=== PATIENT | female | born 1945 | race Caucasian/White ===

== ENCOUNTER 2016-12-23 10:54 | Inpatient (IN) | payer OTHER ==
[~2016-12-23] VITALS: Ht 157.5 cm; Wt 69.5 kg
[2016-12-23 11:12] VITALS: Ht 157.5 cm; Wt 69.5 kg
[2016-12-23] MEDS ORDERED: morphine 2 MG INJ IV STA (11:15)
[2016-12-23] MEDS ORDERED: SOD CHLORIDE 0.9% 1,000 ML IV STA (11:15)
[2016-12-23] MEDS ORDERED: ONDANSETRON 4 MG INJ IV STA (11:15)
[2016-12-23 12:16] LABS: BASOPHILS % 0.3 % (0.0-2.0); EOSINOPHILS # 0.1 10^3/ul (0.0-0.5); EOSINOPHILS % 0.8 % (0.0-7.0); HEMATOCRIT 26.4 % (37.0-47.0); HEMOGLOBIN 7.9 g/dl (12.0-16.0); LYMPHOCYTES # 1.5 10^3/ul (0.8-2.9); LYMPHOCYTES % 10.6 % (15.0-51.0); MEAN CORPUSCULAR HEMOGLOBIN 23.4 pg (29.0-33.0); MEAN CORPUSCULAR HGB CONC 29.9 g/dl (32.0-37.0); MEAN CORPUSCULAR VOLUME 78.1 fl (82.0-101.0); MEAN PLATELET VOLUME 9.9 fl (7.4-10.4); MONOCYTE # 0.8 10^3/ul (0.3-0.9); MONOCYTES % 5.5 % (0.0-11.0); NEUTROPHILS % 82.4 % (39.0-77.0); PLATELET COUNT 405 10^3/UL (140-415); RED BLOOD COUNT 3.38 10^6/ul (4.20-5.40); RED CELL DISTRIBUTION WIDTH 20.3 % (11.5-14.5); WHITE BLOOD COUNT 14.2 10^3/ul (4.8-10.8)
[2016-12-23 12:19] LABS: ALBUMIN 3.4 g/dl (3.3-4.9); ALBUMIN/GLOBULIN RATIO 0.79; BILIRUBIN,INDIRECT 0.3 mg/dl (0-1.1); BILIRUBIN,TOTAL 0.3 mg/dl (0.2-1.3); CALCIUM 11.6 mg/dl (8.4-10.2); CREATININE 1.67 mg/dl (0.44-1.00); POTASSIUM 5.3 mmol/L (3.5-5.1); TOTAL PROTEIN 7.7 g/dl (6.1-8.1)
[2016-12-23] MEDS ORDERED: SOD CHLORIDE 0.9% 1,000 ML IV ONE (12:30)
[2016-12-23 13:51] LABS: ADD UMIC YES; UR ASCORBIC ACID NEGATIVE (NEGATIVE); UR BACTERIA MODERATE /HPF (NONE SEEN); UR BILIRUBIN (Dip) 1+ mg/dL (NEGATIVE); UR BLOOD (Dip) 2+ mg/dL (NEGATIVE); UR CLARITY CLOUDY (CLEAR); UR COLOR AMBER (YELLOW); UR GLUCOSE (Dip) NEGATIVE (NEGATIVE); UR KETONES (Dip) NEGATIVE (NEGATIVE); UR LEUKOCYTE ESTERASE (Dip) 2+ Leu/ul (NEGATIVE); UR MUCUS MODERATE /HPF (NONE SEEN); UR NITRITE (Dip) NEGATIVE (NEGATIVE); UR RBC 3 /HPF (0-5); UR SPECIFIC GRAVITY (Dip) 1.016 (1.003-1.030); UR TOTAL PROTEIN (Dip) 1+ mg/dl (NEGATIVE); UR UROBILINOGEN (Dip) 2+ mg/dL (NEGATIVE); UR WBC CLUMPS MANY /HPF (NONE SEEN)
[2016-12-23] MEDS ORDERED: morphine 4 MG/ML VIAL IV STA (13:53)
[2016-12-23] MEDS ORDERED: CEFTRIAXONE 1 GM/50 ML (PMX) 50 ML IVPB ONE (14:30)
--- NOTE | 2016-12-23 15:11 | ERA ---
ER Documentation Chief Complaint Date/Time DATE: 12/23/16 TIME: 15:11 Chief Complaint Pt BIB RA for c/o suprapubic pain, uncertain of timeframe for pain. HPI This is a 71-year-old female with a past medical history of 2 previous C- sections, homelessness, otherwise on no medications who is presenting after being found down on the ground outside in pain. The patient is Turkmen- speaking only, and information was limited for paramedics prior to arrival. The patient is redirectable with persistence. She is oriented 3, but she is very distracted secondary to her significant abdominal pain. Her abdominal pain is focused mostly in the suprapubic region. It is sharp and stabbing. The patient states that it has been going on for a long time, but she cannot tell me how long exactly. She states that the pains been getting worse recently , but again does not endorse a specific timeframe. She endorses pain and difficulty with urination in addition to burning. She does not report fever or chills. She does not endorse a headache or vision changes. She does state that she has mouth pain in addition to nausea. She denies chest pain or trouble breathing. She did not endorse issues with bowel movements. ROS All systems reviewed and are negative except as per history of present illness. Medications Home Meds Unable to Obtain Active Prescriptions or Reported Meds Allergies Allergies: Coded Allergies: No Known Allergy (Unverified , 12/23/16) PMhx/Soc Medical and Surgical Hx: pt denies Medical Hx History of Surgery: Yes (C-sections) Hx Alcohol Use: No Hx Substance Use: No Hx Tobacco Use: No Smoking Status: Never smoker FmHx Family History: No diabetes Physical Exam Vitals Vital Signs Date Time Temp Pulse Resp B/P Pulse Ox O2 Delivery O2 Flow Rate FiO2 12/23/16 16:03 102 18 102/68 100 Room Air 12/23/16 14:25 106 18 100 Room Air 12/23/16 11:12 98.8 109 14 98/65 100 Physical Exam Const: And moderate distress secondary to pain, well-developed Head: Atraumatic Eyes: Normal Conjunctiva ENT: Normal External Ears, Nose and Mouth. Dry mucous membranes. Neck: Full range of motion. ~ No meningismus. Resp: Clear to auscultation bilaterally Cardio: Regular rhythm, tachycardia, no murmurs Abd: Soft, non distended. Significant suprapubic tenderness. Normal bowel sounds Skin: No petechiae or rashes Back: No midline or flank tenderness Ext: No cyanosis, or edema Neur: Awake, waxing and waning alertness, normal sensation, normal strength Psych: Anxious, agitated, and significant pain Result Diagram: 12/23/16 1150 12/23/16 1130 Results 24 hrs Laboratory Tests Test 12/23/16 11:30 12/23/16 11:50 12/23/16 12:30 12/23/16 13:02 Sodium Level 133mmol/L Potassium Level 5.3mmol/L Chloride Level 101mmol/L Carbon Dioxide Level 20mmol/L Anion Gap 17 Blood Urea Nitrogen 62mg/dl Creatinine 1.67mg/dl Glucose Level 111mg/dl Calcium Level 11.6mg/dl Total Bilirubin 0.3mg/dl Direct Bilirubin 0.00mg/dl Indirect Bilirubin 0.3mg/dl Aspartate Amino Transf (AST/SGOT) 34IU/L Alanine Aminotransferase (ALT/SGPT) 22IU/L Alkaline Phosphatase 143IU/L Total Protein 7.7g/dl Albumin 3.4g/dl Globulin 4.30g/dl Albumin/Globulin Ratio 0.79 Lipase 62U/L White Blood Count 14.210^3/ul Red Blood Count 3.3810^6/ul Hemoglobin 7.9g/dl Hematocrit 26.4% Mean Corpuscular Volume 78.1fl Mean Corpuscular Hemoglobin 23.4pg Mean Corpuscular Hemoglobin Concent 29.9g/dl Red Cell Distribution Width 20.3% Platelet Count 95112^3/UL Mean Platelet Volume 9.9fl Neutrophils % 82.4% Lymphocytes % 10.6% Monocytes % 5.5% Eosinophils % 0.8% Basophils % 0.3% Nucleated Red Blood Cells % 0.0/100WBC Neutrophils # (Manual) 11.710^3/ul Lymphocytes # 1.510^3/ul Monocytes # 0.810^3/ul Eosinophils # 0.110^3/ul Basophils # 0.010^3/ul Nucleated Red Blood Cells # 0.010^3/ul Lactic Acid Level 1.4mmol/L Ethyl Alcohol Level < 10.0mg/dl Urine Color ABIGAIL Urine Clarity CLOUDY Urine pH 5.0 Urine Specific [place] 1.016 Urine Ketones NEGATIVEmg/dL Urine Nitrite NEGATIVEmg/dL Urine Bilirubin 1+mg/dL Urine Urobilinogen 2+mg/dL Urine Leukocyte Esterase 2+January/ul Urine Microscopic RBC 3/HPF Urine Microscopic WBC 64/HPF Urine Bacteria MODERATE/HPF Urine Mucus MODERATE/HPF Urine Hemoglobin 2+mg/dL Urine Glucose NEGATIVEmg/dL Urine Total Protein 1+mg/dl Test 12/23/16 13:05 12/23/16 14:24 Urine Opiates Screen Positive Urine Barbiturates Negative Urine Amphetamines Screen Negative Urine Benzodiazepines Screen Negative Urine Cocaine Screen Negative Urine Cannabinoids Negative Lactic Acid Level 1.5mmol/L Current Medications Medications (Trade) Dose Ordered Sig/Jamey Route PRN Reason Start Time Stop Time Status Last Admin Dose Admin Sodium Chloride (NS) 1,000 ml @ 1,000 mls/hr Q1H STAT IV 12/23/16 11:15 12/23/16 12:14 DC 12/23/16 11:58 Morphine Sulfate (morphine) 2 mg ONCE STAT IV 12/23/16 11:15 12/23/16 11:17 DC 12/23/16 11:58 Ondansetron HCl 4 mg 4 mg ONCE STAT IV 12/23/16 11:15 12/23/16 11:17 DC 12/23/16 11:58 Sodium Chloride (NS) 1,000 ml @ 1,000 mls/hr Q1H ONCE IV 12/23/16 12:30 12/23/16 13:29 DC 12/23/16 12:34 Morphine Sulfate 4 mg 4 mg ONCE STAT IV 12/23/16 13:53 12/23/16 13:56 DC 12/23/16 14:18 Ceftriaxone Sodium (Rocephin) 50 ml @ 100 mls/hr ONCE ONCE IVPB 12/23/16 14:30 12/23/16 14:59 DC 12/23/16 14:19 Ondansetron HCl (Zofran Inj) 4 mg ER BRIDGE PRN IV NAUSEA AND/OR VOMITING 12/23/16 16:00 12/24/16 15:59 Acetaminophen (Tylenol Tab) 650 mg ER BRIDGE PRN PO MILD PAIN/FEVER 12/23/16 16:00 12/24/16 15:59 Procedures/MDM The patient presents with significant suprapubic pain. She does have clinical symptoms that could be consistent with a UTI. An abdominal workup will be performed. The patient was mildly hypotensive and tachycardic. There was consideration for sepsis as well. The patient's EKG showed sinus tachycardia. Intervals were unremarkable. There is no ST or T-wave changes concerning for STEMI. Patient's blood work was obtained and reviewed. The patient does have a leukocytosis at 14.2 with a left shift. She is not febrile, but I am concerned of a systemic infection. The patient is anemic with a hemoglobin of 7.9. This needs to be monitored closely, but does not require emergent transfusion. The patient's CMP indicates mild hyponatremia and hyperkalemia that does not need to be emergently treated. The patient does have an elevated BUN and creatinine. I do not have a baseline, so may indicate an TRISTEN. The patient's urinalysis demonstrates florid UTI. I am concerned about UTI sepsis at this point. That said, there are no signs of endorgan damage at this time. The patient's lactic acid is less than 2, at 1.4. Her creatinine is not over 2. Her platelet count is normal under 100. Her blood pressure was low, but her systolic was still above 90. I will treat with IV Rocephin at this time for UTI. She was tachycardic and mildly hypotensive. This improved with 2 L of IV fluid, which correlates with 30 mL/kg. I will send off blood cultures to evaluate for a systemic infection. A urine culture will also be sent off. Given that the difficulty of the patient's history and physical given her occasional inattentiveness, a CT of the head was performed that demonstrated the following: IMPRESSION: 1. No intracranial hemorrhage or acute intracranial abnormality. 2. Atherosclerotic calcification of the internal carotid and vertebral arteries. Electronically viewed and signed by Physician Moira on 12/23/2016 15:43 It also seemed like the patient's pain was out of proportion to her exam. A CT of the abdomen and pelvis was also obtained that demonstrated the following: IMPRESSION: 1. 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 Recommend clinical correlation for cervical carcinoma. 2. Large periaortic retroperitoneal lymphadenopathy, likely metastatic. Moderate metastatic lymphadenopathy along the mesenteric root and peripancreatic and arleen hepatis lymphadenopathy. There is also retrocrural metastatic lymphadenopathy. Moderate right iliac and mild left iliac lymphadenopathy, metastatic. 3. 2.5 cm x 2 cm right adrenal mass. 3 cm x 2.2 cm left adrenal mass. 4. 4.5 cm low-density mass in the right inferior liver, likely metastatic. 5. 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 Electronically viewed and signed by .Maik Addison MD, MD on 12/23/2016 16:02 She will also need to be evaluated by oncology likely given this concerning metastatic process. Gynecology will also be considered as it appears that her cancer may be gynecologic in nature. At this time, the patient will be admitted to the panel service for further evaluation and management. Dr. See accepted the patient at 3:14 PM on December 23, 2016. Departure Diagnosis: Primary Impression: UTI (urinary tract infection) Qualified Code: N39.0 - Urinary tract infection with hematuria, site unspecified Additional Impressions: SIRS (systemic inflammatory response syndrome) Metastatic disease Condition: Serious ERIS PANCHAL MD Dec 23, 2016 15:11
[2016-12-23 15:33] LABS: BARBITURATES Negative (NEGATIVE); BENZODIAZEPINES Negative (NEGATIVE); CANNABINOIDS Negative (NEGATIVE); COCAINE Negative (NEGATIVE); OPIATES Positive (NEGATIVE)
--- NOTE | 2016-12-23 15:44 | RADRPT ---
PROCEDURE: CT Brain without contrast. CLINICAL INDICATION: AMS TECHNIQUE: A multiplanar CT of the brain was performed on a CT scanner utilizing axial imaging fro m the skull base through the vertex without IV contrast. The CTDIvol is 44.11 mGy and the DLP is 72 0.23 mGycm. One or more of the following dose reduction techniques were utilized: Automated exposu re control, adjustment of the mA and/or kV according to patient size, use of iterative reconstructio n technique. COMPARISON: None FINDINGS: No evidence of intracranial hemorrhage or abnormal extra-axial fluid collection. The brain parenchyma is normal attenuation morphology with preservation of reis white differentiatio n and age appropriate size of the ventricles and subarachnoid spaces. Atherosclerotic calcification of the internal carotid and vertebral arteries. The basal cisterns, posterior fossa contents, brainstem, craniocervical junction, orbits, pituitary axis, paranasal sinuses, mastoid air cells, and calvarium are unremarkable. IMPRESSION: 1. No intracranial hemorrhage or acute intracranial abnormality. 2. Atherosclerotic calcification of the internal carotid and vertebral arteries. RPTAT:AAJJ Physician Moira Date Time Electronically viewed and signed by Physician Moira on 12/23/2016 15:43 TYLER/
[2016-12-23] MEDS ORDERED: ONDANSETRON 4 MG INJ IV PRN (16:00)
[2016-12-23] MEDS ORDERED: ACETAMINOPHEN 325 MG TAB PO PRN (16:00)
--- NOTE | 2016-12-23 16:02 | RADRPT ---
PROCEDURE: CT abdomen and pelvis without IV contrast. CLINICAL INDICATION: Abdomen pain. TECHNIQUE: CT scan of the abdomen and pelvis was performed on a [address] scanner. The patient is scanned without IV contrast. Coronal and sagittal reformatted images were obtained from the axia l source images. Images were reviewed on a high-resolution PACS workstation. Total radiation dose: Total CTDIvol: 8.3 mGy. Total DLP: 455 mGy-cm. One or more of the following d ose reduction techniques were used: automated exposure control, adjustment of the mA and/or kV accor ding to patient size, or use of iterative reconstruction technique. COMPARISON: None available. FINDINGS: CT abdomen: The lung bases are clear. The heart is not enlarged without pericardial thickening or effusion. There is 4.5 cm low-density mass in the right inferior liver.. The spleen is normal in size. The s tomach is partially collapsed but is grossly unremarkable. The pancreas as visualized is normal. The gallbladder is normal and there is no evidence of biliary dilatation. There is 2.5 cm x 2 cm right adrenal mass. There is 3 cm x 2.2 cm left adrenal mass. The kidneys a re symmetrically normal bilaterally. No renal obstructive uropathy or mass lesion is seen.. The aorta is normal in caliber. There is large periaortic retroperitoneal lymphadenopathy, likely m etastatic. There is moderate metastatic lymphadenopathy along the mesenteric root and peripancreatic and arleen hepatis lymphadenopathy. There is also retrocrural metastatic lymphadenopathy. The bowel loops are unremarkable. CT pelvis: There is large mass of the uterine cervix with necrosis. There is moderate right iliac lymphadenopa thy. There is mild left iliac lymphadenopathy. The small bowel loops situated within the pelvis are unremarkable. No acute inflammation seen. The urinary bladder is normal. The surrounding osseous structures are unremarkable. There is osteolytic metastatic lesion involvin g L2 and L1 vertebral bodies. IMPRESSION: 1. 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 Recommend clinical correlation for cervical carc inoma. 2. Large periaortic retroperitoneal lymphadenopathy, likely metastatic. Moderate metastatic lymphad enopathy along the mesenteric root and peripancreatic and arleen hepatis lymphadenopathy. There is al so retrocrural metastatic lymphadenopathy. Moderate right iliac and mild left iliac lymphadenopath y, metastatic. 3. 2.5 cm x 2 cm right adrenal mass. 3 cm x 2.2 cm left adrenal mass. 4. 4.5 cm low-density mass in the right inferior liver, likely metastatic. 5. 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 RPTAT: GG .Maik Addison MD, Date Time Electronically viewed and signed by .Maik Addison MD, on 12/23/2016 16:02 .Y/
[2016-12-23] MEDS: SOD CHLORIDE 0.9% 1,000 ML IV SCH ×2 (17:09→21:00)
[2016-12-23] MEDS ORDERED: NACL 0.9% 3 ML SYG IV SCH (17:30)
[2016-12-23] MEDS ORDERED: ACETAMINOPHEN 650 MG SUPP PR PRN (17:30)
--- NOTE | 2016-12-23 17:43 | HP ---
Date/Time of Note Date/Time of Note DATE: 12/23/16 TIME: 17:39 Assessment/Plan VTE Prophylaxis VTE Prophylaxis Intervention: SCD's Assessment/Plan Chief Complaint/Hosp Course Impression and plan 1. Suspect new onset cervical cancer with metastasis to lymph, adrenal, and liver. Will get gynecological oncologist as well as medical oncologist to follow. Provide with analgesics as needed. Follow-up with recommendations. 2. Sepsis UTI. Start antibiotics for now. Will get ID consult to follow as well. Follow-up on urine cultures. 3. Acute renal insufficiency. Likely dehydration. Will start IV fluids. Will also get front office administrator consultation. 5. Hyperkalemia. Monitor level. Provide with Kayexalate as needed. 6. Anemia. Likely of chronic disease. Follow-up on iron studies. Transfuse for hemoglobin less than 7. 7. Mild hyponatremia. Start IV fluids. Cosmetician Apprentice to follow. Admission process time >40 minutes Discussed plan of care with Dr. See Problems: HPI/ROS Admit Date/Time Admit Date/Time Hx of Present Illness This is a 71-year-old female who is a poor historian of her medical history came [facility] due to reports of pelvic pain as well as back pain. Patient at this time is unable to give us an accurate story of how long she has been having pain however when she was brought to [facility] she was noted to have pain on palpation of abdominal area more notably on the lower area towards her pelvis. She did have laboratory work drawn that did show her to have a white count of 14.2 hemoglobin of 7.9 hematocrit 26.4 and platelets of 405. On her chemistry she was seen at have sodium 133 potassium of five-point be some acute renal insufficiency with BUN of 62 and creatinine of 1.67. She is noted to be homeless as well. Urinalysis also showed her to have positive leukocyte esterase test suggestive of UTI. She did have abdominal imaging that did show her to have large mass in the uterine cervix with necrosis suspect for cervical carcinoma. Additionally there was seen large periaortic retroperitoneal lymphadenopathy, likely metastatic. There is also seen moderate metastatic lymphadenopathy along the mesenteric root and peripancreatic and arleen hepatis lymphadenopathy. There is also retrocrural metastatic lymphadenopathy and moderate right iliac and mild left iliac lymphadenopathy metastatic. Additionally there is also seen a 2.5 cm x 2.0 cm right adrenal mass and a 3 cm x 2.2 cm adrenal mass on the left side. 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 Patient has been complaining of a merely low back pain and considering her findings it is likely metastatic. She denies any pelvic pain but that she does guard on palpation. She remains afebrile at present. She is also reported to be homeless as well. We will evaluate her for the aformentiond issues. ROS 12 point review of systems obtained and entirely negative except that mentioned in the history of present illness PMH/Family/Social Past Medical History Medical/surgical history 1. Unknown at this time. Patient is a poor historian Social History Alcohol Use: none Smoking Status: Never smoker Drug Use: none Exam/Review of Systems Vital Signs Vitals Vital Signs Date Time Temp Pulse Resp B/P Pulse Ox O2 Delivery O2 Flow Rate FiO2 12/23/16 16:03 102 18 102/68 100 Room Air 12/23/16 11:12 98.8 Exam Constitutional: alert Psych: anxiety Head: normocephalic Neck: supple Respiratory: clear to auscultation Cardiovascular: other (Regular rate to tachycardic) Gastrointestinal: soft, tender Musculoskeletal: swelling (Minimally bilateral lower extremities) Neurological: nl mental status, nl speech Labs Result Diagram: 12/23/16 1150 12/23/16 1130 Medications Medications Current Medications Sodium Chloride (NS) 1,000 ml @ 80 mls/hr [id number] IV ; Start 12/23/16 at 17:09 Ondansetron HCl (Zofran Inj) 4 mg Q6H PRN IV NAUSEA AND/OR VOMITING; Start 02/28 at 17:30 Acetaminophen (Tylenol Tab) 650 mg Q6H PRN PO PAIN LEVEL 1-3 OR FEVER; Start at 17:30 Acetaminophen (Tylenol Supp) 650 mg Q6H PRN [place] PAIN LEVEL 1-3 OR FEVER; Start 12/23/16 at 17:30 Acetaminophen/ Hydrocodone Bitart ([place] (5/325)) 1 tab Q6H PRN PO MODERATE PAIN LEVEL 4-6; Start 12/23/16 at 17:30 Morphine Sulfate 2 mg 2 mg Q4H PRN IV SEVERE PAIN LEVEL 7-10; Start 12/23/16 at 17:30 Ceftriaxone Sodium (Rocephin) 50 ml @ 100 mls/hr DAILY IVPB ; Start 12/24/16 at 09:00 RACIEL CAIN Dec 23, 2016 17:43
--- NOTE | 2016-12-23 18:56 | CONS ---
Date/Time of Note Date/Time of Note DATE: 12/23/16 TIME: 18:45 Assessment/Plan Assessment/Plan Chief Complaint/Hosp Course Large mass of the uterine cervix with necrosis. R/O cervical carcinoma. Large periaortic retroperitoneal lymphadenopathy, likely metastatic. Moderate metastatic lymphadenopathy along the mesenteric root and peripancreatic and arleen hepatis lymphadenopathy. There is also retrocrural metastatic lymphadenopathy. Moderate right iliac and mild left iliac lymphadenopathy, metastatic. 2.5 cm x 2 cm right adrenal mass. 3 cm x 2.2 cm left adrenal mass. 4.5 cm low-density mass in the right inferior liver, likely metastatic. 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 CHECK CA 125 BX MASS Anemia. MICROCYTIC WITH INCREASED RDW PROCEED WITH ANEMIA W-UP CHECK iron studies. Transfuse for hemoglobin less than 7. Sepsis UTI. Acute renal insufficiency. Hyperkalemia. Mild hyponatremia. Problems: Consultation Date/Type/Reason Admit Date/Time Date of Consultation: Dec 23, 2016 Type of Consultation: HEMEONC Reason for Consultation OVARIAN MASS Referring Provider: RACIEL CAIN Hx of Present Illness This is a 71-year-old female with a past medical history of 2 previous C- sections, homelessness, otherwise on no medications who is presenting after being found down on the ground outside in pain. The patient is Italian-speaking only, and information was limited for paramedics prior to arrival. She is oriented 3, but she is very distracted secondary to her significant abdominal pain. Her abdominal pain is focused mostly in the suprapubic region. It is sharp and stabbing. The patient states that it has been going on for a long time, but she cannot tell me how long exactly. She states that the pains been getting worse recently, but again does not endorse a specific timeframe. She endorses pain and difficulty with urination in addition to burning. She does not report fever or chills. She does not endorse a headache or vision changes. She does state that she has mouth pain in addition to nausea. She denies chest pain or trouble breathing. She did not endorse issues with bowel movements. She did have abdominal imaging that did show her to have large mass in the uterine cervix with necrosis suspect for cervical carcinoma. Additionally there was seen large periaortic retroperitoneal lymphadenopathy, likely metastatic. There is also seen moderate metastatic lymphadenopathy along the mesenteric root and peripancreatic and arleen hepatis lymphadenopathy. There is also retrocrural metastatic lymphadenopathy and moderate right iliac and mild left iliac lymphadenopathy metastatic. Additionally there is also seen a 2.5 cm x 2.0 cm right adrenal mass and a 3 cm x 2.2 cm adrenal mass on the left side. 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 Patient has been complaining of a merely low back pain and considering her findings it is likely metastatic. I WS ASKED TO PROVIDE HEMEONC CONSULT ROS All systems reviewed and are negative except as per history of present illness. Medications Home Meds Unable to Obtain Active Prescriptions or Reported Meds Allergies Allergies: Coded Allergies: No Known Allergy (Unverified , 12/23/16) PMhx/Soc Medical and Surgical Hx: pt denies Medical Hx History of Surgery: Yes (C-sections) Hx Alcohol Use: No Hx Substance Use: No Hx Tobacco Use: No Smoking Status: Never smoker FmHx Family History: No diabetes Psychological: anxiety Social History Alcohol Use: none Smoking Status: Never smoker Drug Use: none Exam/Review of Systems Vital Signs Vitals Vital Signs Date Time Temp Pulse Resp B/P Pulse Ox O2 Delivery O2 Flow Rate FiO2 12/23/16 18:01 95 18 98/68 100 Room Air 12/23/16 11:12 98.8 Exam Constitutional: alert Psych: anxiety Head: normocephalic Neck: supple Respiratory: clear to auscultation Cardiovascular: other (Regular rate to tachycardic) Gastrointestinal: soft, tender Musculoskeletal: swelling (Minimally bilateral lower extremities) Neurological: nl mental status, nl speech Results Result Diagram: 12/23/16 1150 12/23/16 1130 Results 24 hrs Laboratory Tests Test 12/23/16 11:30 12/23/16 11:50 12/23/16 12:30 12/23/16 13:02 Sodium Level 133 L Potassium Level 5.3 H Chloride Level 101 Carbon Dioxide Level 20 L Anion Gap 17 H Blood Urea Nitrogen 62 H Creatinine 1.67 H Glucose Level 111 Calcium Level 11.6 H Total Bilirubin 0.3 Direct Bilirubin 0.00 Indirect Bilirubin 0.3 Aspartate Amino Transf (AST/SGOT) 34 Alanine Aminotransferase (ALT/SGPT) 22 Alkaline Phosphatase 143 H Total Protein 7.7 Albumin 3.4 Globulin 4.30 H Albumin/Globulin Ratio 0.79 Lipase 62 White Blood Count 14.2 H Red Blood Count 3.38 L Hemoglobin 7.9 L Hematocrit 26.4 L Mean Corpuscular Volume 78.1 L Mean Corpuscular Hemoglobin 23.4 L Mean Corpuscular Hemoglobin Concent 29.9 L Red Cell Distribution Width 20.3 H Platelet Count 405 Mean Platelet Volume 9.9 Neutrophils % 82.4 H Lymphocytes % 10.6 L Monocytes % 5.5 Eosinophils % 0.8 Basophils % 0.3 Nucleated Red Blood Cells % 0.0 Neutrophils # (Manual) 11.7 H Lymphocytes # 1.5 Monocytes # 0.8 Eosinophils # 0.1 Basophils # 0.0 Nucleated Red Blood Cells # 0.0 Lactic Acid Level 1.4 Ethyl Alcohol Level < 10.0 Urine Color ABIGAIL Urine Clarity CLOUDY A Urine pH 5.0 Urine Specific [place] 1.016 Urine Ketones NEGATIVE Urine Nitrite NEGATIVE Urine Bilirubin 1+ H Urine Urobilinogen 2+ H Urine Leukocyte Esterase 2+ H Urine Microscopic RBC 3 Urine Microscopic WBC 64 H Urine Bacteria MODERATE Urine Mucus MODERATE Urine Hemoglobin 2+ H Urine Glucose NEGATIVE Urine Total Protein 1+ H Test 12/23/16 13:05 12/23/16 14:24 12/23/16 16:30 Urine Opiates Screen Positive Urine Barbiturates Negative Urine Amphetamines Screen Negative Urine Benzodiazepines Screen Negative Urine Cocaine Screen Negative Urine Cannabinoids Negative Lactic Acid Level 1.5 1.4 Medications Medications Current Medications Sodium Chloride (NS) 1,000 ml @ 80 mls/hr [id number] IV ; Start 12/23/16 at 17:09 Ondansetron HCl (Zofran Inj) 4 mg Q6H PRN IV NAUSEA AND/OR VOMITING; Start 02/28 at 17:30 Acetaminophen (Tylenol Tab) 650 mg Q6H PRN PO PAIN LEVEL 1-3 OR FEVER; Start at 17:30 Acetaminophen (Tylenol Supp) 650 mg Q6H PRN IN PAIN LEVEL 1-3 OR FEVER; Start 12/23/16 at 17:30 Acetaminophen/ Hydrocodone Bitart ([place] (5/325)) 1 tab Q6H PRN PO MODERATE PAIN LEVEL 4-6; Start 12/23/16 at 17:30 Morphine Sulfate 2 mg 2 mg Q4H PRN IV SEVERE PAIN LEVEL 7-10; Start 12/23/16 at 17:30 Ceftriaxone Sodium (Rocephin) 50 ml @ 100 mls/hr DAILY IVPB ; Start 12/24/16 at 09:00 Procedures Procedures [place] [address] Radiology Main Line: [phone] DIAGNOSTIC IMAGING REPORT Patient: LISA SOL : 1945 Age: 71 Sex: F MR #: [id number] DOS: 12/23/16 1353 Ordering MD: ERIS PANCHAL MD Location: E/R Room/Bed: PROCEDURE: CT abdomen and pelvis without IV contrast. CLINICAL INDICATION: Abdomen pain. TECHNIQUE: CT scan of the abdomen and pelvis was performed on a [address] scanner. The patient is scanned without IV contrast. Coronal and sagittal reformatted images were obtained from the axial source images. Images were reviewed on a high-resolution PACS workstation. Total radiation dose: Total CTDIvol: 8.3 mGy. Total DLP: 455 mGy-cm. One or more of the following dose reduction techniques were used: automated exposure control, adjustment of the mA and/or kV according to patient size, or use of iterative reconstruction technique. COMPARISON: None available. FINDINGS: CT abdomen: The lung bases are clear. The heart is not enlarged without pericardial thickening or effusion. There is 4.5 cm low-density mass in the right inferior liver.. The spleen is normal in size. The stomach is partially collapsed but is grossly unremarkable. The pancreas as visualized is normal. The gallbladder is normal and there is no evidence of biliary dilatation. There is 2.5 cm x 2 cm right adrenal mass. There is 3 cm x 2.2 cm left adrenal mass. The kidneys are symmetrically normal bilaterally. No renal obstructive uropathy or mass lesion is seen.. The aorta is normal in caliber. There is large periaortic retroperitoneal lymphadenopathy, likely metastatic. There is moderate metastatic lymphadenopathy along the mesenteric root and peripancreatic and arleen hepatis lymphadenopathy. There is also retrocrural metastatic lymphadenopathy. The bowel loops are unremarkable. CT pelvis: There is large mass of the uterine cervix with necrosis. There is moderate right iliac lymphadenopathy. There is mild left iliac lymphadenopathy. The small bowel loops situated within the pelvis are unremarkable. No acute inflammation seen. The urinary bladder is normal. The surrounding osseous structures are unremarkable. There is osteolytic metastatic lesion involving L2 and L1 vertebral bodies. IMPRESSION: 1. 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 Recommend clinical correlation for cervical carcinoma. 2. Large periaortic retroperitoneal lymphadenopathy, likely metastatic. Moderate metastatic lymphadenopathy along the mesenteric root and peripancreatic and arleen hepatis lymphadenopathy. There is also retrocrural metastatic lymphadenopathy. Moderate right iliac and mild left iliac lymphadenopathy, metastatic. 3. 2.5 cm x 2 cm right adrenal mass. 3 cm x 2.2 cm left adrenal mass. 4. 4.5 cm low-density mass in the right inferior liver, likely metastatic. 5. 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 RPTAT: GG .Maik Addison MD, Date Time Electronically viewed and signed by .Maik Addison MD, MD on 12/23/2016 16:02 .Y/ CC: ERIS PANCHAL MD [place] [address] Radiology Main Line: [phone] DIAGNOSTIC IMAGING REPORT Patient: LISA SOL : 1945 Age: 71 Sex: F MR #: [id number] DOS: 12/23/16 [facility]3 Ordering MD: ERIS PANCHAL MD Location: E/R Room/Bed: PROCEDURE: CT Brain without contrast. CLINICAL INDICATION: AMS TECHNIQUE: A multiplanar CT of the brain was performed on a CT scanner utilizing axial imaging from the skull base through the vertex without IV contrast. The CTDIvol is 44.11 mGy and the DLP is 720.23 mGycm. One or more of the following dose reduction techniques were utilized: Automated exposure control, adjustment of the mA and/or kV according to patient size, use of iterative reconstruction technique. COMPARISON: None FINDINGS: No evidence of intracranial hemorrhage or abnormal extra-axial fluid collection. The brain parenchyma is normal attenuation morphology with preservation of reis white differentiation and age appropriate size of the ventricles and subarachnoid spaces. Atherosclerotic calcification of the internal carotid and vertebral arteries. The basal cisterns, posterior fossa contents, brainstem, craniocervical junction , orbits, pituitary axis, paranasal sinuses, mastoid air cells, and calvarium are unremarkable. IMPRESSION: 1. No intracranial hemorrhage or acute intracranial abnormality. 2. Atherosclerotic calcification of the internal carotid and vertebral arteries. RPTAT:AAJJ Physician Moira Date Time Electronically viewed and signed by Physician Moira on 12/23/2016 15:43 TYLER/ CC: ERIS PANCHAL MD, VERA M MD Dec 23, 2016 18:56
[2016-12-23 19:22] VITALS: PULSE 95
[2016-12-23 19:41] VITALS: BP 104/58; RESP 19
[2016-12-23] MEDS ORDERED: NA POLYST SULFON 15 GM/60 ML BTL PO ONE (20:00)
[2016-12-23 20:02] VITALS: PULSE 95
[2016-12-23 20:24] LABS: RETICULOCYTE COUNT % 1.7 % (0.5-1.5)
[2016-12-23 20:32] LABS: CALCIUM 11.5 mg/dl (8.4-10.2); CREATININE 1.5 mg/dl (0.44-1.00); POTASSIUM 4.1 mmol/L (3.5-5.1)
[2016-12-23 20:34] LABS: URIC ACID 15.9 mg/dl (3.1-7.9)
[2016-12-23 20:35] LABS: IRON 29 ug/dl (35-150)
[2016-12-23 20:36] LABS: AADO2 Arterial 21.1 mmHg (7.0-24.0); Arterial Base Excess -3.6 mmol/L (-3.0-3); Arterial COHb 0.5 % (0.0-3.0); Arterial Fraction of Oxyhgb 95.5 % (93.0-99.0); Arterial HCO3 20.9 mmol/L (22.0-26.0); Arterial MetHb 0.1 % (0.0-1.5); Arterial Total Hemglobin 8.7 g/dl (12.0-18.0); MODE ROOM AIR
[2016-12-23 20:44] LABS: TOTAL IRON BINDING CAPACITY 229 ug/dl (241-421)
[2016-12-23 20:45] LABS: PROTEIN/CREAT RATIO 0.16 RATIO
[2016-12-23 20:56] LABS: MAGNESIUM 2.3 mg/dl (1.7-2.5); PHOSPHORUS 3.9 mg/dl (2.5-4.9)
[2016-12-23 21:06] LABS: THYROID STIMULATING HORMONE 3.58 MIU/L (0.465-4.680)
[2016-12-23] MEDS: morphine 2 MG INJ IV PRN (21:15)
[2016-12-23 22:05] LABS: CARCINOEMBRYONIC ANTIGEN 14.7 ng/ml (0.0-5.0)
[2016-12-23 23:30] VITALS: BP 108/58; RESP 19
[2016-12-24] VITALS (11 sets, daily range): BP systolic 94–111; BP diastolic 51–65; PULSE 95–120; RESP 18–19
--- NOTE | 2016-12-24 04:05 | CONS ---
DATE OF ADMISSION: 12/23/2016 DATE OF CONSULTATION: 12/23/2016 Thank you very much for allowing me to evaluate this 71-year-old female, evaluated at [facility] Emergency Room with a chief complaint of lower abdominal pain and back pain of approximately 1 month's duration and evidence of renal insufficiency. HISTORICAL EVENTS: As best as I can glean, the patient is a poor historian. She states she has no ongoing medical problems, including the absence of diabetes, hypertension, or heart disease. She states she has had low back pain and lower abdominal pain, perhaps 1 month's duration. She states she has not lost weight. She denies any diarrhea or vomiting. She denies cough, wheezing, shortness of breath or chest pain. MEDS ON ADMISSION: None. PAST MEDICAL HISTORY: As noted above. FAMILY HISTORY: Hopefully will be obtained from a family member later. PHYSICAL EXAM: VITAL SIGNS: BP 102/68, pulse 100, respirations 18, and O2 sat 100 percent on room air. NECK: No JVD, adenopathy, or thyroid enlargement. BREASTS: No masses. LUNGS: Clear. HEART: Rhythm regular, 1/6 systolic murmur. No third or fourth sound. ABDOMEN: Slight distention. Tenderness involving the suprapubic and left and right lower quadrant. No palpable mass. Liver and spleen were not enlarged. EXTREMITIES: No edema. No definite calf tenderness. NEUROLOGIC: No lateralizing motor weakness, and mental status confused with respect to recent events. LABORATORY AND DIAGNOSTIC STUDIES: Sodium 133, potassium 5.3, chloride 101, CO2 20, BUN 62, creatinine 1.67, calcium 11.6, hematocrit 26.4, white count 14,200, platelet count normal. Urinalysis revealed 1+ blood, specific gravity 1.016. Many white cells were present, as were bacteria. IMAGING STUDIES: Included a CT of the brain that was unrevealing and, more importantly, CT of the abdomen that revealed a large mass in the uterine cervix with necrosis with retroperitoneal adenopathy, adrenal masses bilaterally, and a low-density mass within the liver thought metastatic, osteolytic metastatic lesions L2 through L1. IMPRESSION: 1. I suspect she has underlying acute renal insufficiency secondary to volume contraction, as well as hypercalcemia. The CT scan does not reveal upper tract obstruction. 2. Anemia secondary to malignancy and likely bone marrow involvement. 3. Hyponatremia, mild, secondary to renal insufficiency and continued water intake. 4. Mild hyperkalemia, probably secondary to tissue catabolism. 5. Hypercalcemia, secondary to metastatic disease. PLAN: Agree with your hydration with normal saline. Urinary sodium will be obtained to sense whether there is an ongoing severe prerenal component along with a blood gas to assess acid- base status given CO2 of 22. We will follow with you. Dictated By: Allen West MD /rambo/michelle /Document#: [id number]
[2016-12-24] MEDS: SOD CHLORIDE 0.9% 1,000 ML IV SCH (05:39)
[2016-12-24 06:54] LABS: ABNORMAL IP MESSAGE 1; BASOPHILS % 0.2 % (0.0-2.0); EOSINOPHILS # 0.1 10^3/ul (0.0-0.5); EOSINOPHILS % 0.9 % (0.0-7.0); HEMATOCRIT 28.4 % (37.0-47.0); HEMOGLOBIN 8.1 g/dl (12.0-16.0); LYMPHOCYTES # 1.3 10^3/ul (0.8-2.9); MEAN CORPUSCULAR HEMOGLOBIN 22.7 pg (29.0-33.0); MEAN CORPUSCULAR HGB CONC 28.5 g/dl (32.0-37.0); MEAN CORPUSCULAR VOLUME 79.6 fl (82.0-101.0); MONOCYTE # 0.9 10^3/ul (0.3-0.9); MONOCYTES % 5.5 % (0.0-11.0); NEUTROPHILS % 84.9 % (39.0-77.0); PLATELET COUNT 384 10^3/UL (140-415); RED BLOOD COUNT 3.57 10^6/ul (4.20-5.40); RED CELL DISTRIBUTION WIDTH 20.7 % (11.5-14.5); WHITE BLOOD COUNT 15.6 10^3/ul (4.8-10.8)
[2016-12-24 06:56] LABS: POSITIVE DIFF @See below
[2016-12-24 07:20] LABS: ALBUMIN 2.8 g/dl (3.3-4.9); ALBUMIN/GLOBULIN RATIO 0.7; BILIRUBIN,INDIRECT 0.2 mg/dl (0-1.1); BILIRUBIN,TOTAL 0.2 mg/dl (0.2-1.3); CALCIUM 11.2 mg/dl (8.4-10.2); CHOL/HDL RATIO 5.8 RATIO; CREATININE 1.26 mg/dl (0.44-1.00); MAGNESIUM 2.2 mg/dl (1.7-2.5); POTASSIUM 4.6 mmol/L (3.5-5.1); TOTAL PROTEIN 6.8 g/dl (6.1-8.1)
[2016-12-24 07:22] LABS: CALCIUM 11.2 mg/dl (8.4-10.2); CREATININE 1.33 mg/dl (0.44-1.00); POTASSIUM 4.3 mmol/L (3.5-5.1)
[2016-12-24 07:35] LABS: T3 UPTAKE 40.6 % (23.5-40.5)
[2016-12-24 07:49] LABS: THYROID STIMULATING HORMONE 2.28 MIU/L (0.465-4.680)
--- NOTE | 2016-12-24 08:44 | CONS ---
Date/Time of Note Date/Time of Note DATE: 12/24/16 TIME: 08:41 Assessment/Plan Assessment/Plan Additional Assessment/Plan 1. Renal fx has improved with hydration 2. Hypercalcemia unchanged, will give pamidronate 3. Heme eval noted, ? bx 4. Abnl extrem exam, NIVVS ordered. Consultation Date/Type/Reason Admit Date/Time Dec 23, 2016 at 19:24 Initial Consult Date 12/23/16 Type of Consultation: [facility] Referring Provider: RACIEL CAIN Detailed Summary Cardiovascular: No chest pain Gastrointestinal: other (lower abd pain) Genitourinary: other (malik in place) Exam/Review of Systems Vital Signs Vitals Vital Signs Date Time Temp Pulse Resp B/P Pulse Ox O2 Delivery O2 Flow Rate FiO2 12/24/16 04:02 95 12/24/16 03:48 98.1 19 111/60 97 12/23/16 18:45 Room Air Intake and Output 12/23/16 12/23/16 12/24/16 15:00 23:00 07:00 Intake Total 1260 ml Output Total 450 ml Balance 810 ml Exam Neck: No jvd Respiratory: clear to auscultation Cardiovascular: regular rate and rhythm Gastrointestinal: distended (mild, sl tender lower quad bilat) Extremities: edema (? tend left calf which is firm) Results Result Diagram: 12/24/16 0621 12/24/16 0624 Results 24 hrs Laboratory Tests Test 12/23/16 11:30 12/23/16 11:50 12/23/16 12:30 12/23/16 13:02 Sodium Level 133 L Potassium Level 5.3 H Chloride Level 101 Carbon Dioxide Level 20 L Anion Gap 17 H Blood Urea Nitrogen 62 H Creatinine 1.67 H Glucose Level 111 Calcium Level 11.6 H Total Bilirubin 0.3 Direct Bilirubin 0.00 Indirect Bilirubin 0.3 Aspartate Amino Transf (AST/SGOT) 34 Alanine Aminotransferase (ALT/SGPT) 22 Alkaline Phosphatase 143 H Total Protein 7.7 Albumin 3.4 Globulin 4.30 H Albumin/Globulin Ratio 0.79 Lipase 62 White Blood Count 14.2 H Red Blood Count 3.38 L Hemoglobin 7.9 L Hematocrit 26.4 L Mean Corpuscular Volume 78.1 L Mean Corpuscular Hemoglobin 23.4 L Mean Corpuscular Hemoglobin Concent 29.9 L Red Cell Distribution Width 20.3 H Platelet Count 405 Mean Platelet Volume 9.9 Neutrophils % 82.4 H Lymphocytes % 10.6 L Monocytes % 5.5 Eosinophils % 0.8 Basophils % 0.3 Nucleated Red Blood Cells % 0.0 Neutrophils # (Manual) 11.7 H Lymphocytes # 1.5 Monocytes # 0.8 Eosinophils # 0.1 Basophils # 0.0 Nucleated Red Blood Cells # 0.0 Lactic Acid Level 1.4 Ethyl Alcohol Level < 10.0 Urine Color ABIGAIL Urine Clarity CLOUDY A Urine pH 5.0 Urine Specific [place] 1.016 Urine Ketones NEGATIVE Urine Nitrite NEGATIVE Urine Bilirubin 1+ H Urine Urobilinogen 2+ H Urine Leukocyte Esterase 2+ H Urine Microscopic RBC 3 Urine Microscopic WBC 64 H Urine Bacteria MODERATE Urine Mucus MODERATE Urine Hemoglobin 2+ H Urine Random Creatinine 227.00 Urine Random Sodium 18 L Urine Protein/Creatinine Ratio 0.16 Urine Glucose NEGATIVE Urine Total Protein 37.0 H Test 12/23/16 13:05 12/23/16 14:24 12/23/16 16:30 12/23/16 18:00 Urine Opiates Screen Positive Urine Barbiturates Negative Urine Amphetamines Screen Negative Urine Benzodiazepines Screen Negative Urine Cocaine Screen Negative Urine Cannabinoids Negative Lactic Acid Level 1.5 1.4 Blood Gas Specimen Source Blood arterial Arterial Blood Date Drawn 12/23/2016 8:30:46 PM Arterial Blood pH (Temp corrected) 7.391 Arterial Blood pCO2 (Temp correct) 35.2 Arterial Blood pO2 (Temp corrected) 86.5 Arterial Blood HCO3 20.9 L Arterial Blood Base Excess -3.6 L Arterial Blood Oxygen Saturation 96.1 Mika Test N/A Arterial Blood Gas Puncture Site Right Brachial Arterial Blood Carboxyhemoglobin 0.5 Arterial Blood Methemoglobin 0.1 Blood Gas A-a O2 Differential 21.1 Oxyhemoglobin Percent 95.5 Total Hemoglobin 8.7 L Blood Gas Temperature 37.0 Blood Gas Modality ROOM AIR FiO2 21.0 Blood Gas Notified Whom MG Blood Gas Notified Time 12/23/2016 8:36:18 PM Test 12/23/16 19:30 12/24/16 06:21 12/24/16 06:24 Erythrocyte Sedimentation Rate 87 H Absolute Reticulocyte Count 0.060 Percent Reticulocyte Count 1.7 H Sodium Level 135 137 136 Potassium Level 4.1 4.3 4.6 Chloride Level 102 106 105 Carbon Dioxide Level 21 21 22 Anion Gap 16 14 14 Blood Urea Nitrogen 59 H 56 H 58 H Creatinine 1.50 H 1.33 H 1.26 H Glucose Level 105 87 84 Uric Acid 15.9 H Calcium Level 11.5 H 11.2 H 11.2 H Phosphorus Level 3.9 Magnesium Level 2.3 2.2 Iron Level 29 L Total Iron Binding Capacity 229 L Percent Iron Saturation 13 L Ferritin 260.0 Lactate Dehydrogenase 1239 H Carcinoembryonic Antigen 14.7 H CA 125 Antigen 959.0 H Vitamin B12 Level 547 Folate Pending Thyroid Stimulating Hormone (TSH) 3.580 2.280 White Blood Count 15.6 H Red Blood Count 3.57 L Hemoglobin 8.1 L Hematocrit 28.4 L Mean Corpuscular Volume 79.6 L Mean Corpuscular Hemoglobin 22.7 L Mean Corpuscular Hemoglobin Concent 28.5 L Red Cell Distribution Width 20.7 H Platelet Count 384 Mean Platelet Volume 10.0 Neutrophils % 84.9 H Lymphocytes % 8.0 L Monocytes % 5.5 Eosinophils % 0.9 Basophils % 0.2 Nucleated Red Blood Cells % 0.0 Neutrophils # (Manual) 13.2 H Lymphocytes # 1.3 Monocytes # 0.9 Eosinophils # 0.1 Basophils # 0.0 Nucleated Red Blood Cells # 0.0 Hemoglobin A1c 5.7 Total Bilirubin 0.2 Direct Bilirubin 0.00 Indirect Bilirubin 0.2 Aspartate Amino Transf (AST/SGOT) 51 H Alanine Aminotransferase (ALT/SGPT) 23 Alkaline Phosphatase 162 H Total Protein 6.8 Albumin 2.8 L Globulin 4.00 H Albumin/Globulin Ratio 0.70 Triglycerides Level 161 H Cholesterol Level 176 LDL Cholesterol, Calculated 114 HDL Cholesterol 30 L Cholesterol/HDL Ratio 5.8 Free Thyroxine Index 2.88 Thyroxine (T4) 7.1 Triiodothyronine (T3) Uptake 40.6 H Medications Medications Current Medications Sodium Chloride (NS) 1,000 ml @ 80 mls/hr [id number] IV Last administered on 12/23t 21:00; Admin Dose 80 MLS/HR; Start 12/23/16 at 17:09 Ondansetron HCl (Zofran Inj) 4 mg Q6H PRN IV NAUSEA AND/OR VOMITING; Start 02/28 at 17:30 Acetaminophen (Tylenol Tab) 650 mg Q6H PRN PO PAIN LEVEL 1-3 OR FEVER; Start at 17:30 Acetaminophen (Tylenol Supp) 650 mg Q6H PRN [place] PAIN LEVEL 1-3 OR FEVER; Start 12/23/16 at 17:30 Acetaminophen/ Hydrocodone Bitart ([place] (5/325)) 1 tab Q6H PRN PO MODERATE PAIN LEVEL 4-6; Start 12/23/16 at 17:30 Morphine Sulfate 2 mg 2 mg Q4H PRN IV SEVERE PAIN LEVEL 7-10 Last administered on 12/23/16t 21:15; Admin Dose 2 MG; Start 12/23/16 at 17:30 Ceftriaxone Sodium (Rocephin) 50 ml @ 100 mls/hr DAILY IVPB ; Start 12/24/16 at 09:00 DANIEL SOL MD Dec 24, 2016 08:44
[2016-12-24] MEDS ORDERED: PAMIDRONATE 60 MG in SOD CHLORIDE 0.9% 500 ML IV ONE (10:00)
[2016-12-24] MEDS: CEFTRIAXONE 2 GM/50 ML (PMX) 50 ML IVPB SCH (10:08)
--- NOTE | 2016-12-24 10:43 | RADRPT ---
PROCEDURE: US bilateral lower extremity veins. CLINICAL INDICATION: Bilateral leg pain and swelling. TECHNIQUE: Multiple longitudinal and transverse images of the bilateral lower extremity veins were obtained with reis scale and color Doppler imaging. The common femoral vein, femoral vein, and popl iteal vein were evaluated. 2D grayscale measurements with compression sonography, color Doppler, and pulsed Doppler with augmentation. COMPARISON: No prior studies are available for comparison. FINDINGS: The bilateral common femoral, femoral and popliteal veins are abnormal with lack of flow and lack of compressible throughout. IMPRESSION: 1. Extensive deep venous thrombosis involving the right and left common femoral vein, right and lef t femoral vein, right and left popliteal vein. RPTAT: QQ .Adonay Diallo MD, MD Date Time Electronically viewed and signed by .Adonay Diallo MD, on 12/24/2016 10:42 .R/
[2016-12-24] MEDS ORDERED: ENOXAPARIN 80 MG/0.8 ML SYG SC SCH (11:30)
[2016-12-24] MEDS ORDERED: HEPARIN 1000 UNITS/ML 10 ML INJ IV ONE (15:00)
[2016-12-24] MEDS ORDERED: HEPARIN 25000 UNITS/250 ML 250 ML IV SCH (15:00)
[2016-12-24] MEDS ORDERED: HEPARIN 1000 UNITS/ML 10 ML INJ IV PRN ×2 (15:00)
--- NOTE | 2016-12-24 15:02 | PN ---
Date/Time of Note Date/Time of Note DATE: 12/24/16 TIME: 14:53 Assessment/Plan VTE Prophylaxis VTE Prophylaxis Intervention: heparin Lines/Catheters IV Catheter Type (from Nrs): Peripheral IV Urinary Cath still in place: Yes Reason Cath still needed: other (indicate) (monitor I&O) Assessment/Plan Chief Complaint/Hosp Course Impression and plan 1. Suspect new onset cervical cancer with metastasis to lymph, adrenal, and liver. Oncologist following. Tentative plan for biopsy.. Provide with analgesics as needed. Follow-up with recommendations 2. Sepsis UTI. Start antibiotics for now. Awaiting urine cultures. Continue on antibiotics. Awaiting ID consultation 3. Acute renal insufficiency. Medications to be renally dosed. Nephrology is following. 5. Hyperkalemia. Monitor level. Provide with Kayexalate as needed. 6. Anemia. Noted with iron deficiency. Start on iron supplement at this time. 7. Mild hyponatremia. Start IV fluids. Brass Roller to follow. 8.DVT of right and left common femoral vein as well as right and left popliteal vein. Vascular surgeon following. Plan for anticoagulation. Disposition and plan: Still with reported lower back pain. Follow-up on imaging. Plan for for anticoagulation for DVT. Analgesics as needed. Will get palliative care physician to follow. Discussed plan of care with Dr. See Problems: Subjective 24 Hr Interval Summary Free Text/Dictation Patient reports having some back pain but little less at this time. 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, nl mental status, nl speech Skin: nl turgor Results Result Diagram: 12/24/1662012/24/16 0624 Results 24 hrs Laboratory Tests Test 12/23/16 16:30 12/23/16 18:00 12/23/16 19:30 12/24/16 06:21 Lactic Acid Level 1.4 Blood Gas Specimen Source Blood arterial Arterial Blood Date Drawn 12/23/2016 8:30:46 PM Arterial Blood pH (Temp corrected) 7.391 Arterial Blood pCO2 (Temp correct) 35.2 Arterial Blood pO2 (Temp corrected) 86.5 Arterial Blood HCO3 20.9 L Arterial Blood Base Excess -3.6 L Arterial Blood Oxygen Saturation 96.1 Mika Test N/A Arterial Blood Gas Puncture Site Right Brachial Arterial Blood Carboxyhemoglobin 0.5 Arterial Blood Methemoglobin 0.1 Blood Gas A-a O2 Differential 21.1 Oxyhemoglobin Percent 95.5 Total Hemoglobin 8.7 L Blood Gas Temperature 37.0 Blood Gas Modality ROOM AIR FiO2 21.0 Blood Gas Notified Whom MG Blood Gas Notified Time 12/23/2016 8:36:18 PM Erythrocyte Sedimentation Rate 87 H Absolute Reticulocyte Count 0.060 Percent Reticulocyte Count 1.7 H Sodium Level 135 137 Potassium Level 4.1 4.3 Chloride Level 102 106 Carbon Dioxide Level 21 21 Anion Gap 16 14 Blood Urea Nitrogen 59 H 56 H Creatinine 1.50 H 1.33 H Glucose Level 105 87 Uric Acid 15.9 H Calcium Level 11.5 H 11.2 H Phosphorus Level 3.9 Magnesium Level 2.3 Iron Level 29 L Total Iron Binding Capacity 229 L Percent Iron Saturation 13 L Ferritin 260.0 Lactate Dehydrogenase 1239 H Carcinoembryonic Antigen 14.7 H CA 125 Antigen 959.0 H Vitamin B12 Level 547 Folate Pending Thyroid Stimulating Hormone (TSH) 3.580 White Blood Count 15.6 H Red Blood Count 3.57 L Hemoglobin 8.1 L Hematocrit 28.4 L Mean Corpuscular Volume 79.6 L Mean Corpuscular Hemoglobin 22.7 L Mean Corpuscular Hemoglobin Concent 28.5 L Red Cell Distribution Width 20.7 H Platelet Count 384 Mean Platelet Volume 10.0 Neutrophils % 84.9 H Lymphocytes % 8.0 L Monocytes % 5.5 Eosinophils % 0.9 Basophils % 0.2 Nucleated Red Blood Cells % 0.0 Neutrophils # (Manual) 13.2 H Lymphocytes # 1.3 Monocytes # 0.9 Eosinophils # 0.1 Basophils # 0.0 Nucleated Red Blood Cells # 0.0 Hemoglobin A1c 5.7 Test 12/24/16 06:24 Sodium Level 136 Potassium Level 4.6 Chloride Level 105 Carbon Dioxide Level 22 Anion Gap 14 Blood Urea Nitrogen 58 H Creatinine 1.26 H Glucose Level 84 Calcium Level 11.2 H Magnesium Level 2.2 Total Bilirubin 0.2 Direct Bilirubin 0.00 Indirect Bilirubin 0.2 Aspartate Amino Transf (AST/SGOT) 51 H Alanine Aminotransferase (ALT/SGPT) 23 Alkaline Phosphatase 162 H Total Protein 6.8 Albumin 2.8 L Globulin 4.00 H Albumin/Globulin Ratio 0.70 Triglycerides Level 161 H Cholesterol Level 176 LDL Cholesterol, Calculated 114 HDL Cholesterol 30 L Cholesterol/HDL Ratio 5.8 Thyroid Stimulating Hormone (TSH) 2.280 Free Thyroxine Index 2.88 Thyroxine (T4) 7.1 Triiodothyronine (T3) Uptake 40.6 H Medications Medications Current Medications Sodium Chloride (NS) 1,000 ml @ 80 mls/hr [id number] IV Last administered on 12/23 21:00; Admin Dose 80 MLS/HR; Start 12/23/16 at 17:09 Ondansetron HCl (Zofran Inj) 4 mg Q6H PRN IV NAUSEA AND/OR VOMITING; Start 02/28 at 17:30 Acetaminophen (Tylenol Tab) 650 mg Q6H PRN PO PAIN LEVEL 1-3 OR FEVER; Start at 17:30 Acetaminophen (Tylenol Supp) 650 mg Q6H PRN [place] PAIN LEVEL 1-3 OR FEVER; Start 12/23/16 at 17:30 Acetaminophen/ Hydrocodone Bitart ([place] (5/325)) 1 tab Q6H PRN PO MODERATE PAIN LEVEL 4-6; Start 12/23/16 at 17:30 Morphine Sulfate 2 mg 2 mg Q4H PRN IV SEVERE PAIN LEVEL 7-10 Last administered on 12/23/16 21:15; Admin Dose 2 MG; Start 12/23/16 at 17:30 Ceftriaxone Sodium 50 ml @ 100 mls/hr DAILY IVPB Last administered on 10:08; Admin Dose 100 MLS/HR; Start 12/24/16 at 09:00 Pamidronate Disodium/Sodium Chloride ([place]/NS) 520 ml @ 83.333 mls/ hr Q6H15M ONCE IV Last administered on 12/24/16 11:44; Admin Dose 83.333 MLS/HR; Start 12/24/16 at 10:00; Stop 12/24/16 at 16:14 Enoxaparin Sodium (Lovenox) 65 mg Q12 SC Last administered on 12/24/16 11:46; Admin Dose 65 MG; Start 12/24/16 at 11:30 RACIEL CAIN Dec 24, 2016 15:02
[2016-12-24] MEDS ORDERED: SOD CHLORIDE 0.9% 500 ML IV ONE (15:30)
[2016-12-24 16:49] LABS: BASOPHILS % 0.1 % (0.0-2.0); EOSINOPHILS % 0.1 % (0.0-7.0); HEMATOCRIT 24.9 % (37.0-47.0); HEMOGLOBIN 7.3 g/dl (12.0-16.0); LYMPHOCYTES # 0.9 10^3/ul (0.8-2.9); LYMPHOCYTES % 6.1 % (15.0-51.0); MEAN CORPUSCULAR HEMOGLOBIN 23.4 pg (29.0-33.0); MEAN CORPUSCULAR HGB CONC 29.3 g/dl (32.0-37.0); MEAN CORPUSCULAR VOLUME 79.8 fl (82.0-101.0); MEAN PLATELET VOLUME 10.3 fl (7.4-10.4); MONOCYTE # 0.8 10^3/ul (0.3-0.9); MONOCYTES % 5.8 % (0.0-11.0); NEUTROPHILS % 87.4 % (39.0-77.0); PLATELET COUNT 362 10^3/UL (140-415); RED BLOOD COUNT 3.12 10^6/ul (4.20-5.40); RED CELL DISTRIBUTION WIDTH 20.7 % (11.5-14.5); WHITE BLOOD COUNT 13.9 10^3/ul (4.8-10.8)
[2016-12-24 17:04] LABS: INR 1.22; PROTIME 15.5 Sec (12.2-14.2); PT RATIO 1.2
[2016-12-24 17:05] LABS: PARTIAL THROMBOPLASTIN TIME 45.3 Sec (25.0-35.0)
[2016-12-24] MEDS ORDERED: HEPARIN 1000 UNITS/ML 10 ML INJ IV SCH (17:30)
--- NOTE | 2016-12-24 18:11 | CONS ---
Date/Time of Note Date/Time of Note DATE: 12/24/16 TIME: 18:08 Consultation Date/Type/Reason Admit Date/Time Dec 23, 2016 at 19:24 Reason for Consultation Andrew Yanes M.D. 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 She is a poor historian due to emotional/psychiatric issues Medical history/ROS: all other systems unremarkable. Surgical history: no significant abdominal procedures. Medications: reviewed gardisil Allergies: No active allergies recorded Family Hx: non-contributary Social HX: non-contributary ROS: as above Colonoscopy Physical Examination General: Alert. HEENT: Pupils are equal, round, reactive to light and accommodation. Neck: Supple with no masses of lymphadenopathy. Breast: Deferred due to recent examination and responsibility of primary care physician. Chest: not symmetric and sob Heart: Normal rhythm. Abdomen: Moderately tender lower abd, no ascites nor organomeglay. Pelvic exam: large central exophytic 6-7 cm lesion with some cul-de-sac nodularity noted Rectal: confirmatory with pelvic exam and suggestion of parametrial involvement. Neurological: Grossly intact Assessment: Likely stage IV cervical cancer, although given that her CT we without contrast (due to creat. and dehydration) there is a chance that it is metastatic as we are not thoroughly evaluating pancreas etc. Plan: Suggest 1- Get a bilateral renal/ureteral RENETTA as it m ay well be that there is significant hydroureter bilaterally that would benfit from stenting for multiple reasons. 2- Unfortunately, due to the patient's character and equipment available and the way the hospital functions, it is not feasable for me to biopsy the cervix in bed; I would need to do an Exam under anesthesia and if there is a concensis it would be easy to do a laparoscopic retroperitoneal ar bx and biopsy the liver lesion. 3- Presuming this is a cervical cancer, if the high aortic nodes are positive and liver lesion is +, she would be a rare patient treated by up front chemo as opposed to RT: CDDP/Taxol for squamous cell vs Carbo/taxol for adenoCA. I have actually done primary cytoreduction similar to ovarian cancer before chemotherapy, recently described in the literature. One is doing well 18 months later MIKE, one is recent and the other recurred rapidly. Unfortunately, this patient would not tolerate it. If we concur I'll do an EUA and bx and laparoscopy Thanks, Andrew Yanes M.D. Respiratory: cough, no complaints, other, pain, pleuritic pain, shortness of breath, sputum, wheezing Cardiovascular: No chest pain Gastrointestinal: other (lower abd pain) Genitourinary: other (malik in place) Psychological: anxiety Social History Alcohol Use: none Smoking Status: Unknown if ever smoked Drug Use: none Exam/Review of Systems Vital Signs Vitals Vital Signs Date Time Temp Pulse Resp B/P Pulse Ox O2 Delivery O2 Flow Rate FiO2 12/24/16 16:30 112 12/24/16 15:52 97.9 19 104/65 96 12/23/16 18:45 Room Air Intake and Output 12/23/16 12/23/16 12/24/16 15:00 23:00 07:00 Intake Total 1260 ml Output Total 450 ml Balance 810 ml Results Result Diagram: 12/24/16 1613 12/24/16 0624 Results 24 hrs Laboratory Tests Test 12/23/16 19:30 12/24/16 06:21 12/24/16 06:24 12/24/16 16:13 Erythrocyte Sedimentation Rate 87 H Absolute Reticulocyte Count 0.060 Percent Reticulocyte Count 1.7 H Sodium Level 135 137 136 Potassium Level 4.1 4.3 4.6 Chloride Level 102 106 105 Carbon Dioxide Level 21 21 22 Anion Gap 16 14 14 Blood Urea Nitrogen 59 H 56 H 58 H Creatinine 1.50 H 1.33 H 1.26 H Glucose Level 105 87 84 Uric Acid 15.9 H Calcium Level 11.5 H 11.2 H 11.2 H Phosphorus Level 3.9 Magnesium Level 2.3 2.2 Iron Level 29 L Total Iron Binding Capacity 229 L Percent Iron Saturation 13 L Ferritin 260.0 Lactate Dehydrogenase 1239 H Carcinoembryonic Antigen 14.7 H CA 125 Antigen 959.0 H Vitamin B12 Level 547 Folate Pending Thyroid Stimulating Hormone (TSH) 3.580 2.280 White Blood Count 15.6 H 13.9 H Red Blood Count 3.57 L 3.12 L Hemoglobin 8.1 L 7.3 L Hematocrit 28.4 L 24.9 L Mean Corpuscular Volume 79.6 L 79.8 L Mean Corpuscular Hemoglobin 22.7 L 23.4 L Mean Corpuscular Hemoglobin Concent 28.5 L 29.3 L Red Cell Distribution Width 20.7 H 20.7 H Platelet Count 384 362 Mean Platelet Volume 10.0 10.3 Neutrophils % 84.9 H 87.4 H Lymphocytes % 8.0 L 6.1 L Monocytes % 5.5 5.8 Eosinophils % 0.9 0.1 Basophils % 0.2 0.1 Nucleated Red Blood Cells % 0.0 0.0 Neutrophils # (Manual) 13.2 H 12.1 H Lymphocytes # 1.3 0.9 Monocytes # 0.9 0.8 Eosinophils # 0.1 0.0 Basophils # 0.0 0.0 Nucleated Red Blood Cells # 0.0 0.0 Hemoglobin A1c 5.7 Total Bilirubin 0.2 Direct Bilirubin 0.00 Indirect Bilirubin 0.2 Aspartate Amino Transf (AST/SGOT) 51 H Alanine Aminotransferase (ALT/SGPT) 23 Alkaline Phosphatase 162 H Total Protein 6.8 Albumin 2.8 L Globulin 4.00 H Albumin/Globulin Ratio 0.70 Triglycerides Level 161 H Cholesterol Level 176 LDL Cholesterol, Calculated 114 HDL Cholesterol 30 L Cholesterol/HDL Ratio 5.8 Free Thyroxine Index 2.88 Thyroxine (T4) 7.1 Triiodothyronine (T3) Uptake 40.6 H Prothrombin Time 15.5 H Prothrombin Time Ratio 1.2 INR International Normalized Ratio 1.22 Activated Partial Thromboplast Time 45.3 H Medications Medications Current Medications Sodium Chloride (NS) 1,000 ml @ 80 mls/hr [id number] IV Last administered on 12/23t 21:00; Admin Dose 80 MLS/HR; Start 12/23/16 at 17:09 Ondansetron HCl (Zofran Inj) 4 mg Q6H PRN IV NAUSEA AND/OR VOMITING; Start 02/28 at 17:30 Acetaminophen (Tylenol Tab) 650 mg Q6H PRN PO PAIN LEVEL 1-3 OR FEVER; Start at 17:30 Acetaminophen (Tylenol Supp) 650 mg Q6H PRN [place] PAIN LEVEL 1-3 OR FEVER; Start 12/23/16 at 17:30 Acetaminophen/ Hydrocodone Bitart ([place] (5/325)) 1 tab Q6H PRN PO MODERATE PAIN LEVEL 4-6; Start 12/23/16 at 17:30 Morphine Sulfate 2 mg 2 mg Q4H PRN IV SEVERE PAIN LEVEL 7-10 Last administered on 12/23/16 21:15; Admin Dose 2 MG; Start 12/23/16 at 17:30 Ceftriaxone Sodium (Rocephin) 50 ml @ 100 mls/hr DAILY IVPB Last administered on 12/24/16 10:08; Admin Dose 100 MLS/HR; Start 12/24/16 at 09:00 Ferrous Gluconate (Fergon) 325 mg BID PO ; Start 12/24/16 at 21:00 Heparin Sodium (Porcine) (Heparin (1000 Units/ml)) 5,100 unit NOW IV ; Start 03/30 at 17:30; Stop 01/18/17 at 17:29; Status Future Hold ANDREW YANES MD Dec 24, 2016 18:11
[2016-12-24] MEDS: FERROUS GLUCONATE (EC) 325 MG TAB PO SCH (21:11)
[2016-12-24] MEDS: morphine 2 MG INJ IV PRN (21:15)
[2016-12-24] MEDS: HYDROCODONE/APAP (5/325) TAB PO PRN (21:15)
--- NOTE | 2016-12-24 23:05 | CONS ---
Date/Time of Note Date/Time of Note DATE: 12/24/16 TIME: 23:01 Assessment/Plan Assessment/Plan Chief Complaint/Hosp Course Large mass of the uterine cervix with necrosis. R/O cervical carcinoma. Large periaortic retroperitoneal lymphadenopathy, likely metastatic. Moderate metastatic lymphadenopathy along the mesenteric root and peripancreatic and arleen hepatis lymphadenopathy. There is also retrocrural metastatic lymphadenopathy. Moderate right iliac and mild left iliac lymphadenopathy, metastatic. 2.5 cm x 2 cm right adrenal mass. 3 cm x 2.2 cm left adrenal mass. 4.5 cm low-density mass in the right inferior liver, likely metastatic. 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 CA 125- 959 BX MASS and LIVER LESION PT WILL MOST LIKELY WILL NEED CHEMO Anemia. MICROCYTIC WITH INCREASED RDW PROCEED WITH ANEMIA W-UP iron studies. - C/W ACD Transfuse for hemoglobin less than 7. INCREASED URIC ACID START ALLOPURINOL RENAL DOSE Sepsis UTI. Acute renal insufficiency. Hyperkalemia. Mild hyponatremia. Problems: Consultation Date/Type/Reason Admit Date/Time Dec 23, 2016 at 19:24 Initial Consult Date 12/23/16 [facility] Referring Provider: RACIEL CAIN 24 HR Interval Summary Free Text/Dictation ALL NOTED SEEN BY [facility] RE-EUA and bx and laparoscopic BX Exam/Review of Systems Vital Signs Vitals Vital Signs Date Time Temp Pulse Resp B/P Pulse Ox O2 Delivery O2 Flow Rate FiO2 12/24/16 20:08 120 12/24/16 20:00 98.3 19 95/63 98 12/23/16 18:45 Room Air Intake and Output 12/23/16 12/23/16 12/24/16 15:00 23:00 07:00 Intake Total 1260 ml Output Total 450 ml Balance 810 ml Exam Constitutional: alert Psych: anxiety Head: normocephalic Neck: supple Respiratory: clear to auscultation Cardiovascular: other (Regular rate to tachycardic) Gastrointestinal: soft, tender Musculoskeletal: swelling (Minimally bilateral lower extremities) Neurological: nl mental status, nl speech Results Result Diagram: 12/24/16 1613 12/24/16 0624 Results 24 hrs Laboratory Tests Test 12/24/16 06:21 12/24/16 06:24 12/24/16 16:13 White Blood Count 15.6 H 13.9 H Red Blood Count 3.57 L 3.12 L Hemoglobin 8.1 L 7.3 L Hematocrit 28.4 L 24.9 L Mean Corpuscular Volume 79.6 L 79.8 L Mean Corpuscular Hemoglobin 22.7 L 23.4 L Mean Corpuscular Hemoglobin Concent 28.5 L 29.3 L Red Cell Distribution Width 20.7 H 20.7 H Platelet Count 384 362 Mean Platelet Volume 10.0 10.3 Neutrophils % 84.9 H 87.4 H Lymphocytes % 8.0 L 6.1 L Monocytes % 5.5 5.8 Eosinophils % 0.9 0.1 Basophils % 0.2 0.1 Nucleated Red Blood Cells % 0.0 0.0 Neutrophils # (Manual) 13.2 H 12.1 H Lymphocytes # 1.3 0.9 Monocytes # 0.9 0.8 Eosinophils # 0.1 0.0 Basophils # 0.0 0.0 Nucleated Red Blood Cells # 0.0 0.0 Sodium Level 137 136 Potassium Level 4.3 4.6 Chloride Level 106 105 Carbon Dioxide Level 21 22 Anion Gap 14 14 Blood Urea Nitrogen 56 H 58 H Creatinine 1.33 H 1.26 H Glucose Level 87 84 Hemoglobin A1c 5.7 Calcium Level 11.2 H 11.2 H Magnesium Level 2.2 Total Bilirubin 0.2 Direct Bilirubin 0.00 Indirect Bilirubin 0.2 Aspartate Amino Transf (AST/SGOT) 51 H Alanine Aminotransferase (ALT/SGPT) 23 Alkaline Phosphatase 162 H Total Protein 6.8 Albumin 2.8 L Globulin 4.00 H Albumin/Globulin Ratio 0.70 Triglycerides Level 161 H Cholesterol Level 176 LDL Cholesterol, Calculated 114 HDL Cholesterol 30 L Cholesterol/HDL Ratio 5.8 Thyroid Stimulating Hormone (TSH) 2.280 Free Thyroxine Index 2.88 Thyroxine (T4) 7.1 Triiodothyronine (T3) Uptake 40.6 H Prothrombin Time 15.5 H Prothrombin Time Ratio 1.2 INR International Normalized Ratio 1.22 Activated Partial Thromboplast Time 45.3 H Medications Medications Current Medications Sodium Chloride (NS) 1,000 ml @ 80 mls/hr [id number] IV Last administered on 12/23t 21:00; Admin Dose 80 MLS/HR; Start 12/23/16 at 17:09 Ondansetron HCl (Zofran Inj) 4 mg Q6H PRN IV NAUSEA AND/OR VOMITING; Start 02/28 at 17:30 Acetaminophen (Tylenol Tab) 650 mg Q6H PRN PO PAIN LEVEL 1-3 OR FEVER; Start at 17:30 Acetaminophen (Tylenol Supp) 650 mg Q6H PRN [place] PAIN LEVEL 1-3 OR FEVER; Start 12/23/16 at 17:30 Acetaminophen/ Hydrocodone Bitart ([place] (5/325)) 1 tab Q6H PRN PO MODERATE PAIN LEVEL 4-6 Last administered on 12/24/16 21:15; Admin Dose 1 TAB; Start 02/28 at 17:30 Morphine Sulfate 2 mg 2 mg Q4H PRN IV SEVERE PAIN LEVEL 7-10 Last administered on 12/24/16 21:15; Admin Dose 2 MG; Start 12/23/16 at 17:30 Ceftriaxone Sodium (Rocephin) 50 ml @ 100 mls/hr DAILY IVPB Last administered on 12/24/16 10:08; Admin Dose 100 MLS/HR; Start 12/24/16 at 09:00 Ferrous Gluconate (Fergon) 325 mg BID PO Last administered on 12/24/16 21:11; Admin Dose 325 MG; Start 12/24/16 at 21:00 Heparin Sodium (Porcine) (Heparin (1000 Units/ml)) 5,100 unit NOW IV ; Start 03/30 at 17:30; Stop 01/18/17 at 17:29; Status Future Hold KEATON METZ MD Dec 24, 2016 23:05
[2016-12-25] VITALS (12 sets, daily range): BP systolic 88–117; BP diastolic 50–62; PULSE 98–114; RESP 15–19
[2016-12-25] MEDS: morphine 2 MG INJ IV PRN (01:23)
[2016-12-25] MEDS: SOD CHLORIDE 0.9% 1,000 ML IV SCH ×2 (05:25→19:04)
[2016-12-25] MEDS: HYDROCODONE/APAP (5/325) TAB PO PRN (05:31)
[2016-12-25 07:05] LABS: ABNORMAL IP MESSAGE 1; BASOPHILS % 0.2 % (0.0-2.0); EOSINOPHILS % 0.1 % (0.0-7.0); HEMATOCRIT 25.5 % (37.0-47.0); HEMOGLOBIN 7.2 g/dl (12.0-16.0); LYMPHOCYTES % 5.6 % (15.0-51.0); MEAN CORPUSCULAR HEMOGLOBIN 22.9 pg (29.0-33.0); MEAN CORPUSCULAR HGB CONC 28.2 g/dl (32.0-37.0); MEAN PLATELET VOLUME 10.2 fl (7.4-10.4); MONOCYTE # 1.2 10^3/ul (0.3-0.9); MONOCYTES % 6.9 % (0.0-11.0); NEUTROPHILS % 86.6 % (39.0-77.0); PLATELET COUNT 360 10^3/UL (140-415); RED BLOOD COUNT 3.15 10^6/ul (4.20-5.40); RED CELL DISTRIBUTION WIDTH 21.2 % (11.5-14.5); WHITE BLOOD COUNT 17.4 10^3/ul (4.8-10.8)
[2016-12-25 07:06] LABS: POSITIVE DIFF @See below
[2016-12-25 07:28] LABS: INR 1.25; PROTIME 15.8 Sec (12.2-14.2); PT RATIO 1.2
[2016-12-25 07:31] LABS: CALCIUM 10.6 mg/dl (8.4-10.2); CREATININE 1.14 mg/dl (0.44-1.00); POTASSIUM 4.1 mmol/L (3.5-5.1)
--- NOTE | 2016-12-25 07:53 | CONS ---
Date/Time of Note Date/Time of Note DATE: 12/25/16 TIME: 07:52 Assessment/Plan Assessment/Plan Additional Assessment/Plan 1. Renal fx has improved. 2. 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 3. Hypercalcemia resolved. 4. IV fluids reduced. 5. Glad to see again on request. Consultation Date/Type/Reason Admit Date/Time Dec 23, 2016 at 19:24 Initial Consult Date 12/23/16 Type of Consultation: [facility] Referring Provider: RACIEL CAIN Detailed Summary Cardiovascular: No chest pain Gastrointestinal: No no complaints Genitourinary: other (folwy in place) Exam/Review of Systems Vital Signs Vitals Vital Signs Date Time Temp Pulse Resp B/P Pulse Ox O2 Delivery O2 Flow Rate FiO2 12/25/16 04:07 106 12/25/16 04:00 98.2 19 96/62 98 12/23/16 18:45 Room Air Intake and Output 12/24/16 12/24/16 12/25/16 15:00 23:00 07:00 Intake Total 50 ml 200 ml 1100 ml Output Total 500 ml 500 ml Balance 50 ml -300 ml 600 ml Exam Neck: No jvd Respiratory: clear to auscultation Cardiovascular: regular rate and rhythm Gastrointestinal: No tender Extremities: No edema Results Result Diagram: 12/25/16 0615 12/25/16 0614 Results 24 hrs Laboratory Tests Test 12/24/16 16:13 12/25/16 06:14 12/25/16 06:15 White Blood Count 13.9 H 17.4 #H Red Blood Count 3.12 L 3.15 L Hemoglobin 7.3 L 7.2 L Hematocrit 24.9 L 25.5 L Mean Corpuscular Volume 79.8 L 81.0 L Mean Corpuscular Hemoglobin 23.4 L 22.9 L Mean Corpuscular Hemoglobin Concent 29.3 L 28.2 L Red Cell Distribution Width 20.7 H 21.2 H Platelet Count 362 360 Mean Platelet Volume 10.3 10.2 Neutrophils % 87.4 H 86.6 H Lymphocytes % 6.1 L 5.6 L Monocytes % 5.8 6.9 Eosinophils % 0.1 0.1 Basophils % 0.1 0.2 Nucleated Red Blood Cells % 0.0 0.0 Neutrophils # (Manual) 12.1 H 15.1 H Lymphocytes # 0.9 1.0 Monocytes # 0.8 1.2 H Eosinophils # 0.0 0.0 Basophils # 0.0 0.0 Nucleated Red Blood Cells # 0.0 0.0 Prothrombin Time 15.5 H 15.8 H Prothrombin Time Ratio 1.2 1.2 INR International Normalized Ratio 1.22 1.25 Activated Partial Thromboplast Time 45.3 H 36.0 H Sodium Level 139 Potassium Level 4.1 Chloride Level 111 H Carbon Dioxide Level 22 Anion Gap 10 Blood Urea Nitrogen 51 H Creatinine 1.14 H Glucose Level 85 Calcium Level 10.6 H Medications Medications Current Medications Sodium Chloride (NS) 1,000 ml @ 80 mls/hr [id number] IV Last administered on 12/25 05:25; Admin Dose 80 MLS/HR; Start 12/23/16 at 17:09 Ondansetron HCl (Zofran Inj) 4 mg Q6H PRN IV NAUSEA AND/OR VOMITING; Start 02/28 at 17:30 Acetaminophen (Tylenol Tab) 650 mg Q6H PRN PO PAIN LEVEL 1-3 OR FEVER; Start at 17:30 Acetaminophen (Tylenol Supp) 650 mg Q6H PRN [place] PAIN LEVEL 1-3 OR FEVER; Start 12/23/16 at 17:30 Acetaminophen/ Hydrocodone Bitart ([place] (5/325)) 1 tab Q6H PRN PO MODERATE PAIN LEVEL 4-6 Last administered on 12/25/16 05:31; Admin Dose 1 TAB; Start 02/28 at 17:30 Morphine Sulfate 2 mg 2 mg Q4H PRN IV SEVERE PAIN LEVEL 7-10 Last administered on 12/25/16 01:23; Admin Dose 2 MG; Start 12/23/16 at 17:30 Ceftriaxone Sodium (Rocephin) 50 ml @ 100 mls/hr DAILY IVPB Last administered on 12/24/16 10:08; Admin Dose 100 MLS/HR; Start 12/24/16 at 09:00 Ferrous Gluconate (Fergon) 325 mg BID PO Last administered on 12/24/16 21:11; Admin Dose 325 MG; Start 12/24/16 at 21:00 Heparin Sodium (Porcine) (Heparin (1000 Units/ml)) 5,100 unit NOW IV ; Start 03/30 at 17:30; Stop 01/18/17 at 17:29; Status Future Hold Allopurinol (Zyloprim) 100 mg DAILY PO ; Start 12/25/16 at 09:00 DANIEL SOL MD Dec 25, 2016 07:53
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
[2016-12-25] MEDS: FERROUS GLUCONATE (EC) 325 MG TAB PO SCH ×2 (09:54→20:43)
[2016-12-25] MEDS: traMADol 50 MG TAB PO PRN (09:55)
[2016-12-25] MEDS: ALLOPURINOL 100 MG TAB PO SCH (09:55)
[2016-12-25] MEDS: ONDANSETRON 4 MG INJ IV PRN (11:08)
[2016-12-25] MEDS: CEFTRIAXONE 2 GM/50 ML (PMX) 50 ML IVPB SCH (11:10)
--- NOTE | 2016-12-25 11:18 | RADRPT ---
PROCEDURE: CT L-Spine. CLINICAL INDICATION: Back pain , weakness TECHNIQUE: A CT of the lumbar spine was performed on a multidetector CT scanner utilizing axial im ages from the thoracic lumbar junction through the lumbar sacral junction. Sagittal and coronal ref ormatted images were made. The CTDIvol is 14mGy and the DLP is 367mGycm. One or more of the followin g dose reduction techniques were used: Automated exposure control, Adjustment of the mA and/or kV ac cording to patient size, and/or use of iterative reconstruction technique. COMPARISON: Abdominal CT 12/23/2016 FINDINGS: Bulky coalescent retroperitoneal and pelvic lymphadenopathy are partially imaged. There are adjacent erosive changes to the L1 and L2 vertebrae with associated mild pathologic fractures on the right s meg. There are additionally erosive changes to the right L3 vertebrae without significant vertebral height loss. Moderate pathologic fracture of L5 with diffuse sclerotic changes to the vertebral body . Prominent retroperitoneal soft tissue mass lesion extends towards the right L1-2 and L2-3 foramen with possible involvement of the exiting right L1 and L2 nerves. There appears to be mild to moderat e spinal canal stenosis L2-3 to L4-5. Prominent soft tissue density is visualized posterior to the L 4-5 disc space extending to the ventral epidural space L5. Multilevel lumbar degenerative changes ar e seen. IMPRESSION: Bulky coalescent retroperitoneal and pelvic lymphadenopathy are most compatible with metastasis. The re are adjacent erosive changes to the L1, L2 vertebrae with mild pathologic fractures likely relate d to osseous metastatic involvement. There are additionally erosive changes to the right L3 vertebr ae without significant vertebral height loss. Moderate osseous metastatic, pathologic fracture of L5 with diffuse sclerotic changes to the vertebr al body. Prominent soft tissue density in the ventral epidural space at L4-5 may represent extruded disc mate rial or epidural tumoral involvement. Consider follow-up MRI lumbar spine with and without contrast and PET imaging as warranted. RPTAT: AA .Trae Nieto MD, Date Time Electronically viewed and signed by .Trae Niteo MD, MD on 12/25/2016 11:18 .T/
--- NOTE | 2016-12-25 13:43 | CONS ---
Date/Time of Note Date/Time of Note DATE: 12/25/16 TIME: 13:40 Consultation Date/Type/Reason Admit Date/Time Dec 23, 2016 at 19:24 Initial Consult Date 12/23/16 Type of Consultation: Palliative care pain managemen Referring Provider: RACIEL CAIN 24 HR Interval Summary Free Text/Dictation Doing about the same. Adequate pain control. Will await RENETTA and discuss with IM and Onc to determine whether there is a consensus about whether I should do an EUA and laparoscopic ar bx and liver bx given her severe DVT. Exam/Review of Systems Vital Signs Vitals Vital Signs Date Time Temp Pulse Resp B/P Pulse Ox O2 Delivery O2 Flow Rate FiO2 12/25/16 12:40 98 12/25/16 12:01 98.0 18 91/53 96 12/23/16 18:45 Room Air Intake and Output 12/24/16 12/24/16 12/25/16 15:00 23:00 07:00 Intake Total 50 ml 200 ml 1100 ml Output Total 500 ml 500 ml Balance 50 ml -300 ml 600 ml Results Result Diagram: 12/25/16 0615 12/25/16 0614 Results 24 hrs Laboratory Tests Test 12/24/16 16:13 12/25/16 06:14 12/25/16 06:15 White Blood Count 13.9 H 17.4 #H Red Blood Count 3.12 L 3.15 L Hemoglobin 7.3 L 7.2 L Hematocrit 24.9 L 25.5 L Mean Corpuscular Volume 79.8 L 81.0 L Mean Corpuscular Hemoglobin 23.4 L 22.9 L Mean Corpuscular Hemoglobin Concent 29.3 L 28.2 L Red Cell Distribution Width 20.7 H 21.2 H Platelet Count 362 360 Mean Platelet Volume 10.3 10.2 Neutrophils % 87.4 H 86.6 H Lymphocytes % 6.1 L 5.6 L Monocytes % 5.8 6.9 Eosinophils % 0.1 0.1 Basophils % 0.1 0.2 Nucleated Red Blood Cells % 0.0 0.0 Neutrophils # (Manual) 12.1 H 15.1 H Lymphocytes # 0.9 1.0 Monocytes # 0.8 1.2 H Eosinophils # 0.0 0.0 Basophils # 0.0 0.0 Nucleated Red Blood Cells # 0.0 0.0 Prothrombin Time 15.5 H 15.8 H Prothrombin Time Ratio 1.2 1.2 INR International Normalized Ratio 1.22 1.25 Activated Partial Thromboplast Time 45.3 H 36.0 H Sodium Level 139 Potassium Level 4.1 Chloride Level 111 H Carbon Dioxide Level 22 Anion Gap 10 Blood Urea Nitrogen 51 H Creatinine 1.14 H Glucose Level 85 Calcium Level 10.6 H Medications Medications Current Medications Sodium Chloride (NS) 1,000 ml @ 60 mls/hr [id number] IV Last administered on 12/25 05:25; Admin Dose 80 MLS/HR; Start 12/23/16 at 17:09 Ondansetron HCl (Zofran Inj) 4 mg Q6H PRN IV NAUSEA AND/OR VOMITING Last administered on 12/25/16 11:08; Admin Dose 4 MG; Start 12/23/16 at 17:30 Acetaminophen (Tylenol Tab) 650 mg Q6H PRN PO PAIN LEVEL 1-3 OR FEVER; Start at 17:30 Acetaminophen 650 mg 650 mg Q6H PRN ID PAIN LEVEL 1-3 OR FEVER; Start 12/23/16 at 17:30 Ceftriaxone Sodium (Rocephin) 50 ml @ 100 mls/hr DAILY IVPB Last administered on 12/25/16 11:10; Admin Dose 100 MLS/HR; Start 12/24/16 at 09:00 Ferrous Gluconate (Fergon) 325 mg BID PO Last administered on 12/25/16 09:54; Admin Dose 325 MG; Start 12/24/16 at 21:00 Heparin Sodium (Porcine) (Heparin (1000 Units/ml)) 5,100 unit NOW IV ; Start 03/30 at 17:30; Stop 01/18/17 at 17:29; Status Future Hold Allopurinol (Zyloprim) 100 mg DAILY PO Last administered on 12/25/16 09:55; Admin Dose 100 MG; Start 12/25/16 at 09:00 Tramadol HCl (Ultram) 50 mg Q6H PRN PO PAIN LEVEL 1-3 Last administered on 12/25 09:55; Admin Dose 50 MG; Start 12/25/16 at 09:30 Alprazolam (Xanax) 0.5 mg Q8H PRN PO ANXIETY; Start 12/25/16 at 09:30 ANDREW YANES MD Dec 25, 2016 13:43
--- NOTE | 2016-12-25 16:55 | RADRPT ---
Echocardiogram Report Patient Name: IVY GALLAGHER Gender: Female Date: 1945 Study Date: 25-Dec-2016 Bioinformatics Research Technician: Devante [facility] Location: [id number] Ref. Physician: RACIEL CAIN Quality: Technically Difficult Study Procedures: Transthoracic echocardiogram with complete 2D, M-Mode, and doppler examination. Indications: Suspect CHF. 2D/M Mode Doppler Measurement Value Normal Ranges Measurement Value Normal Ranges LVIDd 2D 4.2 3.5 - 5.6 cm AV Peak Ayden 1.6 m/sec LVIDs 2D 2.9 2.1 - 4.1 cm AV Peak PG 10.5 mmHg LVPWd 2D 1.5 0.6 - 1.1 cm LVOT Peak Ayden 1.3 m/sec IVSd 2D 1.6 0.6 - 1.1 cm LVOT Peak PG 6.6 mmHg EDV 2D 77.3 cm3 MV E Peak Ayden 0.6 m/sec ESV 2D 23.6 cm3 MV A Peak Ayden 1.1 m/sec LA Dimen 2D 2.8 2.3 - 4.0 cm MV E/A 0.6 MV Decel Time 143 msec MV Decel Toombs 4 MV E/A 0.6 TR Peak Ayden 2.6 m/sec TR Peak PG 26.4 mmHg RVSP 29.0 mmHg Findings Left Ventricle: Normal left ventricular systolic function. Normal left ventricular cavity size. Moderate concentric left ventricular hypertrophy. Ejection fraction is visually estimated at 60 %. Tissue Doppler/Mitral Doppler indices are consistent with impaired relaxation (Stage I diastolic dysfunction). Right Ventricle: Normal right ventricular size. Normal right ventricular systolic function. Left Atrium: The left atrium is normal in size. Right Atrium: The right atrium is normal in size. Mitral Valve: Mild mitral leaflet calcification. Mild mitral annular calcification. Trace mitral regurgitation. Aortic Valve: Aortic valve not well visualized. Tricuspid Valve: Normal appearance of the tricuspid valve. Estimated peak PA systolic pressure 29 mmHg. There is mild tricuspid regurgitation. Pulmonic Valve: Pulmonic valve not well visualized. There is trace pulmonic regurgitation. Pericardium: Normal pericardium with no significant pericardial effusion. Aorta: Normal aortic root. IVC: Normal size and normal respiratory collapse consistent with normal right atrial pressure. Conclusions 1.Normal left ventricular systolic function. Normal left ventricular cavity size. Moderate concentric left ventricular hypertrophy. Ejection fraction is visually estimated at 60 %. Tissue Doppler/Mitral Doppler indices are consistent with impaired relaxation (Stage I diastolic dysfunction). 2.Mild mitral leaflet calcification. Mild mitral annular calcification. Trace mitral regurgitation. 3.Normal appearance of the tricuspid valve. Estimated peak PA systolic pressure 29 mmHg. There is mild tricuspid regurgitation. 4.Pulmonic valve not well visualized. There is trace pulmonic regurgitation. Electronically Signed By: Jeffrey Mcnamara 25-Dec-2016 16:53:42 -0700 Patient Name: IVY GALLAGHER Study Date: 25-Dec-[id number]
--- NOTE | 2016-12-25 17:14 | CONS ---
Date/Time of Note Date/Time of Note DATE: 12/25/16 TIME: 17:04 Assessment/Plan Assessment/Plan Chief Complaint/Hosp Course Large mass of the uterine cervix with necrosis. R/O cervical carcinoma. Large periaortic retroperitoneal lymphadenopathy, likely metastatic. Moderate metastatic lymphadenopathy along the mesenteric root and peripancreatic and arleen hepatis lymphadenopathy. There is also retrocrural metastatic lymphadenopathy. Moderate right iliac and mild left iliac lymphadenopathy, metastatic. 2.5 cm x 2 cm right adrenal mass. 3 cm x 2.2 cm left adrenal mass. 4.5 cm low-density mass in the right inferior liver, likely metastatic. 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 CA 125- [id number] BX MASS , CAN PROBABLY OMIT LIVER BX PT WILL MOST LIKELY WILL NEED CHEMO, NOT A SURGERY Extensive deep venous thrombosis involving the right and left common femoral vein, right and left femoral vein, right and left popliteal vein. heparin ok for lovenox post bx Anemia. MICROCYTIC WITH INCREASED RDW complete ANEMIA W-UP iron studies. - C/W ACD, pos FE DEF Transfuse for hemoglobin less than 7. IV IRON INCREASED URIC ACID CONT ALLOPURINOL RENAL DOSE HYPERCALCEMIA IMPROVED WITH HYDRATION Sepsis UTI. Acute renal insufficiency. Hyperkalemia. Mild hyponatremia. Problems: Consultation Date/Type/Reason Admit Date/Time Dec 23, 2016 at 19:24 Initial Consult Date 12/23/16 Type of Consultation: [facility] Referring Provider: RACIEL CAIN 24 HR Interval Summary Free Text/Dictation all noted Exam/Review of Systems Vital Signs Vitals Vital Signs Date Time Temp Pulse Resp B/P Pulse Ox O2 Delivery O2 Flow Rate FiO2 12/25/16 16:21 104 12/25/16 15:54 98.1 17 88/50 97 12/23/16 18:45 Room Air Intake and Output 12/24/16 12/24/16 12/25/16 15:00 23:00 07:00 Intake Total 50 ml 200 ml 1100 ml Output Total 500 ml 500 ml Balance 50 ml -300 ml 600 ml Exam Constitutional: alert Psych: anxiety Head: normocephalic Neck: supple Respiratory: clear to auscultation Cardiovascular: other (Regular rate to tachycardic) Gastrointestinal: soft, tender Musculoskeletal: swelling (Minimally bilateral lower extremities) Neurological: nl mental status, nl speech Results Result Diagram: 12/25/16 0615 12/25/16 0614 Results 24 hrs Laboratory Tests Test 12/25/16 06:14 12/25/16 06:15 Prothrombin Time 15.8 H Prothrombin Time Ratio 1.2 INR International Normalized Ratio 1.25 Activated Partial Thromboplast Time 36.0 H Sodium Level 139 Potassium Level 4.1 Chloride Level 111 H Carbon Dioxide Level 22 Anion Gap 10 Blood Urea Nitrogen 51 H Creatinine 1.14 H Glucose Level 85 Calcium Level 10.6 H White Blood Count 17.4 #H Red Blood Count 3.15 L Hemoglobin 7.2 L Hematocrit 25.5 L Mean Corpuscular Volume 81.0 L Mean Corpuscular Hemoglobin 22.9 L Mean Corpuscular Hemoglobin Concent 28.2 L Red Cell Distribution Width 21.2 H Platelet Count 360 Mean Platelet Volume 10.2 Neutrophils % 86.6 H Lymphocytes % 5.6 L Monocytes % 6.9 Eosinophils % 0.1 Basophils % 0.2 Nucleated Red Blood Cells % 0.0 Neutrophils # (Manual) 15.1 H Lymphocytes # 1.0 Monocytes # 1.2 H Eosinophils # 0.0 Basophils # 0.0 Nucleated Red Blood Cells # 0.0 Medications Medications Current Medications Sodium Chloride (NS) 1,000 ml @ 60 mls/hr [id number] IV Last administered on 12/25 05:25; Admin Dose 80 MLS/HR; Start 12/23/16 at 17:09 Ondansetron HCl (Zofran Inj) 4 mg Q6H PRN IV NAUSEA AND/OR VOMITING Last administered on 12/25/16 11:08; Admin Dose 4 MG; Start 12/23/16 at 17:30 Acetaminophen (Tylenol Tab) 650 mg Q6H PRN PO PAIN LEVEL 1-3 OR FEVER; Start at 17:30 Acetaminophen 650 mg 650 mg Q6H PRN AL PAIN LEVEL 1-3 OR FEVER; Start 12/23/16 at 17:30 Ceftriaxone Sodium (Rocephin) 50 ml @ 100 mls/hr DAILY IVPB Last administered on 12/25/16 11:10; Admin Dose 100 MLS/HR; Start 12/24/16 at 09:00 Ferrous Gluconate (Fergon) 325 mg BID PO Last administered on 12/25/16 09:54; Admin Dose 325 MG; Start 12/24/16 at 21:00 Heparin Sodium (Porcine) (Heparin (1000 Units/ml)) 5,100 unit NOW IV ; Start 03/30 at 17:30; Stop 01/18/17 at 17:29; Status Future Hold Allopurinol (Zyloprim) 100 mg DAILY PO Last administered on 12/25/16 09:55; Admin Dose 100 MG; Start 12/25/16 at 09:00 Tramadol HCl (Ultram) 50 mg Q6H PRN PO PAIN LEVEL 1-3 Last administered on 12/25 09:55; Admin Dose 50 MG; Start 12/25/16 at 09:30 Alprazolam (Xanax) 0.5 mg Q8H PRN PO ANXIETY; Start 12/25/16 at 09:30 KEATON METZ MD Dec 25, 2016 17:14
--- NOTE | 2016-12-25 18:52 | RADRPT ---
PROCEDURE: US Pelvis. CLINICAL INDICATION: Postmenopausal vaginal bleeding. TECHNIQUE: The pelvis was evaluated with transabdominal sonography in the axial and sagittal plane s. COMPARISON: CT scan of the abdomen and pelvis dated 12/23/2016 which demonstrated a large mass in cervix, large retroperitoneal lymphadenopathy, large upper abdominal adenopathy, retrocrural lymphad enopathy, bilateral iliac lymphadenopathy, bilateral adrenal masses, right inferior liver mass, oste olytic lesions of the L1 and L2 vertebrae. FINDINGS: The uterus is enlarged measuring 8.8 x 5.3 x 6.7 cm. Endometrial thickness is 8.7 mm. There is a lar ge cervical mass as seen on prior imaging study, measuring 4.9 x 6.2 x 6.7 cm. The ovaries are not v isualized. Bilateral pelvic lymphadenopathy is not well seen. This is a limited study as the patient refused transvaginal sonography IMPRESSION: 1. Enlarged uterus with large cervical mass. 2. Ovaries not visualized. 3. Bilateral pelvic lymphadenopathy not well visualized. RPTAT: QQ .Adonay Diallo MD, Date Time Electronically viewed and signed by .Adonay Diallo MD, on 12/25/2016 18:52 .R/
[2016-12-25] MEDS: SOD FERRIC GLUC COMPLX 125 MG in SOD CHLORIDE 0.9% 100 ML IVPB SCH (18:59)
--- NOTE | 2016-12-25 19:31 | PN ---
Date/Time of Note Date/Time of Note DATE: 12/25/16 TIME: 19:28 Assessment/Plan VTE Prophylaxis VTE Prophylaxis Intervention: heparin Lines/Catheters IV Catheter Type (from Nrs): Peripheral IV Urinary Cath still in place: Yes Reason Cath still needed: other (indicate) (monitor I&O) Assessment/Plan Chief Complaint/Hosp Course Impression and plan 1. Suspect new onset cervical cancer with metastasis to lymph, adrenal, and liver. Oncologist following. Tentative plan for biopsy.. Provide with analgesics as needed. Follow-up with recommendations 2. Sepsis UTI. Start antibiotics for now. Noted with Klebsiella pneumonia. Continue on antibiotics. Awaiting ID consultation 3. Acute renal insufficiency. Medications to be renally dosed. Nephrology is following. Improving at present 5. Hyperkalemia. Monitor level. Provide with Kayexalate as needed. 6. Anemia. Noted with iron deficiency. Start on iron supplement at this time. 7. Mild hyponatremia. Continue with nephrology recommendations 8.DVT of right and left common femoral vein as well as right and left popliteal vein. Vascular surgeon following. Plan for anticoagulation. Disposition and plan: Agreeable for mass biopsy. Follow-up with oncologist recommendations regarding chemotherapy. Palliative care physician also following for pain management. Await for tentative plan for biopsy Discussed plan of care with Dr. See Problems: Subjective 24 Hr Interval Summary Free Text/Dictation Appears more comfortable at this time. Less reported pain. 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 CLERK II-XII intact, nl mental status, nl speech Skin: nl turgor Results Result Diagram: 12/25/16 0615 12/25/16 0614 Results 24 hrs Laboratory Tests Test 12/25/16 06:14 12/25/16 06:15 Prothrombin Time 15.8 H Prothrombin Time Ratio 1.2 INR International Normalized Ratio 1.25 Activated Partial Thromboplast Time 36.0 H Sodium Level 139 Potassium Level 4.1 Chloride Level 111 H Carbon Dioxide Level 22 Anion Gap 10 Blood Urea Nitrogen 51 H Creatinine 1.14 H Glucose Level 85 Calcium Level 10.6 H White Blood Count 17.4 #H Red Blood Count 3.15 L Hemoglobin 7.2 L Hematocrit 25.5 L Mean Corpuscular Volume 81.0 L Mean Corpuscular Hemoglobin 22.9 L Mean Corpuscular Hemoglobin Concent 28.2 L Red Cell Distribution Width 21.2 H Platelet Count 360 Mean Platelet Volume 10.2 Neutrophils % 86.6 H Lymphocytes % 5.6 L Monocytes % 6.9 Eosinophils % 0.1 Basophils % 0.2 Nucleated Red Blood Cells % 0.0 Neutrophils # (Manual) 15.1 H Lymphocytes # 1.0 Monocytes # 1.2 H Eosinophils # 0.0 Basophils # 0.0 Nucleated Red Blood Cells # 0.0 Medications Medications Current Medications Sodium Chloride (NS) 1,000 ml @ 60 mls/hr [id number] IV Last administered on 12/25 19:04; Admin Dose 60 MLS/HR; Start 12/23/16 at 17:09 Ondansetron HCl (Zofran Inj) 4 mg Q6H PRN IV NAUSEA AND/OR VOMITING Last administered on 12/25/16 11:08; Admin Dose 4 MG; Start 12/23/16 at 17:30 Acetaminophen (Tylenol Tab) 650 mg Q6H PRN PO PAIN LEVEL 1-3 OR FEVER; Start at 17:30 Acetaminophen 650 mg 650 mg Q6H PRN [place] PAIN LEVEL 1-3 OR FEVER; Start 12/23/16 at 17:30 Ceftriaxone Sodium (Rocephin) 50 ml @ 100 mls/hr DAILY IVPB Last administered on 12/25/16 11:10; Admin Dose 100 MLS/HR; Start 12/24/16 at 09:00 Ferrous Gluconate (Fergon) 325 mg BID PO Last administered on 12/25/16 09:54; Admin Dose 325 MG; Start 12/24/16 at 21:00 Heparin Sodium (Porcine) (Heparin (1000 Units/ml)) 5,100 unit NOW IV ; Start 03/30 at 17:30; Stop 01/18/17 at 17:29; Status Future Hold Allopurinol (Zyloprim) 100 mg DAILY PO Last administered on 12/25/16 09:55; Admin Dose 100 MG; Start 12/25/16 at 09:00 Tramadol HCl (Ultram) 50 mg Q6H PRN PO PAIN LEVEL 1-3 Last administered on 12/25 09:55; Admin Dose 50 MG; Start 12/25/16 at 09:30 Alprazolam 0.5 mg 0.5 mg Q8H PRN PO ANXIETY; Start 12/25/16 at 09:30 Ferric Sodium Gluconate Complex/ Sodium Chloride (Ferrlecit/NS) 110 ml @ 110 mls/hr Q24H IVPB Last administered on 12/25/16 18:59; Admin Dose 110 MLS/HR; Start 12/25/16 at 19:00; Stop 01/01/17 at 19:59 RACIEL CAIN Dec 25, 2016 19:31
--- NOTE | 2016-12-25 20:31 | PN ---
DATE: 12/25/2016 SUBJECTIVE DATA: No acute changes overnight. Patient is awake, looks comfortable. Afebrile. LABORATORY AND DIAGNOSTIC DATA: Blood culture negative. Urine culture growing Klebsiella pneumoniae, susceptible to all antibiotics, except ampicillin and nitrofurantoin. ANTIMICROBIALS: She is on ceftriaxone. OBJECTIVE DATA: GENERAL: This is a well-developed, fragile, elderly woman, who is in no distress. HEENT: Head atraumatic, normocephalic. Sclerae anicteric. Buccal mucosa dry. NECK: Supple. CHEST: Rise symmetrical. Breath sounds diminished at the bases. HEART: S1, S2. ABDOMEN: Soft, bowel sounds present. EXTREMITIES: Without cyanosis. ASSESSMENT: 1. Urinary tract infection. 2. New onset of cervical cancer with mets. HOME CARE SCHEDULER/Oncology follows. 3. Anemia. 4. Bilateral lower extremity deep venous thrombosis. PLAN: Patient remains stable. Continue present care. Complete treatment for urinary tract infection. Await for final workup. Follow recommendations of consultants. Dictated By: Yelena Moreira NP /rambo/nyasia /Document#: [id number]
[2016-12-26] VITALS (13 sets, daily range): BP systolic 81–102; BP diastolic 45–55; PULSE 94–106; RESP 15–20
[2016-12-26] MEDS: traMADol 50 MG TAB PO PRN ×2 (07:12→18:14)
[2016-12-26] MEDS: ALPRAZOLAM 0.25 MG TAB PO PRN (08:38)
[2016-12-26] MEDS: FERROUS GLUCONATE (EC) 325 MG TAB PO SCH ×2 (08:38→21:36)
[2016-12-26] MEDS: ALLOPURINOL 100 MG TAB PO SCH (08:39)
[2016-12-26] MEDS: CEFTRIAXONE 2 GM/50 ML (PMX) 50 ML IVPB SCH (08:39)
[2016-12-26 09:35] LABS: ABNORMAL IP MESSAGE 1; BASOPHILS % 0.1 % (0.0-2.0); EOSINOPHILS # 0.1 10^3/ul (0.0-0.5); EOSINOPHILS % 0.3 % (0.0-7.0); HEMATOCRIT 22.9 % (37.0-47.0); LYMPHOCYTES # 0.8 10^3/ul (0.8-2.9); LYMPHOCYTES % 4.7 % (15.0-51.0); MEAN CORPUSCULAR HGB CONC 28.4 g/dl (32.0-37.0); MEAN CORPUSCULAR VOLUME 80.9 fl (82.0-101.0); MEAN PLATELET VOLUME 10.2 fl (7.4-10.4); MONOCYTE # 0.8 10^3/ul (0.3-0.9); MONOCYTES % 4.6 % (0.0-11.0); NEUTROPHIL # 15.6 10^3/ul (1.6-7.5); NEUTROPHILS % 89.9 % (39.0-77.0); PLATELET COUNT 350 10^3/UL (140-415); RED BLOOD COUNT 2.83 10^6/ul (4.20-5.40); RED CELL DISTRIBUTION WIDTH 21.2 % (11.5-14.5)
[2016-12-26 09:39] LABS: POSITIVE DIFF @See below
[2016-12-26 09:41] LABS: HEMOGLOBIN 6.5 g/dl (12.0-16.0)
[2016-12-26 09:42] LABS: PATH REVIEW? YES
[2016-12-26 09:56] LABS: CREATININE 0.85 mg/dl (0.44-1.00); POTASSIUM 3.8 mmol/L (3.5-5.1)
[2016-12-26] MEDS ORDERED: SOD CHLORIDE 0.9% 250 ML IV* ONE (10:06)
--- NOTE | 2016-12-26 14:51 | CONS ---
Date/Time of Note Date/Time of Note DATE: 12/26/16 TIME: 14:50 Assessment/Plan Assessment/Plan Chief Complaint/Hosp Course SUBJECTIVE DATA: No acute changes overnight. Patient is awake, looks comfortable. no fevers, family at bedside. LABORATORY AND DIAGNOSTIC DATA: Blood culture negative. Urine culture growing Klebsiella pneumoniae, susceptible to all antibiotics, except ampicillin and nitrofurantoin. ANTIMICROBIALS: Ceftriaxone. OBJECTIVE DATA: GENERAL: This is a well-developed, fragile, elderly woman, who is in no distress. HEENT: Head atraumatic, normocephalic. Sclerae anicteric. Buccal mucosa dry. NECK: Supple. CHEST: Rise symmetrical. Breath sounds diminished at the bases. HEART: S1, S2. ABDOMEN: Soft, bowel sounds present. EXTREMITIES: Without cyanosis. ASSESSMENT: 1. Urinary tract infection. 2. New onset of cervical cancer with mets. 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 3. Anemia. 4. Bilateral lower extremity deep venous thrombosis. 5. Leukocytosis, likely 2 to underlying malignancy PLAN: Patient remains stable. Continue present care. Complete treatment for urinary tract infection. Await for final workup. DW staff Problems: Consultation Date/Type/Reason Admit Date/Time Dec 23, 2016 at 19:24 Initial Consult Date 12/23/16 Type of Consultation: ID Referring Provider: RACIEL CAIN Exam/Review of Systems Vital Signs Vitals Vital Signs Date Time Temp Pulse Resp B/P Pulse Ox O2 Delivery O2 Flow Rate FiO2 12/26/16 12:20 97.8 98 19 82/48 12/26/16 07:59 95 12/23/16 18:45 Room Air Intake and Output 12/25/16 12/25/16 12/26/16 15:00 23:00 07:00 Intake Total 800 ml 1020 ml Output Total 250 ml 500 ml Balance 550 ml 520 ml Results Result Diagram: 12/26/16 0850 12/26/16 0850 Results 24 hrs Laboratory Tests Test 12/26/16 08:50 White Blood Count 17.3 H Red Blood Count 2.83 L Hemoglobin 6.5 *L Hematocrit 22.9 L Mean Corpuscular Volume 80.9 L Mean Corpuscular Hemoglobin 23.0 L Mean Corpuscular Hemoglobin Concent 28.4 L Red Cell Distribution Width 21.2 H Platelet Count 350 Mean Platelet Volume 10.2 Neutrophils % 89.9 H Lymphocytes % 4.7 L Monocytes % 4.6 Eosinophils % 0.3 Basophils % 0.1 Nucleated Red Blood Cells % 0.0 Neutrophils # 15.6 H Lymphocytes # 0.8 Monocytes # 0.8 Eosinophils # 0.1 Basophils # 0.0 Nucleated Red Blood Cells # 0.0 Pathologist Review (Hematology) YES Sodium Level 144 Potassium Level 3.8 Chloride Level 116 H Carbon Dioxide Level 19 L Anion Gap 13 Blood Urea Nitrogen 39 #H Creatinine 0.85 Glucose Level 77 Calcium Level 10.0 Medications Medications Current Medications Sodium Chloride (NS) 1,000 ml @ 60 mls/hr [id number] IV Last administered on 12/25 19:04; Admin Dose 60 MLS/HR; Start 12/23/16 at 17:09 Ondansetron HCl (Zofran Inj) 4 mg Q6H PRN IV NAUSEA AND/OR VOMITING Last administered on 12/25/16 11:08; Admin Dose 4 MG; Start 12/23/16 at 17:30 Acetaminophen (Tylenol Tab) 650 mg Q6H PRN PO PAIN LEVEL 1-3 OR FEVER; Start at 17:30 Acetaminophen 650 mg 650 mg Q6H PRN [place] PAIN LEVEL 1-3 OR FEVER; Start 12/23/16 at 17:30 Ceftriaxone Sodium (Rocephin) 50 ml @ 100 mls/hr DAILY IVPB Last administered on 12/26/16 08:39; Admin Dose 100 MLS/HR; Start 12/24/16 at 09:00 Ferrous Gluconate (Fergon) 325 mg BID PO Last administered on 12/26/16 08:38; Admin Dose 325 MG; Start 12/24/16 at 21:00 Heparin Sodium (Porcine) (Heparin (1000 Units/ml)) 5,100 unit NOW IV ; Start 03/30 at 17:30; Stop 01/18/17 at 17:29; Status Future Hold Allopurinol (Zyloprim) 100 mg DAILY PO Last administered on 12/26/16 08:39; Admin Dose 100 MG; Start 12/25/16 at 09:00 Tramadol HCl (Ultram) 50 mg Q6H PRN PO PAIN LEVEL 1-3 Last administered on 12/26 07:12; Admin Dose 50 MG; Start 9/13/17 at 09:30 Alprazolam 0.5 mg 0.5 mg Q8H PRN PO ANXIETY Last administered on 12/26/16 08: 38; Admin Dose 0.5 MG; Start 12/25/16 at 09:30 Ferric Sodium Gluconate Complex/ Sodium Chloride (Ferrlecit/NS) 110 ml @ 110 mls/hr Q24H IVPB Last administered on 12/25/16 18:59; Admin Dose 110 MLS/HR; Start 12/25/16 at 19:00; Stop 01/01/17 at 19:59 VICTOR M CARDONA CLIENT CARE REPRESENTATIVE Dec 26, 2016 14:51
--- NOTE | 2016-12-26 15:46 | PN ---
Date/Time of Note Date/Time of Note DATE: 12/26/16 TIME: 15:44 Assessment/Plan VTE Prophylaxis VTE Prophylaxis Intervention: contraindicated (patient noted with worse anemia) Lines/Catheters IV Catheter Type (from Nrsg): Peripheral IV Urinary Cath still in place: Yes Reason Cath still needed: other (indicate) Assessment/Plan Chief Complaint/Hosp Course Impression and plan 1. Suspect new onset cervical cancer with metastasis to lymph, adrenal, and liver. Oncologist following. Tentative plan for biopsy.. Provide with analgesics as needed. Follow-up with recommendations 2. Sepsis UTI. Start antibiotics for now. Noted with Klebsiella pneumonia. Continue on antibiotics. Awaiting ID consultation 3. Acute renal insufficiency. Medications to be renally dosed. Nephrology is following. Improving at present 5. Hyperkalemia. Monitor level. Provide with Kayexalate as needed. 6. Anemia. Noted with iron deficiency. Start on iron supplement at this time. 7. Mild hyponatremia. Continue with nephrology recommendations 8.DVT of right and left common femoral vein as well as right and left popliteal vein. Vascular surgeon following. Plan for anticoagulation. Disposition and plan: Agreeable for mass biopsy. Follow-up with oncologist recommendations regarding chemotherapy. Palliative care physician also following for pain management. Await for tentative plan for biopsy Discussed plan of care with Dr. See Problems: Subjective 24 Hr Interval Summary Free Text/Dictation Less reported pain at this time. No other specific complaints. Less anxious today. Exam/Review of Systems Vital Signs Vitals Vital Signs Date Time Temp Pulse Resp B/P Pulse Ox O2 Delivery O2 Flow Rate FiO2 12/26/16 12:20 97.8 98 19 82/48 12/26/16 07:59 95 12/23/16 18:45 Room Air Intake and Output 12/25/16 12/25/16 12/26/16 15:00 23:00 07:00 Intake Total 800 ml 1020 ml Output Total 250 ml 500 ml Balance 550 ml 520 ml Exam Constitutional: alert, oriented Psych: nl mood/affect. 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 ENGINEER II-XII intact, nl mental status, nl speech, slightly forgetful at times Skin: nl turgor Results Result Diagram: 12/26/16 0850 12/26/16 0850 Results 24 hrs Laboratory Tests Test 12/26/16 08:50 White Blood Count 17.3 H Red Blood Count 2.83 L Hemoglobin 6.5 *L Hematocrit 22.9 L Mean Corpuscular Volume 80.9 L Mean Corpuscular Hemoglobin 23.0 L Mean Corpuscular Hemoglobin Concent 28.4 L Red Cell Distribution Width 21.2 H Platelet Count 350 Mean Platelet Volume 10.2 Neutrophils % 89.9 H Lymphocytes % 4.7 L Monocytes % 4.6 Eosinophils % 0.3 Basophils % 0.1 Nucleated Red Blood Cells % 0.0 Neutrophils # 15.6 H Lymphocytes # 0.8 Monocytes # 0.8 Eosinophils # 0.1 Basophils # 0.0 Nucleated Red Blood Cells # 0.0 Pathologist Review (Hematology) YES Sodium Level 144 Potassium Level 3.8 Chloride Level 116 H Carbon Dioxide Level 19 L Anion Gap 13 Blood Urea Nitrogen 39 #H Creatinine 0.85 Glucose Level 77 Calcium Level 10.0 Medications Medications Current Medications Sodium Chloride (NS) 1,000 ml @ 60 mls/hr [id number] IV Last administered on 12/25 19:04; Admin Dose 60 MLS/HR; Start 12/23/16 at 17:09 Ondansetron HCl (Zofran Inj) 4 mg Q6H PRN IV NAUSEA AND/OR VOMITING Last administered on 12/25/16 11:08; Admin Dose 4 MG; Start 12/23/16 at 17:30 Acetaminophen (Tylenol Tab) 650 mg Q6H PRN PO PAIN LEVEL 1-3 OR FEVER; Start at 17:30 Acetaminophen 650 mg 650 mg Q6H PRN [place] PAIN LEVEL 1-3 OR FEVER; Start 12/23/16 at 17:30 Ceftriaxone Sodium (Rocephin) 50 ml @ 100 mls/hr DAILY IVPB Last administered on 12/26/16 08:39; Admin Dose 100 MLS/HR; Start 12/24/16 at 09:00 Ferrous Gluconate (Fergon) 325 mg BID PO Last administered on 12/26/16 08:38; Admin Dose 325 MG; Start 12/24/16 at 21:00 Heparin Sodium (Porcine) (Heparin (1000 Units/ml)) 5,100 unit NOW IV ; Start 03/30 at 17:30; Stop 01/18/17 at 17:29; Status Future Hold Allopurinol (Zyloprim) 100 mg DAILY PO Last administered on 12/26/16 08:39; Admin Dose 100 MG; Start 12/25/16 at 09:00 Tramadol HCl (Ultram) 50 mg Q6H PRN PO PAIN LEVEL 1-3 Last administered on 12/26 07:12; Admin Dose 50 MG; Start 12/25/16 at 09:30 Alprazolam 0.5 mg 0.5 mg Q8H PRN PO ANXIETY Last administered on 12/26/16 08: 38; Admin Dose 0.5 MG; Start 12/25/16 at 09:30 Ferric Sodium Gluconate Complex/ Sodium Chloride (Ferrlecit/NS) 110 ml @ 110 mls/hr Q24H IVPB Last administered on 12/25/16 18:59; Admin Dose 110 MLS/HR; Start 12/25/16 at 19:00; Stop 01/01/17 at 19:59 RACIEL CAIN Dec 26, 2016 15:46
[2016-12-26] MEDS: SOD CHLORIDE 0.9% 1,000 ML IV SCH (16:14)
[2016-12-26 16:24] LABS: WHITE BLOOD COUNT 17.3 10^3/ul (4.8-10.8)
[2016-12-26] MEDS: SOD FERRIC GLUC COMPLX 125 MG in SOD CHLORIDE 0.9% 100 ML IVPB SCH (17:57)
--- NOTE | 2016-12-26 18:13 | HP ---
DATE OF ADMISSION: 12/23/2016 HISTORY OF PRESENT ILLNESS: Ms. Davis is a 71-year-old female who presented to [facility] secondary to pelvic pain and back pain. Upon evaluation, it seems the patient is positive for UTI and a large mass in her uterine cervical region with necrosis, suspicious for cervical carcinoma. Further, the patient was identified having large periaortic retroperitoneal lymphadenopathy suggesting metastatic disease. Upon lower extremity evaluation, it was identified the patient having deep vein thrombosis in the right and left common femoral veins, femoral and popliteal veins bilaterally. At the moment, the patient denies shortness of breath, chest pain, nausea, vomiting, fever, chills. The patient denies lower extremity pain upon evaluation. REVIEW OF SYSTEMS: A 14-point review performed negative except was mentioned in HPI. PAST MEDICAL HISTORY: Unknown as the patient is a poor historian, disheveled and unshowered. SURGICAL HISTORY: Unknown. SOCIAL HISTORY: Denies tobacco, alcohol or illicit drug use. PHYSICAL EXAMINATION: GENERAL: She is alert and oriented to place and date, however, not time. HEENT: Normocephalic, atraumatic. Mucosa moist. NECK: Supple. No carotid bruit. LUNGS: Clear to auscultation bilaterally. No crackles. CARDIOVASCULAR: S1, S2 present. No murmurs. ABDOMEN: Soft. Suprapubic tenderness. Bowel sounds positive. EXTREMITIES: Right lower extremity, palpable femoral pulse, faint pedal pulse. Motor sensory intact. Capillary refill 3 seconds. Edema 1+. Nontender calf or thigh. Left lower extremity, palpable femoral pulse, faint pedal pulse. Motor sensory intact. Capillary refill 3 seconds. Nontender calf or thigh. Edema 1+. ASSESSMENT AND PLAN: 1. Bilateral lower extremity deep vein thrombosis: The patient has developed bilateral common femoral, femoral vein, popliteal vein thrombosis. This likely is related to her hypercoagulable state secondary to what seems to be a pelvic mass with metastatic disease. I would not recommend any surgical intervention and conservative therapy only. The patient has no signs of phlegmasia and would recommend therapeutic doses of Lovenox and eventual transition to a p.o. regimen per our Hematology colleagues recommendations. 2. Optimize vascular status (nutrition, exercise, sugar control, antiplatelets). 3. Would recommend elevating bilateral lower extremities to help assist with her edema. I discussed findings and plan of management with the patient with a certified window covering sales consultant, she understands. Thank you for allowing us to partake in the care of your patient. Please call with any questions. Dictated By: Everett Payan MD /[email or web address]/bayron /Document#: [id number]
--- NOTE | 2016-12-26 22:35 | CONS ---
Date/Time of Note Date/Time of Note DATE: 12/26/16 TIME: 22:29 Assessment/Plan Assessment/Plan Chief Complaint/Hosp Course Large mass of the uterine cervix with necrosis. R/O cervical carcinoma. Large periaortic retroperitoneal lymphadenopathy, likely metastatic. Moderate metastatic lymphadenopathy along the mesenteric root and peripancreatic and arleen hepatis lymphadenopathy. There is also retrocrural metastatic lymphadenopathy. Moderate right iliac and mild left iliac lymphadenopathy, metastatic. 2.5 cm x 2 cm right adrenal mass. 3 cm x 2.2 cm left adrenal mass. 4.5 cm low-density mass in the right inferior liver, likely metastatic. 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 CA 125- 959 BX MASS , CAN PROBABLY OMIT LIVER BX AWAIT DR VALLADARES DECISION RE BX UNDER ANESTHESIA VS CT- QUIDED. CONSIDERING METASTATIC DIS CT- Q BX WILL BE PROBABLY SUFFICIENT PT WILL MOST LIKELY WILL NEED CHEMO, NOT A SURGERY Extensive deep venous thrombosis involving the right and left common femoral vein, right and left femoral vein, right and left popliteal vein. heparin ok for lovenox post bx Anemia. MICROCYTIC WITH INCREASED RDW complete ANEMIA W-UP iron studies. - C/W ACD, pos FE DEF Transfuse for hemoglobin less than 7. IV IRON INCREASED URIC ACID CONT ALLOPURINOL RENAL DOSE HYPERCALCEMIA IMPROVED WITH HYDRATION Sepsis UTI. Acute renal insufficiency. Hyperkalemia. Mild hyponatremia. Problems: Consultation Date/Type/Reason Admit Date/Time Dec 23, 2016 at 19:24 Initial Consult Date 12/23/16 [facility] Referring Provider: RACIEL CAIN 24 HR Interval Summary Free Text/Dictation ALL NOTED NO NEW EVENTS H/H - DROPPED PRBC ORDERED Exam/Review of Systems Vital Signs Vitals Vital Signs Date Time Temp Pulse Resp B/P Pulse Ox O2 Delivery O2 Flow Rate FiO2 12/26/16 20:24 98 12/26/16 19:30 97.6 20 97/53 96 12/23/16 18:45 Room Air Intake and Output 12/25/16 12/25/16 12/26/16 15:00 23:00 07:00 Intake Total 800 ml 1020 ml Output Total 250 ml 500 ml Balance 550 ml 520 ml Exam Constitutional: alert Psych: anxiety Head: normocephalic Neck: supple Respiratory: clear to auscultation Cardiovascular: other (Regular rate to tachycardic) Gastrointestinal: soft, tender Musculoskeletal: swelling (Minimally bilateral lower extremities) Neurological: nl mental status, nl speech Results Result Diagram: 12/26/16 0850 12/26/16 0850 Results 24 hrs Laboratory Tests Test 12/26/16 08:50 White Blood Count 17.3 H Red Blood Count 2.83 L Hemoglobin 6.5 *L Hematocrit 22.9 L Mean Corpuscular Volume 80.9 L Mean Corpuscular Hemoglobin 23.0 L Mean Corpuscular Hemoglobin Concent 28.4 L Red Cell Distribution Width 21.2 H Platelet Count 350 Mean Platelet Volume 10.2 Neutrophils % 89.9 H Lymphocytes % 4.7 L Monocytes % 4.6 Eosinophils % 0.3 Basophils % 0.1 Nucleated Red Blood Cells % 0.0 Neutrophils # 15.6 H Lymphocytes # 0.8 Monocytes # 0.8 Eosinophils # 0.1 Basophils # 0.0 Nucleated Red Blood Cells # 0.0 Pathologist Review (Hematology) Path Consult Signing Pathologist REECE GRAVES MD Sodium Level 144 Potassium Level 3.8 Chloride Level 116 H Carbon Dioxide Level 19 L Anion Gap 13 Blood Urea Nitrogen 39 #H Creatinine 0.85 Glucose Level 77 Calcium Level 10.0 Medications Medications Current Medications Sodium Chloride (NS) 1,000 ml @ 60 mls/hr [id number] IV Last administered on 12/26 16:14; Admin Dose 60 MLS/HR; Start 12/23/16 at 17:09 Ondansetron HCl (Zofran Inj) 4 mg Q6H PRN IV NAUSEA AND/OR VOMITING Last administered on 12/25/16 11:08; Admin Dose 4 MG; Start 12/23/16 at 17:30 Acetaminophen (Tylenol Tab) 650 mg Q6H PRN PO PAIN LEVEL 1-3 OR FEVER; Start at 17:30 Acetaminophen 650 mg 650 mg Q6H PRN [place] PAIN LEVEL 1-3 OR FEVER; Start 12/23/16 at 17:30 Ceftriaxone Sodium (Rocephin) 50 ml @ 100 mls/hr DAILY IVPB Last administered on 12/26/16 08:39; Admin Dose 100 MLS/HR; Start 12/24/16 at 09:00 Ferrous Gluconate (Fergon) 325 mg BID PO Last administered on 12/26/16 21:36; Admin Dose 325 MG; Start 12/24/16 at 21:00 Heparin Sodium (Porcine) (Heparin (1000 Units/ml)) 5,100 unit NOW IV ; Start 03/30 at 17:30; Stop 01/18/17 at 17:29; Status Future Hold Allopurinol (Zyloprim) 100 mg DAILY PO Last administered on 12/26/16 08:39; Admin Dose 100 MG; Start 12/25/16 at 09:00 Tramadol HCl (Ultram) 50 mg Q6H PRN PO PAIN LEVEL 1-3 Last administered on 12/26 18:14; Admin Dose 50 MG; Start 12/25/16 at 09:30 Alprazolam 0.5 mg 0.5 mg Q8H PRN PO ANXIETY Last administered on 12/26/16 08: 38; Admin Dose 0.5 MG; Start 12/25/16 at 09:30 Ferric Sodium Gluconate Complex/ Sodium Chloride (Ferrlecit/NS) 110 ml @ 110 mls/hr Q24H IVPB Last administered on 12/26/16 17:57; Admin Dose 110 MLS/HR; Start 12/25/16 at 19:00; Stop 01/01/17 at 19:59 KEATON METZ MD Dec 26, 2016 22:35
[2016-12-27] VITALS (13 sets, daily range): BP systolic 90–99; BP diastolic 50–64; PULSE 90–101; RESP 16–20
[2016-12-27 06:57] LABS: BASOPHILS % 0.2 % (0.0-2.0); EOSINOPHILS # 0.3 10^3/ul (0.0-0.5); EOSINOPHILS % 1.7 % (0.0-7.0); HEMATOCRIT 25.8 % (37.0-47.0); HEMOGLOBIN 7.5 g/dl (12.0-16.0); LYMPHOCYTES % 6.8 % (15.0-51.0); MEAN CORPUSCULAR HEMOGLOBIN 23.6 pg (29.0-33.0); MEAN CORPUSCULAR HGB CONC 29.1 g/dl (32.0-37.0); MEAN CORPUSCULAR VOLUME 81.1 fl (82.0-101.0); MEAN PLATELET VOLUME 9.7 fl (7.4-10.4); MONOCYTE # 0.7 10^3/ul (0.3-0.9); MONOCYTES % 4.7 % (0.0-11.0); NEUTROPHILS % 86.1 % (39.0-77.0); PLATELET COUNT 352 10^3/UL (140-415); RED BLOOD COUNT 3.18 10^6/ul (4.20-5.40); RED CELL DISTRIBUTION WIDTH 20.8 % (11.5-14.5); WHITE BLOOD COUNT 15.1 10^3/ul (4.8-10.8)
[2016-12-27 07:24] LABS: CALCIUM 9.5 mg/dl (8.4-10.2); CREATININE 0.71 mg/dl (0.44-1.00); POTASSIUM 3.6 mmol/L (3.5-5.1)
[2016-12-27] MEDS: ALLOPURINOL 100 MG TAB PO SCH (08:27)
[2016-12-27] MEDS: FERROUS GLUCONATE (EC) 325 MG TAB PO SCH ×2 (08:27→21:08)
[2016-12-27] MEDS: CEFTRIAXONE 2 GM/50 ML (PMX) 50 ML IVPB SCH (08:27)
[2016-12-27] MEDS: SOD CHLORIDE 0.9% 1,000 ML IV SCH (08:27)
[2016-12-27 10:16] LABS: FOLATE 4.5 ng/ml (2.8-20.0)
[2016-12-27] MEDS: traMADol 50 MG TAB PO PRN (12:29)
[2016-12-27] MEDS: ALPRAZOLAM 0.25 MG TAB PO PRN (12:29)
[2016-12-27] MEDS: ACETAMINOPHEN 325 MG TAB PO PRN (12:30)
--- NOTE | 2016-12-27 15:57 | PN ---
Date/Time of Note Date/Time of Note DATE: 12/27/16 TIME: 15:54 Assessment/Plan VTE Prophylaxis VTE Prophylaxis Intervention: other (on heparin gtt for DVT ) Lines/Catheters IV [facility]ter [facility] (from [facility]): Peripheral IV Urinary Cath still in place: Yes Reason Cath still needed: urinary retention Assessment/Plan Assessment/Plan 1. Suspect new onset cervical cancer with metastasis to lymph, adrenal, and liver. Oncologist following. Tentative plan for biopsy.. Provide with analgesics as needed. Follow-up with recommendations 2. Sepsis UTI. Start antibiotics for now. Noted with Klebsiella pneumonia. Continue on antibiotics 3. Acute renal insufficiency. Medications to be renally dosed. Nephrology is following. Improving at present 5. Hyperkalemia. Monitor level. Provide with Kayexalate as needed., now K stable 6. Anemia. Noted with iron deficiency. Start on iron supplement at this time. K 7.4- oncology and nephrology both following- to decide about blood trnsfusion and epogen 7. Mild hyponatremia. Continue with nephrology recommendations 8.DVT of right and left common femoral vein as well as right and left popliteal vein. s/p surgery consult by - on heparin gtt, now, will hold it for today for CT guided bx Disposition and plan: Agreeable for mass biopsy. plan for CT guided bx today Exam/Review of Systems Vital Signs Vitals Vital Signs Date Time Temp Pulse Resp B/P Pulse Ox O2 Delivery O2 Flow Rate FiO2 12/27/16 13:32 91 12/27/16 12:00 97/56 12/27/16 11:47 98.4 17 96 12/23/16 18:45 Room Air Intake and Output 12/26/16 12/26/16 12/27/16 15:00 23:00 07:00 Intake Total 480 ml 980 ml Output Total 450 ml 500 ml Balance 30 ml 480 ml Exam Constitutional: alert, oriented Psych: nl mood/affect. no anxiety today Head: normocephalic Respiratory: normal air movement Cardiovascular: regular rate and rhythm Gastrointestinal: soft Musculoskeletal: swelling (bilateral lower extremities) Neurological: PLATEN BUILDER UP II-XII intact, nl mental status, nl speech, slightly forgetful at times Skin: nl turgor Results Result Diagram: 12/27/16 0638 12/27/16 0638 Results 24 hrs Laboratory Tests Test 12/27/16 06:38 White Blood Count 15.1 H Red Blood Count 3.18 L Hemoglobin 7.5 L Hematocrit 25.8 L Mean Corpuscular Volume 81.1 L Mean Corpuscular Hemoglobin 23.6 L Mean Corpuscular Hemoglobin Concent 29.1 L Red Cell Distribution Width 20.8 H Platelet Count 352 Mean Platelet Volume 9.7 Neutrophils % 86.1 H Lymphocytes % 6.8 L Monocytes % 4.7 Eosinophils % 1.7 Basophils % 0.2 Nucleated Red Blood Cells % 0.0 Neutrophils # 13.0 H Lymphocytes # 1.0 Monocytes # 0.7 Eosinophils # 0.3 Basophils # 0.0 Nucleated Red Blood Cells # 0.0 Sodium Level 144 Potassium Level 3.6 Chloride Level 117 H Carbon Dioxide Level 21 Anion Gap 10 Blood Urea Nitrogen 28 #H Creatinine 0.71 Glucose Level 84 Calcium Level 9.5 Medications Medications Current Medications Sodium Chloride (NS) 1,000 ml @ 60 mls/hr [id number] IV Last administered on 12/27 08:27; Admin Dose 60 MLS/HR; Start 12/23/16 at 17:09 Ondansetron HCl (Zofran Inj) 4 mg Q6H PRN IV NAUSEA AND/OR VOMITING Last administered on 12/25/16 11:08; Admin Dose 4 MG; Start 12/23/16 at 17:30 Acetaminophen (Tylenol Tab) 650 mg Q6H PRN PO PAIN LEVEL 1-3 OR FEVER Last administered on 12/27/16 12:30; Admin Dose 650 MG; Start 12/23/16 at 17:30 Acetaminophen 650 mg 650 mg Q6H PRN [place] PAIN LEVEL 1-3 OR FEVER; Start 12/23/16 at 17:30 Ceftriaxone Sodium (Rocephin) 50 ml @ 100 mls/hr DAILY IVPB Last administered on 12/27/16 08:27; Admin Dose 100 MLS/HR; Start 12/24/16 at 09:00 Ferrous Gluconate (Fergon) 325 mg BID PO Last administered on 12/27/16 08:27; Admin Dose 325 MG; Start 12/24/16 at 21:00 Heparin Sodium (Porcine) (Heparin (1000 Units/ml)) 5,100 unit NOW IV ; Start 03/30 at 17:30; Stop 01/18/17 at 17:29; Status Future Hold Allopurinol (Zyloprim) 100 mg DAILY PO Last administered on 12/27/16 08:27; Admin Dose 100 MG; Start 12/25/16 at 09:00 Tramadol HCl (Ultram) 50 mg Q6H PRN PO PAIN LEVEL 1-3 Last administered on 12/27 12:29; Admin Dose 50 MG; Start 12/25/16 at 09:30 Alprazolam 0.5 mg 0.5 mg Q8H PRN PO ANXIETY Last administered on 12/27/16 12: 29; Admin Dose 0.5 MG; Start 12/25/16 at 09:30 Ferric Sodium Gluconate Complex/ Sodium Chloride (Ferrlecit/NS) 110 ml @ 110 mls/hr Q24H IVPB Last administered on 12/26/16 17:57; Admin Dose 110 MLS/HR; Start 12/25/16 at 19:00; Stop 01/01/17 at 19:59 GODFREY SANDERSON MD Dec 27, 2016 15:57
--- NOTE | 2016-12-27 16:05 | CONS ---
Date/Time of Note Date/Time of Note DATE: 12/27/16 TIME: 16:04 Assessment/Plan Assessment/Plan Chief Complaint/Hosp Course SUBJECTIVE DATA: No acute changes overnight. Patient is awake, looks comfortable, no fevers LABORATORY AND DIAGNOSTIC DATA: Blood culture negative. Urine culture growing Klebsiella pneumoniae, susceptible to all antibiotics, except ampicillin and nitrofurantoin. ANTIMICROBIALS: Ceftriaxone. OBJECTIVE DATA: GENERAL: This is a well-developed, fragile, elderly woman, who is in no distress. HEENT: Head atraumatic, normocephalic. Sclerae anicteric. Buccal mucosa dry. NECK: Supple. CHEST: Rise symmetrical. Breath sounds diminished at the bases. HEART: S1, S2. ABDOMEN: Soft, bowel sounds present. EXTREMITIES: Without cyanosis. ASSESSMENT: 1. Urinary tract infection. 2. New onset of cervical cancer with mets. 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 3. Anemia. 4. Bilateral lower extremity deep venous thrombosis. 5. Leukocytosis, likely 2 to underlying malignancy PLAN: Patient remains stable. Continue present care. Complete treatment for urinary tract infection. Await for final workup. DW staff Problems: Consultation Date/Type/Reason Admit Date/Time Dec 23, 2016 at 19:24 Initial Consult Date 12/23/16 Type of Consultation: id Referring Provider: RACIEL CAIN Exam/Review of Systems Vital Signs Vitals Vital Signs Date Time Temp Pulse Resp B/P Pulse Ox O2 Delivery O2 Flow Rate FiO2 12/27/16 13:32 91 12/27/16 12:00 97/56 12/27/16 11:47 98.4 17 96 12/23/16 18:45 Room Air Intake and Output 12/26/16 12/26/16 12/27/16 15:00 23:00 07:00 Intake Total 480 ml 980 ml Output Total 450 ml 500 ml Balance 30 ml 480 ml Results Result Diagram: 12/27/16 0638 12/27/16 0638 Results 24 hrs Laboratory Tests Test 12/27/16 06:38 White Blood Count 15.1 H Red Blood Count 3.18 L Hemoglobin 7.5 L Hematocrit 25.8 L Mean Corpuscular Volume 81.1 L Mean Corpuscular Hemoglobin 23.6 L Mean Corpuscular Hemoglobin Concent 29.1 L Red Cell Distribution Width 20.8 H Platelet Count 352 Mean Platelet Volume 9.7 Neutrophils % 86.1 H Lymphocytes % 6.8 L Monocytes % 4.7 Eosinophils % 1.7 Basophils % 0.2 Nucleated Red Blood Cells % 0.0 Neutrophils # 13.0 H Lymphocytes # 1.0 Monocytes # 0.7 Eosinophils # 0.3 Basophils # 0.0 Nucleated Red Blood Cells # 0.0 Sodium Level 144 Potassium Level 3.6 Chloride Level 117 H Carbon Dioxide Level 21 Anion Gap 10 Blood Urea Nitrogen 28 #H Creatinine 0.71 Glucose Level 84 Calcium Level 9.5 Medications Medications Current Medications Sodium Chloride (NS) 1,000 ml @ 60 mls/hr [id number] IV Last administered on 12/27 08:27; Admin Dose 60 MLS/HR; Start 12/23/16 at 17:09 Ondansetron HCl (Zofran Inj) 4 mg Q6H PRN IV NAUSEA AND/OR VOMITING Last administered on 12/25/16 11:08; Admin Dose 4 MG; Start 12/23/16 at 17:30 Acetaminophen (Tylenol Tab) 650 mg Q6H PRN PO PAIN LEVEL 1-3 OR FEVER Last administered on 12/27/16 12:30; Admin Dose 650 MG; Start 12/23/16 at 17:30 Acetaminophen 650 mg 650 mg Q6H PRN [place] PAIN LEVEL 1-3 OR FEVER; Start 12/23/16 at 17:30 Ceftriaxone Sodium (Rocephin) 50 ml @ 100 mls/hr DAILY IVPB Last administered on 12/27/16 08:27; Admin Dose 100 MLS/HR; Start 12/24/16 at 09:00 Ferrous Gluconate (Fergon) 325 mg BID PO Last administered on 12/27/16 08:27; Admin Dose 325 MG; Start 12/24/16 at 21:00 Heparin Sodium (Porcine) (Heparin (1000 Units/ml)) 5,100 unit NOW IV ; Start 03/30 at 17:30; Stop 01/18/17 at 17:29; Status Future Hold Allopurinol (Zyloprim) 100 mg DAILY PO Last administered on 12/27/16 08:27; Admin Dose 100 MG; Start 12/25/16 at 09:00 Tramadol HCl (Ultram) 50 mg Q6H PRN PO PAIN LEVEL 1-3 Last administered on 12/27 12:29; Admin Dose 50 MG; Start 12/25/16 at 09:30 Alprazolam 0.5 mg 0.5 mg Q8H PRN PO ANXIETY Last administered on 12/27/16 12: 29; Admin Dose 0.5 MG; Start 12/25/16 at 09:30 Ferric Sodium Gluconate Complex/ Sodium Chloride (Ferrlecit/NS) 110 ml @ 110 mls/hr Q24H IVPB Last administered on 12/26/16 17:57; Admin Dose 110 MLS/HR; Start 12/25/16 at 19:00; Stop 01/01/17 at 19:59 VICTOR M CARDONA NP Dec 27, 2016 16:05
--- NOTE | 2016-12-27 16:38 | CONS ---
Date/Time of Note Date/Time of Note DATE: 12/27/16 TIME: 16:37 Assessment/Plan Assessment/Plan Chief Complaint/Hosp Course Large mass of the uterine cervix with necrosis. R/O cervical carcinoma. Large periaortic retroperitoneal lymphadenopathy, likely metastatic. Moderate metastatic lymphadenopathy along the mesenteric root and peripancreatic and arleen hepatis lymphadenopathy. There is also retrocrural metastatic lymphadenopathy. Moderate right iliac and mild left iliac lymphadenopathy, metastatic. 2.5 cm x 2 cm right adrenal mass. 3 cm x 2.2 cm left adrenal mass. 4.5 cm low-density mass in the right inferior liver, likely metastatic. 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 CA 125- 959 BX MASS , CAN PROBABLY OMIT LIVER BX BX ORDERED PT WILL MOST LIKELY WILL NEED CHEMO, NOT A SURGERY Extensive deep venous thrombosis involving the right and left common femoral vein, right and left femoral vein, right and left popliteal vein. heparin ok for lovenox post bx Anemia. MICROCYTIC WITH INCREASED RDW complete ANEMIA W-UP iron studies. - C/W ACD, pos FE DEF Transfuse for hemoglobin less than 7. IV IRON INCREASED URIC ACID CONT ALLOPURINOL RENAL DOSE HYPERCALCEMIA IMPROVED WITH HYDRATION Sepsis UTI. Acute renal insufficiency. Hyperkalemia. Mild hyponatremia. Problems: Consultation Date/Type/Reason Admit Date/Time Dec 23, 2016 at 19:24 Initial Consult Date 12/23/16 Type of Consultation: [facility] Referring Provider: RACIEL CAIN 24 HR Interval Summary Free Text/Dictation ALL NOTED BX- ORDERED Exam/Review of Systems Vital Signs Vitals Vital Signs Date Time Temp Pulse Resp B/P Pulse Ox O2 Delivery O2 Flow Rate FiO2 12/27/16 16:33 98.9 98 17 91/64 98 12/23/16 18:45 Room Air Intake and Output 12/26/16 12/26/16 12/27/16 15:00 23:00 07:00 Intake Total 480 ml 980 ml Output Total 450 ml 500 ml Balance 30 ml 480 ml Exam Constitutional: alert Psych: anxiety Head: normocephalic Neck: supple Respiratory: clear to auscultation Cardiovascular: other (Regular rate to tachycardic) Gastrointestinal: soft, tender Musculoskeletal: swelling (Minimally bilateral lower extremities) Neurological: nl mental status, nl speech Results Result Diagram: 12/27/16 0638 12/27/16 0638 Results 24 hrs Laboratory Tests Test 12/27/16 06:38 White Blood Count 15.1 H Red Blood Count 3.18 L Hemoglobin 7.5 L Hematocrit 25.8 L Mean Corpuscular Volume 81.1 L Mean Corpuscular Hemoglobin 23.6 L Mean Corpuscular Hemoglobin Concent 29.1 L Red Cell Distribution Width 20.8 H Platelet Count 352 Mean Platelet Volume 9.7 Neutrophils % 86.1 H Lymphocytes % 6.8 L Monocytes % 4.7 Eosinophils % 1.7 Basophils % 0.2 Nucleated Red Blood Cells % 0.0 Neutrophils # 13.0 H Lymphocytes # 1.0 Monocytes # 0.7 Eosinophils # 0.3 Basophils # 0.0 Nucleated Red Blood Cells # 0.0 Sodium Level 144 Potassium Level 3.6 Chloride Level 117 H Carbon Dioxide Level 21 Anion Gap 10 Blood Urea Nitrogen 28 #H Creatinine 0.71 Glucose Level 84 Calcium Level 9.5 Medications Medications Current Medications Sodium Chloride (NS) 1,000 ml @ 60 mls/hr [id number] IV Last administered on 12/27 08:27; Admin Dose 60 MLS/HR; Start 12/23/16 at 17:09 Ondansetron HCl (Zofran Inj) 4 mg Q6H PRN IV NAUSEA AND/OR VOMITING Last administered on 12/25/16 11:08; Admin Dose 4 MG; Start 12/23/16 at 17:30 Acetaminophen (Tylenol Tab) 650 mg Q6H PRN PO PAIN LEVEL 1-3 OR FEVER Last administered on 12/27/16 12:30; Admin Dose 650 MG; Start 12/23/16 at 17:30 Acetaminophen 650 mg 650 mg Q6H PRN [place] PAIN LEVEL 1-3 OR FEVER; Start 12/23/16 at 17:30 Ceftriaxone Sodium (Rocephin) 50 ml @ 100 mls/hr DAILY IVPB Last administered on 12/27/16 08:27; Admin Dose 100 MLS/HR; Start 12/24/16 at 09:00 Ferrous Gluconate (Fergon) 325 mg BID PO Last administered on 12/27/16 08:27; Admin Dose 325 MG; Start 12/24/16 at 21:00 Heparin Sodium (Porcine) (Heparin (1000 Units/ml)) 5,100 unit NOW IV ; Start 03/30 at 17:30; Stop 01/18/17 at 17:29; Status Future Hold Allopurinol (Zyloprim) 100 mg DAILY PO Last administered on 12/27/16 08:27; Admin Dose 100 MG; Start 12/25/16 at 09:00 Tramadol HCl (Ultram) 50 mg Q6H PRN PO PAIN LEVEL 1-3 Last administered on 12/27 12:29; Admin Dose 50 MG; Start 12/25/16 at 09:30 Alprazolam 0.5 mg 0.5 mg Q8H PRN PO ANXIETY Last administered on 12/27/16 12: 29; Admin Dose 0.5 MG; Start 12/25/16 at 09:30 Ferric Sodium Gluconate Complex/ Sodium Chloride (Ferrlecit/NS) 110 ml @ 110 mls/hr Q24H IVPB Last administered on 12/26/16 17:57; Admin Dose 110 MLS/HR; Start 12/25/16 at 19:00; Stop 01/01/17 at 19:59 KEATON METZ MD Dec 27, 2016 16:38
[2016-12-27] MEDS: SOD FERRIC GLUC COMPLX 125 MG in SOD CHLORIDE 0.9% 100 ML IVPB SCH (18:18)
[2016-12-28] VITALS (11 sets, daily range): BP systolic 95–102; BP diastolic 47–71; PULSE 91–101; RESP 16–20
[2016-12-28] MEDS: traMADol 50 MG TAB PO PRN ×2 (05:20→20:53)
[2016-12-28] MEDS: SOD CHLORIDE 0.9% 1,000 ML IV SCH ×3 (06:27→19:35)
--- NOTE | 2016-12-28 08:49 | CONS ---
DATE OF ADMISSION: 12/23/2016 DATE OF CONSULTATION: 12/27/2016 HISTORY OF PRESENT ILLNESS: The patient is a 71-year-old, homeless female that was admitted on 12/23/2016 with chief complaint of suprapubic pain and abdominal swelling. Upon admission, her white blood cell count 15,100. She was not febrile. She was admitted to the hospital and found to have a urinalysis with a specific gravity of 1016, pH 5, +2 leukocyte esterase, 3 RBCs, 64 WBC's and moderate bacteria. Culture of the urine grew out wild-type Klebsiella pneumoniae, which is to say resistant to ampicillin only. The patient had further workup and was found to have bilateral deep vein thrombosis, a large pelvic mass and retroperitoneal lymph nodes surrounding the arleen hepatis and the pancreas, as well as periaortic nodes. She had right and left adrenal masses and spinal metastases, as well as liver metastases. She was evaluated by Dr. Engel and Dr. Santana. PHYSICAL EXAMINATION: GENERAL: Reveals an overweight female, who cannot speak Ecuadorean. CHEST: Clear. HEENT: The pupils are equal, round, react to light. ABDOMEN: Distended, tender in lower quadrants. EXTREMITIES: There is swelling of both calves, mild. IMPRESSION: 1. Systemic inflammatory response. 2. Urinary tract infection. 3. Metastatic carcinoma of the cervix. 4. Bilateral deep vein thrombosis. 5. Gout. 6. Anemia. RECOMMENDATIONS: I will treat the patient with ceftriaxone 1 g IV daily and continue workup for the metastatic malignancy. DICTATED BY: Adan Fuentes MD. Dictated By: Edvin Lieberman MD JD/rambo/jada /Document#: [id number] CC: Adan Fuentes MD;*[facility]*
[2016-12-28] MEDS: CEFTRIAXONE 2 GM/50 ML (PMX) 50 ML IVPB SCH (09:27)
[2016-12-28] MEDS: FERROUS GLUCONATE (EC) 325 MG TAB PO SCH ×2 (09:28→20:53)
[2016-12-28] MEDS: ALLOPURINOL 100 MG TAB PO SCH (09:28)
[2016-12-28 09:47] LABS: BASOPHILS % 0.2 % (0.0-2.0); EOSINOPHILS # 0.4 10^3/ul (0.0-0.5); EOSINOPHILS % 3.1 % (0.0-7.0); HEMATOCRIT 26.2 % (37.0-47.0); HEMOGLOBIN 7.8 g/dl (12.0-16.0); LYMPHOCYTES # 1.2 10^3/ul (0.8-2.9); LYMPHOCYTES % 9.2 % (15.0-51.0); MEAN CORPUSCULAR HEMOGLOBIN 24.1 pg (29.0-33.0); MEAN CORPUSCULAR HGB CONC 29.8 g/dl (32.0-37.0); MEAN CORPUSCULAR VOLUME 81.1 fl (82.0-101.0); MEAN PLATELET VOLUME 9.3 fl (7.4-10.4); MONOCYTE # 0.7 10^3/ul (0.3-0.9); MONOCYTES % 5.3 % (0.0-11.0); NEUTROPHIL # 10.3 10^3/ul (1.6-7.5); NEUTROPHILS % 81.7 % (39.0-77.0); PLATELET COUNT 332 10^3/UL (140-415); RED BLOOD COUNT 3.23 10^6/ul (4.20-5.40); RED CELL DISTRIBUTION WIDTH 21.2 % (11.5-14.5); WHITE BLOOD COUNT 12.6 10^3/ul (4.8-10.8)
[2016-12-28 10:07] LABS: CREATININE 0.61 mg/dl (0.44-1.00); POTASSIUM 3.7 mmol/L (3.5-5.1)
[2016-12-28] MEDS: SOD FERRIC GLUC COMPLX 125 MG in SOD CHLORIDE 0.9% 100 ML IVPB SCH (18:03)
--- NOTE | 2016-12-28 19:10 | CONS ---
Date/Time of Note Date/Time of Note DATE: 12/28/16 TIME: 19:10 Assessment/Plan Assessment/Plan Chief Complaint/Hosp Course Large mass of the uterine cervix with necrosis. R/O cervical carcinoma. Large periaortic retroperitoneal lymphadenopathy, likely metastatic. Moderate metastatic lymphadenopathy along the mesenteric root and peripancreatic and arleen hepatis lymphadenopathy. There is also retrocrural metastatic lymphadenopathy. Moderate right iliac and mild left iliac lymphadenopathy, metastatic. 2.5 cm x 2 cm right adrenal mass. 3 cm x 2.2 cm left adrenal mass. 4.5 cm low-density mass in the right inferior liver, likely metastatic. 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 CA 125- 959 BX MASS , CAN PROBABLY OMIT LIVER BX BX ORDERED PT WILL MOST LIKELY WILL NEED CHEMO, NOT A SURGERY Extensive deep venous thrombosis involving the right and left common femoral vein, right and left femoral vein, right and left popliteal vein. heparin ok for lovenox post bx Anemia. MICROCYTIC WITH INCREASED RDW complete ANEMIA W-UP iron studies. - C/W ACD, pos FE DEF Transfuse for hemoglobin less than 7. IV IRON INCREASED URIC ACID CONT ALLOPURINOL RENAL DOSE HYPERCALCEMIA IMPROVED WITH HYDRATION Sepsis UTI. Acute renal insufficiency. Hyperkalemia. Mild hyponatremia. Problems: Consultation Date/Type/Reason Admit Date/Time Dec 23, 2016 at 19:24 Initial Consult Date 12/23/16 Type of Consultation: [facility] Referring Provider: RACIEL CAIN 24 HR Interval Summary Free Text/Dictation ALL NOTED D/W RN Exam/Review of Systems Vital Signs Vitals Vital Signs Date Time Temp Pulse Resp B/P Pulse Ox O2 Delivery O2 Flow Rate FiO2 12/28/16 16:53 95 12/28/16 16:38 98.1 16 95/51 97 Intake and Output 12/27/16 12/27/16 12/28/16 15:00 23:00 07:00 Intake Total 470 ml 780 ml 150 ml Output Total 700 ml 550 ml Balance 470 ml 80 ml -400 ml Exam Exam Constitutional: alert Psych: anxiety Head: normocephalic Neck: supple Respiratory: clear to auscultation Cardiovascular: other (Regular rate to tachycardic) Gastrointestinal: soft, tender Musculoskeletal: swelling (Minimally bilateral lower extremities) Neurological: nl mental status, nl speech Results Result Diagram: 12/28/16 0930 12/28/16 0930 Results 24 hrs Laboratory Tests Test 12/28/16 09:30 White Blood Count 12.6 H Red Blood Count 3.23 L Hemoglobin 7.8 L Hematocrit 26.2 L Mean Corpuscular Volume 81.1 L Mean Corpuscular Hemoglobin 24.1 L Mean Corpuscular Hemoglobin Concent 29.8 L Red Cell Distribution Width 21.2 H Platelet Count 332 Mean Platelet Volume 9.3 Neutrophils % 81.7 H Lymphocytes % 9.2 L Monocytes % 5.3 Eosinophils % 3.1 Basophils % 0.2 Nucleated Red Blood Cells % 0.0 Neutrophils # 10.3 H Lymphocytes # 1.2 Monocytes # 0.7 Eosinophils # 0.4 Basophils # 0.0 Nucleated Red Blood Cells # 0.0 Sodium Level 145 H Potassium Level 3.7 Chloride Level 118 H Carbon Dioxide Level 21 Anion Gap 10 Blood Urea Nitrogen 20 Creatinine 0.61 Glucose Level 70 Calcium Level 9.0 Medications Medications Current Medications Sodium Chloride (NS) 1,000 ml @ 60 mls/hr [id number] IV Last administered on 12/28 06:27; Admin Dose 60 MLS/HR; Start 12/23/16 at 17:09 Ondansetron HCl (Zofran Inj) 4 mg Q6H PRN IV NAUSEA AND/OR VOMITING Last administered on 12/25/16 11:08; Admin Dose 4 MG; Start 12/23/16 at 17:30 Acetaminophen (Tylenol Tab) 650 mg Q6H PRN PO PAIN LEVEL 1-3 OR FEVER Last administered on 12/27/16 12:30; Admin Dose 650 MG; Start 12/23/16 at 17:30 Acetaminophen 650 mg 650 mg Q6H PRN [place] PAIN LEVEL 1-3 OR FEVER; Start 12/23/16 at 17:30 Ceftriaxone Sodium (Rocephin) 50 ml @ 100 mls/hr DAILY IVPB Last administered on 12/28/16 09:27; Admin Dose 100 MLS/HR; Start 12/24/16 at 09:00 Ferrous Gluconate (Fergon) 325 mg BID PO Last administered on 12/28/16 09:28; Admin Dose 325 MG; Start 12/24/16 at 21:00 Heparin Sodium (Porcine) (Heparin (1000 Units/ml)) 5,100 unit NOW IV ; Start 03/30 at 17:30; Stop 01/18/17 at 17:29; Status Future Hold Allopurinol (Zyloprim) 100 mg DAILY PO Last administered on 12/28/16 09:28; Admin Dose 100 MG; Start 12/25/16 at 09:00 Tramadol HCl (Ultram) 50 mg Q6H PRN PO PAIN LEVEL 1-3 Last administered on 12/28 05:20; Admin Dose 50 MG; Start 12/25/16 at 09:30 Alprazolam 0.5 mg 0.5 mg Q8H PRN PO ANXIETY Last administered on 12/27/16 12: 29; Admin Dose 0.5 MG; Start 12/25/16 at 09:30 Ferric Sodium Gluconate Complex/ Sodium Chloride (Ferrlecit/NS) 110 ml @ 110 mls/hr Q24H IVPB Last administered on 12/28/16 18:03; Admin Dose 110 MLS/HR; Start 12/25/16 at 19:00; Stop 01/01/17 at 19:59 KEATON METZ MD Dec 28, 2016 19:10
--- NOTE | 2016-12-28 20:16 | CONS ---
Date/Time of Note Date/Time of Note DATE: 12/28/16 TIME: 20:12 Assessment/Plan Assessment/Plan Chief Complaint/Hosp Course ID PROGRESS NOTE CURRENT ABX: =>Ceftriaxone 24H INTERVAL SUMMARY * Clinically stable, calm, resting comfortable, no fevers * No fevers, WBC normalizing down to 12.6 today EXAM GEN: VSS, NAD HEENT: Unremarkable NECK: supple CVS: RRR CHEST: Equal chest rise bilaterally without dyspnea on observation ABD: Soft EXT: warm SKIN: No rash, no diaphoresis ID ASSESSMENT 71 yo F admit with: 1. Urinary tract infection. URINE CULTURE Final Organism 1 K.PNEUMONIAE SSP PNEUMONIAE COLONY COUNT >100,000 CFU/ml 2. New onset of cervical cancer with mets. 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 3. Anemia. 4. Bilateral lower extremity deep venous thrombosis. 5. Leukocytosis, likely 2 to underlying malignancy CURRENT ABX: =>Ceftriaxone ID RECOMMENDATIONS 1. Continue current IV ABX 14 days 2. Patient cleared for new PermCath as repeat BCx are (-) . Problems: Consultation Date/Type/Reason Admit Date/Time Dec 23, 2016 at 19:24 Initial Consult Date 12/23/16 Type of Consultation: ID Referring Provider: RACIEL CAIN Exam/Review of Systems Vital Signs Vitals Vital Signs Date Time Temp Pulse Resp B/P Pulse Ox O2 Delivery O2 Flow Rate FiO2 12/28/16 16:53 95 12/28/16 16:38 98.1 16 95/51 97 Intake and Output 12/27/16 12/27/16 12/28/16 15:00 23:00 07:00 Intake Total 470 ml 780 ml 150 ml Output Total 700 ml 550 ml Balance 470 ml 80 ml -400 ml Results Result Diagram: 12/28/16 0930 12/28/16 0930 Results 24 hrs Laboratory Tests Test 12/28/16 09:30 White Blood Count 12.6 H Red Blood Count 3.23 L Hemoglobin 7.8 L Hematocrit 26.2 L Mean Corpuscular Volume 81.1 L Mean Corpuscular Hemoglobin 24.1 L Mean Corpuscular Hemoglobin Concent 29.8 L Red Cell Distribution Width 21.2 H Platelet Count 332 Mean Platelet Volume 9.3 Neutrophils % 81.7 H Lymphocytes % 9.2 L Monocytes % 5.3 Eosinophils % 3.1 Basophils % 0.2 Nucleated Red Blood Cells % 0.0 Neutrophils # 10.3 H Lymphocytes # 1.2 Monocytes # 0.7 Eosinophils # 0.4 Basophils # 0.0 Nucleated Red Blood Cells # 0.0 Sodium Level 145 H Potassium Level 3.7 Chloride Level 118 H Carbon Dioxide Level 21 Anion Gap 10 Blood Urea Nitrogen 20 Creatinine 0.61 Glucose Level 70 Calcium Level 9.0 Medications Medications Current Medications Sodium Chloride (NS) 1,000 ml @ 60 mls/hr [id number] IV Last administered on 12/28 06:27; Admin Dose 60 MLS/HR; Start 12/23/16 at 17:09 Ondansetron HCl (Zofran Inj) 4 mg Q6H PRN IV NAUSEA AND/OR VOMITING Last administered on 12/25/16 11:08; Admin Dose 4 MG; Start 12/23/16 at 17:30 Acetaminophen (Tylenol Tab) 650 mg Q6H PRN PO PAIN LEVEL 1-3 OR FEVER Last administered on 12/27/16 12:30; Admin Dose 650 MG; Start 12/23/16 at 17:30 Acetaminophen 650 mg 650 mg Q6H PRN [place] PAIN LEVEL 1-3 OR FEVER; Start 12/23/16 at 17:30 Ceftriaxone Sodium (Rocephin) 50 ml @ 100 mls/hr DAILY IVPB Last administered on 12/28/16 09:27; Admin Dose 100 MLS/HR; Start 12/24/16 at 09:00 Ferrous Gluconate (Fergon) 325 mg BID PO Last administered on 12/28/16 09:28; Admin Dose 325 MG; Start 12/24/16 at 21:00 Heparin Sodium (Porcine) (Heparin (1000 Units/ml)) 5,100 unit NOW IV ; Start 03/30 at 17:30; Stop 01/18/17 at 17:29; Status Future Hold Allopurinol (Zyloprim) 100 mg DAILY PO Last administered on 12/28/16 09:28; Admin Dose 100 MG; Start 12/25/16 at 09:00 Tramadol HCl (Ultram) 50 mg Q6H PRN PO PAIN LEVEL 1-3 Last administered on 12/28 05:20; Admin Dose 50 MG; Start 12/25/16 at 09:30 Alprazolam 0.5 mg 0.5 mg Q8H PRN PO ANXIETY Last administered on 12/27/16 12: 29; Admin Dose 0.5 MG; Start 12/25/16 at 09:30 Ferric Sodium Gluconate Complex/ Sodium Chloride (Ferrlecit/NS) 110 ml @ 110 mls/hr Q24H IVPB Last administered on 12/28/16 18:03; Admin Dose 110 MLS/HR; Start 12/25/16 at 19:00; Stop 01/01/17 at 19:59 MACKENZIE ZAVALA [employer] Dec 28, 2016 20:16
--- NOTE | 2016-12-28 23:50 | PN ---
Date/Time of Note Date/Time of Note DATE: 12/28/16 TIME: 23:42 Assessment/Plan VTE Prophylaxis VTE Prophylaxis Intervention: SCD's Lines/Catheters IV Catheter Type (from Nrs): Peripheral IV Urinary Cath still in place: Yes Reason Cath still needed: other (indicate) (monitor I&O) Assessment/Plan Chief Complaint/Hosp Course Impression and plan 1. Suspect new onset cervical cancer with metastasis to lymph, adrenal, and liver. Oncologist following. Tentative plan for biopsy.. Provide with analgesics as needed. 2. Sepsis UTI. Start antibiotics for now. Noted with Klebsiella pneumonia. Continue on antibiotics. ID consult following 3. Acute renal insufficiency. Medications to be renally dosed. Nephrology is following. stable 5. Hyperkalemia. Monitor level. Provide with Kayexalate as needed. 6. Anemia. Noted with iron deficiency. Start on iron supplement at this time. 7. Mild hyponatremia. Continue with nephrology recommendations 8.DVT of right and left common femoral vein as well as right and left popliteal vein. Vascular surgeon following. Plan for anticoagulation. Disposition and plan: Agreeable for mass biopsy. Await result and surgeon rec. Discussed plan of care with Dr. See Problems: Exam/Review of Systems Vital Signs Vitals Vital Signs Date Time Temp Pulse Resp B/P Pulse Ox O2 Delivery O2 Flow Rate FiO2 12/28/16 20:31 93 12/28/16 16:38 98.1 16 95/51 97 Intake and Output 12/27/16 12/27/16 12/28/16 15:00 23:00 07:00 Intake Total 470 ml 780 ml 150 ml Output Total 700 ml 550 ml Balance 470 ml 80 ml -400 ml Exam Constitutional: alert, oriented, unchanged Psych: nl mood/affect. 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, nl mental status, nl speech, slightly forgetful at times Skin: nl turgor Results Result Diagram: 12/28/16 0930 12/28/16 0930 Results 24 hrs Laboratory Tests Test 12/28/16 09:30 White Blood Count 12.6 H Red Blood Count 3.23 L Hemoglobin 7.8 L Hematocrit 26.2 L Mean Corpuscular Volume 81.1 L Mean Corpuscular Hemoglobin 24.1 L Mean Corpuscular Hemoglobin Concent 29.8 L Red Cell Distribution Width 21.2 H Platelet Count 332 Mean Platelet Volume 9.3 Neutrophils % 81.7 H Lymphocytes % 9.2 L Monocytes % 5.3 Eosinophils % 3.1 Basophils % 0.2 Nucleated Red Blood Cells % 0.0 Neutrophils # 10.3 H Lymphocytes # 1.2 Monocytes # 0.7 Eosinophils # 0.4 Basophils # 0.0 Nucleated Red Blood Cells # 0.0 Sodium Level 145 H Potassium Level 3.7 Chloride Level 118 H Carbon Dioxide Level 21 Anion Gap 10 Blood Urea Nitrogen 20 Creatinine 0.61 Glucose Level 70 Calcium Level 9.0 Medications Medications Current Medications Sodium Chloride (NS) 1,000 ml @ 60 mls/hr [id number] IV Last administered on 12/28 06:27; Admin Dose 60 MLS/HR; Start 12/23/16 at 17:09 Ondansetron HCl (Zofran Inj) 4 mg Q6H PRN IV NAUSEA AND/OR VOMITING Last administered on 12/25/16 11:08; Admin Dose 4 MG; Start 12/23/16 at 17:30 Acetaminophen (Tylenol Tab) 650 mg Q6H PRN PO PAIN LEVEL 1-3 OR FEVER Last administered on 12/27/16 12:30; Admin Dose 650 MG; Start 12/23/16 at 17:30 Acetaminophen 650 mg 650 mg Q6H PRN [place] PAIN LEVEL 1-3 OR FEVER; Start 12/23/16 at 17:30 Ceftriaxone Sodium (Rocephin) 50 ml @ 100 mls/hr DAILY IVPB Last administered on 12/28/16 09:27; Admin Dose 100 MLS/HR; Start 12/24/16 at 09:00 Ferrous Gluconate (Fergon) 325 mg BID PO Last administered on 12/28/16 20:53; Admin Dose 325 MG; Start 12/24/16 at 21:00 Heparin Sodium (Porcine) (Heparin (1000 Units/ml)) 5,100 unit NOW IV ; Start 03/30 at 17:30; Stop 01/18/17 at 17:29; Status Future Hold Allopurinol (Zyloprim) 100 mg DAILY PO Last administered on 12/28/16 09:28; Admin Dose 100 MG; Start 12/25/16 at 09:00 Tramadol HCl (Ultram) 50 mg Q6H PRN PO PAIN LEVEL 1-3 Last administered on 12/28 20:53; Admin Dose 50 MG; Start 12/25/16 at 09:30 Alprazolam 0.5 mg 0.5 mg Q8H PRN PO ANXIETY Last administered on 12/27/16 12: 29; Admin Dose 0.5 MG; Start 12/25/16 at 09:30 Ferric Sodium Gluconate Complex/ Sodium Chloride (Ferrlecit/NS) 110 ml @ 110 mls/hr Q24H IVPB Last administered on 12/28/16 18:03; Admin Dose 110 MLS/HR; Start 12/25/16 at 19:00; Stop 01/01/17 at 19:59 RACIEL CAIN Dec 28, 2016 23:50
[2016-12-29] VITALS (11 sets, daily range): BP systolic 99–108; BP diastolic 55–60; PULSE 95–100; RESP 15–18
[2016-12-29] MEDS: morphine 4 MG/ML VIAL IV PRN ×2 (05:48→20:28)
[2016-12-29 07:18] LABS: BASOPHILS % 0.3 % (0.0-2.0); EOSINOPHILS # 0.4 10^3/ul (0.0-0.5); HEMATOCRIT 26.6 % (37.0-47.0); HEMOGLOBIN 7.8 g/dl (12.0-16.0); LYMPHOCYTES # 1.1 10^3/ul (0.8-2.9); LYMPHOCYTES % 9.6 % (15.0-51.0); MEAN CORPUSCULAR HEMOGLOBIN 23.6 pg (29.0-33.0); MEAN CORPUSCULAR HGB CONC 29.3 g/dl (32.0-37.0); MEAN CORPUSCULAR VOLUME 80.6 fl (82.0-101.0); MEAN PLATELET VOLUME 9.5 fl (7.4-10.4); MONOCYTE # 0.7 10^3/ul (0.3-0.9); MONOCYTES % 6.3 % (0.0-11.0); NEUTROPHIL # 9.4 10^3/ul (1.6-7.5); NEUTROPHILS % 80.3 % (39.0-77.0); PLATELET COUNT 310 10^3/UL (140-415); WHITE BLOOD COUNT 11.7 10^3/ul (4.8-10.8)
[2016-12-29] MEDS: FERROUS GLUCONATE (EC) 325 MG TAB PO SCH ×2 (09:59→20:27)
[2016-12-29] MEDS: ALLOPURINOL 100 MG TAB PO SCH (09:59)
[2016-12-29] MEDS: CEFTRIAXONE 2 GM/50 ML (PMX) 50 ML IVPB SCH (09:59)
--- NOTE | 2016-12-29 10:38 | CONS ---
Date/Time of Note Date/Time of Note DATE: 12/29/16 TIME: 10:37 Assessment/Plan Assessment/Plan Chief Complaint/Hosp Course Large mass of the uterine cervix with necrosis. R/O cervical carcinoma. Large periaortic retroperitoneal lymphadenopathy, likely metastatic. Moderate metastatic lymphadenopathy along the mesenteric root and peripancreatic and arleen hepatis lymphadenopathy. There is also retrocrural metastatic lymphadenopathy. Moderate right iliac and mild left iliac lymphadenopathy, metastatic. 2.5 cm x 2 cm right adrenal mass. 3 cm x 2.2 cm left adrenal mass. 4.5 cm low-density mass in the right inferior liver, likely metastatic. 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 CA 125- [id number] BX MASS , CAN PROBABLY OMIT LIVER BX BX ORDERED PT WILL MOST LIKELY WILL NEED CHEMO, NOT A SURGERY Extensive deep venous thrombosis involving the right and left common femoral vein, right and left femoral vein, right and left popliteal vein. heparin ok for lovenox post bx Anemia. MICROCYTIC WITH INCREASED RDW complete ANEMIA W-UP iron studies. - C/W ACD, pos FE DEF Transfuse for hemoglobin less than 7. IV IRON INCREASED URIC ACID CONT ALLOPURINOL RENAL DOSE HYPERCALCEMIA IMPROVED WITH HYDRATION Sepsis UTI. Acute renal insufficiency. Hyperkalemia. Mild hyponatremia. Problems: Consultation Date/Type/Reason Admit Date/Time Dec 23, 2016 at 19:24 Initial Consult Date 12/23/16 Type of Consultation: [facility] Referring Provider: RACIEL CAIN 24 HR Interval Summary Free Text/Dictation ALL NOTED BX ORDERED Exam/Review of Systems Vital Signs Vitals Vital Signs Date Time Temp Pulse Resp B/P Pulse Ox O2 Delivery O2 Flow Rate FiO2 12/29/16 08:24 99 12/29/16 08:22 98.4 18 107/58 97 Intake and Output 12/28/16 12/28/16 12/29/16 15:00 23:00 07:00 Intake Total 1480 ml 1020 ml Output Total 600 ml 500 ml Balance 880 ml 520 ml Exam Exam Constitutional: alert Psych: anxiety Head: normocephalic Neck: supple Respiratory: clear to auscultation Cardiovascular: other (Regular rate to tachycardic) Gastrointestinal: soft, tender Musculoskeletal: swelling (Minimally bilateral lower extremities) Neurological: nl mental status, nl speech Results Result Diagram: 12/29/16 0651 12/28/16 0930 Results 24 hrs Laboratory Tests Test 12/29/16 06:00 12/29/16 06:51 Lab Scanned Report BLOOD TRANSFUSION White Blood Count 11.7 H Red Blood Count 3.30 L Hemoglobin 7.8 L Hematocrit 26.6 L Mean Corpuscular Volume 80.6 L Mean Corpuscular Hemoglobin 23.6 L Mean Corpuscular Hemoglobin Concent 29.3 L Red Cell Distribution Width 21.0 H Platelet Count 310 Mean Platelet Volume 9.5 Neutrophils % 80.3 H Lymphocytes % 9.6 L Monocytes % 6.3 Eosinophils % 3.0 Basophils % 0.3 Nucleated Red Blood Cells % 0.0 Neutrophils # 9.4 H Lymphocytes # 1.1 Monocytes # 0.7 Eosinophils # 0.4 Basophils # 0.0 Nucleated Red Blood Cells # 0.0 Medications Medications Current Medications Sodium Chloride (NS) 1,000 ml @ 60 mls/hr [id number] IV Last administered on 12/28 19:35; Admin Dose 60 MLS/HR; Start 12/23/16 at 17:09 Ondansetron HCl (Zofran Inj) 4 mg Q6H PRN IV NAUSEA AND/OR VOMITING Last administered on 12/25/16 11:08; Admin Dose 4 MG; Start 12/23/16 at 17:30 Acetaminophen (Tylenol Tab) 650 mg Q6H PRN PO PAIN LEVEL 1-3 OR FEVER Last administered on 12/27/16 12:30; Admin Dose 650 MG; Start 12/23/16 at 17:30 Acetaminophen 650 mg 650 mg Q6H PRN [place] PAIN LEVEL 1-3 OR FEVER; Start 12/23/16 at 17:30 Ceftriaxone Sodium (Rocephin) 50 ml @ 100 mls/hr DAILY IVPB Last administered on 12/29/16 09:59; Admin Dose 100 MLS/HR; Start 12/24/16 at 09:00 Ferrous Gluconate (Fergon) 325 mg BID PO Last administered on 12/29/16 09:59; Admin Dose 325 MG; Start 12/24/16 at 21:00 Heparin Sodium (Porcine) (Heparin (1000 Units/ml)) 5,100 unit NOW IV ; Start 03/30 at 17:30; Stop 01/18/17 at 17:29; Status Future Hold Allopurinol (Zyloprim) 100 mg DAILY PO Last administered on 12/29/16 09:59; Admin Dose 100 MG; Start 12/25/16 at 09:00 Tramadol HCl (Ultram) 50 mg Q6H PRN PO PAIN LEVEL 1-3 Last administered on 12/28 20:53; Admin Dose 50 MG; Start 12/25/16 at 09:30 Alprazolam 0.5 mg 0.5 mg Q8H PRN PO ANXIETY Last administered on 12/27/16 12: 29; Admin Dose 0.5 MG; Start 12/25/16 at 09:30 Ferric Sodium Gluconate Complex/ Sodium Chloride (Ferrlecit/NS) 110 ml @ 110 mls/hr Q24H IVPB Last administered on 12/28/16 18:03; Admin Dose 110 MLS/HR; Start 12/25/16 at 19:00; Stop 01/01/17 at 19:59 Morphine Sulfate (morphine) 4 mg Q4H PRN IV PAIN Last administered on 05:48; Admin Dose 4 MG; Start 12/29/16 at 05:40 KEATON METZ MD Dec 29, 2016 10:38
--- NOTE | 2016-12-29 12:41 | PN ---
Date/Time of Note Date/Time of Note DATE: 12/29/16 TIME: 12:39 Assessment/Plan VTE Prophylaxis VTE Prophylaxis Intervention: SCD's Lines/Catheters IV Catheter Type (from Rust): Peripheral IV Urinary Cath still in place: Yes Reason Cath still needed: other (indicate) (monitor I&O) Assessment/Plan Chief Complaint/Hosp Course Impression and plan 1. Suspect new onset cervical cancer with metastasis to lymph, adrenal, and liver. Oncologist following. Tentative plan for biopsy.. Provide with analgesics as needed. 2. Sepsis UTI. Start antibiotics for now. Noted with Klebsiella pneumonia. Continue on antibiotics. ID consult following 3. Acute renal insufficiency. Medications to be renally dosed. Nephrology is following. stable 5. Hyperkalemia. Monitor level. Provide with Kayexalate as needed. 6. Anemia. Noted with iron deficiency. Start on iron supplement at this time. 7. Mild hyponatremia. Continue with nephrology recommendations 8.DVT of right and left common femoral vein as well as right and left popliteal vein. Vascular surgeon following. anticoagulation per surgeon Disposition and plan: Agreeable for mass biopsy. Await result and surgeon rec. continue supportive care Discussed plan of care with Dr. See Problems: Subjective 24 Hr Interval Summary Free Text/Dictation no s/s of distress at this time. Exam/Review of Systems Vital Signs Vitals Vital Signs Date Time Temp Pulse Resp B/P Pulse Ox O2 Delivery O2 Flow Rate FiO2 12/29/16 12:20 98 12/29/16 12:16 97.8 17 108/60 97 Intake and Output 12/28/16 12/28/16 12/29/16 15:00 23:00 07:00 Intake Total 1480 ml 1020 ml Output Total 600 ml 500 ml Balance 880 ml 520 ml Exam Constitutional: alert, oriented, unchanged Psych: nl mood/affect. 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, nl mental status, nl speech, slightly forgetful at times Skin: nl turgor Results Result Diagram: 12/29/16 0651 12/28/16 0930 Results 24 hrs Laboratory Tests Test 12/29/16 06:00 12/29/16 06:51 Lab Scanned Report BLOOD TRANSFUSION White Blood Count 11.7 H Red Blood Count 3.30 L Hemoglobin 7.8 L Hematocrit 26.6 L Mean Corpuscular Volume 80.6 L Mean Corpuscular Hemoglobin 23.6 L Mean Corpuscular Hemoglobin Concent 29.3 L Red Cell Distribution Width 21.0 H Platelet Count 310 Mean Platelet Volume 9.5 Neutrophils % 80.3 H Lymphocytes % 9.6 L Monocytes % 6.3 Eosinophils % 3.0 Basophils % 0.3 Nucleated Red Blood Cells % 0.0 Neutrophils # 9.4 H Lymphocytes # 1.1 Monocytes # 0.7 Eosinophils # 0.4 Basophils # 0.0 Nucleated Red Blood Cells # 0.0 Medications Medications Current Medications Sodium Chloride (NS) 1,000 ml @ 60 mls/hr [id number] IV Last administered on 12/28 19:35; Admin Dose 60 MLS/HR; Start 12/23/16 at 17:09 Ondansetron HCl (Zofran Inj) 4 mg Q6H PRN IV NAUSEA AND/OR VOMITING Last administered on 12/25/16 11:08; Admin Dose 4 MG; Start 12/23/16 at 17:30 Acetaminophen (Tylenol Tab) 650 mg Q6H PRN PO PAIN LEVEL 1-3 OR FEVER Last administered on 12/27/16 12:30; Admin Dose 650 MG; Start 12/23/16 at 17:30 Acetaminophen 650 mg 650 mg Q6H PRN [place] PAIN LEVEL 1-3 OR FEVER; Start 12/23/16 at 17:30 Ceftriaxone Sodium (Rocephin) 50 ml @ 100 mls/hr DAILY IVPB Last administered on 12/29/16 09:59; Admin Dose 100 MLS/HR; Start 12/24/16 at 09:00 Ferrous Gluconate (Fergon) 325 mg BID PO Last administered on 12/29/16 09:59; Admin Dose 325 MG; Start 12/24/16 at 21:00 Heparin Sodium (Porcine) (Heparin (1000 Units/ml)) 5,100 unit NOW IV ; Start 03/30 at 17:30; Stop 01/18/17 at 17:29; Status Future Hold Allopurinol (Zyloprim) 100 mg DAILY PO Last administered on 12/29/16 09:59; Admin Dose 100 MG; Start 12/25/16 at 09:00 Tramadol HCl (Ultram) 50 mg Q6H PRN PO PAIN LEVEL 1-3 Last administered on 12/28 20:53; Admin Dose 50 MG; Start 12/25/16 at 09:30 Alprazolam 0.5 mg 0.5 mg Q8H PRN PO ANXIETY Last administered on 12/27/16 12: 29; Admin Dose 0.5 MG; Start 12/25/16 at 09:30 Ferric Sodium Gluconate Complex/ Sodium Chloride (Ferrlecit/NS) 110 ml @ 110 mls/hr Q24H IVPB Last administered on 12/28/16 18:03; Admin Dose 110 MLS/HR; Start 12/25/16 at 19:00; Stop 01/01/17 at 19:59 Morphine Sulfate (morphine) 4 mg Q4H PRN IV PAIN Last administered on 05:48; Admin Dose 4 MG; Start 12/29/16 at 05:40 RACIEL CAIN Dec 29, 2016 12:41
--- NOTE | 2016-12-29 13:52 | CONS ---
Date/Time of Note Date/Time of Note DATE: 12/29/16 TIME: 13:48 Consultation Date/Type/Reason Admit Date/Time Dec 23, 2016 at 19:24 Initial Consult Date 12/23/16 Type of Consultation: GynOnc Referring Provider: RACIEL CAIN 24 HR Interval Summary Free Text/Dictation Discussed with Dr. Kumari and previously discussed with patient. As we need to confirm dx of stage IV cervical cancer as opposed to other site and due to her risk issues, will due rapid EUA and cervical biopsy tomorrow at 11:30 a.m. rather than a laparoscopy with more extensive dx. Exam/Review of Systems Vital Signs Vitals Vital Signs Date Time Temp Pulse Resp B/P Pulse Ox O2 Delivery O2 Flow Rate FiO2 12/29/16 12:20 98 12/29/16 12:16 97.8 17 108/60 97 Intake and Output 12/28/16 12/28/16 12/29/16 15:00 23:00 07:00 Intake Total 1480 ml 1020 ml Output Total 600 ml 500 ml Balance 880 ml 520 ml Results Result Diagram: 12/29/16 0651 12/28/16 0930 Results 24 hrs Laboratory Tests Test 12/29/16 06:00 12/29/16 06:51 Lab Scanned Report BLOOD TRANSFUSION White Blood Count 11.7 H Red Blood Count 3.30 L Hemoglobin 7.8 L Hematocrit 26.6 L Mean Corpuscular Volume 80.6 L Mean Corpuscular Hemoglobin 23.6 L Mean Corpuscular Hemoglobin Concent 29.3 L Red Cell Distribution Width 21.0 H Platelet Count 310 Mean Platelet Volume 9.5 Neutrophils % 80.3 H Lymphocytes % 9.6 L Monocytes % 6.3 Eosinophils % 3.0 Basophils % 0.3 Nucleated Red Blood Cells % 0.0 Neutrophils # 9.4 H Lymphocytes # 1.1 Monocytes # 0.7 Eosinophils # 0.4 Basophils # 0.0 Nucleated Red Blood Cells # 0.0 Medications Medications Current Medications Sodium Chloride (NS) 1,000 ml @ 60 mls/hr [id number] IV Last administered on 12/28t 19:35; Admin Dose 60 MLS/HR; Start 12/23/16 at 17:09 Ondansetron HCl (Zofran Inj) 4 mg Q6H PRN IV NAUSEA AND/OR VOMITING Last administered on 12/25/16 11:08; Admin Dose 4 MG; Start 12/23/16 at 17:30 Acetaminophen (Tylenol Tab) 650 mg Q6H PRN PO PAIN LEVEL 1-3 OR FEVER Last administered on 12/27/16 12:30; Admin Dose 650 MG; Start 12/23/16 at 17:30 Acetaminophen 650 mg 650 mg Q6H PRN [place] PAIN LEVEL 1-3 OR FEVER; Start 12/23/16 at 17:30 Ceftriaxone Sodium (Rocephin) 50 ml @ 100 mls/hr DAILY IVPB Last administered on 12/29/16 09:59; Admin Dose 100 MLS/HR; Start 12/24/16 at 09:00 Ferrous Gluconate (Fergon) 325 mg BID PO Last administered on 12/29/16 09:59; Admin Dose 325 MG; Start 12/24/16 at 21:00 Heparin Sodium (Porcine) (Heparin (1000 Units/ml)) 5,100 unit NOW IV ; Start 03/30 at 17:30; Stop 01/18/17 at 17:29; Status Future Hold Allopurinol (Zyloprim) 100 mg DAILY PO Last administered on 12/29/16 09:59; Admin Dose 100 MG; Start 12/25/16 at 09:00 Tramadol HCl (Ultram) 50 mg Q6H PRN PO PAIN LEVEL 1-3 Last administered on 12/28 20:53; Admin Dose 50 MG; Start 12/25/16 at 09:30 Alprazolam 0.5 mg 0.5 mg Q8H PRN PO ANXIETY Last administered on 12/27/16 12: 29; Admin Dose 0.5 MG; Start 12/25/16 at 09:30 Ferric Sodium Gluconate Complex/ Sodium Chloride (Ferrlecit/NS) 110 ml @ 110 mls/hr Q24H IVPB Last administered on 12/28/16 18:03; Admin Dose 110 MLS/HR; Start 12/25/16 at 19:00; Stop 01/01/17 at 19:59 Morphine Sulfate (morphine) 4 mg Q4H PRN IV PAIN Last administered on 05:48; Admin Dose 4 MG; Start 12/29/16 at 05:40 ANDREW YANES MD Dec 29, 2016 13:52
--- NOTE | 2016-12-29 13:52 | CONS ---
Date/Time of Note Date/Time of Note DATE: 12/29/16 TIME: 13:49 Assessment/Plan Assessment/Plan Chief Complaint/Hosp Course ID PROGRESS NOTE CURRENT ABX: =>Ceftriaxone #7 24H INTERVAL SUMMARY * Resting, looks comfortable, VSS, no fevers, debilitated * WBC normalizing down to 11.7 today EXAM GEN: VSS, NAD HEENT: Unremarkable NECK: supple CVS: RRR CHEST: Equal chest rise bilaterally without dyspnea on observation ABD: Soft EXT: warm SKIN: No rash, no diaphoresis ID ASSESSMENT 71 yo F admit with: 1. Urinary tract infection. URINE CULTURE Final Organism 1 K.PNEUMONIAE SSP PNEUMONIAE COLONY COUNT >100,000 CFU/ml 2. New onset of cervical cancer with mets. 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 3. Anemia. 4. Bilateral lower extremity deep venous thrombosis. 5. Leukocytosis =-> due to UTI & possibly underlying malignancy CURRENT ABX: =>Ceftriaxone #7 ID RECOMMENDATIONS 1. Continue current IV ABX until WBC normalizes 2. Will f/u . Problems: Consultation Date/Type/Reason Admit Date/Time Dec 23, 2016 at 19:24 Initial Consult Date 12/23/16 Type of Consultation: ID Referring Provider: RACIEL CAIN Exam/Review of Systems Vital Signs Vitals Vital Signs Date Time Temp Pulse Resp B/P Pulse Ox O2 Delivery O2 Flow Rate FiO2 12/29/16 12:20 98 12/29/16 12:16 97.8 17 108/60 97 Intake and Output 12/28/16 12/28/16 12/29/16 15:00 23:00 07:00 Intake Total 1480 ml 1020 ml Output Total 600 ml 500 ml Balance 880 ml 520 ml Results Result Diagram: 12/29/16 0651 12/28/16 0930 Results 24 hrs Laboratory Tests Test 12/29/16 06:00 12/29/16 06:51 Lab Scanned Report BLOOD TRANSFUSION White Blood Count 11.7 H Red Blood Count 3.30 L Hemoglobin 7.8 L Hematocrit 26.6 L Mean Corpuscular Volume 80.6 L Mean Corpuscular Hemoglobin 23.6 L Mean Corpuscular Hemoglobin Concent 29.3 L Red Cell Distribution Width 21.0 H Platelet Count 310 Mean Platelet Volume 9.5 Neutrophils % 80.3 H Lymphocytes % 9.6 L Monocytes % 6.3 Eosinophils % 3.0 Basophils % 0.3 Nucleated Red Blood Cells % 0.0 Neutrophils # 9.4 H Lymphocytes # 1.1 Monocytes # 0.7 Eosinophils # 0.4 Basophils # 0.0 Nucleated Red Blood Cells # 0.0 Medications Medications Current Medications Sodium Chloride (NS) 1,000 ml @ 60 mls/hr [id number] IV Last administered on 12/28 19:35; Admin Dose 60 MLS/HR; Start 12/23/16 at 17:09 Ondansetron HCl (Zofran Inj) 4 mg Q6H PRN IV NAUSEA AND/OR VOMITING Last administered on 12/25/16 11:08; Admin Dose 4 MG; Start 12/23/16 at 17:30 Acetaminophen (Tylenol Tab) 650 mg Q6H PRN PO PAIN LEVEL 1-3 OR FEVER Last administered on 12/27/16 12:30; Admin Dose 650 MG; Start 12/23/16 at 17:30 Acetaminophen 650 mg 650 mg Q6H PRN [place] PAIN LEVEL 1-3 OR FEVER; Start 12/23/16 at 17:30 Ceftriaxone Sodium (Rocephin) 50 ml @ 100 mls/hr DAILY IVPB Last administered on 12/29/16 09:59; Admin Dose 100 MLS/HR; Start 12/24/16 at 09:00 Ferrous Gluconate (Fergon) 325 mg BID PO Last administered on 12/29/16 09:59; Admin Dose 325 MG; Start 12/24/16 at 21:00 Heparin Sodium (Porcine) (Heparin (1000 Units/ml)) 5,100 unit NOW IV ; Start 03/30 at 17:30; Stop 01/18/17 at 17:29; Status Future Hold Allopurinol (Zyloprim) 100 mg DAILY PO Last administered on 12/29/16 09:59; Admin Dose 100 MG; Start 12/25/16 at 09:00 Tramadol HCl (Ultram) 50 mg Q6H PRN PO PAIN LEVEL 1-3 Last administered on 12/28 20:53; Admin Dose 50 MG; Start 12/25/16 at 09:30 Alprazolam 0.5 mg 0.5 mg Q8H PRN PO ANXIETY Last administered on 12/27/16 12: 29; Admin Dose 0.5 MG; Start 12/25/16 at 09:30 Ferric Sodium Gluconate Complex/ Sodium Chloride (Ferrlecit/NS) 110 ml @ 110 mls/hr Q24H IVPB Last administered on 12/28/16 18:03; Admin Dose 110 MLS/HR; Start 12/25/16 at 19:00; Stop 01/01/17 at 19:59 Morphine Sulfate (morphine) 4 mg Q4H PRN IV PAIN Last administered on 05:48; Admin Dose 4 MG; Start 12/29/16 at 05:40 MACKENZIE ZAVALA CONTENT CURATOR Dec 29, 2016 13:52
[2016-12-29] MEDS: SOD FERRIC GLUC COMPLX 125 MG in SOD CHLORIDE 0.9% 100 ML IVPB SCH (20:27)
[2016-12-30] VITALS (13 sets, daily range): BP systolic 100–120; BP diastolic 50–64; PULSE 93–101; RESP 17–20
[2016-12-30] MEDS: SOD CHLORIDE 0.9% 1,000 ML IV SCH ×2 (02:53→17:36)
[2016-12-30 08:20] LABS: BASOPHILS % 0.3 % (0.0-2.0); EOSINOPHILS # 0.2 10^3/ul (0.0-0.5); EOSINOPHILS % 1.8 % (0.0-7.0); HEMATOCRIT 26.9 % (37.0-47.0); LYMPHOCYTES # 1.2 10^3/ul (0.8-2.9); LYMPHOCYTES % 9.9 % (15.0-51.0); MEAN CORPUSCULAR HEMOGLOBIN 24.4 pg (29.0-33.0); MEAN CORPUSCULAR HGB CONC 29.7 g/dl (32.0-37.0); MEAN PLATELET VOLUME 10.4 fl (7.4-10.4); MONOCYTE # 0.8 10^3/ul (0.3-0.9); MONOCYTES % 6.2 % (0.0-11.0); NEUTROPHIL # 10.1 10^3/ul (1.6-7.5); NEUTROPHILS % 81.4 % (39.0-77.0); PLATELET COUNT 322 10^3/UL (140-415); RED BLOOD COUNT 3.28 10^6/ul (4.20-5.40); RED CELL DISTRIBUTION WIDTH 21.9 % (11.5-14.5); WHITE BLOOD COUNT 12.4 10^3/ul (4.8-10.8)
[2016-12-30] MEDS: ALLOPURINOL 100 MG TAB PO SCH (08:41)
[2016-12-30] MEDS: FERROUS GLUCONATE (EC) 325 MG TAB PO SCH ×2 (08:41→20:39)
[2016-12-30 08:51] LABS: ALBUMIN 2.4 g/dl (3.3-4.9); ALBUMIN/GLOBULIN RATIO 0.68; BILIRUBIN,INDIRECT 0.3 mg/dl (0-1.1); BILIRUBIN,TOTAL 0.3 mg/dl (0.2-1.3); CALCIUM 8.4 mg/dl (8.4-10.2); CREATININE 0.56 mg/dl (0.44-1.00); POTASSIUM 3.4 mmol/L (3.5-5.1); TOTAL PROTEIN 5.9 g/dl (6.1-8.1)
[2016-12-30] MEDS: CEFTRIAXONE 2 GM/50 ML (PMX) 50 ML IVPB SCH (08:53)
[2016-12-30] MEDS ORDERED: POTASSIUM CHLORIDE 30 MEQ in SOD CHLORIDE 0.9% 150 ML IVPB ONE (11:30)
[2016-12-30] MEDS: morphine 4 MG/ML VIAL IV PRN (11:35)
--- NOTE | 2016-12-30 14:46 | PN ---
Date/Time of Note Date/Time of Note DATE: 12/30/16 TIME: 14:45 Assessment/Plan VTE Prophylaxis VTE Prophylaxis Intervention: heparin Lines/Catheters IV [facility]ter Type (from [facility]): Peripheral IV Urinary Cath still in place: Yes Reason Cath still needed: other (indicate) Assessment/Plan Chief Complaint/Hosp Course 1. 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 Highly suspicious for malignancy with underlying metastasis. Being followed by oncology and Dairy Farm Manager/Onc. Biopsy of the vaginal mass and retroperitoneal lymph node has been ordered. However, the patient refusing biopsy. No immediate family members available to make decisions on behalf of the patient. SW on the case. 2. Sepsis with underlying urinary tract infection. On antimicrobials as per infectious diseases. 3. Extensive DVT involving the right and left common femoral, right and left femoral, right and left popliteal vein. On anticoagulation with heparin drip. 4. Microcytic, hypochromic anemia. Status post multiple units of blood transfusion. Iron panel showing iron deficiency. Continue iron supplements. 5. Homeless status. Being followed by social service liaison. 6. Fluids, electrolytes, and nutrition. Low-cholesterol diet. 7. DVT prophylaxis. On therapeutic anticoagulation for DVT. 8. Plan. Continue pain control. Continue anticoagulation. Had a conversation with the patient with the help of construction operations manager and social service liaison. The patient was informed about the suspicious findings of tumor that may be cancerous in the pelvis and the need to do a biopsy. Patient refused to have any invasive procedures done. Patient seems to be delusional. Case discussed with Dr. See. Problems: Subjective 24 Hr Interval Summary Free Text/Dictation Complains of pelvic pain. Exam/Review of Systems Vital Signs Vitals Vital Signs Date Time Temp Pulse Resp B/P Pulse Ox O2 Delivery O2 Flow Rate FiO2 12/30/16 12:27 94 12/30/16 12:06 98.0 17 109/64 97 Intake and Output 12/29/16 12/29/16 12/30/16 15:00 23:00 07:00 Intake Total 100 ml Output Total 450 ml Balance -350 ml Exam General: Adequately build 71 year-old female lying in bed in no apparent distress. HEENT: Normocephalic, atraumatic. Eyes: Anicteric sclerae, conjunctivae clear. ENT: Nasal septum midline, oral mucosa moist. Neck supple, no JVD noticed. Respiratory: Bilaterally clear breath sounds. No use of accessory muscles of respiration. No adventitious breath sounds. Cardiovascular: S1, S2 heard. No murmurs or gallops. Abdomen: Soft, nontender, and nondistended. Bowel sounds positive in all 4 quadrants. Genitourinary: Deferred. Extremities: No cyanosis, no clubbing, no edema. Peripheral pulses palpable. Neurologic: Cranial nerves II through XII grossly intact. The patient is awake, alert, and oriented. Patient is delusional. Skin: Normal skin turgor. No skin rashes. Results Result Diagram: 12/30/16 0641 12/30/16 0641 Results 24 hrs Laboratory Tests Test 12/30/16 06:41 White Blood Count 12.4 H Red Blood Count 3.28 L Hemoglobin 8.0 L Hematocrit 26.9 L Mean Corpuscular Volume 82.0 Mean Corpuscular Hemoglobin 24.4 L Mean Corpuscular Hemoglobin Concent 29.7 L Red Cell Distribution Width 21.9 H Platelet Count 322 Mean Platelet Volume 10.4 Neutrophils % 81.4 H Lymphocytes % 9.9 L Monocytes % 6.2 Eosinophils % 1.8 Basophils % 0.3 Nucleated Red Blood Cells % 0.0 Neutrophils # 10.1 H Lymphocytes # 1.2 Monocytes # 0.8 Eosinophils # 0.2 Basophils # 0.0 Nucleated Red Blood Cells # 0.0 Sodium Level 145 H Potassium Level 3.4 L Chloride Level 117 H Carbon Dioxide Level 20 L Anion Gap 11 Blood Urea Nitrogen 12 Creatinine 0.56 Glucose Level 65 L Calcium Level 8.4 Total Bilirubin 0.3 Direct Bilirubin 0.00 Indirect Bilirubin 0.3 Aspartate Amino Transf (AST/SGOT) 20 Alanine Aminotransferase (ALT/SGPT) 25 Alkaline Phosphatase 121 Total Protein 5.9 L Albumin 2.4 L Globulin 3.50 H Albumin/Globulin Ratio 0.68 Medications Medications Current Medications Sodium Chloride (NS) 1,000 ml @ 60 mls/hr [id number] IV Last administered on 12/30 02:53; Admin Dose 60 MLS/HR; Start 12/23/16 at 17:09 Ondansetron HCl (Zofran Inj) 4 mg Q6H PRN IV NAUSEA AND/OR VOMITING Last administered on 12/25/16 11:08; Admin Dose 4 MG; Start 12/23/16 at 17:30 Acetaminophen (Tylenol Tab) 650 mg Q6H PRN PO PAIN LEVEL 1-3 OR FEVER Last administered on 12/27/16 12:30; Admin Dose 650 MG; Start 12/23/16 at 17:30 Acetaminophen 650 mg 650 mg Q6H PRN [place] PAIN LEVEL 1-3 OR FEVER; Start 12/23/16 at 17:30 Ceftriaxone Sodium (Rocephin) 50 ml @ 100 mls/hr DAILY IVPB Last administered on 12/30/16 08:53; Admin Dose 100 MLS/HR; Start 12/24/16 at 09:00; Stop at 06:00 Ferrous Gluconate (Fergon) 325 mg BID PO Last administered on 12/29/16 20:27; Admin Dose 325 MG; Start 12/24/16 at 21:00 Heparin Sodium (Porcine) (Heparin (1000 Units/ml)) 5,100 unit NOW IV ; Start 03/30 at 17:30; Stop 01/18/17 at 17:29; Status Future Hold Allopurinol (Zyloprim) 100 mg DAILY PO Last administered on 12/29/16 09:59; Admin Dose 100 MG; Start 12/25/16 at 09:00 Tramadol HCl (Ultram) 50 mg Q6H PRN PO PAIN LEVEL 1-3 Last administered on 12/28 20:53; Admin Dose 50 MG; Start 12/25/16 at 09:30 Alprazolam 0.5 mg 0.5 mg Q8H PRN PO ANXIETY Last administered on 12/27/16 12: 29; Admin Dose 0.5 MG; Start 12/25/16 at 09:30 Ferric Sodium Gluconate Complex/ Sodium Chloride (Ferrlecit/NS) 110 ml @ 110 mls/hr Q24H IVPB Last administered on 12/29/16 20:27; Admin Dose 110 MLS/HR; Start 12/25/16 at 19:00; Stop 01/01/17 at 19:59 Morphine Sulfate (morphine) 4 mg Q4H PRN IV PAIN Last administered on 11:35; Admin Dose 4 MG; Start 12/29/16 at 05:40 SABAS IZQUIERDO NP Dec 30, 2016 14:46
[2016-12-30] MEDS: SOD FERRIC GLUC COMPLX 125 MG in SOD CHLORIDE 0.9% 100 ML IVPB SCH (17:36)
--- NOTE | 2016-12-30 19:09 | PN ---
DATE: 12/30/2016 SUBJECTIVE DATA: Patient is alert, feels good, looks comfortable. Denies pain. No fevers. LABORATORY AND DIAGNOSTIC DATA: WBC today 12.4, H and H 8 and 26.9, platelets 322, neutrophils 81.4. BUN 12 and creatinine 0.56. INDWELLINGS: Patient has Pa catheter. OBJECTIVE DATA: GENERAL: This is a fragile, chronically ill-appearing, elderly woman, who is in no distress. HEENT: Head atraumatic, normocephalic. Sclerae anicteric. Buccal mucosa dry. NECK: Supple. CHEST: Rise symmetrical. Breath sounds diminished at the bases. HEART: S1, S2. ABDOMEN: Soft, bowel sounds present. EXTREMITIES: No cyanosis. ASSESSMENT: 1. Systemic inflammatory response syndrome with leukocytosis, multifactorial. 2. Urinary tract infection, completing treatment. 3. New onset of cervical cancer with mets. 4. Anemia. 5. Bilateral lower extremities deep venous thrombosis. PLAN: Patient remains stable. We are going to discontinue Rocephin in a.m. Continue observing her. Follow recommendations of consultants. Pending cervical biopsy. Dictated By: Yelena Moreira NP /rambo/caitie /Document#: [id number]
--- NOTE | 2016-12-30 20:51 | CONS ---
Date/Time of Note Date/Time of Note DATE: 12/30/16 TIME: 20:44 Consultation Date/Type/Reason Admit Date/Time Dec 23, 2016 at 19:24 Initial Consult Date 12/23/16 Type of Consultation: GynOnc Referring Provider: RACIEL CAIN 24 HR Interval Summary Free Text/Dictation Patient anxious and confused earlier today: refused to have EUA and cervical biopsy because she insists "I don't have cancer and nobody told me I had any." I repeatedly, with someone who is a nurse reminded her that multiple doctors suggested probable cervical cancer widespread and that a biopsy was needed to prove; but she said cancer was impossible and did not want any anesthesia. I reminded her how difficult the pelvic exam was to tolerate and that the findings were discussed with an certified court/medical interpreter and her family; but refused. Will let other doctors communicate and try in 1-2 days; but she may need a psych consult. Exam/Review of Systems Vital Signs Vitals Vital Signs Date Time Temp Pulse Resp B/P Pulse Ox O2 Delivery O2 Flow Rate FiO2 12/30/16 20:09 98.4 99 20 113/62 97 Intake and Output 12/29/16 12/29/16 12/30/16 15:00 23:00 07:00 Intake Total 100 ml Output Total 450 ml Balance -350 ml Results Result Diagram: 12/30/16 0641 12/30/16 0641 Results 24 hrs Laboratory Tests Test 12/30/16 06:41 White Blood Count 12.4 H Red Blood Count 3.28 L Hemoglobin 8.0 L Hematocrit 26.9 L Mean Corpuscular Volume 82.0 Mean Corpuscular Hemoglobin 24.4 L Mean Corpuscular Hemoglobin Concent 29.7 L Red Cell Distribution Width 21.9 H Platelet Count 322 Mean Platelet Volume 10.4 Neutrophils % 81.4 H Lymphocytes % 9.9 L Monocytes % 6.2 Eosinophils % 1.8 Basophils % 0.3 Nucleated Red Blood Cells % 0.0 Neutrophils # 10.1 H Lymphocytes # 1.2 Monocytes # 0.8 Eosinophils # 0.2 Basophils # 0.0 Nucleated Red Blood Cells # 0.0 Sodium Level 145 H Potassium Level 3.4 L Chloride Level 117 H Carbon Dioxide Level 20 L Anion Gap 11 Blood Urea Nitrogen 12 Creatinine 0.56 Glucose Level 65 L Calcium Level 8.4 Total Bilirubin 0.3 Direct Bilirubin 0.00 Indirect Bilirubin 0.3 Aspartate Amino Transf (AST/SGOT) 20 Alanine Aminotransferase (ALT/SGPT) 25 Alkaline Phosphatase 121 Total Protein 5.9 L Albumin 2.4 L Globulin 3.50 H Albumin/Globulin Ratio 0.68 Medications Medications Current Medications Sodium Chloride (NS) 1,000 ml @ 60 mls/hr [id number] IV Last administered on 12/30 17:36; Admin Dose 60 MLS/HR; Start 12/23/16 at 17:09 Ondansetron HCl (Zofran Inj) 4 mg Q6H PRN IV NAUSEA AND/OR VOMITING Last administered on 12/25/16 11:08; Admin Dose 4 MG; Start 12/23/16 at 17:30 Acetaminophen (Tylenol Tab) 650 mg Q6H PRN PO PAIN LEVEL 1-3 OR FEVER Last administered on 12/27/16 12:30; Admin Dose 650 MG; Start 12/23/16 at 17:30 Acetaminophen 650 mg 650 mg Q6H PRN [place] PAIN LEVEL 1-3 OR FEVER; Start 12/23/16 at 17:30 Ceftriaxone Sodium (Rocephin) 50 ml @ 100 mls/hr DAILY IVPB Last administered on 12/30/16 08:53; Admin Dose 100 MLS/HR; Start 12/24/16 at 09:00; Stop at 06:00 Ferrous Gluconate (Fergon) 325 mg BID PO Last administered on 12/30/16 20:39; Admin Dose 325 MG; Start 12/24/16 at 21:00 Heparin Sodium (Porcine) (Heparin (1000 Units/ml)) 5,100 unit NOW IV ; Start 03/30 at 17:30; Stop 01/18/17 at 17:29; Status Future Hold Allopurinol (Zyloprim) 100 mg DAILY PO Last administered on 12/29/16 09:59; Admin Dose 100 MG; Start 12/25/16 at 09:00 Tramadol HCl (Ultram) 50 mg Q6H PRN PO PAIN LEVEL 1-3 Last administered on 12/28 20:53; Admin Dose 50 MG; Start 12/25/16 at 09:30 Alprazolam 0.5 mg 0.5 mg Q8H PRN PO ANXIETY Last administered on 12/27/16 12: 29; Admin Dose 0.5 MG; Start 12/25/16 at 09:30 Ferric Sodium Gluconate Complex/ Sodium Chloride (Ferrlecit/NS) 110 ml @ 110 mls/hr Q24H IVPB Last administered on 12/30/16 17:36; Admin Dose 110 MLS/HR; Start 12/25/16 at 19:00; Stop 01/01/17 at 19:59 Morphine Sulfate (morphine) 4 mg Q4H PRN IV PAIN Last administered on 11:35; Admin Dose 4 MG; Start 12/29/16 at 05:40 ANDREW YANES MD Dec 30, 2016 20:51
--- NOTE | 2016-12-30 22:03 | CONS ---
Date/Time of Note Date/Time of Note DATE: 12/30/16 TIME: 22:01 Assessment/Plan Assessment/Plan Chief Complaint/Hosp Course Large mass of the uterine cervix with necrosis. R/O cervical carcinoma. Large periaortic retroperitoneal lymphadenopathy, likely metastatic. Moderate metastatic lymphadenopathy along the mesenteric root and peripancreatic and arleen hepatis lymphadenopathy. There is also retrocrural metastatic lymphadenopathy. Moderate right iliac and mild left iliac lymphadenopathy, metastatic. 2.5 cm x 2 cm right adrenal mass. 3 cm x 2.2 cm left adrenal mass. 4.5 cm low-density mass in the right inferior liver, likely metastatic. 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 CA 125- 959 BX MASS , CAN PROBABLY OMIT LIVER BX BX ORDERED, EUA and cervical biopsy - NOT DONE TODAY PT WILL MOST LIKELY WILL NEED CHEMO, NOT A SURGERY Extensive deep venous thrombosis involving the right and left common femoral vein, right and left femoral vein, right and left popliteal vein. heparin ok for lovenox post bx Anemia. MICROCYTIC WITH INCREASED RDW complete ANEMIA W-UP iron studies. - C/W ACD, pos FE DEF Transfuse for hemoglobin less than 7. IV IRON INCREASED URIC ACID CONT ALLOPURINOL RENAL DOSE HYPERCALCEMIA IMPROVED WITH HYDRATION Sepsis UTI. Acute renal insufficiency. Hyperkalemia. Mild hyponatremia. Problems: Consultation Date/Type/Reason Admit Date/Time Dec 23, 2016 at 19:24 Initial Consult Date 12/23/16 Type of Consultation: [facility] Referring Provider: RACIEL CAIN 24 HR Interval Summary Free Text/Dictation ALL NOTED Exam/Review of Systems Vital Signs Vitals Vital Signs Date Time Temp Pulse Resp B/P Pulse Ox O2 Delivery O2 Flow Rate FiO2 12/30/16 20:10 100 12/30/16 20:09 98.4 20 113/62 97 Intake and Output 12/29/16 12/29/16 12/30/16 15:00 23:00 07:00 Intake Total 100 ml Output Total 450 ml Balance -350 ml Exam Constitutional: alert Psych: anxiety Head: normocephalic Neck: supple Respiratory: clear to auscultation Cardiovascular: other (Regular rate to tachycardic) Gastrointestinal: soft, tender Musculoskeletal: swelling (Minimally bilateral lower extremities) Neurological: nl mental status, nl speech Results Result Diagram: 12/30/16 0641 12/30/16 0641 Results 24 hrs Laboratory Tests Test 12/30/16 06:41 White Blood Count 12.4 H Red Blood Count 3.28 L Hemoglobin 8.0 L Hematocrit 26.9 L Mean Corpuscular Volume 82.0 Mean Corpuscular Hemoglobin 24.4 L Mean Corpuscular Hemoglobin Concent 29.7 L Red Cell Distribution Width 21.9 H Platelet Count 322 Mean Platelet Volume 10.4 Neutrophils % 81.4 H Lymphocytes % 9.9 L Monocytes % 6.2 Eosinophils % 1.8 Basophils % 0.3 Nucleated Red Blood Cells % 0.0 Neutrophils # 10.1 H Lymphocytes # 1.2 Monocytes # 0.8 Eosinophils # 0.2 Basophils # 0.0 Nucleated Red Blood Cells # 0.0 Sodium Level 145 H Potassium Level 3.4 L Chloride Level 117 H Carbon Dioxide Level 20 L Anion Gap 11 Blood Urea Nitrogen 12 Creatinine 0.56 Glucose Level 65 L Calcium Level 8.4 Total Bilirubin 0.3 Direct Bilirubin 0.00 Indirect Bilirubin 0.3 Aspartate Amino Transf (AST/SGOT) 20 Alanine Aminotransferase (ALT/SGPT) 25 Alkaline Phosphatase 121 Total Protein 5.9 L Albumin 2.4 L Globulin 3.50 H Albumin/Globulin Ratio 0.68 Medications Medications Current Medications Sodium Chloride (NS) 1,000 ml @ 60 mls/hr [id number] IV Last administered on 12/30 17:36; Admin Dose 60 MLS/HR; Start 12/23/16 at 17:09 Ondansetron HCl (Zofran Inj) 4 mg Q6H PRN IV NAUSEA AND/OR VOMITING Last administered on 12/25/16 11:08; Admin Dose 4 MG; Start 12/23/16 at 17:30 Acetaminophen (Tylenol Tab) 650 mg Q6H PRN PO PAIN LEVEL 1-3 OR FEVER Last administered on 12/27/16 12:30; Admin Dose 650 MG; Start 12/23/16 at 17:30 Acetaminophen 650 mg 650 mg Q6H PRN [place] PAIN LEVEL 1-3 OR FEVER; Start 12/23/16 at 17:30 Ceftriaxone Sodium (Rocephin) 50 ml @ 100 mls/hr DAILY IVPB Last administered on 12/30/16 08:53; Admin Dose 100 MLS/HR; Start 12/24/16 at 09:00; Stop at 06:00 Ferrous Gluconate (Fergon) 325 mg BID PO Last administered on 12/30/16 20:39; Admin Dose 325 MG; Start 12/24/16 at 21:00 Heparin Sodium (Porcine) (Heparin (1000 Units/ml)) 5,100 unit NOW IV ; Start 03/30 at 17:30; Stop 01/18/17 at 17:29; Status Future Hold Allopurinol (Zyloprim) 100 mg DAILY PO Last administered on 12/29/16 09:59; Admin Dose 100 MG; Start 12/25/16 at 09:00 Tramadol HCl (Ultram) 50 mg Q6H PRN PO PAIN LEVEL 1-3 Last administered on 12/28 20:53; Admin Dose 50 MG; Start 12/25/16 at 09:30 Alprazolam 0.5 mg 0.5 mg Q8H PRN PO ANXIETY Last administered on 12/27/16 12: 29; Admin Dose 0.5 MG; Start 12/25/16 at 09:30 Ferric Sodium Gluconate Complex/ Sodium Chloride (Ferrlecit/NS) 110 ml @ 110 mls/hr Q24H IVPB Last administered on 12/30/16 17:36; Admin Dose 110 MLS/HR; Start 12/25/16 at 19:00; Stop 01/01/17 at 19:59 Morphine Sulfate (morphine) 4 mg Q4H PRN IV PAIN Last administered on 11:35; Admin Dose 4 MG; Start 12/29/16 at 05:40 KEATON METZ MD Dec 30, 2016 22:03
[2016-12-31] VITALS (10 sets, daily range): BP systolic 109–116; BP diastolic 56–72; PULSE 90–100; RESP 18–20
[2016-12-31] MEDS: FERROUS GLUCONATE (EC) 325 MG TAB PO SCH ×2 (08:46→21:00)
[2016-12-31] MEDS: ALLOPURINOL 100 MG TAB PO SCH (08:46)
[2016-12-31] MEDS ORDERED: HEPARIN 1000 UNITS/ML 10 ML INJ IV PRN ×2 (12:00)
[2016-12-31] MEDS ORDERED: HEPARIN 1000 UNITS/ML 10 ML INJ IV ONE (12:00)
[2016-12-31] MEDS: SOD CHLORIDE 0.9% 1,000 ML IV SCH (12:13)
--- NOTE | 2016-12-31 13:00 | PN ---
Date/Time of Note Date/Time of Note DATE: 12/31/16 TIME: 12:57 Assessment/Plan VTE Prophylaxis VTE Prophylaxis Intervention: heparin Lines/Catheters IV [facility]ter Type (from [facility] Peripheral IV Urinary Cath still in place: Yes Reason Cath still needed: other (indicate) Assessment/Plan Chief Complaint/Hosp Course 1. 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 Highly suspicious for malignancy with underlying metastasis. Being followed by oncology and Keyboard Operator/Onc. Biopsy of the vaginal mass and retroperitoneal lymph node has been ordered. However, the patient refusing biopsy. No immediate family members available to make decisions on behalf of the patient. SW on the case. 2. Sepsis with underlying urinary tract infection. On antimicrobials as per infectious diseases. 3. Extensive DVT involving the right and left common femoral, right and left femoral, right and left popliteal vein. On anticoagulation with heparin drip. 4. Microcytic, hypochromic anemia. Status post multiple units of blood transfusion. Iron panel showing iron deficiency. Continue iron supplements. 5. Homeless status. Being followed by geriatric social worker. 6. Fluids, electrolytes, and nutrition. Low-cholesterol diet. 7. DVT prophylaxis. On therapeutic anticoagulation for DVT. 8. Plan. Continue pain control. Continue anticoagulation. Had a conversation with the patient with the help of frame straightener and geriatric social worker. The patient was informed about the suspicious findings of tumor that may be cancerous in the pelvis and the need to do a biopsy. Patient refused to have any invasive procedures done. Patient seems to be delusional. Will obtain telepsychiatry evaluation. Case discussed with Dr. Salmeron. Problems: Subjective 24 Hr Interval Summary Free Text/Dictation No changes in status. Complains of pelvic pain. Exam/Review of Systems Vital Signs Vitals Vital Signs Date Time Temp Pulse Resp B/P Pulse Ox O2 Delivery O2 Flow Rate FiO2 12/31/16 11:50 98.8 91 18 112/66 99 Intake and Output 12/30/16 12/30/16 12/31/16 15:00 23:00 07:00 Intake Total 970 ml Output Total 550 ml Balance 420 ml Exam General: Adequately build 71 year-old female lying in bed in no apparent distress. HEENT: Normocephalic, atraumatic. Eyes: Anicteric sclerae, conjunctivae clear. ENT: Nasal septum midline, oral mucosa moist. Neck supple, no JVD noticed. Respiratory: Bilaterally clear breath sounds. No use of accessory muscles of respiration. No adventitious breath sounds. Cardiovascular: S1, S2 heard. No murmurs or gallops. Abdomen: Soft, nontender, and nondistended. Bowel sounds positive in all 4 quadrants. Genitourinary: Deferred. Extremities: No cyanosis, no clubbing, no edema. Peripheral pulses palpable. Neurologic: Cranial nerves II through XII grossly intact. The patient is awake, alert, and oriented. Patient is delusional. Skin: Normal skin turgor. No skin rashes. Results Result Diagram: 12/30/1664012/30/16640 Medications Medications Current Medications Sodium Chloride (NS) 1,000 ml @ 60 mls/hr [id number] IV Last administered on 12/30 17:36; Admin Dose 60 MLS/HR; Start 12/23/16 at 17:09 Ondansetron HCl (Zofran Inj) 4 mg Q6H PRN IV NAUSEA AND/OR VOMITING Last administered on 12/25/16 11:08; Admin Dose 4 MG; Start 12/23/16 at 17:30 Acetaminophen (Tylenol Tab) 650 mg Q6H PRN PO PAIN LEVEL 1-3 OR FEVER Last administered on 12/27/16 12:30; Admin Dose 650 MG; Start 12/23/16 at 17:30 Acetaminophen (Tylenol Supp) 650 mg Q6H PRN [place] PAIN LEVEL 1-3 OR FEVER; Start 12/23/16 at 17:30 Ferrous Gluconate (Fergon) 325 mg BID PO Last administered on 12/30/16 20:39; Admin Dose 325 MG; Start 12/24/16 at 21:00 Allopurinol (Zyloprim) 100 mg DAILY PO Last administered on 12/29/16 09:59; Admin Dose 100 MG; Start 12/25/16 at 09:00 Tramadol HCl (Ultram) 50 mg Q6H PRN PO PAIN LEVEL 1-3 Last administered on 12/28 20:53; Admin Dose 50 MG; Start 12/25/16 at 09:30 Alprazolam 0.5 mg 0.5 mg Q8H PRN PO ANXIETY Last administered on 12/27/16 12: 29; Admin Dose 0.5 MG; Start 12/25/16 at 09:30 Ferric Sodium Gluconate Complex/ Sodium Chloride (Ferrlecit/NS) 110 ml @ 110 mls/hr Q24H IVPB Last administered on 12/30/16 17:36; Admin Dose 110 MLS/HR; Start 12/25/16 at 19:00; Stop 01/01/17 at 19:59 Morphine Sulfate (morphine) 4 mg Q4H PRN IV PAIN Last administered on 11:35; Admin Dose 4 MG; Start 12/29/16 at 05:40 SABAS IZQUIERDO PRETZEL TWISTING MACHINE OPERATOR Dec 31, 2016 13:00
[2016-12-31 13:32] LABS: ABNORMAL IP MESSAGE 1; BASOPHILS % 0.3 % (0.0-2.0); EOSINOPHILS # 0.1 10^3/ul (0.0-0.5); EOSINOPHILS % 0.8 % (0.0-7.0); LYMPHOCYTES # 1.1 10^3/ul (0.8-2.9); LYMPHOCYTES % 9.4 % (15.0-51.0); MEAN CORPUSCULAR HEMOGLOBIN 23.8 pg (29.0-33.0); MEAN CORPUSCULAR HGB CONC 28.6 g/dl (32.0-37.0); MEAN CORPUSCULAR VOLUME 83.3 fl (82.0-101.0); MONOCYTE # 0.5 10^3/ul (0.3-0.9); MONOCYTES % 4.2 % (0.0-11.0); NEUTROPHIL # 10.2 10^3/ul (1.6-7.5); NEUTROPHILS % 84.8 % (39.0-77.0); PLATELET COUNT 319 10^3/UL (140-415); RED BLOOD COUNT 3.36 10^6/ul (4.20-5.40); RED CELL DISTRIBUTION WIDTH 22.6 % (11.5-14.5)
[2016-12-31 13:34] LABS: POSITIVE DIFF @See below
[2016-12-31 13:53] LABS: INR 1.24; PARTIAL THROMBOPLASTIN TIME 34.5 Sec (25.0-35.0); PROTIME 15.7 Sec (12.2-14.2); PT RATIO 1.2
[2016-12-31 14:03] LABS: CALCIUM 8.2 mg/dl (8.4-10.2); CREATININE 0.47 mg/dl (0.44-1.00); POTASSIUM 3.4 mmol/L (3.5-5.1)
[2016-12-31] MEDS: HEPARIN 25000 UNITS/250 ML 250 ML IV SCH (15:26)
--- NOTE | 2016-12-31 17:34 | PN ---
DATE: 12/31/2016 SUBJECTIVE DATA: No acute changes. The patient is awake, looks comfortable. No fevers. WBC 12, neutrophils 34.8. BUN 12, creatinine 0.56. PHYSICAL EXAMINATION: GENERAL: Fragile, well-developed, elderly woman, who is in no distress. HEENT: Head atraumatic, normocephalic. Sclerae anicteric. Buccal mucosa dry. NECK: Supple. CHEST: Rise symmetrical. Breath sounds diminished at the bases. HEART: S1, S2. ABDOMEN: Soft, bowel sounds present. ASSESSMENT: 1. Large cervical mass suspicious for malignancy. Pending biopsy. 2. Status post urinary tract infection. 3. Bilateral lower extremities deep venous thrombosis on anticoagulation with heparin drip. 4. Anemia. 5. Homeless status. PLAN: The patient remains stable off antibiotics. Continue present care. Follow recommendations of consultants. Repeat cultures p.r.n. Dictated By: Yleena Moreira NP /rambo/caitie /Document#: [id number]
[2016-12-31] MEDS: SOD FERRIC GLUC COMPLX 125 MG in SOD CHLORIDE 0.9% 100 ML IVPB SCH (18:47)
--- NOTE | 2016-12-31 22:38 | CONS ---
Date/Time of Note Date/Time of Note DATE: 12/31/16 TIME: 22:35 Assessment/Plan Assessment/Plan Chief Complaint/Hosp Course Large mass of the uterine cervix with necrosis. R/O cervical carcinoma. Large periaortic retroperitoneal lymphadenopathy, likely metastatic. Moderate metastatic lymphadenopathy along the mesenteric root and peripancreatic and arleen hepatis lymphadenopathy. There is also retrocrural metastatic lymphadenopathy. Moderate right iliac and mild left iliac lymphadenopathy, metastatic. 2.5 cm x 2 cm right adrenal mass. 3 cm x 2.2 cm left adrenal mass. 4.5 cm low-density mass in the right inferior liver, likely metastatic. 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 CA 125- 959 BX MASS , CAN PROBABLY OMIT LIVER BX BX ORDERED, EUA and cervical biopsy - NOT DONE TODAY PT WILL MOST LIKELY WILL NEED CHEMO, NOT A SURGERY the patient refusing biopsy Extensive deep venous thrombosis involving the right and left common femoral vein, right and left femoral vein, right and left popliteal vein. heparin ok for lovenox post bx Anemia. MICROCYTIC WITH INCREASED RDW complete ANEMIA W-UP iron studies. - C/W ACD, pos FE DEF Transfuse for hemoglobin less than 7. IV IRON INCREASED URIC ACID CONT ALLOPURINOL RENAL DOSE HYPERCALCEMIA IMPROVED WITH HYDRATION Sepsis UTI. Acute renal insufficiency. Hyperkalemia. Mild hyponatremia. Problems: Consultation Date/Type/Reason Admit Date/Time Dec 23, 2016 at 19:24 Initial Consult Date 12/23/16 Type of Consultation: [facility] Referring Provider: RACIEL CAIN 24 HR Interval Summary Free Text/Dictation ALL NOTED the patient refusing biopsy. Exam/Review of Systems Vital Signs Vitals Vital Signs Date Time Temp Pulse Resp B/P Pulse Ox O2 Delivery O2 Flow Rate FiO2 12/31/16 20:05 98.6 92 110/61 97 12/31/16 15:52 19 Intake and Output 12/30/16 12/30/16 12/31/16 15:00 23:00 07:00 Intake Total 970 ml Output Total 550 ml Balance 420 ml Exam Constitutional: alert Psych: anxiety Head: normocephalic Neck: supple Respiratory: clear to auscultation Cardiovascular: other (Regular rate to tachycardic) Gastrointestinal: soft, tender Musculoskeletal: swelling (Minimally bilateral lower extremities) Neurological: nl mental status, nl speech Results Result Diagram: 12/31/16 1244 12/31/16 1244 Results 24 hrs Laboratory Tests Test 12/31/16 12:00 12/31/16 12:44 Magnesium Level 1.8 White Blood Count 12.0 H Red Blood Count 3.36 L Hemoglobin 8.0 L Hematocrit 28.0 L Mean Corpuscular Volume 83.3 Mean Corpuscular Hemoglobin 23.8 L Mean Corpuscular Hemoglobin Concent 28.6 L Red Cell Distribution Width 22.6 H Platelet Count 319 Mean Platelet Volume 10.0 Neutrophils % 84.8 H Lymphocytes % 9.4 L Monocytes % 4.2 Eosinophils % 0.8 Basophils % 0.3 Nucleated Red Blood Cells % 0.0 Neutrophils # 10.2 H Lymphocytes # 1.1 Monocytes # 0.5 Eosinophils # 0.1 Basophils # 0.0 Nucleated Red Blood Cells # 0.0 Prothrombin Time 15.7 H Prothrombin Time Ratio 1.2 INR International Normalized Ratio 1.24 Activated Partial Thromboplast Time 34.5 Sodium Level 146 H Potassium Level 3.4 L Chloride Level 119 H Carbon Dioxide Level 19 L Anion Gap 11 Blood Urea Nitrogen 11 Creatinine 0.47 Glucose Level 76 Calcium Level 8.2 L Medications Medications Current Medications Sodium Chloride (NS) 1,000 ml @ 60 mls/hr [id number] IV Last administered on 12/31 12:13; Admin Dose 60 MLS/HR; Start 12/23/16 at 17:09 Ondansetron HCl (Zofran Inj) 4 mg Q6H PRN IV NAUSEA AND/OR VOMITING Last administered on 12/25/16 11:08; Admin Dose 4 MG; Start 12/23/16 at 17:30 Acetaminophen (Tylenol Tab) 650 mg Q6H PRN PO PAIN LEVEL 1-3 OR FEVER Last administered on 12/27/16 12:30; Admin Dose 650 MG; Start 12/23/16 at 17:30 Acetaminophen (Tylenol Supp) 650 mg Q6H PRN [place] PAIN LEVEL 1-3 OR FEVER; Start 12/23/16 at 17:30 Ferrous Gluconate (Fergon) 325 mg BID PO Last administered on 12/30/16 20:39; Admin Dose 325 MG; Start 12/24/16 at 21:00 Allopurinol (Zyloprim) 100 mg DAILY PO Last administered on 12/29/16 09:59; Admin Dose 100 MG; Start 12/25/16 at 09:00 Tramadol HCl (Ultram) 50 mg Q6H PRN PO PAIN LEVEL 1-3 Last administered on 12/28 20:53; Admin Dose 50 MG; Start 12/25/16 at 09:30 Alprazolam 0.5 mg 0.5 mg Q8H PRN PO ANXIETY Last administered on 12/27/16 12: 29; Admin Dose 0.5 MG; Start 12/25/16 at 09:30 Ferric Sodium Gluconate Complex/ Sodium Chloride (Ferrlecit/NS) 110 ml @ 110 mls/hr Q24H IVPB Last administered on 12/31/16 18:47; Admin Dose 110 MLS/HR; Start 12/25/16 at 19:00; Stop 01/01/17 at 19:59 Morphine Sulfate (morphine) 4 mg Q4H PRN IV PAIN Last administered on 11:35; Admin Dose 4 MG; Start 12/29/16 at 05:40 KEATON METZ MD Dec 31, 2016 22:38
[2017-01-01] VITALS (12 sets, daily range): BP systolic 109–123; BP diastolic 58–79; PULSE 85–90; RESP 16–20
[2017-01-01] MEDS: HEPARIN 25000 UNITS/250 ML 250 ML IV SCH (01:39)
[2017-01-01] MEDS: SOD CHLORIDE 0.9% 1,000 ML IV SCH ×2 (04:53→21:21)
[2017-01-01 08:28] LABS: ABNORMAL IP MESSAGE 1; BASOPHILS % 0.3 % (0.0-2.0); EOSINOPHILS # 0.1 10^3/ul (0.0-0.5); HEMATOCRIT 27.4 % (37.0-47.0); HEMOGLOBIN 7.9 g/dl (12.0-16.0); LYMPHOCYTES # 1.2 10^3/ul (0.8-2.9); LYMPHOCYTES % 10.9 % (15.0-51.0); MEAN CORPUSCULAR HEMOGLOBIN 23.5 pg (29.0-33.0); MEAN CORPUSCULAR HGB CONC 28.8 g/dl (32.0-37.0); MEAN CORPUSCULAR VOLUME 81.5 fl (82.0-101.0); MEAN PLATELET VOLUME 9.8 fl (7.4-10.4); MONOCYTE # 0.6 10^3/ul (0.3-0.9); NEUTROPHIL # 9.4 10^3/ul (1.6-7.5); NEUTROPHILS % 82.4 % (39.0-77.0); PLATELET COUNT 326 10^3/UL (140-415); RED BLOOD COUNT 3.36 10^6/ul (4.20-5.40); RED CELL DISTRIBUTION WIDTH 23.2 % (11.5-14.5); WHITE BLOOD COUNT 11.4 10^3/ul (4.8-10.8)
[2017-01-01 08:35] LABS: POSITIVE DIFF @See below
[2017-01-01 08:53] LABS: CALCIUM 8.1 mg/dl (8.4-10.2); CREATININE 0.5 mg/dl (0.44-1.00); POTASSIUM 3.3 mmol/L (3.5-5.1)
[2017-01-01 09:03] LABS: MAGNESIUM 1.7 mg/dl (1.7-2.5); PHOSPHORUS 1.8 mg/dl (2.5-4.9)
[2017-01-01] MEDS: ALLOPURINOL 100 MG TAB PO SCH (10:30)
[2017-01-01] MEDS: FERROUS GLUCONATE (EC) 325 MG TAB PO SCH ×2 (10:30→21:21)
[2017-01-01] MEDS ORDERED: POTASSIUM PHOSPHATE 15 MM in SOD CHLORIDE 0.9% 250 ML IVPB SCH (12:30)
--- NOTE | 2017-01-01 13:08 | CONS ---
Date/Time of Note Date/Time of Note DATE: 01/01/17 TIME: 13:07 Assessment/Plan Assessment/Plan Chief Complaint/Hosp Course SUBJECTIVE DATA: No acute changes. Awake confused, looks comfortable Temperature 98.3 pulse 95 respirations 18 blood pressure 128% on room air WBC 11.4 H&H 7.9 and 27.4 platelets 326 neutrophils 82.4 BUN 12 creatinine 0.50 PHYSICAL EXAMINATION: GENERAL: Fragile, well-developed, elderly woman, who is in no distress. HEENT: Head atraumatic, normocephalic. Sclerae anicteric. Buccal mucosa dry. NECK: Supple. CHEST: Rise symmetrical. Breath sounds diminished at the bases. HEART: S1, S2. ABDOMEN: Soft, bowel sounds present. ASSESSMENT: 1. Large cervical mass suspicious for malignancy. Pending biopsy. 2. Status post urinary tract infection. 3. Bilateral lower extremities deep venous thrombosis on anticoagulation with heparin drip. 4. Anemia. 5. Homeless status. PLAN: The patient remains stable off antibiotics. Continue present care. Follow recommendations of consultants. Repeat cultures p.r.n. Problems: Consultation Date/Type/Reason Admit Date/Time Dec 23, 2016 at 19:24 Initial Consult Date 12/23/16 Type of Consultation: ID Referring Provider: RACIEL CAIN Exam/Review of Systems Vital Signs Vitals Vital Signs Date Time Temp Pulse Resp B/P Pulse Ox O2 Delivery O2 Flow Rate FiO2 01/01/17 12:09 90 01/01/17 11:37 98.3 18 123/61 98 Intake and Output 12/31/16 12/31/16 01/01/17 15:00 23:00 07:00 Intake Total 846 ml 417.5 ml Output Total 250 ml Balance 846 ml 167.5 ml Results Result Diagram: 01/01/17 0804 01/01/17 0804 Results 24 hrs Laboratory Tests Test 12/31/16 23:45 01/01/17 08:04 Activated Partial Thromboplast Time 107.6 *H 36.5 H White Blood Count 11.4 H Red Blood Count 3.36 L Hemoglobin 7.9 L Hematocrit 27.4 L Mean Corpuscular Volume 81.5 L Mean Corpuscular Hemoglobin 23.5 L Mean Corpuscular Hemoglobin Concent 28.8 L Red Cell Distribution Width 23.2 H Platelet Count 326 Mean Platelet Volume 9.8 Neutrophils % 82.4 H Lymphocytes % 10.9 L Monocytes % 5.0 Eosinophils % 1.0 Basophils % 0.3 Nucleated Red Blood Cells % 0.0 Neutrophils # 9.4 H Lymphocytes # 1.2 Monocytes # 0.6 Eosinophils # 0.1 Basophils # 0.0 Nucleated Red Blood Cells # 0.0 Sodium Level 148 H Potassium Level 3.3 L Chloride Level 119 H Carbon Dioxide Level 20 L Anion Gap 12 Blood Urea Nitrogen 12 Creatinine 0.50 Glucose Level 77 Calcium Level 8.1 L Phosphorus Level 1.8 L Magnesium Level 1.7 Medications Medications Current Medications Sodium Chloride (NS) 1,000 ml @ 60 mls/hr [id number] IV Last administered on 12/31 12:13; Admin Dose 60 MLS/HR; Start 12/23/16 at 17:09 Ondansetron HCl (Zofran Inj) 4 mg Q6H PRN IV NAUSEA AND/OR VOMITING Last administered on 12/25/16 11:08; Admin Dose 4 MG; Start 12/23/16 at 17:30 Acetaminophen (Tylenol Tab) 650 mg Q6H PRN PO PAIN LEVEL 1-3 OR FEVER Last administered on 12/27/16 12:30; Admin Dose 650 MG; Start 12/23/16 at 17:30 Acetaminophen (Tylenol Supp) 650 mg Q6H PRN [place] PAIN LEVEL 1-3 OR FEVER; Start 12/23/16 at 17:30 Ferrous Gluconate (Fergon) 325 mg BID PO Last administered on 01/01/17 10:30; Admin Dose 325 MG; Start 12/24/16 at 21:00 Allopurinol (Zyloprim) 100 mg DAILY PO Last administered on 01/01/17 10:30; Admin Dose 100 MG; Start 12/25/16 at 09:00 Tramadol HCl (Ultram) 50 mg Q6H PRN PO PAIN LEVEL 1-3 Last administered on 12/28 20:53; Admin Dose 50 MG; Start 12/25/16 at 09:30 Alprazolam 0.5 mg 0.5 mg Q8H PRN PO ANXIETY Last administered on 12/27/16 12: 29; Admin Dose 0.5 MG; Start 12/25/16 at 09:30 Ferric Sodium Gluconate Complex/ Sodium Chloride (Ferrlecit/NS) 110 ml @ 110 mls/hr Q24H IVPB Last administered on 12/31/16 18:47; Admin Dose 110 MLS/HR; Start 12/25/16 at 19:00; Stop 01/01/17 at 19:59 Morphine Sulfate 4 mg 4 mg Q4H PRN IV PAIN Last administered on 12/30/16 11:35 ; Admin Dose 4 MG; Start 12/29/16 at 05:40 Potassium Phosphate/Sodium Chloride (K Phos (Mm)/NS) 255 ml @ 63.75 mls/ hr ONCE IVPB ; Start 01/01/17 at 12:30; Stop 01/01/17 at 16:29 VICTOR M CARDONA NP Jan 01, 2017 13:08
--- NOTE | 2017-01-01 13:09 | CONS ---
Date/Time of Note Date/Time of Note DATE: 01/01/17 TIME: 13:08 Assessment/Plan Assessment/Plan Chief Complaint/Hosp Course Large mass of the uterine cervix with necrosis. R/O cervical carcinoma. Large periaortic retroperitoneal lymphadenopathy, likely metastatic. Moderate metastatic lymphadenopathy along the mesenteric root and peripancreatic and arleen hepatis lymphadenopathy. There is also retrocrural metastatic lymphadenopathy. Moderate right iliac and mild left iliac lymphadenopathy, metastatic. 2.5 cm x 2 cm right adrenal mass. 3 cm x 2.2 cm left adrenal mass. 4.5 cm low-density mass in the right inferior liver, likely metastatic. 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 CA 125- 959 BX MASS , CAN PROBABLY OMIT LIVER BX BX ORDERED, EUA and cervical biopsy - NOT DONE TODAY PT WILL MOST LIKELY WILL NEED CHEMO, NOT A SURGERY the patient refusing biopsy ON WILL TRY TO DO CT - QUIDED Extensive deep venous thrombosis involving the right and left common femoral vein, right and left femoral vein, right and left popliteal vein. heparin ok for lovenox post bx Anemia. MICROCYTIC WITH INCREASED RDW complete ANEMIA W-UP iron studies. - C/W ACD, pos FE DEF Transfuse for hemoglobin less than 7. IV IRON INCREASED URIC ACID CONT ALLOPURINOL RENAL DOSE HYPERCALCEMIA IMPROVED WITH HYDRATION Sepsis UTI. Acute renal insufficiency. Hyperkalemia. Mild hyponatremia. Problems: Consultation Date/Type/Reason Admit Date/Time Dec 23, 2016 at 19:24 Initial Consult Date 12/23/16 Type of Consultation: [facility] Referring Provider: RACIEL CAIN 24 HR Interval Summary Free Text/Dictation ALL NOTED BX NOT DONE YET Exam/Review of Systems Vital Signs Vitals Vital Signs Date Time Temp Pulse Resp B/P Pulse Ox O2 Delivery O2 Flow Rate FiO2 01/01/17 12:09 90 01/01/17 11:37 98.3 18 123/61 98 Intake and Output 12/31/16 12/31/16 01/01/17 15:00 23:00 07:00 Intake Total 846 ml 417.5 ml Output Total 250 ml Balance 846 ml 167.5 ml Exam Constitutional: alert Psych: anxiety Head: normocephalic Neck: supple Respiratory: clear to auscultation Cardiovascular: other (Regular rate to tachycardic) Gastrointestinal: soft, tender Musculoskeletal: swelling (Minimally bilateral lower extremities) Neurological: nl mental status, nl speech Results Result Diagram: 01/01/17 0804 01/01/17 0804 Results 24 hrs Laboratory Tests Test 12/31/16 23:45 01/01/17 08:04 Activated Partial Thromboplast Time 107.6 *H 36.5 H White Blood Count 11.4 H Red Blood Count 3.36 L Hemoglobin 7.9 L Hematocrit 27.4 L Mean Corpuscular Volume 81.5 L Mean Corpuscular Hemoglobin 23.5 L Mean Corpuscular Hemoglobin Concent 28.8 L Red Cell Distribution Width 23.2 H Platelet Count 326 Mean Platelet Volume 9.8 Neutrophils % 82.4 H Lymphocytes % 10.9 L Monocytes % 5.0 Eosinophils % 1.0 Basophils % 0.3 Nucleated Red Blood Cells % 0.0 Neutrophils # 9.4 H Lymphocytes # 1.2 Monocytes # 0.6 Eosinophils # 0.1 Basophils # 0.0 Nucleated Red Blood Cells # 0.0 Sodium Level 148 H Potassium Level 3.3 L Chloride Level 119 H Carbon Dioxide Level 20 L Anion Gap 12 Blood Urea Nitrogen 12 Creatinine 0.50 Glucose Level 77 Calcium Level 8.1 L Phosphorus Level 1.8 L Magnesium Level 1.7 Medications Medications Current Medications Sodium Chloride (NS) 1,000 ml @ 60 mls/hr [id number] IV Last administered on 12/31 12:13; Admin Dose 60 MLS/HR; Start 12/23/16 at 17:09 Ondansetron HCl (Zofran Inj) 4 mg Q6H PRN IV NAUSEA AND/OR VOMITING Last administered on 12/25/16 11:08; Admin Dose 4 MG; Start 12/23/16 at 17:30 Acetaminophen (Tylenol Tab) 650 mg Q6H PRN PO PAIN LEVEL 1-3 OR FEVER Last administered on 12/27/16 12:30; Admin Dose 650 MG; Start 12/23/16 at 17:30 Acetaminophen (Tylenol Supp) 650 mg Q6H PRN [place] PAIN LEVEL 1-3 OR FEVER; Start 12/23/16 at 17:30 Ferrous Gluconate (Fergon) 325 mg BID PO Last administered on 01/01/17 10:30; Admin Dose 325 MG; Start 12/24/16 at 21:00 Allopurinol (Zyloprim) 100 mg DAILY PO Last administered on 01/01/17 10:30; Admin Dose 100 MG; Start 12/25/16 at 09:00 Tramadol HCl (Ultram) 50 mg Q6H PRN PO PAIN LEVEL 1-3 Last administered on 12/28 20:53; Admin Dose 50 MG; Start 12/25/16 at 09:30 Alprazolam 0.5 mg 0.5 mg Q8H PRN PO ANXIETY Last administered on 12/27/16 12: 29; Admin Dose 0.5 MG; Start 12/25/16 at 09:30 Ferric Sodium Gluconate Complex/ Sodium Chloride (Ferrlecit/NS) 110 ml @ 110 mls/hr Q24H IVPB Last administered on 12/31/16 18:47; Admin Dose 110 MLS/HR; Start 12/25/16 at 19:00; Stop 01/01/17 at 19:59 Morphine Sulfate 4 mg 4 mg Q4H PRN IV PAIN Last administered on 12/30/16 11:35 ; Admin Dose 4 MG; Start 12/29/16 at 05:40 Potassium Phosphate/Sodium Chloride (K Phos (Mm)/NS) 255 ml @ 63.75 mls/ hr ONCE IVPB ; Start 01/01/17 at 12:30; Stop 01/01/17 at 16:29 KEATON METZ MD Jan 01, 2017 13:09
--- NOTE | 2017-01-01 13:41 | PN ---
Date/Time of Note Date/Time of Note DATE: 01/01/17 TIME: 13:40 Assessment/Plan VTE Prophylaxis VTE Prophylaxis Intervention: heparin Lines/Catheters IV [facility] Type ([facility] Peripheral IV Urinary Cath still in place: Yes Reason Cath still needed: other (indicate) Assessment/Plan Chief Complaint/Hosp Course 1. 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 Highly suspicious for malignancy with underlying metastasis. Being followed by oncology and [employer]/Onc. Biopsy of the vaginal mass and retroperitoneal lymph node has been ordered. However, the patient refusing biopsy. No immediate family members available to make decisions on behalf of the patient. SW on the case. 2. S/P sepsis with underlying urinary tract infection. S/P antimicrobials as per infectious diseases. 3. Extensive DVT involving the right and left common femoral, right and left femoral, right and left popliteal vein. On anticoagulation with heparin drip. 4. Microcytic, hypochromic anemia. Status post multiple units of blood transfusion. Iron panel showing iron deficiency. Continue iron supplements. 5. Homeless status. Being followed by social media campaign manager. 6. Fluids, electrolytes, and nutrition. Low-cholesterol diet. 7. DVT prophylaxis. On therapeutic anticoagulation for DVT. 8. Plan. Replete phosphorous. Continue pain control. Continue anticoagulation. Had a conversation with the patient with the help of addiction nurse and social media campaign manager. The patient was informed about the suspicious findings of tumor that may be cancerous in the pelvis and the need to do a biopsy. Patient refused to have any invasive procedures done. Patient seems to be delusional. Pending telepsychiatry evaluation. Problems: Subjective 24 Hr Interval Summary Free Text/Dictation No changes in status. Exam/Review of Systems Vital Signs Vitals Vital Signs Date Time Temp Pulse Resp B/P Pulse Ox O2 Delivery O2 Flow Rate FiO2 01/01/17 12:09 90 01/01/17 11:37 98.3 18 123/61 98 Intake and Output 12/31/16 12/31/16 01/01/17 15:00 23:00 07:00 Intake Total 846 ml 417.5 ml Output Total 250 ml Balance 846 ml 167.5 ml Exam General: Adequately build 71 year-old female lying in bed in no apparent distress. HEENT: Normocephalic, atraumatic. Eyes: Anicteric sclerae, conjunctivae clear. ENT: Nasal septum midline, oral mucosa moist. Neck supple, no JVD noticed. Respiratory: Bilaterally clear breath sounds. No use of accessory muscles of respiration. No adventitious breath sounds. Cardiovascular: S1, S2 heard. No murmurs or gallops. Abdomen: Soft, nontender, and nondistended. Bowel sounds positive in all 4 quadrants. Genitourinary: Deferred. Extremities: No cyanosis, no clubbing, no edema. Peripheral pulses palpable. Neurologic: Cranial nerves II through XII grossly intact. The patient is awake, alert, and oriented. Patient is delusional. Skin: Normal skin turgor. No skin rashes. Results Result Diagram: 01/01/17 0804 01/01/17 0804 Results 24 hrs Laboratory Tests Test 12/31/16 23:45 01/01/17 08:04 Activated Partial Thromboplast Time 107.6 *H 36.5 H White Blood Count 11.4 H Red Blood Count 3.36 L Hemoglobin 7.9 L Hematocrit 27.4 L Mean Corpuscular Volume 81.5 L Mean Corpuscular Hemoglobin 23.5 L Mean Corpuscular Hemoglobin Concent 28.8 L Red Cell Distribution Width 23.2 H Platelet Count 326 Mean Platelet Volume 9.8 Neutrophils % 82.4 H Lymphocytes % 10.9 L Monocytes % 5.0 Eosinophils % 1.0 Basophils % 0.3 Nucleated Red Blood Cells % 0.0 Neutrophils # 9.4 H Lymphocytes # 1.2 Monocytes # 0.6 Eosinophils # 0.1 Basophils # 0.0 Nucleated Red Blood Cells # 0.0 Sodium Level 148 H Potassium Level 3.3 L Chloride Level 119 H Carbon Dioxide Level 20 L Anion Gap 12 Blood Urea Nitrogen 12 Creatinine 0.50 Glucose Level 77 Calcium Level 8.1 L Phosphorus Level 1.8 L Magnesium Level 1.7 Medications Medications Current Medications Sodium Chloride (NS) 1,000 ml @ 60 mls/hr [id number] IV Last administered on 12/31 12:13; Admin Dose 60 MLS/HR; Start 12/23/16 at 17:09 Ondansetron HCl (Zofran Inj) 4 mg Q6H PRN IV NAUSEA AND/OR VOMITING Last administered on 12/25/16 11:08; Admin Dose 4 MG; Start 12/23/16 at 17:30 Acetaminophen (Tylenol Tab) 650 mg Q6H PRN PO PAIN LEVEL 1-3 OR FEVER Last administered on 12/27/16 12:30; Admin Dose 650 MG; Start 12/23/16 at 17:30 Acetaminophen (Tylenol Supp) 650 mg Q6H PRN [place] PAIN LEVEL 1-3 OR FEVER; Start 12/23/16 at 17:30 Ferrous Gluconate (Fergon) 325 mg BID PO Last administered on 01/01/17 10:30; Admin Dose 325 MG; Start 12/24/16 at 21:00 Allopurinol (Zyloprim) 100 mg DAILY PO Last administered on 01/01/17 10:30; Admin Dose 100 MG; Start 12/25/16 at 09:00 Tramadol HCl (Ultram) 50 mg Q6H PRN PO PAIN LEVEL 1-3 Last administered on 12/28 20:53; Admin Dose 50 MG; Start 12/25/16 at 09:30 Alprazolam 0.5 mg 0.5 mg Q8H PRN PO ANXIETY Last administered on 12/27/16 12: 29; Admin Dose 0.5 MG; Start 12/25/16 at 09:30 Ferric Sodium Gluconate Complex/ Sodium Chloride (Ferrlecit/NS) 110 ml @ 110 mls/hr Q24H IVPB Last administered on 12/31/16 18:47; Admin Dose 110 MLS/HR; Start 12/25/16 at 19:00; Stop 01/01/17 at 19:59 Morphine Sulfate 4 mg 4 mg Q4H PRN IV PAIN Last administered on 12/30/16 11:35 ; Admin Dose 4 MG; Start 12/29/16 at 05:40 Potassium Phosphate/Sodium Chloride (K Phos (Mm)/NS) 255 ml @ 63.75 mls/ hr ONCE IVPB ; Start 01/01/17 at 12:30; Stop 01/01/17 at 16:29 SABAS IZQUIERDO NP Jan 01, 2017 13:41
--- NOTE | 2017-01-01 14:38 | PSY ---
Date/Time of Note Date/Time of Note DATE: 01/01/17 TIME: 13:56 Psychiatric Subjective Eval Subjective Evaluation Chief Complaint: Pt BIB RA for c/o suprapubic pain, uncertain of timeframe for pain. Reason for consult: Medical competency History of present illness HISTORY OF PRESENT ILLNESS: This is a 71-year-old female who is a poor historian of her medical history came [facility] due to reports of pelvic pain as well as back pain. Patient at admission was unable to give us an accurate story of how long she has been having pain however when she was brought to [facility]. Upon evaluation, it seems the patient is positive for UTI and a large mass in her uterine cervical region with necrosis, suspicious for cervical carcinoma. Further, the patient was identified having large periaortic retroperitoneal lymphadenopathy suggesting metastatic disease. Upon lower extremity evaluation, it was identified the patient veins, femoral and popliteal veins bilaterally. At the moment, the patient denies shortness of breath, chest pain, nausea, vomiting, fever, chills. The patient denies lower extremity pain upon evaluation. The patient has been refusing a biopsy. The patient said she did not need the biopsy "because it will fall out by itself." She was able to say that she was in a hospital, however did not know why she was admitted nor what treatment was she receiving or going to receive. She was unable to state an understanding of the condition, nor provide options. She presented as if in psychotic denial regarding her medical condition. Although she has been informed on several occasions, it does not seem to register. She was emotionally labile, and at times tearful. She did not know why she had a Pa catheter. She was unable to recite the months of the year backwards. She recalled 2 of 3 objects. She was unable to do serial 7's. 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 She did not recall how far she went to school. She is currently homeless and has no family to contact. Medical Large mass of the uterine cervix with necrosis. R/O cervical carcinoma. Large periaortic retroperitoneal lymphadenopathy, likely metastatic. Moderate metastatic lymphadenopathy along the mesenteric root and peripancreatic and arleen hepatis lymphadenopathy. There is also retrocrural metastatic lymphadenopathy. Moderate right iliac and mild left iliac lymphadenopathy, metastatic. 2.5 cm x 2 cm right adrenal mass. 3 cm x 2.2 cm left adrenal mass. 4.5 cm low-density mass in the right inferior liver, likely metastatic. 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 CA 125- 959 BX MASS , CAN PROBABLY OMIT LIVER BX BX ORDERED, EUA and cervical biopsy - NOT DONE TODAY PT WILL MOST LIKELY WILL NEED CHEMO, NOT A SURGERY the patient refusing biopsy ON MOND WILL TRY TO DO CT - QUIDED Extensive deep venous thrombosis involving the right and left common femoral vein, right and left femoral vein, right and left popliteal vein. heparin ok for lovenox post bx Anemia. MICROCYTIC WITH INCREASED RDW complete ANEMIA W-UP iron studies. - C/W ACD, pos FE DEF Transfuse for hemoglobin less than 7. IV IRON INCREASED URIC ACID CONT ALLOPURINOL RENAL DOSE HYPERCALCEMIA IMPROVED WITH HYDRATION Sepsis UTI. Acute renal insufficiency. Hyperkalemia. Mild hyponatremia. Past psychiatric history no prior psychiatric history Hospitalization: no Family History no known family history Medical history Problems Medical Problems: (1) Sepsis Status: Acute (2) UTI (urinary tract infection) Status: Acute Allergies: Coded Allergies: No Known Allergy (Unverified , 12/23/16) Substance Abuse Substance use: No known substance abuse Social History Marital status: single Level of education: unknown DPA/Conservatorship: No Occupation/Jail: retired Psychiatric Objective Eval Review of Systems: Review of Systems: Applicable Constitutional: Normal Eyes: Normal ENT: Normal Neck: Normal Respiratory: Normal Chest/Breast: Normal Cardiovascular: Normal GI: Normal Genitourinary: Abnormal Skin: Normal Lymphatic: Normal Musculoskeletal: Normal Neurological: Normal Other: Vaginal and back pain. Physical Examination: Physical Examination: Applicable Sleep: Adequate Appetite: Adequate Energy: Adequate Interest: Adequate Mental Status Examination: Appearance: Groomed Eye Contact: Fair Psychomotor Activity: Normal Behavior: Cooperative Speech: Clear AFFECT: Libile Mood: Appropriate/Full Though Process: Circumstantial Thought Content: Other (She presented as in psychotic denial regarding her medical condition. ) Suicidal: No Homicidal: No Orientation: x2 Cognition: Alert Insight: Impared Judgement: Impared Attention Span: Distractible Laboratory Results Laboratory Tests Test 12/31/16 12:00 12/31/16 12:44 12/31/16 23:45 01/01/17 08:04 Magnesium Level 1.8mg/dl 1.7mg/dl White Blood Count 12.010^3/ul 11.410^3/ul Red Blood Count 3.3610^6/ul 3.3610^6/ul Hemoglobin 8.0g/dl 7.9g/dl Hematocrit 28.0% 27.4% Mean Corpuscular Volume 83.3fl 81.5fl Mean Corpuscular Hemoglobin 23.8pg 23.5pg Mean Corpuscular Hemoglobin Concent 28.6g/dl 28.8g/dl Red Cell Distribution Width 22.6% 23.2% Platelet Count 25300^3/UL 09766^3/UL Mean Platelet Volume 10.0fl 9.8fl Neutrophils % 84.8% 82.4% Lymphocytes % 9.4% 10.9% Monocytes % 4.2% 5.0% Eosinophils % 0.8% 1.0% Basophils % 0.3% 0.3% Nucleated Red Blood Cells % 0.0/100WBC 0.0/100WBC Neutrophils # 10.210^3/ul 9.410^3/ul Lymphocytes # 1.110^3/ul 1.210^3/ul Monocytes # 0.510^3/ul 0.610^3/ul Eosinophils # 0.110^3/ul 0.110^3/ul Basophils # 0.010^3/ul 0.010^3/ul Nucleated Red Blood Cells # 0.010^3/ul 0.010^3/ul Prothrombin Time 15.7Sec Prothrombin Time Ratio 1.2 INR International Normalized Ratio 1.24 Activated Partial Thromboplast Time 34.5Sec 107.6Sec 36.5Sec Sodium Level 146mmol/L 148mmol/L Potassium Level 3.4mmol/L 3.3mmol/L Chloride Level 119mmol/L 119mmol/L Carbon Dioxide Level 19mmol/L 20mmol/L Anion Gap 11 12 Blood Urea Nitrogen 11mg/dl 12mg/dl Creatinine 0.47mg/dl 0.50mg/dl Glucose Level 76mg/dl 77mg/dl Calcium Level 8.2mg/dl 8.1mg/dl Phosphorus Level 1.8mg/dl Assessment and Plan Assessment/Diagnosis [place] I: F05 Delirium due to UTI F03.90 Unspecified dementia without behavioral disturbance. [place] II: deferred [place] III: Delirium, UTI, Large mass of the uterine cervix with necrosis. [place] IV: problems with finances, housing [place] V: 30 Recommendation/Plan Medication Management The patient is not in a position to understand the nature of her medical condition, nor is able to make a reasoned choice regarding her medical treatment. Since there is no family member to assist as a person who could provide as a substituted decision maker, the patient should be referred to the medical ethics committee and have a open claims representative to fill the role as the substituted decision maker. Please refer to the article faxed. LILLIAM CUMMINGS MD Jan 01, 2017 14:35
[2017-01-01] MEDS: ACETAMINOPHEN 325 MG TAB PO PRN (18:04)
[2017-01-01] MEDS: SOD FERRIC GLUC COMPLX 125 MG in SOD CHLORIDE 0.9% 100 ML IVPB SCH (18:38)
--- NOTE | 2017-01-01 22:05 | QN ---
Documentation Comment Briefly seen and feels about the same; not convinced she has cancer at all. Given than she has multiple masses it would be reasonable to a CT guided FNA. ANDREW YANES MD Jan 01, 2017 22:05
[2017-01-02] VITALS (12 sets, daily range): BP systolic 104–113; BP diastolic 56–66; PULSE 80–86; RESP 15–18
[2017-01-02] MEDS ORDERED: MAGNESIUM SULFATE 1 GM/D5W 100 ML IVPB ONE
[2017-01-02 07:50] LABS: ABNORMAL IP MESSAGE 1; BASOPHILS % 0.3 % (0.0-2.0); EOSINOPHILS # 0.2 10^3/ul (0.0-0.5); EOSINOPHILS % 1.7 % (0.0-7.0); HEMOGLOBIN 7.6 g/dl (12.0-16.0); LYMPHOCYTES # 1.5 10^3/ul (0.8-2.9); LYMPHOCYTES % 13.9 % (15.0-51.0); MEAN CORPUSCULAR HEMOGLOBIN 23.8 pg (29.0-33.0); MEAN CORPUSCULAR HGB CONC 29.2 g/dl (32.0-37.0); MEAN CORPUSCULAR VOLUME 81.5 fl (82.0-101.0); MEAN PLATELET VOLUME 10.4 fl (7.4-10.4); MONOCYTE # 0.6 10^3/ul (0.3-0.9); MONOCYTES % 5.7 % (0.0-11.0); NEUTROPHIL # 8.2 10^3/ul (1.6-7.5); NEUTROPHILS % 78.1 % (39.0-77.0); PLATELET COUNT 350 10^3/UL (140-415); RED BLOOD COUNT 3.19 10^6/ul (4.20-5.40); RED CELL DISTRIBUTION WIDTH 23.8 % (11.5-14.5); WHITE BLOOD COUNT 10.4 10^3/ul (4.8-10.8)
[2017-01-02 08:00] LABS: POSITIVE DIFF @See below
[2017-01-02 08:10] LABS: CALCIUM 7.7 mg/dl (8.4-10.2); CREATININE 0.49 mg/dl (0.44-1.00); POTASSIUM 3.2 mmol/L (3.5-5.1)
[2017-01-02 08:16] LABS: PHOSPHORUS 1.8 mg/dl (2.5-4.9)
[2017-01-02] MEDS: HEPARIN 25000 UNITS/250 ML 250 ML IV SCH ×2 (08:41→16:36)
[2017-01-02] MEDS: ALLOPURINOL 100 MG TAB PO SCH (09:49)
[2017-01-02] MEDS: FERROUS GLUCONATE (EC) 325 MG TAB PO SCH ×2 (09:50→20:45)
[2017-01-02] MEDS ORDERED: POTASSIUM PHOSPHATE 30 MM in SOD CHLORIDE 0.9% 250 ML IVPB ONE (14:00)
--- NOTE | 2017-01-02 14:42 | CONS ---
Date/Time of Note Date/Time of Note DATE: 01/02/17 TIME: 14:41 Assessment/Plan Assessment/Plan Chief Complaint/Hosp Course SUBJECTIVE DATA: Changes overnight patient awake, confused, looks comfortable Temperature 98.6 pulse 83 respirations 18 blood pressure 113/60 saturation 96 on room air WBC 10.4 H&H 7.6 and 26 platelets 350 neutrophils 78.1 BUN 12 creatinine 0.49 PHYSICAL EXAMINATION: GENERAL: Fragile, well-developed, elderly woman, who is in no distress. HEENT: Head atraumatic, normocephalic. Sclerae anicteric. Buccal mucosa dry. NECK: Supple. CHEST: Rise symmetrical. Breath sounds diminished at the bases. HEART: S1, S2. ABDOMEN: Soft, bowel sounds present. ASSESSMENT: 1. Large cervical mass suspicious for malignancy. 2. Status post urinary tract infection. 3. Bilateral lower extremities deep venous thrombosis on anticoagulation with heparin drip. 4. Anemia. 5. Homeless status. PLAN: The patient remains stable off antibiotics. Continue present care. 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 Repeat cultures p.r.n. Problems: Consultation Date/Type/Reason Admit Date/Time Dec 23, 2016 at 19:24 Initial Consult Date 12/23/16 Type of Consultation: ID Referring Provider: RACIEL CAIN Exam/Review of Systems Vital Signs Vitals Vital Signs Date Time Temp Pulse Resp B/P Pulse Ox O2 Delivery O2 Flow Rate FiO2 01/02/17 12:11 80 01/02/17 11:40 98.6 18 113/60 96 Intake and Output 01/01/17 01/01/17 01/02/17 15:00 23:00 07:00 Intake Total 1355 ml 651.5 ml Output Total 375 ml 320 ml Balance 980 ml 331.5 ml Results Result Diagram: 01/02/17 0712 01/02/17 0712 Results 24 hrs Laboratory Tests Test 01/01/17 19:08 01/02/17 02:38 01/02/17 07:12 Activated Partial Thromboplast Time 130.9 *H > 180.0 *H 53.6 H White Blood Count 10.4 Red Blood Count 3.19 L Hemoglobin 7.6 L Hematocrit 26.0 L Mean Corpuscular Volume 81.5 L Mean Corpuscular Hemoglobin 23.8 L Mean Corpuscular Hemoglobin Concent 29.2 L Red Cell Distribution Width 23.8 H Platelet Count 350 Mean Platelet Volume 10.4 Neutrophils % 78.1 H Lymphocytes % 13.9 L Monocytes % 5.7 Eosinophils % 1.7 Basophils % 0.3 Nucleated Red Blood Cells % 0.0 Neutrophils # 8.2 H Lymphocytes # 1.5 Monocytes # 0.6 Eosinophils # 0.2 Basophils # 0.0 Nucleated Red Blood Cells # 0.0 Sodium Level 147 H Potassium Level 3.2 L Chloride Level 120 H Carbon Dioxide Level 21 Anion Gap 9 Blood Urea Nitrogen 12 Creatinine 0.49 Glucose Level 82 Calcium Level 7.7 L Phosphorus Level 1.8 L Magnesium Level 2.0 Medications Medications Current Medications Sodium Chloride (NS) 1,000 ml @ 60 mls/hr [id number] IV Last administered on 12/31 12:13; Admin Dose 60 MLS/HR; Start 12/23/16 at 17:09 Ondansetron HCl (Zofran Inj) 4 mg Q6H PRN IV NAUSEA AND/OR VOMITING Last administered on 12/25/16 11:08; Admin Dose 4 MG; Start 12/23/16 at 17:30 Acetaminophen (Tylenol Tab) 650 mg Q6H PRN PO PAIN LEVEL 1-3 OR FEVER Last administered on 01/01/17 18:04; Admin Dose 650 MG; Start 12/23/16 at 17:30 Acetaminophen (Tylenol Supp) 650 mg Q6H PRN AR PAIN LEVEL 1-3 OR FEVER; Start 12/23/16 at 17:30 Ferrous Gluconate (Fergon) 325 mg BID PO Last administered on 01/02/17 09:50; Admin Dose 325 MG; Start 12/24/16 at 21:00 Allopurinol (Zyloprim) 100 mg DAILY PO Last administered on 01/02/17 09:49; Admin Dose 100 MG; Start 12/25/16 at 09:00 Tramadol HCl (Ultram) 50 mg Q6H PRN PO PAIN LEVEL 1-3 Last administered on 12/28 20:53; Admin Dose 50 MG; Start 12/25/16 at 09:30 Alprazolam (Xanax) 0.5 mg Q8H PRN PO ANXIETY Last administered on 12/27/16 12: 29; Admin Dose 0.5 MG; Start 12/25/16 at 09:30 Morphine Sulfate 4 mg 4 mg Q4H PRN IV PAIN Last administered on 12/30/16t 11:35 ; Admin Dose 4 MG; Start 12/29/16 at 05:40 Potassium Phosphate/Sodium Chloride (K Phos (Mm)/NS) 260 ml @ 65 mls/hr ONCE ONCE IVPB ; Start 01/02/17 at 14:00; Stop 01/02/17 at 17:59 VICTOR M CARDONA NP Jan 02, 2017 14:42
--- NOTE | 2017-01-02 16:23 | PN ---
Date/Time of Note Date/Time of Note DATE: 01/02/17 TIME: 16:17 Assessment/Plan VTE Prophylaxis VTE Prophylaxis Intervention: heparin Lines/Catheters IV Catheter Type (from [facility]): Peripheral IV Urinary Cath still in place: Yes Reason Cath still needed: other (indicate) Assessment/Plan Chief Complaint/Hosp Course 1. 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 Highly suspicious for malignancy with underlying metastasis. Being followed by oncology and Fermentologist/Onc. Biopsy of the vaginal mass and retroperitoneal lymph node has been ordered. However, the patient refusing biopsy. No immediate family members available to make decisions on behalf of the patient. SW on the case. The patient was evaluated by telemetry psychiatry on 01/01/2017. The patient has poor insight into her condition. The patient is not capable of making decisions on her behalf. 2. S/P sepsis with underlying urinary tract infection. S/P antimicrobials as per infectious diseases. 3. Extensive DVT involving the right and left common femoral, right and left femoral, right and left popliteal vein. On anticoagulation with heparin drip. 4. Microcytic, hypochromic anemia. Status post multiple units of blood transfusion. Iron panel showing iron deficiency. Continue iron supplements. 5. Homeless status. Being followed by administrator social welfare. 6. Fluids, electrolytes, and nutrition. Low-cholesterol diet. 7. DVT prophylaxis. On therapeutic anticoagulation for DVT. 8. Plan. Replete phosphorous and potassium. Continue pain control. Continue anticoagulation. Monitor for any overt bleeding. Obtain stool for OB. Had a discussion with the patient's oncologist. The patient has poor prognosis. The patient has poor insight into her medical condition. The patient does not understand the seriousness of her condition and the poor prognosis. She has no immediate family members or friends who can make decisions on her behalf. Given that, a bioethics meeting will be conducted to decide on the best possible care for the patient. Case discussed with Dr. Salmeron. Problems: Subjective 24 Hr Interval Summary Free Text/Dictation Poor oral intake. Has lower abdominal pain. Exam/Review of Systems Vital Signs Vitals Vital Signs Date Time Temp Pulse Resp B/P Pulse Ox O2 Delivery O2 Flow Rate FiO2 01/02/17 15:48 98.0 81 18 112/66 98 Intake and Output 01/01/17 01/01/17 01/02/17 15:00 23:00 07:00 Intake Total 1355 ml 651.5 ml Output Total 375 ml 320 ml Balance 980 ml 331.5 ml Exam General: Adequately build 71 year-old female lying in bed in no apparent distress. HEENT: Normocephalic, atraumatic. Eyes: Anicteric sclerae, conjunctivae clear. ENT: Nasal septum midline, oral mucosa moist. Neck supple, no JVD noticed. Respiratory: Bilaterally clear breath sounds. No use of accessory muscles of respiration. No adventitious breath sounds. Cardiovascular: S1, S2 heard. No murmurs or gallops. Abdomen: Soft, nontender, and nondistended. Bowel sounds positive in all 4 quadrants. Genitourinary: Deferred. Extremities: No cyanosis, no clubbing, no edema. Peripheral pulses palpable. Neurologic: Cranial nerves II through XII grossly intact. The patient is awake, alert, and oriented. Patient is delusional. Skin: Normal skin turgor. No skin rashes. Results Result Diagram: 01/02/17 0712 01/02/17 0712 Results 24 hrs Laboratory Tests Test 01/01/17 19:08 01/02/17 02:38 01/02/17 07:12 01/02/17 14:52 Activated Partial Thromboplast Time 130.9 *H > 180.0 *H 53.6 H 113.2 *H White Blood Count 10.4 Red Blood Count 3.19 L Hemoglobin 7.6 L Hematocrit 26.0 L Mean Corpuscular Volume 81.5 L Mean Corpuscular Hemoglobin 23.8 L Mean Corpuscular Hemoglobin Concent 29.2 L Red Cell Distribution Width 23.8 H Platelet Count 350 Mean Platelet Volume 10.4 Neutrophils % 78.1 H Lymphocytes % 13.9 L Monocytes % 5.7 Eosinophils % 1.7 Basophils % 0.3 Nucleated Red Blood Cells % 0.0 Neutrophils # 8.2 H Lymphocytes # 1.5 Monocytes # 0.6 Eosinophils # 0.2 Basophils # 0.0 Nucleated Red Blood Cells # 0.0 Sodium Level 147 H Potassium Level 3.2 L Chloride Level 120 H Carbon Dioxide Level 21 Anion Gap 9 Blood Urea Nitrogen 12 Creatinine 0.49 Glucose Level 82 Calcium Level 7.7 L Phosphorus Level 1.8 L Magnesium Level 2.0 Medications Medications Current Medications Ondansetron HCl (Zofran Inj) 4 mg Q6H PRN IV NAUSEA AND/OR VOMITING Last administered on 12/25/16 11:08; Admin Dose 4 MG; Start 12/23/16 at 17:30 Acetaminophen (Tylenol Tab) 650 mg Q6H PRN PO PAIN LEVEL 1-3 OR FEVER Last administered on 01/01/17 18:04; Admin Dose 650 MG; Start 12/23/16 at 17:30 Acetaminophen (Tylenol Supp) 650 mg Q6H PRN AR PAIN LEVEL 1-3 OR FEVER; Start 12/23/16 at 17:30 Ferrous Gluconate (Fergon) 325 mg BID PO Last administered on 01/02/17 09:50; Admin Dose 325 MG; Start 12/24/16 at 21:00 Allopurinol (Zyloprim) 100 mg DAILY PO Last administered on 01/02/17 09:49; Admin Dose 100 MG; Start 12/25/16 at 09:00 Tramadol HCl (Ultram) 50 mg Q6H PRN PO PAIN LEVEL 1-3 Last administered on 12/28 20:53; Admin Dose 50 MG; Start 12/25/16 at 09:30 Alprazolam (Xanax) 0.5 mg Q8H PRN PO ANXIETY Last administered on 12/27/16 12: 29; Admin Dose 0.5 MG; Start 12/25/16 at 09:30 Morphine Sulfate 4 mg 4 mg Q4H PRN IV PAIN Last administered on 12/30/16 11:35 ; Admin Dose 4 MG; Start 12/29/16 at 05:40 Potassium Phosphate 30 mm/ Sodium Chloride 260 ml @ 65 mls/hr ONCE ONCE IVPB Last administered on 01/02/17 14:54; Admin Dose 65 MLS/HR; Start 01/02/17 at 14 :00; Stop 01/02/17 at 17:59 Dextrose (D5W) 1,000 ml @ 60 mls/hr [id number] IV ; Start 01/02/17 at 15:30 SABAS IZQUIERDO NP Jan 02, 2017 16:23
[2017-01-02] MEDS: DEXTROSE 5% 1,000 ML IV SCH (16:37)
[2017-01-02] MEDS ORDERED: BISACODYL (EC) 5 MG TAB PO PRN (18:00)
[2017-01-02] MEDS: POLYETHYLENE GLYCOL 17 GM PACKET PO SCH (20:45)
--- NOTE | 2017-01-02 22:35 | CONS ---
Date/Time of Note Date/Time of Note DATE: 01/02/17 TIME: 22:28 Assessment/Plan Assessment/Plan Chief Complaint/Hosp Course Large mass of the uterine cervix with necrosis. R/O cervical carcinoma. Large periaortic retroperitoneal lymphadenopathy, likely metastatic. Moderate metastatic lymphadenopathy along the mesenteric root and peripancreatic and arleen hepatis lymphadenopathy. There is also retrocrural metastatic lymphadenopathy. Moderate right iliac and mild left iliac lymphadenopathy, metastatic. 2.5 cm x 2 cm right adrenal mass. 3 cm x 2.2 cm left adrenal mass. 4.5 cm low-density mass in the right inferior liver, likely metastatic. 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 CA 125- 959 BX MASS , CAN PROBABLY OMIT LIVER BX BX ORDERED, EUA and cervical biopsy - NOT DONE TODAY PT WILL MOST LIKELY WILL NEED CHEMO, NOT A SURGERY the patient refusing biopsy No immediate family members available to make decisions on behalf of the patient. SW on the case. The patient was evaluated by telemetry psychiatry on 01/01/2017. The patient has poor insight into her condition. The patient is not capable of making decisions on her behalf. ethic committee consult Extensive deep venous thrombosis involving the right and left common femoral vein, right and left femoral vein, right and left popliteal vein. heparin ok for lovenox post bx Anemia. MICROCYTIC WITH INCREASED RDW complete ANEMIA W-UP iron studies. - C/W ACD, pos FE DEF Transfuse for hemoglobin less than 7. IV IRON INCREASED URIC ACID CONT ALLOPURINOL RENAL DOSE HYPERCALCEMIA IMPROVED WITH HYDRATION Sepsis UTI. Acute renal insufficiency. Hyperkalemia. Mild hyponatremia. Problems: Consultation Date/Type/Reason Admit Date/Time Dec 23, 2016 at 19:24 Initial Consult Date 12/23/16 Type of Consultation: [facility] Referring Provider: RACIEL CAIN 24 HR Interval Summary Free Text/Dictation all noted Exam/Review of Systems Vital Signs Vitals Vital Signs Date Time Temp Pulse Resp B/P Pulse Ox O2 Delivery O2 Flow Rate FiO2 01/02/17 20:13 86 01/02/17 19:27 97.6 15 105/64 97 Intake and Output 01/01/17 01/01/17 01/02/17 15:00 23:00 07:00 Intake Total 1355 ml 651.5 ml Output Total 375 ml 320 ml Balance 980 ml 331.5 ml Exam Constitutional: alert Psych: anxiety Head: normocephalic Neck: supple Respiratory: clear to auscultation Cardiovascular: other (Regular rate to tachycardic) Gastrointestinal: soft, tender Musculoskeletal: swelling (Minimally bilateral lower extremities) Neurological: nl mental status, nl speech Results Result Diagram: 01/02/1712 01/02/17 0712 Results 24 hrs Laboratory Tests Test 01/02/17 02:38 01/02/17 07:12 01/02/17 14:52 Activated Partial Thromboplast Time > 180.0 *H 53.6 H 113.2 *H White Blood Count 10.4 Red Blood Count 3.19 L Hemoglobin 7.6 L Hematocrit 26.0 L Mean Corpuscular Volume 81.5 L Mean Corpuscular Hemoglobin 23.8 L Mean Corpuscular Hemoglobin Concent 29.2 L Red Cell Distribution Width 23.8 H Platelet Count 350 Mean Platelet Volume 10.4 Neutrophils % 78.1 H Lymphocytes % 13.9 L Monocytes % 5.7 Eosinophils % 1.7 Basophils % 0.3 Nucleated Red Blood Cells % 0.0 Neutrophils # 8.2 H Lymphocytes # 1.5 Monocytes # 0.6 Eosinophils # 0.2 Basophils # 0.0 Nucleated Red Blood Cells # 0.0 Sodium Level 147 H Potassium Level 3.2 L Chloride Level 120 H Carbon Dioxide Level 21 Anion Gap 9 Blood Urea Nitrogen 12 Creatinine 0.49 Glucose Level 82 Calcium Level 7.7 L Phosphorus Level 1.8 L Magnesium Level 2.0 Medications Medications Current Medications Ondansetron HCl (Zofran Inj) 4 mg Q6H PRN IV NAUSEA AND/OR VOMITING Last administered on 12/25/16 11:08; Admin Dose 4 MG; Start 12/23/16 at 17:30 Acetaminophen (Tylenol Tab) 650 mg Q6H PRN PO PAIN LEVEL 1-3 OR FEVER Last administered on 01/01/17 18:04; Admin Dose 650 MG; Start 12/23/16 at 17:30 Acetaminophen (Tylenol Supp) 650 mg Q6H PRN CA PAIN LEVEL 1-3 OR FEVER; Start 12/23/16 at 17:30 Ferrous Gluconate (Fergon) 325 mg BID PO Last administered on 01/02/17 20:45; Admin Dose 325 MG; Start 12/24/16 at 21:00 Allopurinol (Zyloprim) 100 mg DAILY PO Last administered on 01/02/17 09:49; Admin Dose 100 MG; Start 12/25/16 at 09:00 Tramadol HCl (Ultram) 50 mg Q6H PRN PO PAIN LEVEL 1-3 Last administered on 12/28 20:53; Admin Dose 50 MG; Start 12/25/16 at 09:30 Alprazolam (Xanax) 0.5 mg Q8H PRN PO ANXIETY Last administered on 12/27/16 12: 29; Admin Dose 0.5 MG; Start 12/25/16 at 09:30 Morphine Sulfate 4 mg 4 mg Q4H PRN IV PAIN Last administered on 12/30/16 11:35 ; Admin Dose 4 MG; Start 12/29/16 at 05:40 Dextrose (D5W) 1,000 ml @ 60 mls/hr [id number] IV Last administered on 01/02/17 16:37; Admin Dose 60 MLS/HR; Start 01/02/17 at 15:30 Polyethylene Glycol (Miralax) 17 gm BID PO Last administered on 01/02/17 20:45 ; Admin Dose 17 GM; Start 01/02/17 at 21:00 Bisacodyl (Dulcolax) 10 mg DAILY PRN PO CONSTIPATION Last administered on 18:24; Admin Dose 10 MG; Start 01/02/17 at 18:00 KEATON METZ MD Jan 02, 2017 22:35
[2017-01-03] VITALS (11 sets, daily range): BP systolic 102–120; BP diastolic 56–70; PULSE 74–83; RESP 15–20
[2017-01-03] MEDS: HEPARIN 25000 UNITS/250 ML 250 ML IV SCH (02:14)
[2017-01-03 07:22] LABS: ABNORMAL IP MESSAGE 1; BASOPHILS % 0.3 % (0.0-2.0); EOSINOPHILS # 0.3 10^3/ul (0.0-0.5); EOSINOPHILS % 2.8 % (0.0-7.0); HEMATOCRIT 27.1 % (37.0-47.0); HEMOGLOBIN 7.7 g/dl (12.0-16.0); LYMPHOCYTES # 1.5 10^3/ul (0.8-2.9); LYMPHOCYTES % 15.3 % (15.0-51.0); MEAN CORPUSCULAR HEMOGLOBIN 23.8 pg (29.0-33.0); MEAN CORPUSCULAR HGB CONC 28.4 g/dl (32.0-37.0); MEAN CORPUSCULAR VOLUME 83.6 fl (82.0-101.0); MEAN PLATELET VOLUME 11.1 fl (7.4-10.4); MONOCYTE # 0.6 10^3/ul (0.3-0.9); MONOCYTES % 5.8 % (0.0-11.0); NEUTROPHIL # 7.4 10^3/ul (1.6-7.5); NEUTROPHILS % 75.4 % (39.0-77.0); PLATELET COUNT 354 10^3/UL (140-415); RED BLOOD COUNT 3.24 10^6/ul (4.20-5.40); RED CELL DISTRIBUTION WIDTH 24.1 % (11.5-14.5); WHITE BLOOD COUNT 9.8 10^3/ul (4.8-10.8)
[2017-01-03 07:30] LABS: POSITIVE DIFF @See below
[2017-01-03 07:49] LABS: MAGNESIUM 1.6 mg/dl (1.7-2.5); PHOSPHORUS 1.9 mg/dl (2.5-4.9)
[2017-01-03] MEDS: FERROUS GLUCONATE (EC) 325 MG TAB PO SCH ×2 (08:42→21:49)
[2017-01-03] MEDS: ALLOPURINOL 100 MG TAB PO SCH (08:42)
[2017-01-03] MEDS: POLYETHYLENE GLYCOL 17 GM PACKET PO SCH ×2 (08:42→21:49)
[2017-01-03 09:34] LABS: CALCIUM 7.3 mg/dl (8.4-10.2); CREATININE 0.46 mg/dl (0.44-1.00); POTASSIUM 3.2 mmol/L (3.5-5.1)
[2017-01-03] MEDS: DEXTROSE 5% 1,000 ML IV SCH (10:48)
[2017-01-03] MEDS ORDERED: MAGNESIUM SULFATE 2 GM/50 ML 50 ML IVPB ONE (11:30)
[2017-01-03] MEDS ORDERED: POTASSIUM PHOSPHATE 30 MM in SOD CHLORIDE 0.9% 250 ML IVPB ONE (13:00)
--- NOTE | 2017-01-03 13:47 | PN ---
Date/Time of Note Date/Time of Note DATE: 01/03/17 TIME: 13:45 Assessment/Plan VTE Prophylaxis VTE Prophylaxis Intervention: heparin Lines/Catheters IV [facility] (from [facility]): Peripheral IV Urinary Cath still in place: Yes Reason Cath still needed: other (indicate) Assessment/Plan Chief Complaint/Hosp Course 1. 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 Highly suspicious for malignancy with underlying metastasis. Being followed by oncology and Offset Printing Pressmen/Onc. Biopsy of the vaginal mass and retroperitoneal lymph node has been ordered. However, the patient refusing biopsy. No immediate family members available to make decisions on behalf of the patient. SW on the case. The patient was evaluated by telemetry psychiatry on 01/01/2017. The patient has poor insight into her condition. The patient is not capable of making decisions on her behalf. 2. S/P sepsis with underlying urinary tract infection. S/P antimicrobials as per infectious diseases. 3. Extensive DVT involving the right and left common femoral, right and left femoral, right and left popliteal vein. On anticoagulation with heparin drip. 4. Microcytic, hypochromic anemia. Status post multiple units of blood transfusion. Iron panel showing iron deficiency. Continue iron supplements. 5. Homeless status. Being followed by social media strategist. 6. Fluids, electrolytes, and nutrition. Low-cholesterol diet. 7. DVT prophylaxis. On therapeutic anticoagulation for DVT. 8. Plan. Replete phosphorous, magnesium, and potassium. Continue pain control. Continue anticoagulation. Monitor for any overt bleeding. Obtain stool for OB. Had a discussion with the patient's oncologist. The patient has poor prognosis. The patient has poor insight into her medical condition. The patient does not understand the seriousness of her condition and the poor prognosis. She has no immediate family members or friends who can make decisions on her behalf. Given that, a bioethics meeting will be conducted to decide on the best possible care for the patient. Problems: Subjective 24 Hr Interval Summary Free Text/Dictation Patient refusing pain medications even though she has nonverbal cues of analgesics. Exam/Review of Systems Vital Signs Vitals Vital Signs Date Time Temp Pulse Resp B/P Pulse Ox O2 Delivery O2 Flow Rate FiO2 01/03/17 12:02 76 01/03/17 11:23 98.0 18 109/66 98 Intake and Output 01/02/17 01/02/17 01/03/17 15:00 23:00 07:00 Intake Total 392 ml 70 ml Output Total 300 ml 300 ml Balance 92 ml -230 ml Exam General: Adequately build 71 year-old female lying in bed in no apparent distress. HEENT: Normocephalic, atraumatic. Eyes: Anicteric sclerae, conjunctivae clear. ENT: Nasal septum midline, oral mucosa moist. Neck supple, no JVD noticed. Respiratory: Bilaterally clear breath sounds. No use of accessory muscles of respiration. No adventitious breath sounds. Cardiovascular: S1, S2 heard. No murmurs or gallops. Abdomen: Soft, nontender, and nondistended. Bowel sounds positive in all 4 quadrants. Genitourinary: Deferred. Extremities: No cyanosis, no clubbing, no edema. Peripheral pulses palpable. Neurologic: Cranial nerves II through XII grossly intact. The patient is awake, alert, and oriented. Patient is delusional. Skin: Normal skin turgor. No skin rashes. Results Result Diagram: 01/03/1762501/03/17625 Results 24 hrs Laboratory Tests Test 01/02/17 14:52 01/02/17 22:11 01/03/17 06:26 Activated Partial Thromboplast Time 113.2 *H 77.2 *H 75.4 *H White Blood Count 9.8 Red Blood Count 3.24 L Hemoglobin 7.7 L Hematocrit 27.1 L Mean Corpuscular Volume 83.6 Mean Corpuscular Hemoglobin 23.8 L Mean Corpuscular Hemoglobin Concent 28.4 L Red Cell Distribution Width 24.1 H Platelet Count 354 Mean Platelet Volume 11.1 H Neutrophils % 75.4 Lymphocytes % 15.3 Monocytes % 5.8 Eosinophils % 2.8 Basophils % 0.3 Nucleated Red Blood Cells % 0.0 Neutrophils # 7.4 Lymphocytes # 1.5 Monocytes # 0.6 Eosinophils # 0.3 Basophils # 0.0 Nucleated Red Blood Cells # 0.0 Sodium Level 145 H Potassium Level 3.2 L Chloride Level 119 H Carbon Dioxide Level 22 Anion Gap 7 L Blood Urea Nitrogen 10 Creatinine 0.46 Glucose Level 79 Calcium Level 7.3 L Phosphorus Level 1.9 L Magnesium Level 1.6 L Medications Medications Current Medications Ondansetron HCl (Zofran Inj) 4 mg Q6H PRN IV NAUSEA AND/OR VOMITING Last administered on 12/25/16 11:08; Admin Dose 4 MG; Start 12/23/16 at 17:30 Acetaminophen (Tylenol Tab) 650 mg Q6H PRN PO PAIN LEVEL 1-3 OR FEVER Last administered on 01/01/17 18:04; Admin Dose 650 MG; Start 12/23/16 at 17:30 Acetaminophen (Tylenol Supp) 650 mg Q6H PRN [place] PAIN LEVEL 1-3 OR FEVER; Start 12/23/16 at 17:30 Ferrous Gluconate (Fergon) 325 mg BID PO Last administered on 01/03/17 08:42; Admin Dose 325 MG; Start 12/24/16 at 21:00 Allopurinol (Zyloprim) 100 mg DAILY PO Last administered on 01/03/17 08:42; Admin Dose 100 MG; Start 12/25/16 at 09:00 Tramadol HCl (Ultram) 50 mg Q6H PRN PO PAIN LEVEL 1-3 Last administered on 12/28 20:53; Admin Dose 50 MG; Start 12/25/16 at 09:30 Alprazolam (Xanax) 0.5 mg Q8H PRN PO ANXIETY Last administered on 12/27/16 12: 29; Admin Dose 0.5 MG; Start 12/25/16 at 09:30 Morphine Sulfate 4 mg 4 mg Q4H PRN IV PAIN Last administered on 12/30/16 11:35 ; Admin Dose 4 MG; Start 12/29/16 at 05:40 Dextrose (D5W) 1,000 ml @ 60 mls/hr [id number] IV Last administered on 01/03/17 10:48; Admin Dose 60 MLS/HR; Start 01/02/17 at 15:30 Polyethylene Glycol (Miralax) 17 gm BID PO Last administered on 01/03/17 08:42 ; Admin Dose 17 GM; Start 01/02/17 at 21:00 Bisacodyl 10 mg 10 mg DAILY PRN PO CONSTIPATION Last administered on 01/02/17 18:24; Admin Dose 10 MG; Start 01/02/17 at 18:00 Potassium Phosphate/Sodium Chloride (K Phos (Mm)/NS) 260 ml @ 65 mls/hr ONCE ONCE IVPB ; Start 01/03/17 at 13:00; Stop 01/03/17 at 16:59 SABAS IZQUIERDO NP Jan 03, 2017 13:47
[2017-01-03] MEDS: morphine 4 MG/ML VIAL IV PRN (17:54)
[2017-01-03] MEDS ORDERED: AL HYDROX/MG HYDROX/SIMETH 30 ML CUP PO PRN (18:00)
--- NOTE | 2017-01-03 23:34 | CONS ---
Date/Time of Note Date/Time of Note DATE: 01/03/17 TIME: 23:34 Assessment/Plan Assessment/Plan Chief Complaint/Hosp Course Large mass of the uterine cervix with necrosis. R/O cervical carcinoma. Large periaortic retroperitoneal lymphadenopathy, likely metastatic. Moderate metastatic lymphadenopathy along the mesenteric root and peripancreatic and arleen hepatis lymphadenopathy. There is also retrocrural metastatic lymphadenopathy. Moderate right iliac and mild left iliac lymphadenopathy, metastatic. 2.5 cm x 2 cm right adrenal mass. 3 cm x 2.2 cm left adrenal mass. 4.5 cm low-density mass in the right inferior liver, likely metastatic. 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 CA 125- 959 BX MASS , CAN PROBABLY OMIT LIVER BX BX ORDERED, EUA and cervical biopsy - NOT DONE TODAY PT WILL MOST LIKELY WILL NEED CHEMO, NOT A SURGERY the patient refusing biopsy No immediate family members available to make decisions on behalf of the patient. SW on the case. The patient was evaluated by telemetry psychiatry on 01/01/2017. The patient has poor insight into her condition. The patient is not capable of making decisions on her behalf. ethic committee consult Extensive deep venous thrombosis involving the right and left common femoral vein, right and left femoral vein, right and left popliteal vein. heparin ok for lovenox post bx Anemia. MICROCYTIC WITH INCREASED RDW complete ANEMIA W-UP iron studies. - C/W ACD, pos FE DEF Transfuse for hemoglobin less than 7. IV IRON INCREASED URIC ACID CONT ALLOPURINOL RENAL DOSE HYPERCALCEMIA IMPROVED WITH HYDRATION Sepsis UTI. Acute renal insufficiency. Hyperkalemia. Mild hyponatremia. Problems: Consultation Date/Type/Reason Admit Date/Time Dec 23, 2016 at 19:24 Initial Consult Date 12/23/16 Type of Consultation: [facility] Referring Provider: RACIEL CAIN 24 HR Interval Summary Free Text/Dictation ALL NOTED D/W RN Exam/Review of Systems Vital Signs Vitals Vital Signs Date Time Temp Pulse Resp B/P Pulse Ox O2 Delivery O2 Flow Rate FiO2 01/03/17 20:16 83 01/03/17 20:04 98.1 18 102/64 98 Intake and Output 01/02/17 01/02/17 01/03/17 15:00 23:00 07:00 Intake Total 392 ml 70 ml Output Total 300 ml 300 ml Balance 92 ml -230 ml Exam Constitutional: alert Psych: anxiety Head: normocephalic Neck: supple Respiratory: clear to auscultation Cardiovascular: other (Regular rate to tachycardic) Gastrointestinal: soft, tender Musculoskeletal: swelling (Minimally bilateral lower extremities) Neurological: nl mental status, nl speech Results Result Diagram: 01/03/17 0626 01/03/17 0626 Results 24 hrs Laboratory Tests Test 01/03/17 06:26 White Blood Count 9.8 Red Blood Count 3.24 L Hemoglobin 7.7 L Hematocrit 27.1 L Mean Corpuscular Volume 83.6 Mean Corpuscular Hemoglobin 23.8 L Mean Corpuscular Hemoglobin Concent 28.4 L Red Cell Distribution Width 24.1 H Platelet Count 354 Mean Platelet Volume 11.1 H Neutrophils % 75.4 Lymphocytes % 15.3 Monocytes % 5.8 Eosinophils % 2.8 Basophils % 0.3 Nucleated Red Blood Cells % 0.0 Neutrophils # 7.4 Lymphocytes # 1.5 Monocytes # 0.6 Eosinophils # 0.3 Basophils # 0.0 Nucleated Red Blood Cells # 0.0 Activated Partial Thromboplast Time 75.4 *H Sodium Level 145 H Potassium Level 3.2 L Chloride Level 119 H Carbon Dioxide Level 22 Anion Gap 7 L Blood Urea Nitrogen 10 Creatinine 0.46 Glucose Level 79 Calcium Level 7.3 L Phosphorus Level 1.9 L Magnesium Level 1.6 L Medications Medications Current Medications Ondansetron HCl (Zofran Inj) 4 mg Q6H PRN IV NAUSEA AND/OR VOMITING Last administered on 12/25/16 11:08; Admin Dose 4 MG; Start 12/23/16 at 17:30 Acetaminophen (Tylenol Tab) 650 mg Q6H PRN PO PAIN LEVEL 1-3 OR FEVER Last administered on 01/01/17 18:04; Admin Dose 650 MG; Start 12/23/16 at 17:30 Acetaminophen (Tylenol Supp) 650 mg Q6H PRN [place] PAIN LEVEL 1-3 OR FEVER; Start 12/23/16 at 17:30 Ferrous Gluconate (Fergon) 325 mg BID PO Last administered on 01/03/17 21:49; Admin Dose 325 MG; Start 12/24/16 at 21:00 Allopurinol (Zyloprim) 100 mg DAILY PO Last administered on 01/03/17 08:42; Admin Dose 100 MG; Start 12/25/16 at 09:00 Tramadol HCl (Ultram) 50 mg Q6H PRN PO PAIN LEVEL 1-3 Last administered on 12/28 20:53; Admin Dose 50 MG; Start 12/25/16 at 09:30 Alprazolam (Xanax) 0.5 mg Q8H PRN PO ANXIETY Last administered on 12/27/16 12: 29; Admin Dose 0.5 MG; Start 12/25/16 at 09:30 Morphine Sulfate 4 mg 4 mg Q4H PRN IV PAIN Last administered on 01/03/17 17:54 ; Admin Dose 4 MG; Start 12/29/16 at 05:40 Dextrose (D5W) 1,000 ml @ 60 mls/hr [id number] IV Last administered on 01/03/17 10:48; Admin Dose 60 MLS/HR; Start 01/02/17 at 15:30 Polyethylene Glycol (Miralax) 17 gm BID PO Last administered on 01/03/17 21:49 ; Admin Dose 17 GM; Start 01/02/17 at 21:00 Bisacodyl (Dulcolax) 10 mg DAILY PRN PO CONSTIPATION Last administered on 18:24; Admin Dose 10 MG; Start 01/02/17 at 18:00 Al Hydrox/Mg Hydrox/Simethicone (Mag-Al Plus) 30 ml Q4H PRN PO GASTROINTESTINAL UPSET; Start 01/03/17 at 18:00 KEATON METZ MD Jan 03, 2017 23:34
[2017-01-04] VITALS (11 sets, daily range): BP systolic 99–135; BP diastolic 54–85; PULSE 85–103; RESP 16–19
[2017-01-04] MEDS: DEXTROSE 5% 1,000 ML IV SCH ×2 (00:50→11:30)
[2017-01-04] MEDS: morphine 4 MG/ML VIAL IV PRN ×3 (02:10→15:42)
[2017-01-04 07:17] LABS: ABNORMAL IP MESSAGE 1; BASOPHILS % 0.3 % (0.0-2.0); EOSINOPHILS # 0.2 10^3/ul (0.0-0.5); HEMATOCRIT 29.7 % (37.0-47.0); HEMOGLOBIN 8.8 g/dl (12.0-16.0); LYMPHOCYTES # 1.4 10^3/ul (0.8-2.9); LYMPHOCYTES % 12.3 % (15.0-51.0); MEAN CORPUSCULAR HEMOGLOBIN 24.8 pg (29.0-33.0); MEAN CORPUSCULAR HGB CONC 29.6 g/dl (32.0-37.0); MEAN CORPUSCULAR VOLUME 83.7 fl (82.0-101.0); MEAN PLATELET VOLUME 11.1 fl (7.4-10.4); MONOCYTE # 0.7 10^3/ul (0.3-0.9); MONOCYTES % 5.7 % (0.0-11.0); NEUTROPHIL # 9.2 10^3/ul (1.6-7.5); NEUTROPHILS % 79.2 % (39.0-77.0); PLATELET COUNT 379 10^3/UL (140-415); RED BLOOD COUNT 3.55 10^6/ul (4.20-5.40); RED CELL DISTRIBUTION WIDTH 24.3 % (11.5-14.5); WHITE BLOOD COUNT 11.6 10^3/ul (4.8-10.8)
[2017-01-04 07:19] LABS: POSITIVE DIFF @See below
[2017-01-04 07:51] LABS: MAGNESIUM 1.9 mg/dl (1.7-2.5)
[2017-01-04 07:55] LABS: CALCIUM 7.1 mg/dl (8.4-10.2); CREATININE 0.37 mg/dl (0.44-1.00); POTASSIUM 3.8 mmol/L (3.5-5.1)
[2017-01-04] MEDS: POLYETHYLENE GLYCOL 17 GM PACKET PO SCH ×2 (09:25→21:43)
[2017-01-04] MEDS: ALLOPURINOL 100 MG TAB PO SCH (09:25)
[2017-01-04] MEDS: FERROUS GLUCONATE (EC) 325 MG TAB PO SCH ×2 (09:25→21:52)
[2017-01-04] MEDS ORDERED: ENOXAPARIN 100 MG/ML SYG SC SCH (09:30)
[2017-01-04] MEDS ORDERED: POTASSIUM PHOSPHATE 15 MM in SOD CHLORIDE 0.9% 250 ML IVPB ONE (11:00)
--- NOTE | 2017-01-04 12:20 | PN ---
Date/Time of Note Date/Time of Note DATE: 01/04/17 TIME: 12:18 Assessment/Plan VTE Prophylaxis VTE Prophylaxis Intervention: LMWH Lines/Catheters IV [facility]ter Type (from [facility] Peripheral IV Urinary Cath still in place: Yes Reason Cath still needed: other (indicate) Assessment/Plan Chief Complaint/Hosp Course 1. 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 Highly suspicious for malignancy with underlying metastasis. Being followed by oncology and Data Security Administrator/Onc. Biopsy of the vaginal mass and retroperitoneal lymph node has been ordered. However, the patient refusing biopsy. No immediate family members available to make decisions on behalf of the patient. SW on the case. The patient was evaluated by telemetry psychiatry on 01/01/2017. The patient has poor insight into her condition. The patient is not capable of making decisions on her behalf. 2. S/P sepsis with underlying urinary tract infection. S/P antimicrobials as per infectious diseases. 3. Extensive DVT involving the right and left common femoral, right and left femoral, right and left popliteal vein. On therapeutic anticoagulation. 4. Microcytic, hypochromic anemia. Status post multiple units of blood transfusion. Iron panel showing iron deficiency. Continue iron supplements. 5. Homeless status. Being followed by secondary social studies teacher. 6. Fluids, electrolytes, and nutrition. Low-cholesterol diet. 7. DVT prophylaxis. On therapeutic anticoagulation for DVT. 8. Plan. Replete phosphorous. Continue pain control. Continue anticoagulation. Monitor for any overt bleeding. Obtain stool for OB. Had a discussion with the patient's oncologist. The patient has poor prognosis. The patient has poor insight into her medical condition. The patient does not understand the seriousness of her condition and the poor prognosis. She has no immediate family members or friends who can make decisions on her behalf. Given that, a bioethics meeting will be conducted to decide on the best possible care for the patient. Problems: Subjective 24 Hr Interval Summary Free Text/Dictation The patient's status remains unchanged. Exam/Review of Systems Vital Signs Vitals Vital Signs Date Time Temp Pulse Resp B/P Pulse Ox O2 Delivery O2 Flow Rate FiO2 01/04/17 11:50 98.4 107 18 135/85 98 Intake and Output 01/03/17 01/03/17 01/04/17 15:00 23:00 07:00 Intake Total 50 ml 70 ml Output Total 250 ml Balance 50 ml -180 ml Exam General: Adequately build 71 year-old female lying in bed in no apparent distress. HEENT: Normocephalic, atraumatic. Eyes: Anicteric sclerae, conjunctivae clear. ENT: Nasal septum midline, oral mucosa moist. Neck supple, no JVD noticed. Respiratory: Bilaterally clear breath sounds. No use of accessory muscles of respiration. No adventitious breath sounds. Cardiovascular: S1, S2 heard. No murmurs or gallops. Abdomen: Soft, nontender, and nondistended. Bowel sounds positive in all 4 quadrants. Genitourinary: Deferred. Extremities: No cyanosis, no clubbing, no edema. Peripheral pulses palpable. Neurologic: Cranial nerves II through XII grossly intact. The patient is awake, alert, and oriented. Patient is delusional. Skin: Normal skin turgor. No skin rashes. Results Result Diagram: 01/04/17 0617 01/04/17 0617 Results 24 hrs Laboratory Tests Test 01/04/17 06:17 01/04/17 09:34 White Blood Count 11.6 H Red Blood Count 3.55 L Hemoglobin 8.8 L Hematocrit 29.7 L Mean Corpuscular Volume 83.7 Mean Corpuscular Hemoglobin 24.8 L Mean Corpuscular Hemoglobin Concent 29.6 L Red Cell Distribution Width 24.3 H Platelet Count 379 Mean Platelet Volume 11.1 H Neutrophils % 79.2 H Lymphocytes % 12.3 L Monocytes % 5.7 Eosinophils % 2.0 Basophils % 0.3 Nucleated Red Blood Cells % 0.0 Neutrophils # 9.2 H Lymphocytes # 1.4 Monocytes # 0.7 Eosinophils # 0.2 Basophils # 0.0 Nucleated Red Blood Cells # 0.0 Sodium Level 143 Potassium Level 3.8 Chloride Level 116 H Carbon Dioxide Level 22 Anion Gap 9 Blood Urea Nitrogen 8 Creatinine 0.37 L Glucose Level 82 Calcium Level 7.1 L Phosphorus Level 2.0 L Magnesium Level 1.9 Activated Partial Thromboplast Time 36.1 H Medications Medications Current Medications Ondansetron HCl (Zofran Inj) 4 mg Q6H PRN IV NAUSEA AND/OR VOMITING Last administered on 12/25/16t 11:08; Admin Dose 4 MG; Start 12/23/16 at 17:30 Acetaminophen (Tylenol Tab) 650 mg Q6H PRN PO PAIN LEVEL 1-3 OR FEVER Last administered on 01/01/17 18:04; Admin Dose 650 MG; Start 12/23/16 at 17:30 Acetaminophen (Tylenol Supp) 650 mg Q6H PRN [place] PAIN LEVEL 1-3 OR FEVER; Start 12/23/16 at 17:30 Ferrous Gluconate (Fergon) 325 mg BID PO Last administered on 01/04/17 09:25; Admin Dose 325 MG; Start 12/24/16 at 21:00 Allopurinol (Zyloprim) 100 mg DAILY PO Last administered on 01/04/17 09:25; Admin Dose 100 MG; Start 12/25/16 at 09:00 Tramadol HCl (Ultram) 50 mg Q6H PRN PO PAIN LEVEL 1-3 Last administered on 12/28 20:53; Admin Dose 50 MG; Start 12/25/16 at 09:30 Alprazolam (Xanax) 0.5 mg Q8H PRN PO ANXIETY Last administered on 12/27/16 12: 29; Admin Dose 0.5 MG; Start 12/25/16 at 09:30 Morphine Sulfate 4 mg 4 mg Q4H PRN IV PAIN Last administered on 01/04/17 09:26 ; Admin Dose 4 MG; Start 12/29/16 at 05:40 Dextrose (D5W) 1,000 ml @ 60 mls/hr [id number] IV Last administered on 01/04/17 11:30; Admin Dose 60 MLS/HR; Start 01/02/17 at 15:30 Polyethylene Glycol (Miralax) 17 gm BID PO Last administered on 01/04/17 09:25 ; Admin Dose 17 GM; Start 01/02/17 at 21:00 Bisacodyl (Dulcolax) 10 mg DAILY PRN PO CONSTIPATION Last administered on 18:24; Admin Dose 10 MG; Start 01/02/17 at 18:00 Al Hydrox/Mg Hydrox/ Simethicone 30 ml 30 ml Q4H PRN PO GASTROINTESTINAL UPSET ; Start 01/03/17 at 18:00 Potassium Phosphate/Sodium Chloride (K Phos (Mm)/NS) 255 ml @ 63.75 mls/ hr ONCE ONCE IVPB Last administered on 01/04/17 11:30; Admin Dose 63.75 MLS/HR; Start 01/04/17 at 11:00; Stop 01/04/17 at 14:59 Enoxaparin Sodium (Lovenox) 65 mg Q12 SC ; Start 01/04/17 at 09:30 SAABS IZQUIERDO NP Jan 04, 2017 12:20
--- NOTE | 2017-01-04 19:03 | CONS ---
Date/Time of Note Date/Time of Note DATE: 01/04/17 TIME: 19:03 Assessment/Plan Assessment/Plan Chief Complaint/Hosp Course Large mass of the uterine cervix with necrosis. R/O cervical carcinoma. Large periaortic retroperitoneal lymphadenopathy, likely metastatic. Moderate metastatic lymphadenopathy along the mesenteric root and peripancreatic and arleen hepatis lymphadenopathy. There is also retrocrural metastatic lymphadenopathy. Moderate right iliac and mild left iliac lymphadenopathy, metastatic. 2.5 cm x 2 cm right adrenal mass. 3 cm x 2.2 cm left adrenal mass. 4.5 cm low-density mass in the right inferior liver, likely metastatic. 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 CA 125- 959 BX MASS , CAN PROBABLY OMIT LIVER BX BX ORDERED, EUA and cervical biopsy - NOT DONE TODAY PT WILL MOST LIKELY WILL NEED CHEMO, NOT A SURGERY the patient refusing biopsy No immediate family members available to make decisions on behalf of the patient. SW on the case. The patient was evaluated by telemetry psychiatry on 01/01/2017. The patient has poor insight into her condition. The patient is not capable of making decisions on her behalf. ethic committee consult Extensive deep venous thrombosis involving the right and left common femoral vein, right and left femoral vein, right and left popliteal vein. heparin ok for lovenox post bx Anemia. MICROCYTIC WITH INCREASED RDW complete ANEMIA W-UP iron studies. - C/W ACD, pos FE DEF Transfuse for hemoglobin less than 7. IV IRON INCREASED URIC ACID CONT ALLOPURINOL RENAL DOSE HYPERCALCEMIA IMPROVED WITH HYDRATION Sepsis UTI. Acute renal insufficiency. Hyperkalemia. Mild hyponatremia. Problems: Consultation Date/Type/Reason Admit Date/Time Dec 23, 2016 at 19:24 Initial Consult Date 12/23/16 Type of Consultation: [facility] Referring Provider: RACIEL CAIN 24 HR Interval Summary Free Text/Dictation PT IS REFUSING BX Exam/Review of Systems Vital Signs Vitals Vital Signs Date Time Temp Pulse Resp B/P Pulse Ox O2 Delivery O2 Flow Rate FiO2 01/04/17 16:02 103 01/04/17 15:54 97.4 18 102/60 97 Intake and Output 01/03/17 01/03/17 01/04/17 15:00 23:00 07:00 Intake Total 50 ml 70 ml Output Total 250 ml Balance 50 ml -180 ml Exam Constitutional: alert Psych: anxiety Head: normocephalic Neck: supple Respiratory: clear to auscultation Cardiovascular: other (Regular rate to tachycardic) Gastrointestinal: soft, tender Musculoskeletal: swelling (Minimally bilateral lower extremities) Neurological: nl mental status, nl speech Results Result Diagram: 01/04/17 0617 01/04/17 0617 Results 24 hrs Laboratory Tests Test 01/04/17 06:17 01/04/17 09:34 White Blood Count 11.6 H Red Blood Count 3.55 L Hemoglobin 8.8 L Hematocrit 29.7 L Mean Corpuscular Volume 83.7 Mean Corpuscular Hemoglobin 24.8 L Mean Corpuscular Hemoglobin Concent 29.6 L Red Cell Distribution Width 24.3 H Platelet Count 379 Mean Platelet Volume 11.1 H Neutrophils % 79.2 H Lymphocytes % 12.3 L Monocytes % 5.7 Eosinophils % 2.0 Basophils % 0.3 Nucleated Red Blood Cells % 0.0 Neutrophils # 9.2 H Lymphocytes # 1.4 Monocytes # 0.7 Eosinophils # 0.2 Basophils # 0.0 Nucleated Red Blood Cells # 0.0 Sodium Level 143 Potassium Level 3.8 Chloride Level 116 H Carbon Dioxide Level 22 Anion Gap 9 Blood Urea Nitrogen 8 Creatinine 0.37 L Glucose Level 82 Calcium Level 7.1 L Phosphorus Level 2.0 L Magnesium Level 1.9 Activated Partial Thromboplast Time 36.1 H Medications Medications Current Medications Ondansetron HCl (Zofran Inj) 4 mg Q6H PRN IV NAUSEA AND/OR VOMITING Last administered on 12/25/16 11:08; Admin Dose 4 MG; Start 12/23/16 at 17:30 Acetaminophen (Tylenol Tab) 650 mg Q6H PRN PO PAIN LEVEL 1-3 OR FEVER Last administered on 01/01/17 18:04; Admin Dose 650 MG; Start 12/23/16 at 17:30 Acetaminophen (Tylenol Supp) 650 mg Q6H PRN [place] PAIN LEVEL 1-3 OR FEVER; Start 12/23/16 at 17:30 Ferrous Gluconate (Fergon) 325 mg BID PO Last administered on 01/04/17 09:25; Admin Dose 325 MG; Start 12/24/16 at 21:00 Allopurinol (Zyloprim) 100 mg DAILY PO Last administered on 01/04/17 09:25; Admin Dose 100 MG; Start 12/25/16 at 09:00 Tramadol HCl (Ultram) 50 mg Q6H PRN PO PAIN LEVEL 1-3 Last administered on 12/28 20:53; Admin Dose 50 MG; Start 12/25/16 at 09:30 Alprazolam (Xanax) 0.5 mg Q8H PRN PO ANXIETY Last administered on 12/27/16 12: 29; Admin Dose 0.5 MG; Start 12/25/16 at 09:30 Morphine Sulfate 4 mg 4 mg Q4H PRN IV PAIN Last administered on 01/04/17 15:42 ; Admin Dose 4 MG; Start 12/29/16 at 05:40 Dextrose (D5W) 1,000 ml @ 60 mls/hr [id number] IV Last administered on 01/04/17 11:30; Admin Dose 60 MLS/HR; Start 01/02/17 at 15:30 Polyethylene Glycol (Miralax) 17 gm BID PO Last administered on 01/04/17 09:25 ; Admin Dose 17 GM; Start 01/02/17 at 21:00 Bisacodyl (Dulcolax) 10 mg DAILY PRN PO CONSTIPATION Last administered on 18:24; Admin Dose 10 MG; Start 01/02/17 at 18:00 Al Hydrox/Mg Hydrox/Simethicone (Mag-Al Plus) 30 ml Q4H PRN PO GASTROINTESTINAL UPSET; Start 01/03/17 at 18:00 Enoxaparin Sodium (Lovenox) 65 mg Q12 SC ; Start 01/04/17 at 09:30 KEATON METZ MD Jan 04, 2017 19:03
[2017-01-04] MEDS: ENOXAPARIN 80 MG/0.8 ML SYG SC SCH (21:45)
[2017-01-05] VITALS (12 sets, daily range): BP systolic 90–138; BP diastolic 54–65; PULSE 94–114; RESP 15–18
[2017-01-05 07:18] LABS: ABNORMAL IP MESSAGE 1; BASOPHILS % 0.2 % (0.0-2.0); EOSINOPHILS # 0.1 10^3/ul (0.0-0.5); EOSINOPHILS % 0.8 % (0.0-7.0); HEMATOCRIT 29.2 % (37.0-47.0); HEMOGLOBIN 8.7 g/dl (12.0-16.0); LYMPHOCYTES # 1.1 10^3/ul (0.8-2.9); LYMPHOCYTES % 8.9 % (15.0-51.0); MEAN CORPUSCULAR HEMOGLOBIN 25.1 pg (29.0-33.0); MEAN CORPUSCULAR HGB CONC 29.8 g/dl (32.0-37.0); MEAN CORPUSCULAR VOLUME 84.4 fl (82.0-101.0); MEAN PLATELET VOLUME 10.8 fl (7.4-10.4); MONOCYTE # 0.8 10^3/ul (0.3-0.9); MONOCYTES % 6.5 % (0.0-11.0); NEUTROPHILS % 83.2 % (39.0-77.0); PLATELET COUNT 299 10^3/UL (140-415); RED BLOOD COUNT 3.46 10^6/ul (4.20-5.40); RED CELL DISTRIBUTION WIDTH 24.6 % (11.5-14.5); WHITE BLOOD COUNT 12.1 10^3/ul (4.8-10.8)
[2017-01-05 07:27] LABS: POSITIVE DIFF @See below
[2017-01-05 07:28] LABS: CALCIUM 7.3 mg/dl (8.4-10.2); CREATININE 0.49 mg/dl (0.44-1.00); POTASSIUM 3.8 mmol/L (3.5-5.1)
[2017-01-05 07:36] LABS: MAGNESIUM 1.7 mg/dl (1.7-2.5); PHOSPHORUS 1.7 mg/dl (2.5-4.9)
[2017-01-05] MEDS: ENOXAPARIN 80 MG/0.8 ML SYG SC SCH ×2 (09:00→22:53)
[2017-01-05] MEDS: POLYETHYLENE GLYCOL 17 GM PACKET PO SCH ×2 (09:00→21:00)
[2017-01-05] MEDS ORDERED: BISACODYL 10 MG SUPP PR ONE ×2 (09:00→21:00)
[2017-01-05] MEDS: FERROUS GLUCONATE (EC) 325 MG TAB PO SCH ×2 (09:00→21:00)
[2017-01-05] MEDS: ALLOPURINOL 100 MG TAB PO SCH (09:00)
--- NOTE | 2017-01-05 09:25 | PN ---
Date/Time of Note Date/Time of Note DATE: 01/05/17 TIME: 09:24 Assessment/Plan VTE Prophylaxis VTE Prophylaxis Intervention: LMWH Lines/Catheters [facility] [place] [facility] Urinary Cath still in place: Yes Reason Cath still needed: other (indicate) Assessment/Plan Chief Complaint/Hosp Course 1. 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 Highly suspicious for malignancy with underlying metastasis. Being followed by oncology and Infertility Medical Assistant/Onc. Biopsy of the vaginal mass and retroperitoneal lymph node has been ordered. However, the patient refusing biopsy. No immediate family members available to make decisions on behalf of the patient. SW on the case. The patient was evaluated by telemetry psychiatry on 01/01/2017. The patient has poor insight into her condition. The patient is not capable of making decisions on her behalf. 2. S/P sepsis with underlying urinary tract infection. S/P antimicrobials as per infectious diseases. 3. Extensive DVT involving the right and left common femoral, right and left femoral, right and left popliteal vein. On therapeutic anticoagulation. 4. Microcytic, hypochromic anemia. Status post multiple units of blood transfusion. Iron panel showing iron deficiency. Continue iron supplements. 5. Homeless status. Being followed by nephrology social worker. 6. Fluids, electrolytes, and nutrition. Low-cholesterol diet. 7. DVT prophylaxis. On therapeutic anticoagulation for DVT. 8. Plan. Replete phosphorous. Continue pain control. Continue anticoagulation. Monitor for any overt bleeding. Obtain stool for OB. Had a discussion with the patient's oncologist. The patient has poor prognosis. The patient has poor insight into her medical condition. The patient does not understand the seriousness of her condition and the poor prognosis. She has no immediate family members or friends who can make decisions on her behalf. Given that, a bioethics meeting will be conducted to decide on the best possible care for the patient. Offer pain medications frequently since the patient appears to be in significant pain and the patient is hesitant to take pain medications. Problems: Subjective 24 Hr Interval Summary Free Text/Dictation The patient complaining of abdominal pain. Exam/Review of Systems Vital Signs Vitals Vital Signs Date Time Temp Pulse Resp B/P Pulse Ox O2 Delivery O2 Flow Rate FiO2 01/05/17 08:02 98.6 100 17 138/58 98 Intake and Output 01/04/17 01/04/17 01/05/17 15:00 23:00 07:00 Intake Total 240 ml Output Total 100 ml Balance 140 ml Exam General: Adequately build 71 year-old female lying in bed in no apparent distress. HEENT: Normocephalic, atraumatic. Eyes: Anicteric sclerae, conjunctivae clear. ENT: Nasal septum midline, oral mucosa moist. Neck supple, no JVD noticed. Respiratory: Bilaterally clear breath sounds. No use of accessory muscles of respiration. No adventitious breath sounds. Cardiovascular: S1, S2 heard. No murmurs or gallops. Abdomen: Soft, nontender, and nondistended. Bowel sounds positive in all 4 quadrants. Genitourinary: Deferred. Extremities: No cyanosis, no clubbing, no edema. Peripheral pulses palpable. Neurologic: Cranial nerves II through XII grossly intact. The patient is awake, alert, and oriented. Patient is delusional. Skin: Normal skin turgor. No skin rashes. Results Result Diagram: 01/05/17 0645 01/05/17 0645 Results 24 hrs Laboratory Tests Test 01/04/17 09:34 01/05/17 06:45 Activated Partial Thromboplast Time 36.1 H White Blood Count 12.1 H Red Blood Count 3.46 L Hemoglobin 8.7 L Hematocrit 29.2 L Mean Corpuscular Volume 84.4 Mean Corpuscular Hemoglobin 25.1 L Mean Corpuscular Hemoglobin Concent 29.8 L Red Cell Distribution Width 24.6 H Platelet Count 299 # Mean Platelet Volume 10.8 H Neutrophils % 83.2 H Lymphocytes % 8.9 L Monocytes % 6.5 Eosinophils % 0.8 Basophils % 0.2 Nucleated Red Blood Cells % 0.0 Neutrophils # 10.0 H Lymphocytes # 1.1 Monocytes # 0.8 Eosinophils # 0.1 Basophils # 0.0 Nucleated Red Blood Cells # 0.0 Sodium Level 138 Potassium Level 3.8 Chloride Level 114 H Carbon Dioxide Level 23 Anion Gap 5 L Blood Urea Nitrogen 8 Creatinine 0.49 Glucose Level 86 Calcium Level 7.3 L Phosphorus Level 1.7 L Magnesium Level 1.7 Medications Medications Current Medications Ondansetron HCl (Zofran Inj) 4 mg Q6H PRN IV NAUSEA AND/OR VOMITING Last administered on 12/25/16t 11:08; Admin Dose 4 MG; Start 12/23/16 at 17:30 Acetaminophen (Tylenol Tab) 650 mg Q6H PRN PO PAIN LEVEL 1-3 OR FEVER Last administered on 01/01/17 18:04; Admin Dose 650 MG; Start 12/23/16 at 17:30 Acetaminophen (Tylenol Supp) 650 mg Q6H PRN [place] PAIN LEVEL 1-3 OR FEVER; Start 12/23/16 at 17:30 Ferrous Gluconate (Fergon) 325 mg BID PO Last administered on 01/04/17 21:52; Admin Dose 325 MG; Start 12/24/16 at 21:00 Allopurinol (Zyloprim) 100 mg DAILY PO Last administered on 01/04/17 09:25; Admin Dose 100 MG; Start 12/25/16 at 09:00 Tramadol HCl (Ultram) 50 mg Q6H PRN PO PAIN LEVEL 1-3 Last administered on 12/28 20:53; Admin Dose 50 MG; Start 12/25/16 at 09:30 Alprazolam (Xanax) 0.5 mg Q8H PRN PO ANXIETY Last administered on 12/27/16 12: 29; Admin Dose 0.5 MG; Start 12/25/16 at 09:30 Morphine Sulfate 4 mg 4 mg Q4H PRN IV PAIN Last administered on 01/04/17 15:42 ; Admin Dose 4 MG; Start 12/29/16 at 05:40 Dextrose (D5W) 1,000 ml @ 60 mls/hr [id number] IV Last administered on 01/04/17 11:30; Admin Dose 60 MLS/HR; Start 01/02/17 at 15:30 Polyethylene Glycol (Miralax) 17 gm BID PO Last administered on 01/04/17 21:43 ; Admin Dose 17 GM; Start 01/02/17 at 21:00 Bisacodyl (Dulcolax) 10 mg DAILY PRN PO CONSTIPATION Last administered on 18:24; Admin Dose 10 MG; Start 01/02/17 at 18:00 Al Hydrox/Mg Hydrox/Simethicone (Mag-Al Plus) 30 ml Q4H PRN PO GASTROINTESTINAL UPSET; Start 01/03/17 at 18:00 Enoxaparin Sodium (Lovenox) 65 mg Q12 SC Last administered on 9/23/17at 21:45; Admin Dose 65 MG; Start 01/04/17 at 09:30 SABAS IZQUIERDO NP Jan 05, 2017 09:25
[2017-01-05] MEDS: DEXTROSE 5% 1,000 ML IV SCH (10:10)
[2017-01-05] MEDS ORDERED: POTASSIUM PHOSPHATE 30 MM in SOD CHLORIDE 0.9% 250 ML IVPB ONE (10:30)
[2017-01-05] MEDS ORDERED: ONDANSETRON 4 MG INJ IV PRN (21:00)
--- NOTE | 2017-01-05 21:02 | CONS ---
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 R/O cervical carcinoma. Large periaortic retroperitoneal lymphadenopathy, likely metastatic. Moderate metastatic lymphadenopathy along the mesenteric root and peripancreatic and arleen hepatis lymphadenopathy. There is also retrocrural metastatic lymphadenopathy. Moderate right iliac and mild left iliac lymphadenopathy, metastatic. 2.5 cm x 2 cm right adrenal mass. 3 cm x 2.2 cm left adrenal mass. 4.5 cm low-density mass in the right inferior liver, likely metastatic. 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 CA 125- [id number] BX MASS , CAN PROBABLY OMIT LIVER BX BX ORDERED, EUA and cervical biopsy - NOT DONE TODAY PT WILL MOST LIKELY WILL NEED CHEMO, NOT A SURGERY the patient refusing biopsy No immediate family members available to make decisions on behalf of the patient. SW on the case. The patient was evaluated by telemetry psychiatry on 01/01/2017. The patient has poor insight into her condition. The patient is not capable of making decisions on her behalf. ethic committee consult Extensive deep venous thrombosis involving the right and left common femoral vein, right and left femoral vein, right and left popliteal vein. heparin ok for lovenox post bx Anemia. MICROCYTIC WITH INCREASED RDW complete ANEMIA W-UP iron studies. - C/W ACD, pos FE DEF Transfuse for hemoglobin less than 7. IV IRON INCREASED URIC ACID CONT ALLOPURINOL RENAL DOSE HYPERCALCEMIA IMPROVED WITH HYDRATION Sepsis UTI. Acute renal insufficiency. Hyperkalemia. Mild hyponatremia. Problems: Consultation Date/Type/Reason Admit Date/Time Dec 23, 2016 at 19:24 Initial Consult Date 12/23/16 Type of Consultation: [facility] [place] Referring Provider: RACIEL CAIN 24 HR Interval Summary Free Text/Dictation NO NEW EVENTS D/W RN Exam/Review of Systems Vital Signs Vitals Vital Signs Date Time Temp Pulse Resp B/P Pulse Ox O2 Delivery O2 Flow Rate FiO2 01/05/17 20:07 95 01/05/17 20:00 97.5 15 117/58 99 Intake and Output 01/04/17 01/04/17 01/05/17 15:00 23:00 07:00 Intake Total 240 ml Output Total 100 ml Balance 140 ml Exam Constitutional: alert Psych: anxiety Head: normocephalic Neck: supple Respiratory: clear to auscultation Cardiovascular: other (Regular rate to tachycardic) Gastrointestinal: soft, tender Musculoskeletal: swelling (Minimally bilateral lower extremities) Neurological: nl mental status, nl speech Results Result Diagram: 01/05/17 0645 01/05/17 0645 Results 24 hrs Laboratory Tests Test 01/05/17 06:45 White Blood Count 12.1 H Red Blood Count 3.46 L Hemoglobin 8.7 L Hematocrit 29.2 L Mean Corpuscular Volume 84.4 Mean Corpuscular Hemoglobin 25.1 L Mean Corpuscular Hemoglobin Concent 29.8 L Red Cell Distribution Width 24.6 H Platelet Count 299 # Mean Platelet Volume 10.8 H Neutrophils % 83.2 H Lymphocytes % 8.9 L Monocytes % 6.5 Eosinophils % 0.8 Basophils % 0.2 Nucleated Red Blood Cells % 0.0 Neutrophils # 10.0 H Lymphocytes # 1.1 Monocytes # 0.8 Eosinophils # 0.1 Basophils # 0.0 Nucleated Red Blood Cells # 0.0 Sodium Level 138 Potassium Level 3.8 Chloride Level 114 H Carbon Dioxide Level 23 Anion Gap 5 L Blood Urea Nitrogen 8 Creatinine 0.49 Glucose Level 86 Calcium Level 7.3 L Phosphorus Level 1.7 L Magnesium Level 1.7 Medications Medications Current Medications Ondansetron HCl (Zofran Inj) 4 mg Q6H PRN IV NAUSEA AND/OR VOMITING Last administered on 12/25/16 11:08; Admin Dose 4 MG; Start 12/23/16 at 17:30 Acetaminophen (Tylenol Tab) 650 mg Q6H PRN PO PAIN LEVEL 1-3 OR FEVER Last administered on 01/01/17 18:04; Admin Dose 650 MG; Start 12/23/16 at 17:30 Acetaminophen (Tylenol Supp) 650 mg Q6H PRN [place] PAIN LEVEL 1-3 OR FEVER; Start 12/23/16 at 17:30 Ferrous Gluconate (Fergon) 325 mg BID PO Last administered on 01/04/17 21:52; Admin Dose 325 MG; Start 12/24/16 at 21:00 Allopurinol (Zyloprim) 100 mg DAILY PO Last administered on 01/04/17 09:25; Admin Dose 100 MG; Start 12/25/16 at 09:00 Tramadol HCl (Ultram) 50 mg Q6H PRN PO PAIN LEVEL 1-3 Last administered on 12/28 20:53; Admin Dose 50 MG; Start 12/25/16 at 09:30 Alprazolam (Xanax) 0.5 mg Q8H PRN PO ANXIETY Last administered on 12/27/16 12: 29; Admin Dose 0.5 MG; Start 12/25/16 at 09:30 Morphine Sulfate 4 mg 4 mg Q4H PRN IV PAIN Last administered on 01/04/17 15:42 ; Admin Dose 4 MG; Start 12/29/16 at 05:40 Dextrose (D5W) 1,000 ml @ 60 mls/hr [id number] IV Last administered on 01/04/17 11:30; Admin Dose 60 MLS/HR; Start 01/02/17 at 15:30 Polyethylene Glycol (Miralax) 17 gm BID PO Last administered on 01/04/17 21:43 ; Admin Dose 17 GM; Start 01/02/17 at 21:00 Bisacodyl (Dulcolax) 10 mg DAILY PRN PO CONSTIPATION Last administered on 18:24; Admin Dose 10 MG; Start 01/02/17 at 18:00 Al Hydrox/Mg Hydrox/Simethicone (Mag-Al Plus) 30 ml Q4H PRN PO GASTROINTESTINAL UPSET; Start 01/03/17 at 18:00 Enoxaparin Sodium (Lovenox) 65 mg Q12 SC Last administered on 01/04/17 21:45; Admin Dose 65 MG; Start 01/04/17 at 09:30 KEATON METZ MD Jan 05, 2017 21:02
[2017-01-05] MEDS ORDERED: POTASSIUM PHOSPHATE 40 MEQ in SOD CHLORIDE 0.9% 250 ML IVPB ONE (22:30)
[2017-01-06] VITALS (13 sets, daily range): BP systolic 91–109; BP diastolic 50–58; PULSE 91–97; RESP 15–20
[2017-01-06] MEDS: DEXTROSE 5% 1,000 ML IV SCH ×2 (02:50→09:54)
[2017-01-06 07:15] LABS: ABNORMAL IP MESSAGE 1; BASOPHILS % 0.2 % (0.0-2.0); EOSINOPHILS % 0.2 % (0.0-7.0); HEMATOCRIT 26.4 % (37.0-47.0); LYMPHOCYTES # 0.9 10^3/ul (0.8-2.9); LYMPHOCYTES % 7.1 % (15.0-51.0); MEAN CORPUSCULAR HEMOGLOBIN 25.1 pg (29.0-33.0); MEAN CORPUSCULAR HGB CONC 30.3 g/dl (32.0-37.0); MEAN CORPUSCULAR VOLUME 82.8 fl (82.0-101.0); MEAN PLATELET VOLUME 10.9 fl (7.4-10.4); MONOCYTE # 0.9 10^3/ul (0.3-0.9); MONOCYTES % 7.4 % (0.0-11.0); NEUTROPHIL # 10.2 10^3/ul (1.6-7.5); NEUTROPHILS % 84.7 % (39.0-77.0); PLATELET COUNT 342 10^3/UL (140-415); RED BLOOD COUNT 3.19 10^6/ul (4.20-5.40); RED CELL DISTRIBUTION WIDTH 24.9 % (11.5-14.5); WHITE BLOOD COUNT 12.1 10^3/ul (4.8-10.8)
[2017-01-06 07:18] LABS: POSITIVE DIFF @See below
[2017-01-06 07:38] LABS: CREATININE 0.53 mg/dl (0.44-1.00); MAGNESIUM 1.7 mg/dl (1.7-2.5); PHOSPHORUS 2.3 mg/dl (2.5-4.9); POTASSIUM 3.7 mmol/L (3.5-5.1)
[2017-01-06] MEDS: ALLOPURINOL 100 MG TAB PO SCH (09:51)
[2017-01-06] MEDS: POLYETHYLENE GLYCOL 17 GM PACKET PO SCH ×2 (09:51→21:00)
[2017-01-06] MEDS: FERROUS GLUCONATE (EC) 325 MG TAB PO SCH ×2 (09:51→21:00)
[2017-01-06] MEDS: ENOXAPARIN 80 MG/0.8 ML SYG SC SCH ×2 (09:54→21:56)
[2017-01-06] MEDS: ONDANSETRON 4 MG INJ IV PRN (18:05)
[2017-01-06] MEDS ORDERED: SOD CHLORIDE 0.9% 500 ML IV ONE (18:30)
--- NOTE | 2017-01-06 20:16 | PN ---
Date/Time of Note Date/Time of Note DATE: 01/06/17 TIME: 20:10 Assessment/Plan VTE Prophylaxis VTE Prophylaxis Intervention: LMWH Lines/Catheters IV Catheter Type (from [facility]): Peripheral IV Urinary Cath still in place: Yes Reason Cath still needed: other (indicate) (monitor I&O) Assessment/Plan Chief Complaint/Hosp Course Assessment and plan 1. 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 Patient with clinical findings suspicious for malignancy or metastasis. Oncologist is following. Patient was tentatively planned for vaginal mass biopsy however patient refusing at this time. No noted family members available and patient was seen by telepsychiatrist on 01/01/17 and noted that patient is not capable of making decisions on her behalf. Plan for bioethics meeting. 2. Sepsis with underlying urinary tract infection. Improved at present. ID following. Continue with ID recommendations 3. Extensive DVT involving the right and left common femoral and right and left femoral as well as right and left popliteal vein. Continue on anticoagulation. 4. Anemia. Patient status post blood transfusions. Noted with iron deficiency. Continue iron supplement. 5. Homeless status. motion picture set worker following. Disposition and plan: Plan for bioethics meeting. Continue supportive care at this time. Will follow up Discussed plan of care with Dr. See Problems: Subjective 24 Hr Interval Summary Free Text/Dictation No noted sinus symptoms of distress. Appears comfortable at present. Resting at this time. Exam/Review of Systems Vital Signs Vitals Vital Signs Date Time Temp Pulse Resp B/P Pulse Ox O2 Delivery O2 Flow Rate FiO2 01/06/17 19:29 97.6 96 19 96/55 98 Intake and Output 01/05/17 01/05/17 01/06/17 15:00 23:00 07:00 Intake Total 720 ml 840 ml 350 ml Output Total 600 ml 650 ml Balance 720 ml 240 ml -300 ml Exam Constitutional: No distress Respiratory: clear to auscultation, normal air movement Cardiovascular: regular rate and rhythm Gastrointestinal: soft, tender Musculoskeletal: No swelling Neurological: nl mental status, nl speech (More notably on the) Results Result Diagram: 01/06/17 0630 01/06/17 0630 Results 24 hrs Laboratory Tests Test 01/06/17 06:30 01/06/17 14:00 01/06/17 18:40 White Blood Count 12.1 H Red Blood Count 3.19 L Hemoglobin 8.0 L Hematocrit 26.4 L Mean Corpuscular Volume 82.8 Mean Corpuscular Hemoglobin 25.1 L Mean Corpuscular Hemoglobin Concent 30.3 L Red Cell Distribution Width 24.9 H Platelet Count 342 Mean Platelet Volume 10.9 H Neutrophils % 84.7 H Lymphocytes % 7.1 L Monocytes % 7.4 Eosinophils % 0.2 Basophils % 0.2 Nucleated Red Blood Cells % 0.0 Neutrophils # 10.2 H Lymphocytes # 0.9 Monocytes # 0.9 Eosinophils # 0.0 Basophils # 0.0 Nucleated Red Blood Cells # 0.0 Sodium Level 138 Potassium Level 3.7 Chloride Level 112 H Carbon Dioxide Level 24 Anion Gap 6 L Blood Urea Nitrogen 9 Creatinine 0.53 Glucose Level 102 Calcium Level 7.0 L Phosphorus Level 2.3 L Magnesium Level 1.7 Stool Occult Blood NEGATIVE Urine Random Creatinine 93.68 Urine Random Sodium 53 Urine Random Potassium 74.0 Medications Medications Current Medications Ondansetron HCl (Zofran Inj) 4 mg Q6H PRN IV NAUSEA AND/OR VOMITING Last administered on 01/06/17 18:05; Admin Dose 4 MG; Start 12/23/16 at 17:30 Acetaminophen (Tylenol Tab) 650 mg Q6H PRN PO PAIN LEVEL 1-3 OR FEVER Last administered on 01/01/17 18:04; Admin Dose 650 MG; Start 12/23/16 at 17:30 Acetaminophen (Tylenol Supp) 650 mg Q6H PRN [place] PAIN LEVEL 1-3 OR FEVER; Start 12/23/16 at 17:30 Ferrous Gluconate (Fergon) 325 mg BID PO Last administered on 01/06/17 09:51; Admin Dose 325 MG; Start 12/24/16 at 21:00 Allopurinol (Zyloprim) 100 mg DAILY PO Last administered on 01/06/17 09:51; Admin Dose 100 MG; Start 12/25/16 at 09:00 Tramadol HCl (Ultram) 50 mg Q6H PRN PO PAIN LEVEL 1-3 Last administered on 12/28 20:53; Admin Dose 50 MG; Start 12/25/16 at 09:30 Alprazolam (Xanax) 0.5 mg Q8H PRN PO ANXIETY Last administered on 12/27/16 12: 29; Admin Dose 0.5 MG; Start 12/25/16 at 09:30 Morphine Sulfate 4 mg 4 mg Q4H PRN IV PAIN Last administered on 01/04/17 15:42 ; Admin Dose 4 MG; Start 12/29/16 at 05:40 Dextrose (D5W) 1,000 ml @ 60 mls/hr [id number] IV Last administered on 01/06/17 09:54; Admin Dose 60 MLS/HR; Start 01/02/17 at 15:30 Polyethylene Glycol (Miralax) 17 gm BID PO Last administered on 01/06/17 09:51 ; Admin Dose 17 GM; Start 01/02/17 at 21:00 Bisacodyl (Dulcolax) 10 mg DAILY PRN PO CONSTIPATION Last administered on 18:24; Admin Dose 10 MG; Start 01/02/17 at 18:00 Al Hydrox/Mg Hydrox/Simethicone (Mag-Al Plus) 30 ml Q4H PRN PO GASTROINTESTINAL UPSET; Start 01/03/17 at 18:00 Enoxaparin Sodium (Lovenox) 65 mg Q12 SC Last administered on 01/06/17 09:54; Admin Dose 65 MG; Start 01/04/17 at 09:30 Ondansetron HCl (Zofran Inj) 4 mg Q4H PRN IV NAUSEA AND/OR VOMITING; Start at 21:00 RACIEL CAIN Jan 06, 2017 20:16
--- NOTE | 2017-01-06 21:54 | PN ---
DATE: 01/06/2017 SUBJECTIVE DATA: No acute changes. Patient is awake and looks comfortable. No fevers. LABORATORY AND DIAGNOSTIC DATA: WBC 12.1, H and H 8 and 26.4, platelets 342, neutrophils 84.7. BUN 9, creatinine 0.53. INDWELLINGS: Pa. ANTIMICROBIALS: Patient is off antibiotics. PHYSICAL EXAMINATION: GENERAL: This is a chronically ill-appearing, elderly woman, who is in no distress. HEENT: Head atraumatic, normocephalic. Sclerae anicteric. Buccal mucosa dry. NECK: Supple. CHEST: Rise symmetrical. Breath sounds diminished at the bases. HEART: S1, S2. ABDOMEN: Soft, bowel sounds present. EXTREMITIES: Without cyanosis. ASSESSMENT: 1. Systemic inflammatory response syndrome, with persistent leukocytosis. 2. Large uterine and cervix mass, with necrosis, suspicious for malignancy and possible underlying metastasis. 3. Bilateral lower extremities deep vein thrombosis. 4. Status post urinary tract infection. 5. Homelessness. PLAN: Patient remains clinically unchanged. She is off antibiotics. We will observe her and panculture if she spikes fever. Dictated By: Yelena Moreira NP /rambo/harmonyc /Document#: [id number]
--- NOTE | 2017-01-06 21:59 | CONS ---
Date/Time of Note Date/Time of Note DATE: 01/06/17 TIME: 21:58 Assessment/Plan Assessment/Plan Chief Complaint/Hosp Course Large mass of the uterine cervix with necrosis. R/O cervical carcinoma. Large periaortic retroperitoneal lymphadenopathy, likely metastatic. Moderate metastatic lymphadenopathy along the mesenteric root and peripancreatic and arleen hepatis lymphadenopathy. There is also retrocrural metastatic lymphadenopathy. Moderate right iliac and mild left iliac lymphadenopathy, metastatic. 2.5 cm x 2 cm right adrenal mass. 3 cm x 2.2 cm left adrenal mass. 4.5 cm low-density mass in the right inferior liver, likely metastatic. 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 CA 125- 959 BX MASS , CAN PROBABLY OMIT LIVER BX BX ORDERED, EUA and cervical biopsy - NOT DONE TODAY PT WILL MOST LIKELY WILL NEED CHEMO, NOT A SURGERY the patient refusing biopsy No immediate family members available to make decisions on behalf of the patient. SW on the case. The patient was evaluated by telemetry psychiatry on 01/01/2017. The patient has poor insight into her condition. The patient is not capable of making decisions on her behalf. ethic committee consult Extensive deep venous thrombosis involving the right and left common femoral vein, right and left femoral vein, right and left popliteal vein. heparin ok for lovenox post bx Anemia. MICROCYTIC WITH INCREASED RDW complete ANEMIA W-UP iron studies. - C/W ACD, pos FE DEF Transfuse for hemoglobin less than 7. IV IRON INCREASED URIC ACID CONT ALLOPURINOL RENAL DOSE HYPERCALCEMIA IMPROVED WITH HYDRATION Sepsis UTI. Acute renal insufficiency. Hyperkalemia. Mild hyponatremia. Problems: Consultation Date/Type/Reason Admit Date/Time Dec 23, 2016 at 19:24 Initial Consult Date 12/23/16 Type of Consultation: [facility] Referring Provider: RACIEL CAIN 24 HR Interval Summary Free Text/Dictation ALL NOTED Exam/Review of Systems Vital Signs Vitals Vital Signs Date Time Temp Pulse Resp B/P Pulse Ox O2 Delivery O2 Flow Rate FiO2 01/06/17 19:29 97.6 96 19 96/55 98 Intake and Output 01/05/17 01/05/17 01/06/17 15:00 23:00 07:00 Intake Total 720 ml 840 ml 350 ml Output Total 600 ml 650 ml Balance 720 ml 240 ml -300 ml Exam Constitutional: alert Psych: anxiety Head: normocephalic Neck: supple Respiratory: clear to auscultation Cardiovascular: other (Regular rate to tachycardic) Gastrointestinal: soft, tender Musculoskeletal: swelling (Minimally bilateral lower extremities) Neurological: nl mental status, nl speech Results Result Diagram: 01/06/17 0630 01/06/17 0630 Results 24 hrs Laboratory Tests Test 01/06/17 06:30 01/06/17 14:00 01/06/17 18:40 White Blood Count 12.1 H Red Blood Count 3.19 L Hemoglobin 8.0 L Hematocrit 26.4 L Mean Corpuscular Volume 82.8 Mean Corpuscular Hemoglobin 25.1 L Mean Corpuscular Hemoglobin Concent 30.3 L Red Cell Distribution Width 24.9 H Platelet Count 342 Mean Platelet Volume 10.9 H Neutrophils % 84.7 H Lymphocytes % 7.1 L Monocytes % 7.4 Eosinophils % 0.2 Basophils % 0.2 Nucleated Red Blood Cells % 0.0 Neutrophils # 10.2 H Lymphocytes # 0.9 Monocytes # 0.9 Eosinophils # 0.0 Basophils # 0.0 Nucleated Red Blood Cells # 0.0 Sodium Level 138 Potassium Level 3.7 Chloride Level 112 H Carbon Dioxide Level 24 Anion Gap 6 L Blood Urea Nitrogen 9 Creatinine 0.53 Glucose Level 102 Calcium Level 7.0 L Phosphorus Level 2.3 L Magnesium Level 1.7 Stool Occult Blood NEGATIVE Urine Random Creatinine 93.68 Urine Random Sodium 53 Urine Random Potassium 74.0 Medications Medications Current Medications Ondansetron HCl (Zofran Inj) 4 mg Q6H PRN IV NAUSEA AND/OR VOMITING Last administered on 01/06/17 18:05; Admin Dose 4 MG; Start 12/23/16 at 17:30 Acetaminophen (Tylenol Tab) 650 mg Q6H PRN PO PAIN LEVEL 1-3 OR FEVER Last administered on 01/01/17 18:04; Admin Dose 650 MG; Start 12/23/16 at 17:30 Acetaminophen (Tylenol Supp) 650 mg Q6H PRN [place] PAIN LEVEL 1-3 OR FEVER; Start 12/23/16 at 17:30 Ferrous Gluconate (Fergon) 325 mg BID PO Last administered on 01/06/17 09:51; Admin Dose 325 MG; Start 12/24/16 at 21:00 Allopurinol (Zyloprim) 100 mg DAILY PO Last administered on 01/06/17 09:51; Admin Dose 100 MG; Start 12/25/16 at 09:00 Tramadol HCl (Ultram) 50 mg Q6H PRN PO PAIN LEVEL 1-3 Last administered on 12/28 20:53; Admin Dose 50 MG; Start 12/25/16 at 09:30 Alprazolam (Xanax) 0.5 mg Q8H PRN PO ANXIETY Last administered on 12/27/16 12: 29; Admin Dose 0.5 MG; Start 12/25/16 at 09:30 Morphine Sulfate 4 mg 4 mg Q4H PRN IV PAIN Last administered on 01/04/17 15:42 ; Admin Dose 4 MG; Start 12/29/16 at 05:40 Dextrose (D5W) 1,000 ml @ 60 mls/hr [id number] IV Last administered on 01/06/17 09:54; Admin Dose 60 MLS/HR; Start 01/02/17 at 15:30 Polyethylene Glycol (Miralax) 17 gm BID PO Last administered on 01/06/17 09:51 ; Admin Dose 17 GM; Start 01/02/17 at 21:00 Bisacodyl (Dulcolax) 10 mg DAILY PRN PO CONSTIPATION Last administered on 18:24; Admin Dose 10 MG; Start 01/02/17 at 18:00 Al Hydrox/Mg Hydrox/Simethicone (Mag-Al Plus) 30 ml Q4H PRN PO GASTROINTESTINAL UPSET; Start 01/03/17 at 18:00 Enoxaparin Sodium (Lovenox) 65 mg Q12 SC Last administered on 01/06/17 21:56; Admin Dose 65 MG; Start 01/04/17 at 09:30 Ondansetron HCl (Zofran Inj) 4 mg Q4H PRN IV NAUSEA AND/OR VOMITING; Start at 21:00 KEATON METZ MD Jan 06, 2017 21:59
[2017-01-07] VITALS (10 sets, daily range): BP systolic 92–98; BP diastolic 50–56; PULSE 88–95; RESP 17–20
[2017-01-07 07:38] LABS: ABNORMAL IP MESSAGE 1; BASOPHILS % 0.1 % (0.0-2.0); EOSINOPHILS # 0.1 10^3/ul (0.0-0.5); EOSINOPHILS % 0.6 % (0.0-7.0); HEMOGLOBIN 7.8 g/dl (12.0-16.0); LYMPHOCYTES % 9.4 % (15.0-51.0); MEAN CORPUSCULAR HEMOGLOBIN 25.2 pg (29.0-33.0); MEAN CORPUSCULAR VOLUME 83.9 fl (82.0-101.0); MEAN PLATELET VOLUME 11.7 fl (7.4-10.4); MONOCYTE # 0.9 10^3/ul (0.3-0.9); MONOCYTES % 8.8 % (0.0-11.0); NEUTROPHIL # 8.3 10^3/ul (1.6-7.5); NEUTROPHILS % 80.5 % (39.0-77.0); PLATELET COUNT 354 10^3/UL (140-415); RED CELL DISTRIBUTION WIDTH 25.3 % (11.5-14.5); WHITE BLOOD COUNT 10.4 10^3/ul (4.8-10.8)
[2017-01-07 07:46] LABS: POSITIVE DIFF @See below
--- NOTE | 2017-01-07 08:17 | RADRPT ---
PROCEDURE: Renal US. CLINICAL INDICATION: DECREASED URINE OUTPUT TECHNIQUE: Multiple sonographic images of the kidneys were obtained. The images were reviewed on a PACS workstation. COMPARISON: No prior studies are available for comparison. FINDINGS: The kidneys are well visualized. The right kidney measures 9.6 cm. The left kidney measures C 11.7 c m. There are no focal areas of abnormal echogenicity. There is no evidence for obstructive uropathy. The bladder is decompressed with a Pa catheter. IMPRESSION: No definite abnormalities are identified. RPTAT:AAJJ Physician Gregory Date Time Electronically viewed and signed by Physician Gregory on 01/07/2017 08:17 /
[2017-01-07 08:21] LABS: CALCIUM 7.1 mg/dl (8.4-10.2); CREATININE 0.53 mg/dl (0.44-1.00); POTASSIUM 3.6 mmol/L (3.5-5.1)
[2017-01-07] MEDS: POLYETHYLENE GLYCOL 17 GM PACKET PO SCH ×2 (09:16→21:41)
[2017-01-07] MEDS: ALLOPURINOL 100 MG TAB PO SCH ×2 (09:16→09:18)
[2017-01-07] MEDS: ENOXAPARIN 80 MG/0.8 ML SYG SC SCH ×2 (09:16→21:40)
[2017-01-07] MEDS: FERROUS GLUCONATE (EC) 325 MG TAB PO SCH ×2 (09:16→09:19)
--- NOTE | 2017-01-07 11:10 | CONS ---
DATE OF ADMISSION: 12/30/2016 DATE OF CONSULTATION: REQUESTING PHYSICIAN: Kody Gamble NP Thank you for this consultation. LABORATORY AND DIAGNOSTIC DATA: This is a fragile 71-year-old woman who is a poor historian who was admitted with pelvic and back pain, and now being working for cervical carcinoma. Patient came with a temperature of 98.8, pulse 109, respirations 14, blood pressure 98/65, saturation 100 on room air. WBC 14.2. H and H 7.9 and 26.4, platelets 405,000, neutrophils 82.4, no bands. Sodium 133, potassium 5.3, BUN 62, creatinine 1.7, carbon dioxide 20, normal bilirubin, normal LFT, alk phos 143. She had a tumor marker with CA-125 elevated at 959. Carcinoembryonic antigen 14.7. LDH 1239. Cultures were sent. Urine culture growing gram-negative rods. Brain CT on admission revealed no intracranial hemorrhage or acute intracranial abnormality. CT of the abdomen and pelvis showed large mass of the uterine cervix with necrosis, large paraaortic retroperitoneal lymphadenopathy likely metastatic, moderate metastatic lymphadenopathy along the mesenteric root and peripancreatic and arleen hepatis lymphadenopathy. There is retrocrural metastatic lymphadenopathy and moderate right iliac and mild left iliac metastatic lymphadenopathy. A 2.5 x 2 cm right adrenal mass, 3 x 2.2 cm left adrenal mass, 4.5 cm low density mass in the right inferior liver likely metastatic, osteolytic metastatic lesion involving L2 and L1 vertebral bodies. Patient also had extremity ultrasound that revealed DVT in the right and left common femoral vein, right and left femoral vein, and right and left popliteal vein. Patient was started on ceftriaxone. She is being seen by oncology and nephrology teams. PAST MEDICAL HISTORY: Unknown. SOCIAL HISTORY: Unknown. REVIEW OF SYSTEMS: As per history of present illness. PHYSICAL EXAMINATION: GENERAL: This is a fragile well-developed elderly woman who is alert, confused and in no distress. HEENT: Head atraumatic, normocephalic. Sclerae anicteric. Buccal mucosa dry. NECK: Supple. CHEST: Rise symmetrical. Breath sounds clear. HEART: S1, S2. ABDOMEN: Soft with significant tenderness and pain on palpation. Patient has Pa catheter with dark tea-colored urine and significant amount of sediment. EXTREMITIES: Without cyanosis. IMPRESSION: This is a 71-year-old woman admitted with urinary tract infection and what appears to be metastatic pelvic mass, rule out cervical cancer. Patient is currently on Rocephin. Culture of the urine growing gram-negative rods. She is afebrile. Vital signs stable. We will continue her on current regimen. Await for final culture. Follow final workup. Discussed with Dr. Edvin Lieberman. Dictated By: Yelena Moreira NP /[email or web address] /Document#: [id number]
--- NOTE | 2017-01-07 11:42 | PN ---
Date/Time of Note Date/Time of Note DATE: 01/07/17 TIME: 11:40 Assessment/Plan VTE Prophylaxis VTE Prophylaxis Intervention: LMWH Lines/Catheters IV Catheter Type (from [facility]): Peripheral IV Urinary Cath still in place: Yes Reason Cath still needed: other (indicate) (monitor I&O) Assessment/Plan Chief Complaint/Hosp Course Assessment and plan 1. 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 Patient with clinical findings suspicious for malignancy or metastasis. Oncologist is following. Patient was tentatively planned for vaginal mass biopsy however patient refusing at this time. No noted family members available and patient was seen by telepsychiatrist on 01/01/17 and noted that patient is not capable of making decisions on her behalf. Plan for bioethics meeting 01/08/17. 2. Sepsis with underlying urinary tract infection. Improved at present. ID following. Continue with ID recommendations 3. Extensive DVT involving the right and left common femoral and right and left femoral as well as right and left popliteal vein. Continue on anticoagulation. 4. Anemia. Patient status post blood transfusions. Noted with iron deficiency. Continue iron supplement. 5. Homeless status. emergency service worker following. Disposition and plan: Plan for bioethics meeting. Continue supportive care at this time. continue with oncologist recommendations Discussed plan of care with Dr. See Problems: Subjective 24 Hr Interval Summary Free Text/Dictation no s/s of distress noted at this time. Exam/Review of Systems Vital Signs Vitals Vital Signs Date Time Temp Pulse Resp B/P Pulse Ox O2 Delivery O2 Flow Rate FiO2 01/07/17 08:21 88 01/07/17 07:48 98.9 18 94/50 95 Intake and Output 01/06/17 01/06/17 01/07/17 15:00 23:00 07:00 Intake Total 820 ml 720 ml Output Total 200 ml Balance 620 ml 720 ml Exam Constitutional: No distress Respiratory: clear to auscultation, normal air movement Cardiovascular: regular rate and rhythm Gastrointestinal: soft, tender Musculoskeletal: No swelling Neurological: nl mental status, nl speech Results Result Diagram: 01/07/17 0624 01/07/17 0624 Results 24 hrs Laboratory Tests Test 01/06/17 14:00 01/06/17 18:40 01/07/17 06:24 Stool Occult Blood NEGATIVE Urine Random Creatinine 93.68 Urine Random Sodium 53 Urine Random Potassium 74.0 White Blood Count 10.4 Red Blood Count 3.10 L Hemoglobin 7.8 L Hematocrit 26.0 L Mean Corpuscular Volume 83.9 Mean Corpuscular Hemoglobin 25.2 L Mean Corpuscular Hemoglobin Concent 30.0 L Red Cell Distribution Width 25.3 H Platelet Count 354 Mean Platelet Volume 11.7 H Neutrophils % 80.5 H Lymphocytes % 9.4 L Monocytes % 8.8 Eosinophils % 0.6 Basophils % 0.1 Nucleated Red Blood Cells % 0.0 Neutrophils # 8.3 H Lymphocytes # 1.0 Monocytes # 0.9 Eosinophils # 0.1 Basophils # 0.0 Nucleated Red Blood Cells # 0.0 Sodium Level 134 L Potassium Level 3.6 Chloride Level 109 Carbon Dioxide Level 25 Anion Gap 4 L Blood Urea Nitrogen 10 Creatinine 0.53 Glucose Level 91 Calcium Level 7.1 L Magnesium Level 1.6 L Medications Medications Current Medications Ondansetron HCl (Zofran Inj) 4 mg Q6H PRN IV NAUSEA AND/OR VOMITING Last administered on 01/06/17 18:05; Admin Dose 4 MG; Start 12/23/16 at 17:30 Acetaminophen (Tylenol Tab) 650 mg Q6H PRN PO PAIN LEVEL 1-3 OR FEVER Last administered on 01/01/17 18:04; Admin Dose 650 MG; Start 12/23/16 at 17:30 Acetaminophen (Tylenol Supp) 650 mg Q6H PRN [place] PAIN LEVEL 1-3 OR FEVER; Start 12/23/16 at 17:30 Ferrous Gluconate (Fergon) 325 mg BID PO Last administered on 01/06/17 09:51; Admin Dose 325 MG; Start 12/24/16 at 21:00 Allopurinol (Zyloprim) 100 mg DAILY PO Last administered on 01/06/17 09:51; Admin Dose 100 MG; Start 12/25/16 at 09:00 Tramadol HCl (Ultram) 50 mg Q6H PRN PO PAIN LEVEL 1-3 Last administered on 12/28 20:53; Admin Dose 50 MG; Start 12/25/16 at 09:30 Alprazolam (Xanax) 0.5 mg Q8H PRN PO ANXIETY Last administered on 12/27/16 12: 29; Admin Dose 0.5 MG; Start 12/25/16 at 09:30 Morphine Sulfate 4 mg 4 mg Q4H PRN IV PAIN Last administered on 01/04/17 15:42 ; Admin Dose 4 MG; Start 12/29/16 at 05:40 Dextrose (D5W) 1,000 ml @ 60 mls/hr [id number] IV Last administered on 01/06/17 09:54; Admin Dose 60 MLS/HR; Start 01/02/17 at 15:30 Polyethylene Glycol (Miralax) 17 gm BID PO Last administered on 01/07/17 09:16 ; Admin Dose 17 GM; Start 01/02/17 at 21:00 Bisacodyl (Dulcolax) 10 mg DAILY PRN PO CONSTIPATION Last administered on 18:24; Admin Dose 10 MG; Start 01/02/17 at 18:00 Al Hydrox/Mg Hydrox/Simethicone (Mag-Al Plus) 30 ml Q4H PRN PO GASTROINTESTINAL UPSET; Start 01/03/17 at 18:00 Enoxaparin Sodium (Lovenox) 65 mg Q12 SC Last administered on 01/07/17 09:16; Admin Dose 65 MG; Start 01/04/17 at 09:30 Ondansetron HCl (Zofran Inj) 4 mg Q4H PRN IV NAUSEA AND/OR VOMITING; Start at 21:00 RACIEL CAIN Jan 07, 2017 11:42
[2017-01-07] MEDS: DEXTROSE 5% 1,000 ML IV SCH ×2 (12:10→21:42)
--- NOTE | 2017-01-07 21:16 | CONS ---
Date/Time of Note Date/Time of Note DATE: 01/07/17 TIME: 21:15 Assessment/Plan Assessment/Plan Chief Complaint/Hosp Course SUBJECTIVE DATA: Awake, confused, looks comfortable, no fevers Abx: none PHYSICAL EXAMINATION: GENERAL: Fragile, well-developed, elderly woman, who is in no distress. HEENT: Head atraumatic, normocephalic. Sclerae anicteric. Buccal mucosa dry. NECK: Supple. CHEST: Rise symmetrical. Breath sounds diminished at the bases. HEART: S1, S2. ABDOMEN: Soft, bowel sounds present. ASSESSMENT: 1. Large cervical mass suspicious for malignancy. 2. Status post urinary tract infection. 3. Bilateral lower extremities deep venous thrombosis 4. Anemia. 5. Homeless status. PLAN: The patient remains stable off antibiotics. Continue present care. Repeat cx's prn, oncology rec-s Problems: Consultation Date/Type/Reason Admit Date/Time Dec 23, 2016 at 19:24 Initial Consult Date 12/23/16 Type of Consultation: ID Referring Provider: RACIEL CAIN Exam/Review of Systems Vital Signs Vitals Vital Signs Date Time Temp Pulse Resp B/P Pulse Ox O2 Delivery O2 Flow Rate FiO2 01/07/17 16:19 91 01/07/17 16:09 97.6 19 93/54 98 Intake and Output 01/06/17 01/06/17 01/07/17 15:00 23:00 07:00 Intake Total 820 ml 720 ml Output Total 200 ml Balance 620 ml 720 ml Results Result Diagram: 01/07/17 0624 01/07/17 0624 Results 24 hrs Laboratory Tests Test 01/07/17 06:24 White Blood Count 10.4 Red Blood Count 3.10 L Hemoglobin 7.8 L Hematocrit 26.0 L Mean Corpuscular Volume 83.9 Mean Corpuscular Hemoglobin 25.2 L Mean Corpuscular Hemoglobin Concent 30.0 L Red Cell Distribution Width 25.3 H Platelet Count 354 Mean Platelet Volume 11.7 H Neutrophils % 80.5 H Lymphocytes % 9.4 L Monocytes % 8.8 Eosinophils % 0.6 Basophils % 0.1 Nucleated Red Blood Cells % 0.0 Neutrophils # 8.3 H Lymphocytes # 1.0 Monocytes # 0.9 Eosinophils # 0.1 Basophils # 0.0 Nucleated Red Blood Cells # 0.0 Sodium Level 134 L Potassium Level 3.6 Chloride Level 109 Carbon Dioxide Level 25 Anion Gap 4 L Blood Urea Nitrogen 10 Creatinine 0.53 Glucose Level 91 Calcium Level 7.1 L Magnesium Level 1.6 L Medications Medications Current Medications Ondansetron HCl (Zofran Inj) 4 mg Q6H PRN IV NAUSEA AND/OR VOMITING Last administered on 01/06/17 18:05; Admin Dose 4 MG; Start 12/23/16 at 17:30 Acetaminophen (Tylenol Tab) 650 mg Q6H PRN PO PAIN LEVEL 1-3 OR FEVER Last administered on 01/01/17 18:04; Admin Dose 650 MG; Start 12/23/16 at 17:30 Acetaminophen (Tylenol Supp) 650 mg Q6H PRN [place] PAIN LEVEL 1-3 OR FEVER; Start 12/23/16 at 17:30 Ferrous Gluconate (Fergon) 325 mg BID PO Last administered on 01/06/17 09:51; Admin Dose 325 MG; Start 12/24/16 at 21:00 Allopurinol (Zyloprim) 100 mg DAILY PO Last administered on 01/06/17 09:51; Admin Dose 100 MG; Start 12/25/16 at 09:00 Tramadol HCl (Ultram) 50 mg Q6H PRN PO PAIN LEVEL 1-3 Last administered on 12/28 20:53; Admin Dose 50 MG; Start 12/25/16 at 09:30 Alprazolam (Xanax) 0.5 mg Q8H PRN PO ANXIETY Last administered on 12/27/16 12: 29; Admin Dose 0.5 MG; Start 12/25/16 at 09:30 Morphine Sulfate 4 mg 4 mg Q4H PRN IV PAIN Last administered on 01/04/17 15:42 ; Admin Dose 4 MG; Start 12/29/16 at 05:40 Dextrose (D5W) 1,000 ml @ 60 mls/hr [id number] IV Last administered on 01/06/17 09:54; Admin Dose 60 MLS/HR; Start 01/02/17 at 15:30 Polyethylene Glycol (Miralax) 17 gm BID PO Last administered on 01/07/17 09:16 ; Admin Dose 17 GM; Start 01/02/17 at 21:00 Bisacodyl (Dulcolax) 10 mg DAILY PRN PO CONSTIPATION Last administered on 18:24; Admin Dose 10 MG; Start 01/02/17 at 18:00 Al Hydrox/Mg Hydrox/Simethicone (Mag-Al Plus) 30 ml Q4H PRN PO GASTROINTESTINAL UPSET; Start 01/03/17 at 18:00 Enoxaparin Sodium (Lovenox) 65 mg Q12 SC Last administered on 01/07/17 09:16; Admin Dose 65 MG; Start 01/04/17 at 09:30 Ondansetron HCl (Zofran Inj) 4 mg Q4H PRN IV NAUSEA AND/OR VOMITING; Start at 21:00 VICTOR M CARDONA NP Jan 07, 2017 21:16 VICTOR M CARDONA NP Jan 07, 2017 21:16
[2017-01-08] VITALS (11 sets, daily range): BP systolic 92–106; BP diastolic 52–61; PULSE 84–87; RESP 17–20
--- NOTE | 2017-01-08 00:19 | CONS ---
Date/Time of Note Date/Time of Note DATE: 01/07/17 TIME: 18:18 VK LE Assessment/Plan Assessment/Plan Chief Complaint/Hosp Course Large mass of the uterine cervix with necrosis. R/O cervical carcinoma. Large periaortic retroperitoneal lymphadenopathy, likely metastatic. Moderate metastatic lymphadenopathy along the mesenteric root and peripancreatic and arleen hepatis lymphadenopathy. There is also retrocrural metastatic lymphadenopathy. Moderate right iliac and mild left iliac lymphadenopathy, metastatic. 2.5 cm x 2 cm right adrenal mass. 3 cm x 2.2 cm left adrenal mass. 4.5 cm low-density mass in the right inferior liver, likely metastatic. 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 CA 125- 959 BX MASS , CAN PROBABLY OMIT LIVER BX BX ORDERED, EUA and cervical biopsy - NOT DONE TODAY PT WILL MOST LIKELY WILL NEED CHEMO, NOT A SURGERY the patient refusing biopsy No immediate family members available to make decisions on behalf of the patient. SW on the case. The patient was evaluated by telemetry psychiatry on 01/01/2017. The patient has poor insight into her condition. The patient is not capable of making decisions on her behalf. ethic committee consult Extensive deep venous thrombosis involving the right and left common femoral vein, right and left femoral vein, right and left popliteal vein. heparin ok for lovenox post bx Anemia. MICROCYTIC WITH INCREASED RDW complete ANEMIA W-UP iron studies. - C/W ACD, pos FE DEF Transfuse for hemoglobin less than 7. IV IRON INCREASED URIC ACID CONT ALLOPURINOL RENAL DOSE HYPERCALCEMIA IMPROVED WITH HYDRATION Sepsis UTI. Acute renal insufficiency. Hyperkalemia. Mild hyponatremia. Problems: Consultation Date/Type/Reason Admit Date/Time Dec 23, 2016 at 19:24 Initial Consult Date 12/23/16 [facility] of Consultation[facility] Referring Provider: RACIEL CAIN 24 HR Interval Summary Free Text/Dictation ALL NOTED Exam/Review of Systems Vital Signs Vitals Vital Signs Date Time Temp Pulse Resp B/P Pulse Ox O2 Delivery O2 Flow Rate FiO2 01/08/17 00:00 97.7 90 20 95/52 97 Intake and Output 01/07/17 01/07/17 01/08/17 15:00 23:00 07:00 Intake Total 110 ml Output Total 350 ml 300 ml Balance -240 ml -300 ml Exam Constitutional: alert Psych: anxiety Head: normocephalic Neck: supple Respiratory: clear to auscultation Cardiovascular: other (Regular rate to tachycardic) Gastrointestinal: soft, tender Musculoskeletal: swelling (Minimally bilateral lower extremities) Neurological: nl mental status, nl speech Results Result Diagram: 01/07/17 0624 01/07/17 0624 Results 24 hrs Laboratory Tests Test 01/07/17 06:24 White Blood Count 10.4 Red Blood Count 3.10 L Hemoglobin 7.8 L Hematocrit 26.0 L Mean Corpuscular Volume 83.9 Mean Corpuscular Hemoglobin 25.2 L Mean Corpuscular Hemoglobin Concent 30.0 L Red Cell Distribution Width 25.3 H Platelet Count 354 Mean Platelet Volume 11.7 H Neutrophils % 80.5 H Lymphocytes % 9.4 L Monocytes % 8.8 Eosinophils % 0.6 Basophils % 0.1 Nucleated Red Blood Cells % 0.0 Neutrophils # 8.3 H Lymphocytes # 1.0 Monocytes # 0.9 Eosinophils # 0.1 Basophils # 0.0 Nucleated Red Blood Cells # 0.0 Sodium Level 134 L Potassium Level 3.6 Chloride Level 109 Carbon Dioxide Level 25 Anion Gap 4 L Blood Urea Nitrogen 10 Creatinine 0.53 Glucose Level 91 Calcium Level 7.1 L Magnesium Level 1.6 L Medications Medications Current Medications Ondansetron HCl (Zofran Inj) 4 mg Q6H PRN IV NAUSEA AND/OR VOMITING Last administered on 01/06/17 18:05; Admin Dose 4 MG; Start 12/23/16 at 17:30 Acetaminophen (Tylenol Tab) 650 mg Q6H PRN PO PAIN LEVEL 1-3 OR FEVER Last administered on 01/01/17 18:04; Admin Dose 650 MG; Start 12/23/16 at 17:30 Acetaminophen (Tylenol Supp) 650 mg Q6H PRN [place] PAIN LEVEL 1-3 OR FEVER; Start 12/23/16 at 17:30 Ferrous Gluconate (Fergon) 325 mg BID PO Last administered on 01/06/17 09:51; Admin Dose 325 MG; Start 12/24/16 at 21:00 Allopurinol (Zyloprim) 100 mg DAILY PO Last administered on 01/06/17 09:51; Admin Dose 100 MG; Start 12/25/16 at 09:00 Tramadol HCl (Ultram) 50 mg Q6H PRN PO PAIN LEVEL 1-3 Last administered on 12/28 20:53; Admin Dose 50 MG; Start 12/25/16 at 09:30 Alprazolam (Xanax) 0.5 mg Q8H PRN PO ANXIETY Last administered on 12/27/16 12: 29; Admin Dose 0.5 MG; Start 12/25/16 at 09:30 Morphine Sulfate 4 mg 4 mg Q4H PRN IV PAIN Last administered on 01/04/17 15:42 ; Admin Dose 4 MG; Start 12/29/16 at 05:40 Dextrose (D5W) 1,000 ml @ 60 mls/hr [id number] IV Last administered on 01/07/17 21:42; Admin Dose 60 MLS/HR; Start 01/02/17 at 15:30 Polyethylene Glycol (Miralax) 17 gm BID PO Last administered on 01/07/17 21:41 ; Admin Dose 17 GM; Start 01/02/17 at 21:00 Bisacodyl (Dulcolax) 10 mg DAILY PRN PO CONSTIPATION Last administered on 18:24; Admin Dose 10 MG; Start 01/02/17 at 18:00 Al Hydrox/Mg Hydrox/Simethicone (Mag-Al Plus) 30 ml Q4H PRN PO GASTROINTESTINAL UPSET; Start 01/03/17 at 18:00 Enoxaparin Sodium (Lovenox) 65 mg Q12 SC Last administered on 01/07/17 21:40; Admin Dose 65 MG; Start 01/04/17 at 09:30 Ondansetron HCl (Zofran Inj) 4 mg Q4H PRN IV NAUSEA AND/OR VOMITING; Start at 21:00 KEATON METZ MD Jan 08, 2017 00:19
[2017-01-08] MEDS: DEXTROSE 5% 1,000 ML IV SCH ×2 (04:50→16:35)
[2017-01-08] MEDS: POLYETHYLENE GLYCOL 17 GM PACKET PO SCH ×2 (09:00→21:42)
[2017-01-08] MEDS: FERROUS GLUCONATE (EC) 325 MG TAB PO SCH ×2 (09:50→21:42)
[2017-01-08] MEDS: ENOXAPARIN 80 MG/0.8 ML SYG SC SCH ×2 (09:51→21:44)
--- NOTE | 2017-01-08 12:46 | CONS ---
Date/Time of Note Date/Time of Note DATE: 01/08/17 TIME: 12:46 Assessment/Plan Assessment/Plan Chief Complaint/Hosp Course SUBJECTIVE DATA: No acute changes overnight per report patient is awake confused looks comfortable Temperature 98.7 is 87 respirations 18 blood pressure 101/55 saturation 98 on room air PHYSICAL EXAMINATION: GENERAL: Fragile, well-developed, elderly woman, who is in no distress. HEENT: Head atraumatic, normocephalic. Sclerae anicteric. Buccal mucosa dry. NECK: Supple. CHEST: Rise symmetrical. Breath sounds diminished at the bases. HEART: S1, S2. ABDOMEN: Soft, bowel sounds present. ASSESSMENT: 1. Large cervical mass suspicious for malignancy. 2. Status post urinary tract infection. 3. Bilateral lower extremities deep venous thrombosis 4. Anemia. 5. Homeless status. PLAN: The patient remains stable, off antibiotics. Continue present care. Repeat cx's prn, oncology rec-s Problems: Consultation Date/Type/Reason Admit Date/Time Dec 23, 2016 at 19:24 Initial Consult Date 12/23/16 Type of Consultation: id Referring Provider: RACIEL CAIN Exam/Review of Systems Vital Signs Vitals Vital Signs Date Time Temp Pulse Resp B/P Pulse Ox O2 Delivery O2 Flow Rate FiO2 01/08/17 12:06 85 01/08/17 11:42 98.7 18 101/55 98 Intake and Output 01/07/17 01/07/17 01/08/17 15:00 23:00 07:00 Intake Total 110 ml 120 ml Output Total 350 ml 300 ml 350 ml Balance -240 ml -300 ml -230 ml Results Result Diagram: 01/07/17 0624 01/07/17 06 Medications Medications Current Medications Ondansetron HCl (Zofran Inj) 4 mg Q6H PRN IV NAUSEA AND/OR VOMITING Last administered on 01/06/17 18:05; Admin Dose 4 MG; Start 12/23/16 at 17:30 Acetaminophen (Tylenol Tab) 650 mg Q6H PRN PO PAIN LEVEL 1-3 OR FEVER Last administered on 01/01/17 18:04; Admin Dose 650 MG; Start 12/23/16 at 17:30 Acetaminophen (Tylenol Supp) 650 mg Q6H PRN [place] PAIN LEVEL 1-3 OR FEVER; Start 12/23/16 at 17:30 Ferrous Gluconate (Fergon) 325 mg BID PO Last administered on 01/08/17 09:50; Admin Dose 325 MG; Start 12/24/16 at 21:00 Allopurinol (Zyloprim) 100 mg DAILY PO Last administered on 01/06/17 09:51; Admin Dose 100 MG; Start 12/25/16 at 09:00 Tramadol HCl (Ultram) 50 mg Q6H PRN PO PAIN LEVEL 1-3 Last administered on 12/28 20:53; Admin Dose 50 MG; Start 12/25/16 at 09:30 Alprazolam (Xanax) 0.5 mg Q8H PRN PO ANXIETY Last administered on 12/27/16 12: 29; Admin Dose 0.5 MG; Start 12/25/16 at 09:30 Morphine Sulfate 4 mg 4 mg Q4H PRN IV PAIN Last administered on 01/04/17 15:42 ; Admin Dose 4 MG; Start 12/29/16 at 05:40 Dextrose (D5W) 1,000 ml @ 60 mls/hr [id number] IV Last administered on 01/07/17 21:42; Admin Dose 60 MLS/HR; Start 01/02/17 at 15:30 Polyethylene Glycol (Miralax) 17 gm BID PO Last administered on 01/07/17 21:41 ; Admin Dose 17 GM; Start 01/02/17 at 21:00 Bisacodyl (Dulcolax) 10 mg DAILY PRN PO CONSTIPATION Last administered on 18:24; Admin Dose 10 MG; Start 01/02/17 at 18:00 Al Hydrox/Mg Hydrox/Simethicone (Mag-Al Plus) 30 ml Q4H PRN PO GASTROINTESTINAL UPSET; Start 01/03/17 at 18:00 Enoxaparin Sodium (Lovenox) 65 mg Q12 SC Last administered on 01/08/17 09:51; Admin Dose 65 MG; Start 01/04/17 at 09:30 Ondansetron HCl (Zofran Inj) 4 mg Q4H PRN IV NAUSEA AND/OR VOMITING; Start at 21:00 VICTOR M CARDONA NP Jan 08, 2017 12:46
[2017-01-08 14:11] LABS: ABNORMAL IP MESSAGE 1; BASOPHILS % 0.1 % (0.0-2.0); EOSINOPHILS # 0.1 10^3/ul (0.0-0.5); EOSINOPHILS % 1.3 % (0.0-7.0); HEMATOCRIT 25.5 % (37.0-47.0); HEMOGLOBIN 7.8 g/dl (12.0-16.0); LYMPHOCYTES % 11.5 % (15.0-51.0); MEAN CORPUSCULAR HEMOGLOBIN 25.7 pg (29.0-33.0); MEAN CORPUSCULAR HGB CONC 30.6 g/dl (32.0-37.0); MEAN CORPUSCULAR VOLUME 83.9 fl (82.0-101.0); MEAN PLATELET VOLUME 10.8 fl (7.4-10.4); MONOCYTE # 0.7 10^3/ul (0.3-0.9); MONOCYTES % 8.6 % (0.0-11.0); NEUTROPHIL # 6.6 10^3/ul (1.6-7.5); NEUTROPHILS % 78.3 % (39.0-77.0); PLATELET COUNT 358 10^3/UL (140-415); RED BLOOD COUNT 3.04 10^6/ul (4.20-5.40); RED CELL DISTRIBUTION WIDTH 25.1 % (11.5-14.5); WHITE BLOOD COUNT 8.4 10^3/ul (4.8-10.8)
[2017-01-08 14:35] LABS: ALBUMIN 2.1 g/dl (3.3-4.9); ALBUMIN/GLOBULIN RATIO 0.63; BILIRUBIN,INDIRECT 0.6 mg/dl (0-1.1); BILIRUBIN,TOTAL 0.6 mg/dl (0.2-1.3); CREATININE 0.49 mg/dl (0.44-1.00); POTASSIUM 3.2 mmol/L (3.5-5.1); TOTAL PROTEIN 5.4 g/dl (6.1-8.1)
--- NOTE | 2017-01-08 14:48 | PN ---
Date/Time of Note Date/Time of Note DATE: 01/08/17 TIME: 14:46 Assessment/Plan VTE Prophylaxis VTE Prophylaxis Intervention: SCD's Lines/Catheters IV Catheter Type (from Nrs): Peripheral IV Urinary Cath still in place: Yes Reason Cath still needed: other (indicate) (monitor I&O) Assessment/Plan Chief Complaint/Hosp Course Assessment and plan 1. 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 Patient with clinical findings suspicious for malignancy or metastasis. Oncologist is following. Patient was tentatively planned for vaginal mass biopsy however patient refusing at this time. No noted family members available and patient was seen by telepsychiatrist on 01/01/17 and noted that patient is not capable of making decisions on her behalf. Plan for bioethics meeting 01/09/17. 2. Sepsis with underlying urinary tract infection. Improved at present. ID following. Continue with ID recommendations 3. Extensive DVT involving the right and left common femoral and right and left femoral as well as right and left popliteal vein. Continue on anticoagulation. 4. Anemia. Patient status post blood transfusions. Noted with iron deficiency. Continue iron supplement. 5. Homeless status. 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 Disposition and plan: Plan for bioethics meeting now on 01/09/17. Will follow up Discussed plan of care with Dr. See Problems: Subjective 24 Hr Interval Summary Free Text/Dictation resting. no reports of pain . Exam/Review of Systems Vital Signs Vitals Vital Signs Date Time Temp Pulse Resp B/P Pulse Ox O2 Delivery O2 Flow Rate FiO2 01/08/17 12:06 85 01/08/17 11:42 98.7 18 101/55 98 Intake and Output 01/07/17 01/07/17 01/08/17 15:00 23:00 07:00 Intake Total 110 ml 120 ml Output Total 350 ml 300 ml 350 ml Balance -240 ml -300 ml -230 ml Exam Constitutional: No distress Respiratory: clear to auscultation, normal air movement Cardiovascular: regular rate and rhythm Gastrointestinal: soft, tender Musculoskeletal: No swelling Neurological: nl mental status, nl speech Results Result Diagram: 01/08/17 1316 01/08/17 1316 Results 24 hrs Laboratory Tests Test 01/08/17 13:16 White Blood Count 8.4 Red Blood Count 3.04 L Hemoglobin 7.8 L Hematocrit 25.5 L Mean Corpuscular Volume 83.9 Mean Corpuscular Hemoglobin 25.7 L Mean Corpuscular Hemoglobin Concent 30.6 L Red Cell Distribution Width 25.1 H Platelet Count 358 Mean Platelet Volume 10.8 H Neutrophils % 78.3 H Lymphocytes % 11.5 L Monocytes % 8.6 Eosinophils % 1.3 Basophils % 0.1 Nucleated Red Blood Cells % 0.0 Neutrophils # 6.6 Lymphocytes # 1.0 Monocytes # 0.7 Eosinophils # 0.1 Basophils # 0.0 Nucleated Red Blood Cells # 0.0 Sodium Level 132 L Potassium Level 3.2 L Chloride Level 106 Carbon Dioxide Level 24 Anion Gap 5 L Blood Urea Nitrogen 9 Creatinine 0.49 Glucose Level 76 Calcium Level 7.0 L Total Bilirubin 0.6 Direct Bilirubin 0.00 Indirect Bilirubin 0.6 Aspartate Amino Transf (AST/SGOT) 17 Alanine Aminotransferase (ALT/SGPT) 24 Alkaline Phosphatase 125 H Total Protein 5.4 L Albumin 2.1 L Globulin 3.30 H Albumin/Globulin Ratio 0.63 Medications Medications Current Medications Ondansetron HCl (Zofran Inj) 4 mg Q6H PRN IV NAUSEA AND/OR VOMITING Last administered on 01/06/17 18:05; Admin Dose 4 MG; Start 12/23/16 at 17:30 Acetaminophen (Tylenol Tab) 650 mg Q6H PRN PO PAIN LEVEL 1-3 OR FEVER Last administered on 01/01/17 18:04; Admin Dose 650 MG; Start 12/23/16 at 17:30 Acetaminophen (Tylenol Supp) 650 mg Q6H PRN [place] PAIN LEVEL 1-3 OR FEVER; Start 12/23/16 at 17:30 Ferrous Gluconate (Fergon) 325 mg BID PO Last administered on 01/08/17 09:50; Admin Dose 325 MG; Start 12/24/16 at 21:00 Allopurinol (Zyloprim) 100 mg DAILY PO Last administered on 01/06/17 09:51; Admin Dose 100 MG; Start 12/25/16 at 09:00 Tramadol HCl (Ultram) 50 mg Q6H PRN PO PAIN LEVEL 1-3 Last administered on 12/28 20:53; Admin Dose 50 MG; Start 12/25/16 at 09:30 Alprazolam (Xanax) 0.5 mg Q8H PRN PO ANXIETY Last administered on 12/27/16 12: 29; Admin Dose 0.5 MG; Start 12/25/16 at 09:30 Morphine Sulfate 4 mg 4 mg Q4H PRN IV PAIN Last administered on 01/04/17 15:42 ; Admin Dose 4 MG; Start 12/29/16 at 05:40 Dextrose (D5W) 1,000 ml @ 60 mls/hr [id number] IV Last administered on 01/07/17 21:42; Admin Dose 60 MLS/HR; Start 01/02/17 at 15:30 Polyethylene Glycol (Miralax) 17 gm BID PO Last administered on 01/07/17 21:41 ; Admin Dose 17 GM; Start 01/02/17 at 21:00 Bisacodyl (Dulcolax) 10 mg DAILY PRN PO CONSTIPATION Last administered on 18:24; Admin Dose 10 MG; Start 01/02/17 at 18:00 Al Hydrox/Mg Hydrox/Simethicone (Mag-Al Plus) 30 ml Q4H PRN PO GASTROINTESTINAL UPSET; Start 01/03/17 at 18:00 Enoxaparin Sodium (Lovenox) 65 mg Q12 SC Last administered on 01/08/17 09:51; Admin Dose 65 MG; Start 01/04/17 at 09:30 Ondansetron HCl (Zofran Inj) 4 mg Q4H PRN IV NAUSEA AND/OR VOMITING; Start at 21:00 RACIEL CAIN Jan 08, 2017 14:48
[2017-01-08] MEDS ORDERED: POTASSIUM CHLORIDE (SR) 20 MEQ TAB PO STA (15:31)
[2017-01-08] MEDS ORDERED: MAGNESIUM SULFATE 2 GM/50 ML 50 ML IVPB ONE (16:00)
--- NOTE | 2017-01-08 18:14 | CONS ---
Date/Time of Note Date/Time of Note DATE: 01/08/17 TIME: 17:57 Assessment/Plan Assessment/Plan Chief Complaint/Hosp Course WIDE- SPREAD METASTATIC CERVICAL CANCER ( CLINICAL DX) WITH LARGE CERVICAL MASS , Large periaortic retroperitoneal and intraabdominal lymphadenopathy, right adrenal mass, mass in the liver, L2 and L1 mets, pos L4-5 epidural tumoral involvement in 71 yo F with multiple medical problems, including incompetency ( inability to make a decisions), poor PS, extensive DVT, hypercalcemia and multiple social issues ( homeless, no family support) I WOULD STRONGLY RECOMMEND TO PROCEED WITH COMFORT CARE AND HOSPICE EVAL FOR THIS PT WITH ALL AFOREMENTIONED ISSUES I THINK IT IS HIGHLY UNETHICAL TO RECOMMEND AGGRESSIVE APPROACH FOR TREATMENT FOR PT WITHOUT MENTAL CAPACITY TO MAKE DECISIONS, SINCE IT IS A VERY HIGH- RISK TREATMENT WITH POTENTIAL LIFE- THREATENING COMPLICATIONS I HOPE THAT ETHIC COMMITTEE WILL CONSIDER MY RECOMMENDATIONS TOMORROW SINCE I WILL BE NOT ABLE TO ATTEND THE CONFERENCE. D/W DR VASQUEZ Extensive deep venous thrombosis involving the right and left common femoral vein, right and left femoral vein, right and left popliteal vein. heparin ok for lovenox post bx Anemia. MICROCYTIC WITH INCREASED RDW complete ANEMIA W-UP iron studies. - C/W ACD, pos FE DEF Transfuse for hemoglobin less than 7. IV IRON INCREASED URIC ACID CONT ALLOPURINOL RENAL DOSE HYPERCALCEMIA IMPROVED WITH HYDRATION Sepsis UTI. Acute renal insufficiency. Hyperkalemia. Mild hyponatremia. Problems: Consultation Date/Type/Reason Admit Date/Time Dec 23, 2016 at 19:24 Initial Consult Date 12/23/16 Type of Consultation: [facility] [place] Referring Provider: RACIEL CAIN 24 HR Interval Summary Free Text/Dictation all noted d/w DR BOWER Exam/Review of Systems Vital Signs Vitals Vital Signs Date Time Temp Pulse Resp B/P Pulse Ox O2 Delivery O2 Flow Rate FiO2 01/08/17 16:13 87 01/08/17 15:47 98.0 18 104/61 97 Intake and Output 01/07/17 01/07/17 01/08/17 15:00 23:00 07:00 Intake Total 110 ml 120 ml Output Total 350 ml 300 ml 350 ml Balance -240 ml -300 ml -230 ml Exam Constitutional: alert, confused Psych: anxiety Head: normocephalic Neck: supple Respiratory: clear to auscultation Cardiovascular: other (Regular rate to tachycardic) Gastrointestinal: soft, tender Musculoskeletal: swelling (Minimally bilateral lower extremities) Neurological: nl mental status, slow speech Results Result Diagram: 01/08/17 1316 01/08/17 1316 Results 24 hrs Laboratory Tests Test 01/08/17 13:16 White Blood Count 8.4 Red Blood Count 3.04 L Hemoglobin 7.8 L Hematocrit 25.5 L Mean Corpuscular Volume 83.9 Mean Corpuscular Hemoglobin 25.7 L Mean Corpuscular Hemoglobin Concent 30.6 L Red Cell Distribution Width 25.1 H Platelet Count 358 Mean Platelet Volume 10.8 H Neutrophils % 78.3 H Lymphocytes % 11.5 L Monocytes % 8.6 Eosinophils % 1.3 Basophils % 0.1 Nucleated Red Blood Cells % 0.0 Neutrophils # 6.6 Lymphocytes # 1.0 Monocytes # 0.7 Eosinophils # 0.1 Basophils # 0.0 Nucleated Red Blood Cells # 0.0 Sodium Level 132 L Potassium Level 3.2 L Chloride Level 106 Carbon Dioxide Level 24 Anion Gap 5 L Blood Urea Nitrogen 9 Creatinine 0.49 Glucose Level 76 Calcium Level 7.0 L Total Bilirubin 0.6 Direct Bilirubin 0.00 Indirect Bilirubin 0.6 Aspartate Amino Transf (AST/SGOT) 17 Alanine Aminotransferase (ALT/SGPT) 24 Alkaline Phosphatase 125 H Total Protein 5.4 L Albumin 2.1 L Globulin 3.30 H Albumin/Globulin Ratio 0.63 Medications Medications Current Medications Ondansetron HCl (Zofran Inj) 4 mg Q6H PRN IV NAUSEA AND/OR VOMITING Last administered on 01/06/17 18:05; Admin Dose 4 MG; Start 12/23/16 at 17:30 Acetaminophen (Tylenol Tab) 650 mg Q6H PRN PO PAIN LEVEL 1-3 OR FEVER Last administered on 01/01/17 18:04; Admin Dose 650 MG; Start 12/23/16 at 17:30 Acetaminophen (Tylenol Supp) 650 mg Q6H PRN [place] PAIN LEVEL 1-3 OR FEVER; Start 12/23/16 at 17:30 Ferrous Gluconate (Fergon) 325 mg BID PO Last administered on 01/08/17 09:50; Admin Dose 325 MG; Start 12/24/16 at 21:00 Allopurinol (Zyloprim) 100 mg DAILY PO Last administered on 01/06/17 09:51; Admin Dose 100 MG; Start 12/25/16 at 09:00 Tramadol HCl (Ultram) 50 mg Q6H PRN PO PAIN LEVEL 1-3 Last administered on 12/28 20:53; Admin Dose 50 MG; Start 12/25/16 at 09:30 Alprazolam (Xanax) 0.5 mg Q8H PRN PO ANXIETY Last administered on 12/27/16 12: 29; Admin Dose 0.5 MG; Start 12/25/16 at 09:30 Morphine Sulfate 4 mg 4 mg Q4H PRN IV PAIN Last administered on 01/04/17 15:42 ; Admin Dose 4 MG; Start 12/29/16 at 05:40 Dextrose (D5W) 1,000 ml @ 60 mls/hr [id number] IV Last administered on 01/08/17 16:35; Admin Dose 60 MLS/HR; Start 01/02/17 at 15:30 Polyethylene Glycol (Miralax) 17 gm BID PO Last administered on 01/07/17 21:41 ; Admin Dose 17 GM; Start 01/02/17 at 21:00 Bisacodyl (Dulcolax) 10 mg DAILY PRN PO CONSTIPATION Last administered on 18:24; Admin Dose 10 MG; Start 01/02/17 at 18:00 Al Hydrox/Mg Hydrox/Simethicone (Mag-Al Plus) 30 ml Q4H PRN PO GASTROINTESTINAL UPSET; Start 01/03/17 at 18:00 Enoxaparin Sodium (Lovenox) 65 mg Q12 SC Last administered on 01/08/17 09:51; Admin Dose 65 MG; Start 01/04/17 at 09:30 Ondansetron HCl 4 mg 4 mg Q4H PRN IV NAUSEA AND/OR VOMITING; Start 01/05/17 at 21:00 Magnesium Sulfate (Magnesium Sulfate 2 Gm/50 ml) 50 ml @ 25 mls/hr ONCE ONCE IVPB Last administered on 01/08/17 16:33; Admin Dose 25 MLS/HR; Start at 16:00; Stop 01/08/17 at 17:59 KEATON METZ MD Jan 08, 2017 18:14
[2017-01-09] VITALS (11 sets, daily range): BP systolic 100–112; BP diastolic 52–59; PULSE 84–88; RESP 17–18
[2017-01-09 07:21] LABS: ABNORMAL IP MESSAGE 1; BASOPHILS % 0.1 % (0.0-2.0); EOSINOPHILS # 0.2 10^3/ul (0.0-0.5); EOSINOPHILS % 1.9 % (0.0-7.0); HEMATOCRIT 26.1 % (37.0-47.0); LYMPHOCYTES % 12.8 % (15.0-51.0); MEAN CORPUSCULAR HEMOGLOBIN 25.6 pg (29.0-33.0); MEAN CORPUSCULAR HGB CONC 30.7 g/dl (32.0-37.0); MEAN CORPUSCULAR VOLUME 83.4 fl (82.0-101.0); MEAN PLATELET VOLUME 11.3 fl (7.4-10.4); MONOCYTE # 0.7 10^3/ul (0.3-0.9); MONOCYTES % 9.1 % (0.0-11.0); NEUTROPHILS % 75.8 % (39.0-77.0); PLATELET COUNT 374 10^3/UL (140-415); RED BLOOD COUNT 3.13 10^6/ul (4.20-5.40); RED CELL DISTRIBUTION WIDTH 24.9 % (11.5-14.5); WHITE BLOOD COUNT 7.9 10^3/ul (4.8-10.8)
[2017-01-09 07:23] LABS: POSITIVE DIFF @See below
[2017-01-09 07:43] LABS: CALCIUM 7.1 mg/dl (8.4-10.2); CREATININE 0.49 mg/dl (0.44-1.00); POTASSIUM 3.4 mmol/L (3.5-5.1)
[2017-01-09] MEDS: POLYETHYLENE GLYCOL 17 GM PACKET PO SCH ×2 (09:19→22:10)
[2017-01-09] MEDS: ALLOPURINOL 100 MG TAB PO SCH (09:19)
[2017-01-09] MEDS: FERROUS GLUCONATE (EC) 325 MG TAB PO SCH ×2 (09:19→22:10)
[2017-01-09] MEDS: ENOXAPARIN 80 MG/0.8 ML SYG SC SCH ×2 (10:18→22:11)
[2017-01-09] MEDS: DEXTROSE 5% 1,000 ML IV SCH (11:16)
[2017-01-09] MEDS: SOD CHLORIDE 0.9% 1,000 ML IV SCH (12:43)
--- NOTE | 2017-01-09 14:13 | EN ---
Date/Time of Note Date/Time of Note DATE: 01/09/17 TIME: 14:10 Event Note Medicine Medicine Event Note Biomedical ethics committee consultation Biomedical ethics currently met today to discuss the case. Briefly this young lady was admitted in sepsis, and found to have what appears to be significant cervical cancer with metastases. Her sepsis has resolved and she has declined interventions/biopsies. Guero oscar has seen the patient in consultation and has deemed her not competent for medical decision-making. There is no family members or other spokes. People for the patient. In addition to this she does not have a conservator. Is the position of the primary care team and the oncologist that attempts at aggressive intervention in this patient would be tedious difficult and fruitless. In other words they feel that attempts to treat her would be futile and ineffective. They presented to the biomedical ethics committee the position that the best position here would be to have the patient placed on palliative care comfort measures and DNR status. Given her underlying psychiatric illness the biomedical ethics committee has recommended that she have a repeat psychiatry consultation for any type of medications that might enhance her quality of life. In addition to this is a position of the biomedical ethics committee after careful consideration that it would be appropriate for her to be transitioned to DNR status with palliative care considerations. She is appropriate for transfer to a residential facility but to be maintained on DNR status and palliative care and/or hospice as available and appropriate. Respectfully Scarlett Giron MD [employer] biomedical ethics committee SCARLETT GIRON MD Jan 09, 2017 14:13
--- NOTE | 2017-01-09 19:06 | CONS ---
Date/Time of Note Date/Time of Note DATE: 01/09/17 TIME: 19:03 Assessment/Plan Assessment/Plan Chief Complaint/Hosp Course WIDE- SPREAD METASTATIC CERVICAL CANCER ( CLINICAL DX) WITH LARGE CERVICAL MASS , Large periaortic retroperitoneal and intraabdominal lymphadenopathy, right adrenal mass, mass in the liver, L2 and L1 mets, pos L4-5 epidural tumoral involvement in 71 yo F with multiple medical problems, including incompetency ( inability to make a decisions), poor PS, extensive DVT, hypercalcemia and multiple social issues ( homeless, no family support) I WOULD STRONGLY RECOMMEND TO PROCEED WITH COMFORT CARE AND HOSPICE EVAL FOR THIS PT WITH ALL AFOREMENTIONED ISSUES I THINK IT IS HIGHLY UNETHICAL TO RECOMMEND AGGRESSIVE APPROACH FOR TREATMENT FOR PT WITHOUT MENTAL CAPACITY TO MAKE DECISIONS, SINCE IT IS A VERY HIGH- RISK TREATMENT WITH POTENTIAL LIFE- THREATENING COMPLICATIONS Bioethics committee recommended -1. Telepsych re-eval for psychiatric medication recommendation 2. Change code status to DNR 3. Proceed with palliative care/comfort care measures in consideration of hospice if a hospice agency is willing to admit pt without family to consent. 4. Transfer pt to an accepting SNF for continuation of care. Extensive deep venous thrombosis involving the right and left common femoral vein, right and left femoral vein, right and left popliteal vein. heparin ok for lovenox post bx Anemia. MICROCYTIC WITH INCREASED RDW complete ANEMIA W-UP iron studies. - C/W ACD, pos FE DEF Transfuse for hemoglobin less than 7. IV IRON INCREASED URIC ACID CONT ALLOPURINOL RENAL DOSE HYPERCALCEMIA IMPROVED WITH HYDRATION Sepsis UTI. Acute renal insufficiency. Hyperkalemia. Mild hyponatremia. Problems: Consultation Date/Type/Reason Admit Date/Time Dec 23, 2016 at 19:24 Initial Consult Date 12/23/16 Type of Consultation: [facility] Referring Provider: RACIEL CAIN 24 HR Interval Summary Free Text/Dictation ALL NOTED ETHIC COMMITTEE RECOMMENDATIONS NOTED Exam/Review of Systems Vital Signs Vitals Vital Signs Date Time Temp Pulse Resp B/P Pulse Ox O2 Delivery O2 Flow Rate FiO2 01/09/17 16:20 88 01/09/17 16:09 98.6 18 104/57 99 Intake and Output 01/08/17 01/08/17 01/09/17 15:00 23:00 07:00 Intake Total 800 ml 100 ml Output Total 300 ml 350 ml Balance 500 ml -250 ml Exam Constitutional: alert, confused Psych: anxiety Head: normocephalic Neck: supple Respiratory: clear to auscultation Cardiovascular: other (Regular rate to tachycardic) Gastrointestinal: soft, tender Musculoskeletal: swelling (Minimally bilateral lower extremities) Neurological: nl mental status, slow speech Results Result Diagram: 01/09/17 0616 01/09/17 0616 Results 24 hrs Laboratory Tests Test 01/09/17 06:16 White Blood Count 7.9 Red Blood Count 3.13 L Hemoglobin 8.0 L Hematocrit 26.1 L Mean Corpuscular Volume 83.4 Mean Corpuscular Hemoglobin 25.6 L Mean Corpuscular Hemoglobin Concent 30.7 L Red Cell Distribution Width 24.9 H Platelet Count 374 Mean Platelet Volume 11.3 H Neutrophils % 75.8 Lymphocytes % 12.8 L Monocytes % 9.1 Eosinophils % 1.9 Basophils % 0.1 Nucleated Red Blood Cells % 0.0 Neutrophils # 6.0 Lymphocytes # 1.0 Monocytes # 0.7 Eosinophils # 0.2 Basophils # 0.0 Nucleated Red Blood Cells # 0.0 Sodium Level 130 L Potassium Level 3.4 L Chloride Level 105 Carbon Dioxide Level 24 Anion Gap 4 L Blood Urea Nitrogen 7 Creatinine 0.49 Glucose Level 72 Calcium Level 7.1 L Medications Medications Current Medications Ondansetron HCl (Zofran Inj) 4 mg Q6H PRN IV NAUSEA AND/OR VOMITING Last administered on 01/06/17 18:05; Admin Dose 4 MG; Start 12/23/16 at 17:30 Acetaminophen (Tylenol Tab) 650 mg Q6H PRN PO PAIN LEVEL 1-3 OR FEVER Last administered on 01/01/17 18:04; Admin Dose 650 MG; Start 12/23/16 at 17:30 Acetaminophen (Tylenol Supp) 650 mg Q6H PRN [place] PAIN LEVEL 1-3 OR FEVER; Start 12/23/16 at 17:30 Ferrous Gluconate (Fergon) 325 mg BID PO Last administered on 01/09/17 09:19; Admin Dose 325 MG; Start 12/24/16 at 21:00 Allopurinol (Zyloprim) 100 mg DAILY PO Last administered on 01/09/17 09:19; Admin Dose 100 MG; Start 12/25/16 at 09:00 Tramadol HCl (Ultram) 50 mg Q6H PRN PO PAIN LEVEL 1-3 Last administered on 12/28 20:53; Admin Dose 50 MG; Start 12/25/16 at 09:30 Alprazolam (Xanax) 0.5 mg Q8H PRN PO ANXIETY Last administered on 12/27/16 12: 29; Admin Dose 0.5 MG; Start 12/25/16 at 09:30 Morphine Sulfate (morphine) 4 mg Q4H PRN IV PAIN Last administered on 15:42; Admin Dose 4 MG; Start 12/29/16 at 05:40 Polyethylene Glycol (Miralax) 17 gm BID PO Last administered on 01/09/17 09:19 ; Admin Dose 17 GM; Start 01/02/17 at 21:00 Bisacodyl (Dulcolax) 10 mg DAILY PRN PO CONSTIPATION Last administered on 18:24; Admin Dose 10 MG; Start 01/02/17 at 18:00 Al Hydrox/Mg Hydrox/Simethicone (Mag-Al Plus) 30 ml Q4H PRN PO GASTROINTESTINAL UPSET; Start 01/03/17 at 18:00 Enoxaparin Sodium (Lovenox) 65 mg Q12 SC Last administered on 01/09/17 10:18; Admin Dose 65 MG; Start 01/04/17 at 09:30 Ondansetron HCl 4 mg 4 mg Q4H PRN IV NAUSEA AND/OR VOMITING; Start 01/05/17 at 21:00 Sodium Chloride (NS) 1,000 ml @ 75 mls/hr [id number] IV Last administered on 01/09 12:43; Admin Dose 75 MLS/HR; Start 01/09/17 at 12:30 KEATON METZ MD Jan 09, 2017 19:06
[2017-01-10] VITALS (12 sets, daily range): BP systolic 107–111; BP diastolic 62–68; PULSE 86–93; RESP 18
[2017-01-10] MEDS: SOD CHLORIDE 0.9% 1,000 ML IV SCH ×3 (02:49→16:21)
--- NOTE | 2017-01-10 07:39 | PN ---
Date/Time of Note Date/Time of Note LATE ENTRY DATE: 01/09/17 Assessment/Plan VTE Prophylaxis VTE Prophylaxis Intervention: SCD's Lines/Catheters IV Catheter Type (from Nrs): Peripheral IV Urinary Cath still in place: Yes Reason Cath still needed: other (indicate) (monitor I&O) Assessment/Plan Chief Complaint/Hosp Course Assessment and plan 1. 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 Patient with clinical findings suspicious for malignancy or metastasis. Oncologist is following. Patient was tentatively planned for vaginal mass biopsy however patient refusing at this time. No noted family members available and patient was seen by telepsychiatrist on 01/01/17 and noted that patient is not capable of making decisions on her behalf. Plan for bioethics meeting 01/09/17. 2. Sepsis with underlying urinary tract infection. Improved at present. ID following. Continue with ID recommendations 3. Extensive DVT involving the right and left common femoral and right and left femoral as well as right and left popliteal vein. Continue on anticoagulation. 4. Anemia. Patient status post blood transfusions. Noted with iron deficiency. Continue iron supplement. 5. Homeless status. 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 Disposition and plan: Bioethics meeting held today. Patient now DNR. As discussed in bioethics meeting, Will plan for telepsych consultation once more to assess her psychiatric status. Discussed plan of care with Dr. See Problems: Subjective 24 Hr Interval Summary Free Text/Dictation no specific complaints at this time. comfortable at present Exam/Review of Systems Vital Signs Vitals Vital Signs Date Time Temp Pulse Resp B/P Pulse Ox O2 Delivery O2 Flow Rate FiO2 01/10/17 04:16 86 01/10/17 04:12 97.6 18 109/64 99 Intake and Output 01/09/17 01/09/17 01/10/17 15:00 23:00 07:00 Intake Total 330 ml 575 ml 1190 ml Output Total 400 ml 300 ml Balance 330 ml 175 ml 890 ml Exam Constitutional: No distress Respiratory: clear to auscultation, normal air movement Cardiovascular: regular rate and rhythm Gastrointestinal: soft, tender Musculoskeletal: No swelling Neurological: , nl speech Results Result Diagram: 01/09/17 0616 01/09/17 0616 Medications Medications Current Medications Ondansetron HCl (Zofran Inj) 4 mg Q6H PRN IV NAUSEA AND/OR VOMITING Last administered on 01/06/17 18:05; Admin Dose 4 MG; Start 12/23/16 at 17:30 Acetaminophen (Tylenol Tab) 650 mg Q6H PRN PO PAIN LEVEL 1-3 OR FEVER Last administered on 01/01/17 18:04; Admin Dose 650 MG; Start 12/23/16 at 17:30 Acetaminophen (Tylenol Supp) 650 mg Q6H PRN [place] PAIN LEVEL 1-3 OR FEVER; Start 12/23/16 at 17:30 Ferrous Gluconate (Fergon) 325 mg BID PO Last administered on 01/09/17 22:10; Admin Dose 325 MG; Start 12/24/16 at 21:00 Allopurinol (Zyloprim) 100 mg DAILY PO Last administered on 01/09/17 09:19; Admin Dose 100 MG; Start 12/25/16 at 09:00 Tramadol HCl (Ultram) 50 mg Q6H PRN PO PAIN LEVEL 1-3 Last administered on 12/28 20:53; Admin Dose 50 MG; Start 12/25/16 at 09:30 Alprazolam (Xanax) 0.5 mg Q8H PRN PO ANXIETY Last administered on 12/27/16 12: 29; Admin Dose 0.5 MG; Start 12/25/16 at 09:30 Morphine Sulfate (morphine) 4 mg Q4H PRN IV PAIN Last administered on 15:42; Admin Dose 4 MG; Start 12/29/16 at 05:40 Polyethylene Glycol (Miralax) 17 gm BID PO Last administered on 01/09/17 22:10 ; Admin Dose 17 GM; Start 01/02/17 at 21:00 Bisacodyl (Dulcolax) 10 mg DAILY PRN PO CONSTIPATION Last administered on 18:24; Admin Dose 10 MG; Start 01/02/17 at 18:00 Al Hydrox/Mg Hydrox/Simethicone (Mag-Al Plus) 30 ml Q4H PRN PO GASTROINTESTINAL UPSET; Start 01/03/17 at 18:00 Enoxaparin Sodium (Lovenox) 65 mg Q12 SC Last administered on 01/09/17 22:11; Admin Dose 65 MG; Start 01/04/17 at 09:30 Ondansetron HCl 4 mg 4 mg Q4H PRN IV NAUSEA AND/OR VOMITING; Start 01/05/17 at 21:00 Sodium Chloride (NS) 1,000 ml @ 75 mls/hr [id number] IV Last administered on 01/10t 02:49; Admin Dose 75 MLS/HR; Start 01/09/17 at 12:30 RACIEL CAIN Jan 10, 2017 07:39
[2017-01-10 08:37] LABS: ABNORMAL IP MESSAGE 1; BASOPHILS % 0.2 % (0.0-2.0); EOSINOPHILS # 0.1 10^3/ul (0.0-0.5); EOSINOPHILS % 1.5 % (0.0-7.0); HEMATOCRIT 27.9 % (37.0-47.0); HEMOGLOBIN 8.4 g/dl (12.0-16.0); LYMPHOCYTES # 1.1 10^3/ul (0.8-2.9); LYMPHOCYTES % 14.2 % (15.0-51.0); MEAN CORPUSCULAR HEMOGLOBIN 25.5 pg (29.0-33.0); MEAN CORPUSCULAR HGB CONC 30.1 g/dl (32.0-37.0); MEAN CORPUSCULAR VOLUME 84.5 fl (82.0-101.0); MONOCYTE # 0.7 10^3/ul (0.3-0.9); MONOCYTES % 8.4 % (0.0-11.0); NEUTROPHIL # 6.1 10^3/ul (1.6-7.5); NEUTROPHILS % 75.5 % (39.0-77.0); PLATELET COUNT 386 10^3/UL (140-415); RED CELL DISTRIBUTION WIDTH 25.1 % (11.5-14.5); WHITE BLOOD COUNT 8.1 10^3/ul (4.8-10.8)
[2017-01-10 08:48] LABS: POSITIVE DIFF @See below
[2017-01-10 08:53] LABS: CREATININE 0.46 mg/dl (0.44-1.00); POTASSIUM 3.4 mmol/L (3.5-5.1)
[2017-01-10] MEDS: FERROUS GLUCONATE (EC) 325 MG TAB PO SCH ×2 (08:59→20:30)
[2017-01-10] MEDS: POLYETHYLENE GLYCOL 17 GM PACKET PO SCH ×2 (08:59→20:31)
[2017-01-10] MEDS: ALLOPURINOL 100 MG TAB PO SCH (08:59)
[2017-01-10] MEDS: ENOXAPARIN 80 MG/0.8 ML SYG SC SCH ×2 (09:04→20:36)
--- NOTE | 2017-01-10 15:15 | PN ---
Date/Time of Note Date/Time of Note DATE: 01/10/17 TIME: 15:09 Assessment/Plan VTE Prophylaxis VTE Prophylaxis Intervention: LMWH Lines/Catheters IV Catheter Type (from Nrs): Peripheral IV Urinary Cath still in place: Yes Reason Cath still needed: other (indicate) Assessment/Plan Assessment/Plan 1. 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 consider malignancy, patient declines biopsy 2. Sepsis with underlying urinary tract infection, treated and resolved, off of antibiotics 3. Extensive DVT involving the right and left common femoral and right and left femoral as well as right and left popliteal vein. on lovenox 4. Anemia. Patient status post blood transfusions. Noted with iron deficiency. Continue iron supplement. 5. Homeless status. 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 6. Reviewed biomedical ethnic committee note and talked to caser and social media intern, awaiting for tele psych reevaluation Subjective 24 Hr Interval Summary Free Text/Dictation no distress, confused Exam/Review of Systems Vital Signs Vitals Vital Signs Date Time Temp Pulse Resp B/P Pulse Ox O2 Delivery O2 Flow Rate FiO2 01/10/17 12:40 87 01/10/17 11:34 98.0 18 110/68 93 Intake and Output 01/09/17 01/09/17 01/10/17 15:00 23:00 07:00 Intake Total 330 ml 575 ml 1190 ml Output Total 400 ml 300 ml Balance 330 ml 175 ml 890 ml Exam Constitutional: alert, well developed Head: atraumatic, normocephalic Eyes: EOMI, nl conjunctiva, nl lids ENMT: nl external ears & nose, nl lips & teeth Neck: non-tender, supple Respiratory: clear to auscultation, normal air movement, No congested cough, No crackles/rales, No diminished breath sounds, No intercostal retraction, No labored breathing, No other, No respirations, No tactile fremitus, No wheezing Cardiovascular: nl pulses, regular rate and rhythm, No S3, No S4, No bruits, No diastolic murmur, No edema, No gallop, No irregular rhythm, No jugular venous distention (JVD), No murmurs/extra sounds, No other, No rub, No systolic murmur Gastrointestinal: nl liver, spleen, non-tender, soft Musculoskeletal: nl extremities to inspection Extremities: normal pulses, No calf tenderness, No clubbing, No cyanosis, No edema, No other, No palpable cord, No pitting pedal edema, No tenderness Neurological: CHILD NEUROLOGIST II-XII intact, confused, nl speech, nl strength Results Result Diagram: 01/10/17 0744 01/10/17 0744 Results 24 hrs Laboratory Tests Test 01/10/17 07:44 White Blood Count 8.1 Red Blood Count 3.30 L Hemoglobin 8.4 L Hematocrit 27.9 L Mean Corpuscular Volume 84.5 Mean Corpuscular Hemoglobin 25.5 L Mean Corpuscular Hemoglobin Concent 30.1 L Red Cell Distribution Width 25.1 H Platelet Count 386 Mean Platelet Volume 11.0 H Neutrophils % 75.5 Lymphocytes % 14.2 L Monocytes % 8.4 Eosinophils % 1.5 Basophils % 0.2 Nucleated Red Blood Cells % 0.0 Neutrophils # 6.1 Lymphocytes # 1.1 Monocytes # 0.7 Eosinophils # 0.1 Basophils # 0.0 Nucleated Red Blood Cells # 0.0 Sodium Level 133 L Potassium Level 3.4 L Chloride Level 107 Carbon Dioxide Level 22 Anion Gap 7 L Blood Urea Nitrogen 5 L Creatinine 0.46 Glucose Level 52 #L Calcium Level 7.0 L Medications Medications Current Medications Ondansetron HCl (Zofran Inj) 4 mg Q6H PRN IV NAUSEA AND/OR VOMITING Last administered on 01/06/17 18:05; Admin Dose 4 MG; Start 12/23/16 at 17:30 Acetaminophen (Tylenol Tab) 650 mg Q6H PRN PO PAIN LEVEL 1-3 OR FEVER Last administered on 01/01/17 18:04; Admin Dose 650 MG; Start 12/23/16 at 17:30 Acetaminophen (Tylenol Supp) 650 mg Q6H PRN [place] PAIN LEVEL 1-3 OR FEVER; Start 12/23/16 at 17:30 Ferrous Gluconate (Fergon) 325 mg BID PO Last administered on 01/10/17 08:59; Admin Dose 325 MG; Start 12/24/16 at 21:00 Allopurinol (Zyloprim) 100 mg DAILY PO Last administered on 01/10/17 08:59; Admin Dose 100 MG; Start 12/25/16 at 09:00 Tramadol HCl (Ultram) 50 mg Q6H PRN PO PAIN LEVEL 1-3 Last administered on 12/28 20:53; Admin Dose 50 MG; Start 12/25/16 at 09:30 Alprazolam (Xanax) 0.5 mg Q8H PRN PO ANXIETY Last administered on 12/27/16 12: 29; Admin Dose 0.5 MG; Start 12/25/16 at 09:30 Morphine Sulfate (morphine) 4 mg Q4H PRN IV PAIN Last administered on 15:42; Admin Dose 4 MG; Start 12/29/16 at 05:40 Polyethylene Glycol (Miralax) 17 gm BID PO Last administered on 01/10/17 08:59 ; Admin Dose 17 GM; Start 01/02/17 at 21:00 Bisacodyl (Dulcolax) 10 mg DAILY PRN PO CONSTIPATION Last administered on 18:24; Admin Dose 10 MG; Start 01/02/17 at 18:00 Al Hydrox/Mg Hydrox/Simethicone (Mag-Al Plus) 30 ml Q4H PRN PO GASTROINTESTINAL UPSET; Start 01/03/17 at 18:00 Enoxaparin Sodium (Lovenox) 65 mg Q12 SC Last administered on 01/10/17 09:04; Admin Dose 65 MG; Start 01/04/17 at 09:30 Ondansetron HCl 4 mg 4 mg Q4H PRN IV NAUSEA AND/OR VOMITING; Start 01/05/17 at 21:00 Sodium Chloride (NS) 1,000 ml @ 75 mls/hr [id number] IV Last administered on 01/10 02:49; Admin Dose 75 MLS/HR; Start 01/09/17 at 12:30 LILIAM DINH MD Jan 10, 2017 15:15
--- NOTE | 2017-01-10 16:27 | PSY ---
Date/Time of Note Date/Time of Note DATE: 01/10/17 TIME: 16:20 Psychiatric Subjective Eval Consent Pt consented to telemedicine: Yes Subjective Evaluation Chief Complaint: Pt BIB RA for c/o suprapubic pain, uncertain of timeframe for pain. Reason for consult: Medication recommendation History of present illness Pt is a 71 year old female with cervical cancer with mets, sepsis, kidney disease and DVT was admitted inpatient. A psychiatry consult was placed on 01/01 and a diagnosis of delirium was made. Over the time, the patient has stabilized and she is ready to be transferred to a SNF/hospice care. A second psychiatry consult was requested to clear her for transfer and recommend medication for delusional thinking. Pt reports she is fine. She came in for pain. She still does not appear to understand the medical issues she is currently experiencing. She denies hallucinations and delusions. She denies issues with sleep. She does not feel paranoid. She reports she is not in pain and the hospital is taking good care of her. Pt was oriented to year and month. She does not appear aware that she will be going to a SNF or initiating hospice care. Past psychiatric history She admits to one episode of depression after the of a child. Hospitalization: no Family History Unknown Medical history Problems Medical Problems: (1) Sepsis Status: Acute (2) UTI (urinary tract infection) Status: Acute Allergies: Coded Allergies: No Known Allergy (Unverified , 12/23/16) Substance Abuse Substance use: No known substance abuse Social History Marital status: single Level of education: unknown DPA/Conservatorship: No Occupation/Senior Living: retired Psychiatric Objective Eval Physical Examination: Physical Examination: Applicable Sleep: Adequate Appetite: Adequate Energy: Decreased Mental Status Examination: Appearance: Groomed Eye Contact: Good Psychomotor Activity: Agitated Behavior: Friendly, Cooperative Speech: Clear, Soft AFFECT: Appropriate Mood: Appropriate/Full Though Process: Linear Thought Content: Normal Suicidal: No Homicidal: No On 72 hour hold: No Orientation: x3 Cognition: Alert Insight: Impared Judgement: Impared Laboratory Results Laboratory Tests Test 01/09/17 06:16 01/10/17 07:44 White Blood Count 7.910^3/ul 8.110^3/ul Red Blood Count 3.1310^6/ul 3.3010^6/ul Hemoglobin 8.0g/dl 8.4g/dl Hematocrit 26.1% 27.9% Mean Corpuscular Volume 83.4fl 84.5fl Mean Corpuscular Hemoglobin 25.6pg 25.5pg Mean Corpuscular Hemoglobin Concent 30.7g/dl 30.1g/dl Red Cell Distribution Width 24.9% 25.1% Platelet Count 00750^3/UL 80355^3/UL Mean Platelet Volume 11.3fl 11.0fl Neutrophils % 75.8% 75.5% Lymphocytes % 12.8% 14.2% Monocytes % 9.1% 8.4% Eosinophils % 1.9% 1.5% Basophils % 0.1% 0.2% Nucleated Red Blood Cells % 0.0/100WBC 0.0/100WBC Neutrophils # 6.010^3/ul 6.110^3/ul Lymphocytes # 1.010^3/ul 1.110^3/ul Monocytes # 0.710^3/ul 0.710^3/ul Eosinophils # 0.210^3/ul 0.110^3/ul Basophils # 0.010^3/ul 0.010^3/ul Nucleated Red Blood Cells # 0.010^3/ul 0.010^3/ul Sodium Level 130mmol/L 133mmol/L Potassium Level 3.4mmol/L 3.4mmol/L Chloride Level 105mmol/L 107mmol/L Carbon Dioxide Level 24mmol/L 22mmol/L Anion Gap 4 7 Blood Urea Nitrogen 7mg/dl 5mg/dl Creatinine 0.49mg/dl 0.46mg/dl Glucose Level 72mg/dl 52mg/dl Calcium Level 7.1mg/dl 7.0mg/dl Assessment and Plan Assessment/Diagnosis [place] I: Delirium - resolving (can wax and wane however) but is most likely responsible for transient delusional/psychosis Recommendation/Plan Medication Management Given her presentation today, I would not start any psychotropics. However, if she has fear or agitation or psychosis, can start low dose Zyprexa 2.5mg qhs and titrate to effect. Psychotherapy Brief support Pt. Caregiver/Family Education NA Follow-up/Disposition Pt appears stable for discharge to SNF from a psychiatric standpoint. LALO HAUSER Jan 10, 2017 16:26
--- NOTE | 2017-01-10 17:57 | CONS ---
Date/Time of Note Date/Time of Note DATE: 01/10/17 TIME: 17:57 Assessment/Plan Assessment/Plan Chief Complaint/Hosp Course WIDE- SPREAD METASTATIC CERVICAL CANCER ( CLINICAL DX) WITH LARGE CERVICAL MASS , Large periaortic retroperitoneal and intraabdominal lymphadenopathy, right adrenal mass, mass in the liver, L2 and L1 mets, pos L4-5 epidural tumoral involvement in 71 yo F with multiple medical problems, including incompetency ( inability to make a decisions), poor PS, extensive DVT, hypercalcemia and multiple social issues ( homeless, no family support) I WOULD STRONGLY RECOMMEND TO PROCEED WITH COMFORT CARE AND HOSPICE EVAL FOR THIS PT WITH ALL AFOREMENTIONED ISSUES I THINK IT IS HIGHLY UNETHICAL TO RECOMMEND AGGRESSIVE APPROACH FOR TREATMENT FOR PT WITHOUT MENTAL CAPACITY TO MAKE DECISIONS, SINCE IT IS A VERY HIGH- RISK TREATMENT WITH POTENTIAL LIFE- THREATENING COMPLICATIONS Bioethics committee recommended -1. Telepsych re-eval for psychiatric medication recommendation 2. Change code status to DNR 3. Proceed with palliative care/comfort care measures in consideration of hospice if a hospice agency is willing to admit pt without family to consent. 4. Transfer pt to an accepting SNF for continuation of care. Extensive deep venous thrombosis involving the right and left common femoral vein, right and left femoral vein, right and left popliteal vein. heparin ok for lovenox post bx Anemia. MICROCYTIC WITH INCREASED RDW complete ANEMIA W-UP iron studies. - C/W ACD, pos FE DEF Transfuse for hemoglobin less than 7. IV IRON INCREASED URIC ACID CONT ALLOPURINOL RENAL DOSE HYPERCALCEMIA IMPROVED WITH HYDRATION Sepsis UTI. Acute renal insufficiency. Hyperkalemia. Mild hyponatremia. Problems: Consultation Date/Type/Reason Admit Date/Time Dec 23, 2016 at 19:24 Initial Consult Date 12/23/16 [facility] Referring Provider: RACIEL CAIN 24 HR Interval Summary Free Text/Dictation ALL NOTED NAD Exam/Review of Systems Vital Signs Vitals Vital Signs Date Time Temp Pulse Resp B/P Pulse Ox O2 Delivery O2 Flow Rate FiO2 01/10/17 16:07 98.6 94 18 110/68 98 Intake and Output 01/09/17 01/09/17 01/10/17 15:00 23:00 07:00 Intake Total 330 ml 575 ml 1190 ml Output Total 400 ml 300 ml Balance 330 ml 175 ml 890 ml Exam Constitutional: alert Psych: anxiety Head: normocephalic Neck: supple Respiratory: clear to auscultation Cardiovascular: other (Regular rate to tachycardic) Gastrointestinal: soft, tender Musculoskeletal: swelling (Minimally bilateral lower extremities) Neurological: nl mental status, nl speech Results Result Diagram: 01/10/17 0744 01/10/17 0744 Results 24 hrs Laboratory Tests Test 01/10/17 07:44 White Blood Count 8.1 Red Blood Count 3.30 L Hemoglobin 8.4 L Hematocrit 27.9 L Mean Corpuscular Volume 84.5 Mean Corpuscular Hemoglobin 25.5 L Mean Corpuscular Hemoglobin Concent 30.1 L Red Cell Distribution Width 25.1 H Platelet Count 386 Mean Platelet Volume 11.0 H Neutrophils % 75.5 Lymphocytes % 14.2 L Monocytes % 8.4 Eosinophils % 1.5 Basophils % 0.2 Nucleated Red Blood Cells % 0.0 Neutrophils # 6.1 Lymphocytes # 1.1 Monocytes # 0.7 Eosinophils # 0.1 Basophils # 0.0 Nucleated Red Blood Cells # 0.0 Sodium Level 133 L Potassium Level 3.4 L Chloride Level 107 Carbon Dioxide Level 22 Anion Gap 7 L Blood Urea Nitrogen 5 L Creatinine 0.46 Glucose Level 52 #L Calcium Level 7.0 L Medications Medications Current Medications Ondansetron HCl (Zofran Inj) 4 mg Q6H PRN IV NAUSEA AND/OR VOMITING Last administered on 01/06/17 18:05; Admin Dose 4 MG; Start 12/23/16 at 17:30 Acetaminophen (Tylenol Tab) 650 mg Q6H PRN PO PAIN LEVEL 1-3 OR FEVER Last administered on 01/01/17 18:04; Admin Dose 650 MG; Start 12/23/16 at 17:30 Acetaminophen (Tylenol Supp) 650 mg Q6H PRN [place] PAIN LEVEL 1-3 OR FEVER; Start 12/23/16 at 17:30 Ferrous Gluconate (Fergon) 325 mg BID PO Last administered on 01/10/17 08:59; Admin Dose 325 MG; Start 12/24/16 at 21:00 Allopurinol (Zyloprim) 100 mg DAILY PO Last administered on 01/10/17 08:59; Admin Dose 100 MG; Start 12/25/16 at 09:00 Tramadol HCl (Ultram) 50 mg Q6H PRN PO PAIN LEVEL 1-3 Last administered on 12/28 20:53; Admin Dose 50 MG; Start 12/25/16 at 09:30 Alprazolam (Xanax) 0.5 mg Q8H PRN PO ANXIETY Last administered on 12/27/16 12: 29; Admin Dose 0.5 MG; Start 12/25/16 at 09:30 Morphine Sulfate (morphine) 4 mg Q4H PRN IV PAIN Last administered on 15:42; Admin Dose 4 MG; Start 12/29/16 at 05:40 Polyethylene Glycol (Miralax) 17 gm BID PO Last administered on 01/10/17 08:59 ; Admin Dose 17 GM; Start 01/02/17 at 21:00 Bisacodyl (Dulcolax) 10 mg DAILY PRN PO CONSTIPATION Last administered on 18:24; Admin Dose 10 MG; Start 01/02/17 at 18:00 Al Hydrox/Mg Hydrox/Simethicone (Mag-Al Plus) 30 ml Q4H PRN PO GASTROINTESTINAL UPSET; Start 01/03/17 at 18:00 Enoxaparin Sodium (Lovenox) 65 mg Q12 SC Last administered on 01/10/17 09:04; Admin Dose 65 MG; Start 01/04/17 at 09:30 Ondansetron HCl 4 mg 4 mg Q4H PRN IV NAUSEA AND/OR VOMITING; Start 01/05/17 at 21:00 Sodium Chloride (NS) 1,000 ml @ 75 mls/hr [id number] IV Last administered on 01/10 16:21; Admin Dose 75 MLS/HR; Start 01/09/17 at 12:30 KEATON METZ MD Jan 10, 2017 17:57
--- NOTE | 2017-01-10 21:43 | CONS ---
Date/Time of Note Date/Time of Note DATE: 01/10/17 TIME: 21:41 Consultation Date/Type/Reason Admit Date/Time Dec 23, 2016 at 19:24 Initial Consult Date 12/23/16 Type of Consultation: GynOnc Reason for Consultation Resting and adequate pain control. Attempted to communicate again about biopsy but not possible. Agree with bioethics issue and palliative care/hospice in SNF. I will be available PRN. Referring Provider: RACIEL CAIN Exam/Review of Systems Vital Signs Vitals Vital Signs Date Time Temp Pulse Resp B/P Pulse Ox O2 Delivery O2 Flow Rate FiO2 01/10/17 20:09 93 01/10/17 19:58 98.0 18 109/62 97 Intake and Output 01/09/17 01/09/17 01/10/17 15:00 23:00 07:00 Intake Total 330 ml 575 ml 1190 ml Output Total 400 ml 300 ml Balance 330 ml 175 ml 890 ml Results Result Diagram: 01/10/17 0744 01/10/17 0744 Results 24 hrs Laboratory Tests Test 01/10/17 07:44 White Blood Count 8.1 Red Blood Count 3.30 L Hemoglobin 8.4 L Hematocrit 27.9 L Mean Corpuscular Volume 84.5 Mean Corpuscular Hemoglobin 25.5 L Mean Corpuscular Hemoglobin Concent 30.1 L Red Cell Distribution Width 25.1 H Platelet Count 386 Mean Platelet Volume 11.0 H Neutrophils % 75.5 Lymphocytes % 14.2 L Monocytes % 8.4 Eosinophils % 1.5 Basophils % 0.2 Nucleated Red Blood Cells % 0.0 Neutrophils # 6.1 Lymphocytes # 1.1 Monocytes # 0.7 Eosinophils # 0.1 Basophils # 0.0 Nucleated Red Blood Cells # 0.0 Sodium Level 133 L Potassium Level 3.4 L Chloride Level 107 Carbon Dioxide Level 22 Anion Gap 7 L Blood Urea Nitrogen 5 L Creatinine 0.46 Glucose Level 52 #L Calcium Level 7.0 L Medications Medications Current Medications Ondansetron HCl (Zofran Inj) 4 mg Q6H PRN IV NAUSEA AND/OR VOMITING Last administered on 01/06/17 18:05; Admin Dose 4 MG; Start 12/23/16 at 17:30 Acetaminophen (Tylenol Tab) 650 mg Q6H PRN PO PAIN LEVEL 1-3 OR FEVER Last administered on 01/01/17 18:04; Admin Dose 650 MG; Start 12/23/16 at 17:30 Acetaminophen (Tylenol Supp) 650 mg Q6H PRN [place] PAIN LEVEL 1-3 OR FEVER; Start 12/23/16 at 17:30 Ferrous Gluconate (Fergon) 325 mg BID PO Last administered on 01/10/17 20:30; Admin Dose 325 MG; Start 12/24/16 at 21:00 Allopurinol (Zyloprim) 100 mg DAILY PO Last administered on 01/10/17 08:59; Admin Dose 100 MG; Start 12/25/16 at 09:00 Tramadol HCl (Ultram) 50 mg Q6H PRN PO PAIN LEVEL 1-3 Last administered on 12/28 20:53; Admin Dose 50 MG; Start 12/25/16 at 09:30 Alprazolam (Xanax) 0.5 mg Q8H PRN PO ANXIETY Last administered on 12/27/16 12: 29; Admin Dose 0.5 MG; Start 12/25/16 at 09:30 Morphine Sulfate (morphine) 4 mg Q4H PRN IV PAIN Last administered on 15:42; Admin Dose 4 MG; Start 12/29/16 at 05:40 Polyethylene Glycol (Miralax) 17 gm BID PO Last administered on 01/10/17 20:31 ; Admin Dose 17 GM; Start 01/02/17 at 21:00 Bisacodyl (Dulcolax) 10 mg DAILY PRN PO CONSTIPATION Last administered on 18:24; Admin Dose 10 MG; Start 01/02/17 at 18:00 Al Hydrox/Mg Hydrox/Simethicone (Mag-Al Plus) 30 ml Q4H PRN PO GASTROINTESTINAL UPSET; Start 01/03/17 at 18:00 Enoxaparin Sodium (Lovenox) 65 mg Q12 SC Last administered on 01/10/17 20:36; Admin Dose 65 MG; Start 01/04/17 at 09:30 Ondansetron HCl 4 mg 4 mg Q4H PRN IV NAUSEA AND/OR VOMITING; Start 01/05/17 at 21:00 Sodium Chloride (NS) 1,000 ml @ 75 mls/hr [id number] IV Last administered on 01/10 16:21; Admin Dose 75 MLS/HR; Start 01/09/17 at 12:30 ANDREW YANES MD Jan 10, 2017 21:43
[2017-01-11] VITALS (10 sets, daily range): BP systolic 103–127; BP diastolic 55–74; PULSE 90–95; RESP 18–19
[2017-01-11] MEDS: SOD CHLORIDE 0.9% 1,000 ML IV SCH (05:57)
[2017-01-11] MEDS: POLYETHYLENE GLYCOL 17 GM PACKET PO SCH (08:15)
[2017-01-11] MEDS: FERROUS GLUCONATE (EC) 325 MG TAB PO SCH (08:15)
[2017-01-11] MEDS: ALLOPURINOL 100 MG TAB PO SCH (08:15)
[2017-01-11] MEDS: ENOXAPARIN 80 MG/0.8 ML SYG SC SCH (08:20)
[2017-01-11 09:22] LABS: ABNORMAL IP MESSAGE 1; BASOPHILS % 0.3 % (0.0-2.0); EOSINOPHILS # 0.1 10^3/ul (0.0-0.5); EOSINOPHILS % 1.5 % (0.0-7.0); HEMATOCRIT 28.6 % (37.0-47.0); HEMOGLOBIN 8.6 g/dl (12.0-16.0); LYMPHOCYTES # 1.2 10^3/ul (0.8-2.9); LYMPHOCYTES % 13.1 % (15.0-51.0); MEAN CORPUSCULAR HEMOGLOBIN 25.7 pg (29.0-33.0); MEAN CORPUSCULAR HGB CONC 30.1 g/dl (32.0-37.0); MEAN CORPUSCULAR VOLUME 85.6 fl (82.0-101.0); MEAN PLATELET VOLUME 9.7 fl (7.4-10.4); MONOCYTE # 0.6 10^3/ul (0.3-0.9); MONOCYTES % 6.7 % (0.0-11.0); NEUTROPHIL # 6.9 10^3/ul (1.6-7.5); NEUTROPHILS % 78.2 % (39.0-77.0); PLATELET COUNT 429 10^3/UL (140-415); RED BLOOD COUNT 3.34 10^6/ul (4.20-5.40); RED CELL DISTRIBUTION WIDTH 25.3 % (11.5-14.5); WHITE BLOOD COUNT 8.8 10^3/ul (4.8-10.8)
[2017-01-11 09:26] LABS: POSITIVE DIFF @See below
[2017-01-11 09:44] LABS: CALCIUM 7.1 mg/dl (8.4-10.2); CREATININE 0.49 mg/dl (0.44-1.00); POTASSIUM 3.4 mmol/L (3.5-5.1)
[2017-01-11] MEDS ORDERED: DEXTROSE 50% 50 ML SYRINGE ONE (09:52)
[2017-01-11] MEDS ORDERED: D5-NS + KCL 20 MEQ 1,000 ML IV SCH (10:30)
[2017-01-11] MEDS ORDERED: DEXTROSE 50% 50 ML SYRINGE IV ONE ×3 (11:00→15:00)
[2017-01-11] MEDS ORDERED: FERGON PO (11:34)
[2017-01-11] MEDS ORDERED: ALLO100T PO (11:34)
[2017-01-11] MEDS ORDERED: ONDA4VIA2 IV (11:34)
[2017-01-11] MEDS ORDERED: TRAM50TA2 PO (11:34)
[2017-01-11] MEDS ORDERED: ENOX80DI10 SC (11:34)
[2017-01-11] MEDS ORDERED: MORP4CAR IV (11:34)
[2017-01-11] MEDS ORDERED: ALPR0.254 PO (11:34)
[2017-01-11] MEDS ORDERED: POLY17PO6 PO (11:34)
[2017-01-11] MEDS: ONDANSETRON 4 MG INJ IV PRN (12:46)
--- NOTE | 2017-01-11 16:36 | PDOCDIS ---
Discharge Instructions DIAGNOSIS Discharge Diagnosis 1. 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 Patient with clinical findings suspicious for malignancy or metastasis. 2. Sepsis with underlying urinary tract infection. 3. Extensive DVT involving the right and left common femoral and right and left femoral as well as right and left popliteal vein. 4. Anemia. Patient status post blood transfusions. Noted with iron deficiency. 5. Homeless status. CONDITION Patient Condition: Guarded HOME CARE INSTRUCTIONS: Special Diet: Cardiac OTHER ORDERS: Other Orders: Further care and management per hospice facility RACIEL CAIN Jan 11, 2017 16:36
--- NOTE | 2017-01-11 17:05 | CONS ---
Date/Time of Note Date/Time of Note DATE: 01/11/17 TIME: 17:04 Assessment/Plan Assessment/Plan Chief Complaint/Hosp Course WIDE- SPREAD METASTATIC CERVICAL CANCER ( CLINICAL DX) WITH LARGE CERVICAL MASS , Large periaortic retroperitoneal and intraabdominal lymphadenopathy, right adrenal mass, mass in the liver, L2 and L1 mets, pos L4-5 epidural tumoral involvement in 71 yo F with multiple medical problems, including incompetency ( inability to make a decisions), poor PS, extensive DVT, hypercalcemia and multiple social issues ( homeless, no family support) I WOULD STRONGLY RECOMMEND TO PROCEED WITH COMFORT CARE AND HOSPICE EVAL FOR THIS PT WITH ALL AFOREMENTIONED ISSUES I THINK IT IS HIGHLY UNETHICAL TO RECOMMEND AGGRESSIVE APPROACH FOR TREATMENT FOR PT WITHOUT MENTAL CAPACITY TO MAKE DECISIONS, SINCE IT IS A VERY HIGH- RISK TREATMENT WITH POTENTIAL LIFE- THREATENING COMPLICATIONS Bioethics committee recommended -1. Telepsych re-eval for psychiatric medication recommendation 2. Change code status to DNR 3. Proceed with palliative care/comfort care measures in consideration of hospice if a hospice agency is willing to admit pt without family to consent. 4. Transfer pt to an accepting SNF for continuation of care. Extensive deep venous thrombosis involving the right and left common femoral vein, right and left femoral vein, right and left popliteal vein. heparin ok for lovenox post bx Anemia. MICROCYTIC WITH INCREASED RDW complete ANEMIA W-UP iron studies. - C/W ACD, pos FE DEF Transfuse for hemoglobin less than 7. IV IRON INCREASED URIC ACID CONT ALLOPURINOL RENAL DOSE HYPERCALCEMIA IMPROVED WITH HYDRATION Sepsis UTI. Acute renal insufficiency. Hyperkalemia. Mild hyponatremia. Problems: Consultation Date/Type/Reason Admit Date/Time Dec 23, 2016 at 19:24 Initial Consult Date 12/23/16 Type of Consultation: [facility] Referring Provider: RACIEL CAIN 24 HR Interval Summary Free Text/Dictation ALL NOTED NO NEW EVENTS Exam/Review of Systems Vital Signs Vitals Vital Signs Date Time Temp Pulse Resp B/P Pulse Ox O2 Delivery O2 Flow Rate FiO2 01/11/17 16:08 95 01/11/17 15:46 98.3 19 106/58 96 Intake and Output 01/10/17 01/10/17 01/11/17 15:00 23:00 07:00 Intake Total 1200 ml 975 ml Output Total 200 ml Balance 1000 ml 975 ml Exam Constitutional: alert Psych: anxiety Head: normocephalic Neck: supple Respiratory: clear to auscultation Cardiovascular: other (Regular rate to tachycardic) Gastrointestinal: soft, tender Musculoskeletal: swelling (Minimally bilateral lower extremities) Neurological: nl mental status, nl speech Results Result Diagram: 01/11/17 0909 01/11/17 0909 Results 24 hrs Laboratory Tests Test 01/11/17 09:09 01/11/17 09:49 01/11/17 10:42 01/11/17 12:25 White Blood Count 8.8 Red Blood Count 3.34 L Hemoglobin 8.6 L Hematocrit 28.6 L Mean Corpuscular Volume 85.6 Mean Corpuscular Hemoglobin 25.7 L Mean Corpuscular Hemoglobin Concent 30.1 L Red Cell Distribution Width 25.3 H Platelet Count 429 H Mean Platelet Volume 9.7 Neutrophils % 78.2 H Lymphocytes % 13.1 L Monocytes % 6.7 Eosinophils % 1.5 Basophils % 0.3 Nucleated Red Blood Cells % 0.0 Neutrophils # 6.9 Lymphocytes # 1.2 Monocytes # 0.6 Eosinophils # 0.1 Basophils # 0.0 Nucleated Red Blood Cells # 0.0 Sodium Level 134 L Potassium Level 3.4 L Chloride Level 109 Carbon Dioxide Level 16 L Anion Gap 12 Blood Urea Nitrogen 4 L Creatinine 0.49 Glucose Level 36 #*L Calcium Level 7.1 L Bedside Glucose 35 *L 80 45 *L Test 01/11/17 14:50 01/11/17 15:25 Bedside Glucose 60 L 117 Medications Medications Current Medications Ondansetron HCl (Zofran Inj) 4 mg Q6H PRN IV NAUSEA AND/OR VOMITING Last administered on 01/11/17 12:46; Admin Dose 4 MG; Start 12/23/16 at 17:30 Acetaminophen (Tylenol Tab) 650 mg Q6H PRN PO PAIN LEVEL 1-3 OR FEVER Last administered on 01/01/17 18:04; Admin Dose 650 MG; Start 12/23/16 at 17:30 Acetaminophen (Tylenol Supp) 650 mg Q6H PRN [place] PAIN LEVEL 1-3 OR FEVER; Start 12/23/16 at 17:30 Ferrous Gluconate (Fergon) 325 mg BID PO Last administered on 01/11/17 08:15; Admin Dose 325 MG; Start 12/24/16 at 21:00 Allopurinol (Zyloprim) 100 mg DAILY PO Last administered on 01/11/17 08:15; Admin Dose 100 MG; Start 12/25/16 at 09:00 Tramadol HCl (Ultram) 50 mg Q6H PRN PO PAIN LEVEL 1-3 Last administered on 12/28 20:53; Admin Dose 50 MG; Start 12/25/16 at 09:30 Alprazolam (Xanax) 0.5 mg Q8H PRN PO ANXIETY Last administered on 12/27/16 12: 29; Admin Dose 0.5 MG; Start 12/25/16 at 09:30 Morphine Sulfate (morphine) 4 mg Q4H PRN IV PAIN Last administered on 15:42; Admin Dose 4 MG; Start 12/29/16 at 05:40 Polyethylene Glycol (Miralax) 17 gm BID PO Last administered on 01/11/17 08:15 ; Admin Dose 17 GM; Start 01/02/17 at 21:00 Bisacodyl (Dulcolax) 10 mg DAILY PRN PO CONSTIPATION Last administered on 18:24; Admin Dose 10 MG; Start 01/02/17 at 18:00 Al Hydrox/Mg Hydrox/Simethicone (Mag-Al Plus) 30 ml Q4H PRN PO GASTROINTESTINAL UPSET; Start 01/03/17 at 18:00 Enoxaparin Sodium (Lovenox) 65 mg Q12 SC Last administered on 01/11/17 08:20; Admin Dose 65 MG; Start 01/04/17 at 09:30 Ondansetron HCl 4 mg 4 mg Q4H PRN IV NAUSEA AND/OR VOMITING; Start 01/05/17 at 21:00 Potassium Chloride/Dextrose/ Sod Cl (D5-NS + KCl 20 Meq) 1,000 ml @ 75 mls/hr [id number] IV Last administered on 01/11/17 10:53; Admin Dose 75 MLS/HR; Start at 10:30 KEATON METZ MD Jan 11, 2017 17:05
--- NOTE | 2017-01-14 13:34 | DS ---
Date/Time of Note Date/Time of Note DATE: 01/14/17 TIME: 13:24 Discharge Summary Admission/Discharge Info Admit Date/Time Dec 23, 2016 at 19:24 Discharge Date/Time Jan 11, 2017 at 17:12 Discharge Diagnosis 1. 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 Patient with clinical findings suspicious for malignancy or metastasis. 2. Sepsis with underlying urinary tract infection. 3. Extensive DVT involving the right and left common femoral and right and left femoral as well as right and left popliteal vein. 4. Anemia. Patient status post blood transfusions. Noted with iron deficiency. 5. Homeless status. Patient Condition: Stable Consults 1. Dr. Daniel Santana 2. Dr. Jewels Fernandez 3. Dr. Jose Maria Rubin 4. Dr. Edvin Lieberman Hx of Present Illness This is a 71-year-old female who is a poor historian of her medical history came [facility] due to reports of pelvic pain as well as back pain. Patient at this time is unable to give us an accurate story of how long she has been having pain however when she was brought to [facility] she was noted to have pain on palpation of abdominal area more notably on the lower area towards her pelvis. She did have laboratory work drawn that did show her to have a white count of 14.2 hemoglobin of 7.9 hematocrit 26.4 and platelets of 405. On her chemistry she was seen at have sodium 133 potassium of five-point be some acute renal insufficiency with BUN of 62 and creatinine of 1.67. She is noted to be homeless as well. Urinalysis also showed her to have positive leukocyte esterase test suggestive of UTI. She did have abdominal imaging that did show her to have large mass in the uterine cervix with necrosis suspect for cervical carcinoma. Additionally there was seen large periaortic retroperitoneal lymphadenopathy, likely metastatic. There is also seen moderate metastatic lymphadenopathy along the mesenteric root and peripancreatic and arleen hepatis lymphadenopathy. There is also retrocrural metastatic lymphadenopathy and moderate right iliac and mild left iliac lymphadenopathy metastatic. Additionally there is also seen a 2.5 cm x 2.0 cm right adrenal mass and a 3 cm x 2.2 cm adrenal mass on the left side. 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 Patient has been complaining of a merely low back pain and considering her findings it is likely metastatic. She denies any pelvic pain but that she does guard on palpation. She remains afebrile at present. She is also reported to be homeless as well. We will evaluate her for the aformentiond issues. Hospital Course This is a 71-year-old female who is a poor historian of her medical history who came to [facility] due to reports of pelvic pain as well as back pain. Patient when she came into the hospital was unable to give an accurate story of how long she had been having the pain but was brought to the hospital due to worsening symptoms. On lab work she was found to have leukocytosis with white count of 14.2 she was also noted to be anemic. She also had some electrolyte imbalance likely secondary to dehydration. She is also seen with acute renal insufficiency. For her pain we did get abdominal imaging that did show her to have a large mass in the uterine cervix with necrosis suspect for cervical carcinoma. There is additionally seen large periaortic retroperitoneal lymphadenopathy likely metastatic. There is also seen moderate metastatic lymphadenopathy along the anterior group and peripancreatic and arleen hepatis lymphadenopathy. There is also seen retrocrural metastatic lymphadenopathy and moderate right iliac and mild left iliac lymphadenopathy metastatic. Additionally there was also seen a 2.5 cm x 2.0 cm right adnexal mass and a 3 cm x 2.2 cm adnexal mass in the left side. She also had a mass seen on inferior liver likely metastatic and osteolytic metastatic lesions involving L2 and L1 vertebral bodies. Patient did have complex stay she did have multiple health issues occurring. She had multiple consultants including surgical oncologist and medical oncologist. She is also seen by infectious disease for her UTI with sepsis. Patient was optimized medically. She was offered for biopsy of vaginal mass however she had been refusing. Due to her underlying mentation we did get teleps to evaluate the patientychiatrist to assess if patient was able to make coherent decisions about her medical health. We did have a bioethics meeting to discuss her case and after full discussion the bioethics committee did decide for patient to be DNR with best position to be placed in palliative care considering her widely metastatic suspect malignancy. She was placed on antibiotics for her sepsis and she did have good response and this did resolve. She was also continue with analgesics to help her with her pain and she did report resolution of this as well. She was noted to be anemic with iron deficiency and we did start her on iron supplement and she did receive blood transfusions to help her. She was noted to be homeless as well and was seen by social work nurse. During the course of stay she was optimized medically she did report resolution of her pain. We did plan with case management and multiple disciplines for patient to be transferred [facility] with palliative care. The plan of care was discussed with the patient. On the day of discharge patient was in stable condition Discussed plan of care with Dr. See [facility] Active Script[facility] Ondansetron Hcl* (Ondansetron Hcl* Inj) 4 Mg/2 Ml Vial, 4 MG IV Q6H Y for NAUSEA AND/OR VOMITING for 30 Days, VIAL Prov:RACIEL CAIN 01/11/17 Tramadol HCl (Tramadol HCl) 50 Mg Tablet, 50 MG PO Q6H Y for PAIN LEVEL 1-3 for 30 Days, TAB Prov:RACIEL CAIN 01/11/17 Polyethylene Glycol* (Miralax*) 17 Gm Powd.pack, 17 GM PO BID for 30 Days Prov:RACIEL CAIN 01/11/17 Morphine Sulfate* (Morphine*) 4 Mg/1 Ml Cartridge, 4 MG IV Q4H Y for PAIN for 30 Days Prov:RACIEL CAIN 01/11/17 Ferrous Gluconate* (Fergon*) 325 Mg Tab, 325 MG PO BID for 30 Days, TAB Prov:RACIEL CAIN 01/11/17 Enoxaparin Sodium (Enoxaparin Sodium) 80 Mg/0.8 Ml Syringe, 65 MG SC Q12 for 30 Days Prov:RACIEL CAIN 01/11/17 Alprazolam* (Alprazolam*) 0.25 Mg Tablet, 0.5 MG PO Q8H Y for ANXIETY, #30 TAB Prov:RACIEL CAIN 01/11/17 Allopurinol* (Allopurinol*) 100 Mg Tablet, 100 MG PO DAILY for 30 Days, TAB Prov:RACIEL CAIN 01/11/17 Follow-up Plan Further care management per [facility] Primary Care Provider Not On Staff Doctor Time spent on discharge: > 30 minutes RACIEL CAIN Jan 14, 2017 13:34
== END 2017-01-11 17:12 | disposition hospice, inpatient (51) | DRG 754 ==
LOC: EDBD 10:54 → E/R 10:54 → MS4 19:24 → EDBD 19:24 → MS4 12-31 11:30
PROVIDERS: ADMIT Internal Medicine; ATTEND Internal Medicine
DX: C53.9 Malignant neoplasm of cervix uteri, unspecified (principal); A41.9 Sepsis, unspecified organism; E87.0 Hyperosmolality and hypernatremia; C78.6 Secondary malignant neoplasm of retroperitoneum and peritoneum; C77.2 Secondary and unspecified malignant neoplasm of intra-abdominal lymph nodes; I82.413 Acute embolism and thrombosis of femoral vein, bilateral; C78.7 Secondary malignant neoplasm of liver and intrahepatic bile duct; C79.51 Secondary malignant neoplasm of bone; B96.1 Klebsiella pneumoniae [K. pneumoniae] as the cause of diseases classified elsewhere; N39.0 Urinary tract infection, site not specified; I82.433 Acute embolism and thrombosis of popliteal vein, bilateral; E87.1 Hypo-osmolality and hyponatremia; E83.52 Hypercalcemia; N28.9 Disorder of kidney and ureter, unspecified; D50.9 Iron deficiency anemia, unspecified; E86.0 Dehydration; E87.5 Hyperkalemia; Z59.0 Homelessness
CPT/HCPCS: 36415; 36430; 36600; 70450; 72131; 74176; 76775; 76856; 80048; 80053; 80061; 80306; 80307; 81001; 81003; 82270; 82306; 82378; 82436; 82570; 82607; 82728; 82746; 82803; 82962; 83036; 83540; 83605; 83615; 83690; 83735; 84100; 84133; 84155; 84300; 84436; 84443; 84479; 84560; 85025; 85045; 85610; 85651; 85730; 86304; 86850; 86900; 86901; 86920; 87040; 87086; 93005; 93306; 93970; 96374; 96375; 96376; J2430; J0696; J1644; J2270; J2405; J2916; J3475; J3480; J7030; J7040; J7050; J7070; P9016